=== PATIENT | female | born 1965 | race Caucasian/White ===

== ENCOUNTER 2019-06-09 12:24 | Emergency (ER) | payer BC ==
[~2019-06-09] VITALS: Ht 167.6 cm; Wt 97.5 kg
[2019-06-09] MEDS ORDERED: LIPITOR20 MG PO (13:49)
[2019-06-09] MEDS ORDERED: ZITHROMAX250 MG PO (14:05)
== END 2019-06-09 14:13 | disposition home or self-care (01) ==
LOC: ED 12:24
DX: J32.9 Chronic sinusitis, unspecified (principal); Z88.8 Allergy status to other drugs, medicaments and biological substances; Z88.5 Allergy status to narcotic agent; Z79.899 Other long term (current) drug therapy
CPT/HCPCS: 99283

== ENCOUNTER 2019-08-15 01:03 | Emergency (ER) | payer BC ==
[~2019-08-15] VITALS: Ht 167.6 cm; Wt 97.5 kg
[~2019-08-15 01:03] MED LIST: LIPITOR20 MG PO; ZITHROMAX250 MG PO
== END 2019-08-15 02:45 | disposition home or self-care (01) ==
LOC: ED 01:03
DX: R51 Headache (principal); Z88.8 Allergy status to other drugs, medicaments and biological substances; Z88.5 Allergy status to narcotic agent; Z79.899 Other long term (current) drug therapy
CPT/HCPCS: 70450; 96361; 96374; 96375; 99284-25; J1200; J1885; J2405; J7030

== ENCOUNTER 2019-12-01 17:29 | Emergency (ER) | payer BC ==
[~2019-12-01] VITALS: Ht 167.6 cm; Wt 97.5 kg
--- OUTSIDE RECORDS SUMMARY | ~2019-12-01 | XMS | Encounter Summary ---
Demographics + + + | Address | [address] | | | [place] [address] | + + + | Home Phone | | + + + | Preferred Language | Unknown | + + + | Marital Status | | + + + | Restorationism Affiliation | CHR | + + + | Race | White | + + + | Ethnic Group | Not or | + + + Author + + + | Author | [facility] | + + + | Organization | [facility] | + + + | Address | Unknown | + + + | Phone | Unavailable | + + + Support + + + + + | Name | Relationship | Address | Phone | + + + + + | Osei Bhandari Sr. | ECON | [address] | | | | | [place] | | | | | [address] | | + + + + + Care Team Providers + +------+ + | Care Inspection Clerk Name | Role | Phone | + +------+ + | Royer Wilde MD | PCP | | + +------+ + Reason for Visit + + + | Reason | Comments | + + + | Radiology Order | | + + + Encounter Details +--------+ + + + + | Date | Type | Department | Care Team | Description | +--------+ + + + + | 10/08/ | Telephone | [facility] | Jessica Davis, | Radiology Order | | 2015 | | [facility] [address] | [address] | | | | | [address] | [facility] [address] | | | | | Mailcode: Center | [place], [place] | | | | | [facility] and | [address] | | | | | [facility] | [phone] | | | | | [place], [place] | | | | | | [address] | | | | | | [phone] | | | +--------+ + + + + Social History + + + +--------+ + | Tobacco Use | Types | Packs/Day | Years | Date | | | | | Used | | + + + +--------+ + | Former Smoker | Cigarettes | 1 | 1 | Quit: 07/24/1978 | + + + +--------+ + + +---+---+---+ | Smokeless Tobacco: | | | | | Never Used | | | | + +---+---+---+ + + +---------+ + | Alcohol Use | Drinks/Week | oz/Week | Comments | + + +---------+ + | No | | | | + + +---------+ + + + + | Sex Assigned at | Date Recorded | | | | + + + | Not on file | | + + + + + + + | Job Start Date | Occupation | Industry | + + + + | Not on file | Not on file | Not on file | + + + + + + + + | Travel History | Travel Start | Travel End | + + + + + + | No recent travel history available. | + + documented as of this encounter Plan of Treatment Not on filedocumented as of this encounter Visit Diagnoses Not on filedocumented in this encounter"
--- OUTSIDE RECORDS SUMMARY | ~2019-12-01 | XMS | Encounter Summary ---
Demographics + + + | Address | [address] | | | [place] [address] | + + + | Home Phone | | + + + | Preferred Language | Unknown | + + + | Marital Status | | + + + | Sikh Affiliation | 1077 | + + + | Race | Unknown | + + + | Ethnic Group | Unknown | + + + Author + + + | Author | [facility] | | | and [place] | + + + | Organization | [facility] | | | and [place] | + + + | Address | Unknown | + + + | Phone | Unavailable | + + + Support + + + + + | Name | Relationship | Address | Phone | + + + + + | Osei Woodard | ECON | [address] | | | [place] | | [place] | | | | | [address] | | + + + + + Care Team Providers + +------+ + | Care Online Marketing Director Name | Role | Phone | + +------+ + | Pcp, Prov Inactive | PCP | | + +------+ + Encounter Details +--------+ + + + + | Date | Type | Department | Care Team | Description | +--------+ + + + + | 03/26/ | Emergency | [facility] | Mikala | [facility] of | | 2018 | | [facility] | Zeynep Alston DO [address] | shoulder, initial | | | | EM[facility]Y [facility]ENTER | [place] | encounter; Strain of | | | | [address] | [place] [address] | right trapezius | | | | [place], [place] | [phone] | muscle, initial | | | | [address] | | encounter | | | | [phone] | | | +--------+ + + + + Social History + +-------+ +--------+------+ | Tobacco Use | Types | Packs/Day | Years | Date | | | | | Used | | + +-------+ +--------+------+ | Never Smoker | | | | | + +-------+ +--------+------+ + + +---------+ + | Alcohol Use | Drinks/Week | oz/Week | Comments | + + +---------+ + | No | | | NEVER | + + +---------+ + + + [...] + + documented as of this encounter Last Filed Vital Signs + + + + + | Vital Sign | Reading | Time Taken | Comments | + + + + + | Blood Pressure | 154/72 | 03/26/2018 9:40 AM | | | | | PDT | | + + + + + | Pulse | 71 | 03/26/2018 9:40 AM | | | | | PDT | | + + + + + | Temperature | 36.3 C (97.3 F) | 03/26/2018 9:40 AM | | | | | PDT | | + + + + + | Respiratory Rate | 18 | 03/26/2018 9:40 AM | | | | | PDT | | + + + + + | Oxygen Saturation | - | - | | + + + + + | Inhaled Oxygen | - | - | | | Concentration | | | | + + + + + | Weight | 111.1 kg (244 lb | 03/26/2018 9:40 AM | | | | 14.9 oz) | PDT | | + + + + + | Height | - | - | | + + + + + | Body Mass Index | 39.53 | 07/26/2017 12:43 AM | | | | | PST | | + + + + + documented in this encounter Functional Status + + + + | Functional Status | Response | Date of Assessment | + + + + | Are you deaf or do you have serious | No | 04/24/2015 | | difficulty hearing? | | | + + + + | Are you blind or do you have serious | No | 04/24/2015 | | difficulty seeing, even when wearing | | | | glasses? | | | + + + + | Do you have serious difficulty walking or | No | 04/24/2015 | | climbing stairs? (5 years old or older) | | | + + + + | Do you have difficulty dressing or bathing? | No | 04/24/2015 | | (5 years old or older) | | | + + + + | Because of a physical, mental, or emotional | No | 04/24/2015 | | condition, do you have difficulty doing | | | | errands alone such as visiting a doctor's | | | | office or shopping? [15 years old or | | | | older)] | | | + + + + + + + + | Cognitive Status | Response | Date of Assessment | + + + + | Because of a physical, mental, or emotional | No | 04/24/2015 | | condition, do you have serious difficulty | | | | concentrating, remembering, or making | | | | decisions? (5 years old or older) | | | + + + + documented as of this encounter Medications at Time of Discharge + + + +---------+ + + | Medication | Sig | Dispensed | Refills | Start | End Date | | | | | | Date | | + + + +---------+ + + | albuterol 90 | 2 puffs. | | 0 | 12/21/19 | | | mcg/puff inhaler | | | | 16 | | + + + +---------+ + + | atorvaSTATin | TK 1 T PO QD | | 0 | 06/20/20 | | | (LIPITOR) 10 mg | | | | 17 | | | tablet | | | | | | + + + +---------+ + + | B Complex Vitamins | Place under the | | 0 | | | | (B-COMPLEX/B-12 SL) | tongue. | | | | | + + + +---------+ + + | bisacodyl | Take 4 tablets once | 4 | 0 | 11/27/19 | | | (BISACODYL LAXATIVE) | at 12:00pm noon the | tablet | | 14 | | | 5 mg EC | day before procedure | | | | | | tabletIndications: | | | | | | | Encounter for | | | | | | | screening | | | | | | | colonoscopy | | | | | | + + + +---------+ + + | | Take 1 tablet by | | 0 | 05/14/20 | | | butalbital-acetamino | mouth every 6 hours | | | 15 | | | phen-caffeine | as needed for Pain | | | | | | 50-325-40 mg per | or Headaches. | | | | | | tablet | | | | | | + + + +---------+ + + | calcium | Take 2 Tabs by mouth | | 0 | 05/25/20 | | | citrate-vitamin D3 | two times daily. | | | 12 | | | (CITRACAL | Start 2 weeks after | | | | | | PETITES/VITAMIN D) | surgery. | | | | | | 200-250 mg-unit | Indications: | | | | | | tablet | HYPOCALCEMIA | | | | | + + + +---------+ + + | calcium-vitamin D | Take 1 tablet by | | 0 | | | | 600 mg-200 units per | mouth Daily. | | | | | | tablet | | | | | | + + + +---------+ + + | cholecalciferol | 3000 units once a | | 0 | 10/01/19 | | | (VITAMIN D-3) 1,000 | day | | | 11 | | | units capsule | | | | | | + + + +---------+ + + | Cholecalciferol | Take by mouth. | | 0 | | | | (VITAMIN D3) 1999 | | | | | | | UNITS CAPS | | | | | | + + + +---------+ + + | cyanocobalamin | Take by mouth. | | 0 | 05/25/20 | | | (VITAMIN B-12) 500 | | | | 12 | | | mcg tablet | | | | | | + + + +---------+ + + | Multiple | Take by mouth. | | 0 | | | | Vitamins-Minerals | | | | | | | (CENTRUM SILVER | | | | | | | ADULT 50+ PO) | | | | | | + + + +---------+ + + | omeprazole | Take 1 capsule by | 30 | 0 | 04/24/20 | | | (PRILOSEC) 20 mg | mouth every morning | capsule | | 15 | | | capsule | (before breakfast). | | | | | + + + +---------+ + + | Pediatric Multiple | Take 1 Tab by mouth | | 0 | 05/25/20 | | | Vit-C-FA (CHILDRENS | two times daily. | | | 12 | | | CHEWABLE VITAMINS) | | | | | | | CHEW | | | | | | + + + +---------+ + + | promethazine | 25 mg. 1-2 by mouth | | 0 | 11/04/19 | | | (PHENERGAN) 12.5 MG | every 8 hours as | | | 07 | | | tablet | needed for | | | | | | | nausea/vomiting | | | | | + + + +---------+ + + | triamcinolone | 2 sprays by Each | | 0 | 12/19/19 | | | (NASACORT) 55 | Nare route Daily. | | | 15 | | | mcg/nasal spray | | | | | | + + + +---------+ + + | zoster live, PF, | Inject under the | | 0 | 05/14/20 | | | (ZOSTAVAX) 19,400 | skin once for 1 dose | | | 15 | | | units/0.65 mL | | | | | | | vaccine injection | | | | | | + + + +---------+ + + documented as of this encounter Plan of Treatment Not on filedocumented as of this encounter Procedures + +--------+ + + + | Procedure Name | Priori | Date/Time | Associated Diagnosis | Comments | | | ty | | | | + +--------+ + + + | XR SHOULDER RIGHT 2 | Routin | 03/26/2018 | | Results for this | | + VW | e | 10:55 AM | | procedure are in the | | | | PDT | | results section. | + +--------+ + + + documented in this encounter Results XR Shoulder Right 2 + Vw (03/26/2018 10:55 AM PDT) + + | Specimen | + + | | + + + + + | Impressions | Performed At | + + + | 1. No acute findings in the shoulder. 2. Minimal DJD of the AC | | | joint. 3. Calcific tendinitis seen at the tendon insertions of the | | | supraspinatus and infraspinatus at the greater tuberosity of the | | | humerus. | | | 12:26 PM | | + + + + + + | Narrative | Performed At | + + + | [facility] XR SHOULDER RIGHT 03/26/2018 10:55 AM HISTORY: | | | 52 years. Female. Right shoulder injury. TECHNIQUE: XR | | | SHOULDER RIGHT. 4 view(s) obtained. COMPARISON: None | | | FINDINGS: The regional osseous structures demonstrate normal | | | mineralization and trabeculation. No fracture, dislocation or | | | subluxation is noted. The acromioclavicular joint shows minimal | | | degenerative change. The glenohumeral joint is normal. No soft | | | tissue swelling is seen. The visualized portions of the lung and rib | | | cage are normal. Calcific tendinitis of the supraspinatus and | | | infraspinatus tendons noted at their attachment at the greater | | | tuberosity. | | + + + + + | Procedure Note | + + | Yousuf Garcia Conversion - 03/06/2019 1:30 PM TRAN BHANDARIXR SHOULDER RIGHT03/26/2018 | | 10:55 AM HISTORY:52 years. Female. Right shoulder injury. TECHNIQUE:XR SHOULDER | | RIGHT. 4 view(s) obtained. COMPARISON:None FINDINGS:The regional osseous structures | | demonstrate normal mineralization and trabeculation.No fracture, dislocation or | | subluxation is noted.The acromioclavicular joint shows minimal degenerative change. The | | glenohumeral joint is normal.No soft tissue swelling is seen.The visualized portions of | | the lung and rib cage are normal.Calcific tendinitis of the supraspinatus and | | infraspinatus tendons noted at their attachment at the greater tuberosity. IMPRESSION: | | 1. No acute findings in the shoulder.2. Minimal DJD of the AC joint.3. Calcific | | tendinitis seen at the tendon insertions of the supraspinatus and infraspinatus at the | | greater tuberosity of the humerus. Electronically signed by Evan Sun DO on | | 03/26/2018 12:26 PM | | | |FINDINGS: | |The regional osseous structures demonstrate normal mineralization and trabeculation. | |No fracture, dislocation or subluxation is noted. | |The acromioclavicular joint shows minimal degenerative change. The glenohumeral joint is n ormal. | |No soft tissue swelling is seen. | |The visualized portions of the lung and rib cage are normal. | |Calcific tendinitis of the supraspinatus and infraspinatus tendons noted at their attachmen t at the greater tuberosity. | | | |IMPRESSION: | |1. No acute findings in the shoulder. | |2. Minimal DJD of the AC joint. | |3. Calcific tendinitis seen at the tendon insertions of the supraspinatus and infraspinatu s at the greater tuberosity of the humerus. | | | | | + + documented in this encounter Visit Diagnoses + + | Diagnosis | + + | Strain of right shoulder, initial encounter | + + | Strain of right trapezius muscle, initial encounter | + + documented in this encounter"
--- OUTSIDE RECORDS SUMMARY | ~2019-12-01 | XMS | Encounter Summary ---
Demographics + + + | Address | [address] | | | [place] [address] | + + + | Home Phone | | + + + | Preferred Language | Unknown | + + + | Marital Status | | + + + | Nondenominational Affiliation | CHR | + + + | Race | White | + + + | Ethnic Group | Not or | + + + Author + + + | Author | [facility] | + + + | Organization | [facility] | + + + | Address | Unknown | + + + | Phone | Unavailable | + + + Support + + + + + | Name | Relationship | Address | Phone | + + + + + | Osei Bhandari Sr. | ECON | [address] | | | | | [place] | | | | | [address] | | + + + + + Care Team Providers + +------+ + | Care Billing Typist Name | Role | Phone | + +------+ + | Royer Wilde MD | PCP | | + +------+ + Encounter Details +--------+ + + + + | Date | Type | Department | Care Team | Description | +--------+ + + + + | 11/30/ | Abstract | [facility] | Jessica Davis, | | | 2011 | | [facility] [address] | [employer] [employer] | | | | | [address] | , [address] | | | | | Mailcode: Center | [place], [place] | | | | | for Health and | [address] | | | | | Healing, [address] | [phone] | | | | | [place], [place] | | | | | | [address] | | | | | | [phone] | | | +--------+ + + + + Social History + +-------+ +--------+ + | Tobacco Use | Types | Packs/Day | Years | Date | | | | | Used | | + +-------+ +--------+ + | Former Smoker | | | 1 | Quit: 07/24/1978 | + +-------+ +--------+ + + + +---------+ + | Alcohol Use [...]
--- OUTSIDE RECORDS SUMMARY | ~2019-12-01 | XMS | Encounter Summary ---
Demographics + + + | Address | [address] | | | [place] [address] | + + + | Home Phone | | + + + | Preferred Language | Unknown | + + + | Marital Status | | + + + | Evangelical Affiliation | CHR | + + + | Race | White | + + + | Ethnic Group | Not or | + + + Author + + + | Author | [facility] | + + + | Organization | [facility] | + + + | Address | Unknown | + + + | Phone | Unavailable | + + + Support + + + + + | Name | Relationship | Address | Phone | + + + + + | Osei Bhandari Sr. 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
--- OUTSIDE RECORDS SUMMARY | ~2019-12-01 | XMS | Encounter Summary ---
Demographics + + + | Address | [address] | | | [place] [address] | + + + | Home Phone | | + + + | Preferred Language | Unknown | + + + | Marital Status | | + + + | Holiness Affiliation | 1077 | + + + | Race | Unknown | + + + | Ethnic Group | Unknown | + + + Author + + + | Author | [facility] | | | and [place] | + + + | Organization | [facility] | | | and [place] | + + + | Address | Unknown | + + + | Phone | Unavailable | + + + Support + + + + + | Name | Relationship | Address | Phone | + + + + + | Osei Woodard | ECON | [address] | | | [place] | | [place] | | | | | [address] | | + + + + + Care Team Providers + +------+ + | Care Hoop Riveting Machine Operator Name | Role | Phone | + +------+ + | Pcp, Prov Inactive | PCP | | + +------+ + Encounter Details +--------+ + + + + | Date | Type | Department | Care Team | Description | +--------+ + + + + | 10/02/ | Emergency | [facility] | Arnav Hernandez MD | Right shoulder | | 2017 | | [facility] | [address] | strain, initial | | | | EMERGENCY CENTER | [place] [address] | encounter | | | | [address] | [phone] | | | | | [place], [place] | | | | | | [address] | | | | | | [phone] | | | +--------+ + + + [...] + + + | Blood Pressure | 153/78 | 10/02/2016 1:22 PM | | | | | PDT | | + + + + + | Pulse | 93 | 10/02/2016 1:22 PM | | | | | PDT | | + + + + + | Temperature | 37.1 C (98.7 F) | 10/02/2016 1:22 PM | | | | | PDT | | + + + + + | Respiratory Rate | 18 | 10/02/2016 1:22 PM | | | | | PDT | | + + + + + | Oxygen Saturation | - | - | | + + + + + | Inhaled Oxygen | - | - | | | Concentration | | | | + + + + + | Weight | 106.6 kg (235 lb 0.2 | 10/02/2016 1:22 PM | | | | oz) | PDT | | + + + + + | Height | - | - | | + + + + + | Body Mass Index | 37.93 | 02/10/2016 2:17 PM | | | | | PDT | [...] | 2 puffs. | | 0 | 05/30/20 | | | mcg/puff inhaler | | [...] units once a | | 0 | // | | | (VITAMIN D-3) 1,000 | day | | | 11 | | | units capsule | | | | | | + + + +---------+ + + | Cholecalciferol | Take by mouth. | | 0 | | | | (VITAMIN D3) 2000 | | | | | | | [...] filedocumented as of this encounter Visit Diagnoses + + | Diagnosis | + + | Right shoulder strain, initial encounter | + + documented in this encounter"
--- OUTSIDE RECORDS SUMMARY | ~2019-12-01 | XMS | Encounter Summary ---
Demographics + + + | Address | [address] | | | [place] [address] | + + + | Home Phone | | + + + | Preferred Language | Unknown | + + + | Marital Status | | + + + | Scientologist Affiliation | CHR | + + + | Race | White | + + + | Ethnic Group | Not or | + + + Author + + + | Author | [facility] | + + + | Organization | [facility] | + + + | Address | Unknown | + + + | Phone | Unavailable | + + + Support + + + + + | Name | Relationship | Address | Phone | + + + + + | Osei Bhandari Sr. | ECON | [address] | | | | | [place] | | | | | [address] | | + + + + + Care Team Providers + +------+ + | Care Television Maintenance Man Name | Role | Phone | + +------+ + | Royer Wilde MD | PCP | | + +------+ + Encounter Details +--------+------+ + + + | Date | Type | Department | Care Team | Description | +--------+------+ + + + | 11/29/ | Lab | Laboratory at [facility] | | S/P partial | | 2012 | | [address] | | gastrectomy; B12 | | | | [place], [place] | | nutritional | | | | [address] | | deficiency; Vitamin | | | | [phone] | | deficiency | +--------+------+ + + + Social History + + [...] | + +--------+ + + + | CBC ONLY | Routin | 11/29/2012 | S/P partial | Results for this | | | e | 10:37 AM | gastrectomy B12 | procedure are in the | | | | PDT | nutritional | results section. | | | | | deficiency Vitamin | | | | | | deficiency | | + +--------+ + + + | VITAMIN B1, WHOLE | Routin | 11/29/2012 | S/P partial | Results for this | | BLOOD | e | 10:37 AM | gastrectomy B12 | procedure are in the | | | | PDT | nutritional | results section. | | | | | deficiency Vitamin | | | | | | deficiency | | + +--------+ + + + | VITAMIN D, | Routin | 11/29/2012 | S/P partial | Results for this | | 25-HYDROXY, SERUM | e | 10:37 AM | gastrectomy B12 | procedure are in the | | | | PDT | nutritional | results section. | | | | | deficiency Vitamin | | | | | | deficiency | | + +--------+ + + + | COMPLETE METABOLIC | Routin | 11/29/2012 | S/P partial | Results for this | | SET | e | 10:37 AM | gastrectomy B12 | procedure are in the | | (NA,K,CL,CO2,BUN,CRE | | PDT | nutritional | results section. | | AT,GLUC,CA,AST,ALT,B | | | deficiency Vitamin | | | AMBERLY TOTAL,ALK | | | deficiency | | | PHOS,ALB,PROT TOTAL) | | | | | + +--------+ + + + | CBC ONLY | Routin | 11/29/2012 | S/P partial | Results for this | | | e | 10:37 AM | gastrectomy B12 | procedure are in the | | | | PDT | nutritional | results section. | | | | | deficiency Vitamin | | | | | | deficiency | | + +--------+ + + + | FERRITIN | Routin | 11/29/2012 | S/P partial | Results for this | | | e | 10:37 AM | gastrectomy B12 | procedure are in the | | | | PDT | nutritional | results section. | | | | | deficiency Vitamin | | | | | | deficiency | | + +--------+ + + + | PTH, SERUM | Routin | 11/29/2012 | S/P partial | Results for this | | | e | 10:37 AM | gastrectomy B12 | procedure are in the | | | | PDT | nutritional | results section. | | | | | deficiency Vitamin | | | | | | deficiency | | + +--------+ + + + | FOLATE, SERUM | Routin | 11/29/2012 | S/P partial | Results for this | | | e | 10:37 AM | gastrectomy B12 | procedure are in the | | | | PDT | nutritional | results section. | | | | | deficiency Vitamin | | | | | | deficiency | | + +--------+ + + + | VITAMIN B-12 | Routin | 11/29/2012 | S/P partial | Results for this | | | e | 10:37 AM | gastrectomy B12 | procedure are in the | | | | PDT | nutritional | results section. | | | | | deficiency Vitamin | | | | | | deficiency | | + +--------+ + + + | IRON AND TIBC, SERUM | Routin | 11/29/2012 | S/P partial | Results for this | | | e | 10:37 AM | gastrectomy B12 | procedure are in the | | | | PDT | nutritional | results section. | | | | | deficiency Vitamin | | | | | | deficiency | | + +--------+ + + + documented in this encounter Results CBC (11/29/2012 10:37 AM PDT) + + + + + + | Component | Value | Ref Range | Performed | Pathologist | | | | | At | Signature | + + + + + + | WBC COUNT | 7.1 | 4.4 - 11.0 K/cu | [facility] | | | | | mm | LABORATORY | | | | | | SERVICES, | | | | | | CORE | | + + + + + + | RED CELL | 4.07 | 4.00 - 5.20 | [facility] | | | COUNT | | M/cu mm | LABORATORY | | | | | | SERVICES, | | | | | | CORE | | + + + + + + | HEMOGLOBIN | 12.4 | 12.0 - 16.0 | [facility] | | | | | g/dL | LABORATORY | | | | | | SERVICES, | | | | | | CORE | | + + + + + + | HEMATOCRIT | 37.4 | 36.0 - 46.0 % | [facility] | | | | | | LABORATORY | | | | | | SERVICES, | | | | | | CORE | | + + + + + + | MCV | 91.9 | 80.0 - 96.0 fL | [facility] | | | | | | LABORATORY | | | | | | SERVICES, | | | | | | CORE | | + + + + + + | MCHC | 33.2 (L) | 33.4 - 35.5 | [facility] | | | | | g/dL | LABORATORY | | | | | | SERVICES, | | | | | | CORE | | + + + + + + | RDW | 13.4 | 11.5 - 15.0 % | [facility] | | | | | | LABORATORY | | | | | | SERVICES, | | | | | | CORE | | + + + + + + | PLATELET | 242 | 150 - 400 K/cu | [facility] | | | COUNT | | mm | LABORATORY | | | | | | SERVICES, | | | | | | CORE | | + + + + + + + + | Specimen | + + | Blood - Blood | + + + + + + + | Performing | Address | City/State/Zipcode | Phone Number | | Organization | | | | + + + + + | [employer] | [address] | [place] [address] | | | SERVICES, CORE | [address] | | | + + + + + FOLATE, SERUM (11/29/2012 10:37 AM PDT) + +-------+ + + + | Component | Value | Ref Range | Performed | Pathologist | | | | | At | Signature | + +-------+ + + + | FOLATE,SERU | 18.2 | 6.0 - 32.0 | [facility] | | | M | | ng/mL | LABORATORY | | | | | | SERVICES, | | | | | | SPECIAL IMM | | | | | | + COAG | | + +-------+ + + + + + | Specimen | + + | Blood - Blood | + + + + + | Narrative | Performed At | + + + | New reference range and methodology effective 09/03/12. | [facility] | | | LABORATORY | | | SERVICES, | | | SPECIAL IMM + | | | COAG | + + + + + + + + | Performing | Address | City/State/Zipcode | Phone Number | | Organization | | | | + + + + + | [facility] | [address] | [place] [address] | | | SERVICES, SPECIAL | [address] | | | | IMM + COAG | | | | + + + + + VITAMIN B-12, SERUM (11/29/2012 10:37 AM PDT) + + + + + + | Component | Value | Ref Range | Performed | Pathologist | | | | | At | Signature | + + + + + + | VITAMIN B12 | 1,078 (H) | 190 - 910 pg/ml | [facility] | | | | | | LABORATORY | | | | | | SERVICES, | | | | | | SPECIAL IMM | | | | | | + COAG | | + + + + + + + + | Specimen | + + | Blood - Blood | + + + + + | Narrative | Performed At | + + + | New reference range and methodology effective 09/03/12. | [facility] | | | LABORATORY | | | SERVICES, | | | SPECIAL IMM + | | | COAG | + + + + + + + + | Performing | Address | City/State/Zipcode | Phone Number | | Organization | | | | + + + + + | [facility] | [address] | [place] [address] | | | SERVICES, SPECIAL | [address] | | | | IMM + COAG | | | | + + + + + VITAMIN B1, WHOLE BLOOD (11/29/2012 10:37 AM PDT) + + + + + + | Component | Value | Ref Range | Performed | Pathologist | | | | | At | Signature | + + + + + + | VITAMIN B1, | 131Comment: INTERPRETIVE | 70 - 180 nmol/L | [facility] | | | WHOLE | INFORMATION: Vitamin | | REG UNIV | | | BLOOD | B1, Whole Blood The | | PTH - [facility] | | | | concentration of | | | | | | thiamine diphosphate | | | | | | (TDP), theprimary active | | | | | | form of vitamin B1, is | | | | | | measured in thisassay. | | | | | | Approximately 90% of | | | | | | vitamin B1 present in | | | | | | wholeblood is TDP. | | | | | | Thiamine and thiamine | | | | | | monophosphate, | | | | | | whichcomprise the | | | | | | remaining 10%, are not | | | | | | measured.Performed by | | | | | | [facility],[address] | | | | | | [facility], [facility] [place] | | | | | | [address] | | | | | | [phone] | | | | | | [facility], [place], | | | | | | , Lab. Director | | | | + + + + + + + + | Specimen | + + | Blood - Blood | + + + + + + + | Performing | Address | City/State/Zipcode | Phone Number | | Organization | | | | + + + + + | [facility] | [address] | [place], [place] | | | UNIV P[facility] | | [address] | | + + + + + FERRITIN, SERUM (11/29/2012 10:37 AM PDT) + +---------+ + + + | Component | Value | Ref Range | Performed | Pathologist | | | | | At | Signature | + +---------+ + + + | FERRITIN | 348 (H) | 50 - 200 ug/L | [facility] | | | | | | LABORATORY | | | | | | SERVICES, | | | | | | CORE | | + +---------+ + + + + + | Specimen | + + | Blood - Blood | + + + + + | Narrative | Performed At | + + + | <20 ug/L: Consistent with iron deficiency | [facility] | | 21-50 ug/L: Possible Iron deficiency | LABORATORY | | 51-99 ug/L: Iron deficiency | SERVICES, CORE | | unlikely unless inflammation present or patient >65 years of age. | | | | | | 100-200 ug/L: Normal, not consistent with iron deficiency | | | >200 ug/L: If transferrin saturation >45%, consider | | | hemochromatosis. | | + + + + + + + + | Performing | Address | City/State/Zipcode | Phone Number | | Organization | | | | + + + + + | [facility] | [address] | [place] [address] | | | SERVICES, CORE | [address] | | | + + + + + IRON AND TIBC, SERUM (11/29/2012 10:37 AM PDT) + +--------+ + + + | Component | Value | Ref Range | Performed | Pathologist | | | | | At | Signature | + +--------+ + + + | IRON | 59 | 30 - 160 ug/dL | [facility] | | | | | | LABORATORY | | | | | | SERVICES, | | | | | | CORE | | + +--------+ + + + | IRON BIND | 308 | 240 - 450 ug/dL | [facility] | | | CAP | | | LABORATORY | | | | | | SERVICES, | | | | | | CORE | | + +--------+ + + + | % | 19 (L) | 20 - 50 % | [facility] | | | SATURATION | | | LABORATORY | | | TRANSFERRIN | | | SERVICES, | | | , | | | CORE | | + +--------+ + + + + + | Specimen | + + | Blood - Blood | + + + + + + + | Performing | Address | City/State/Zipcode | Phone Number | | Organization | | | | + + + + + | [facility] | [address] | [place] [address] | | | SERVICES, CORE | [address] | | | + + + + + PTH, SERUM (11/29/2012 10:37 AM PDT) + +-------+ + + + | Component | Value | Ref Range | Performed | Pathologist | | | | | At | Signature | + +-------+ + + + | PARATHYROID | 63.8 | 15.0 - 85.0 | [facility] | | | . INTACT | | pg/ml | LABORATORY | | | | | | SERVICES, | | | | | | SPECIAL IMM | | | | | | + COAG | | + +-------+ + + + + + | Specimen | + + | Blood - Blood | + + + + + | Narrative | Performed At | + + + | New reference range and methodology effective 09/03/12. | [facility] | | | LABORATORY | | | SERVICES, | | | SPECIAL IMM + | | | COAG | + + + + + + + + | Performing | Address | City/State/Zipcode | Phone Number | | Organization | | | | + + + + + | [facility] | [address] | [place] [address] | | | SERVICES, SPECIAL | [address] | | | | IMM + COAG | | | | + + + + + VITAMIN D, 25-HYDROXY, SERUM (11/29/2012 10:37 AM PDT) + +-------+ + + + | Component | Value | Ref Range | Performed | Pathologist | | | | | At | Signature | + +-------+ + + + | VITAMIN D | 50.1 | 30 - 80 ng/mL | [facility] | | | 25 HYDROXY | | | LABORATORY | | | | | | SERVICES, | | | | | | SPECIAL IMM | | | | | | + COAG | | + +-------+ + + + + + | Specimen | + + | Blood - Blood | + + + + + | Narrative | Performed At | + + + | REFERENCE INTERVAL: Vitamin D, 25-Hydroxy 0-17years: | [facility] | | Deficiency: less than 20 ng/mL Optimum level: | LABORATORY | | greater than or equal to 20 ng/mL* | SERVICES, | | *(Steiner CL et al. Pediatrics 2008; 122:1128-38.) 18 | SPECIAL IMM + | | years and older: Deficiency: less than 20 | COAG | | ng/mL Insufficiency: 20-29 ng/mL | | | Optimum Level: 30-80 ng/mL High: | | | 81-150 ng/ml Toxic: Greater than | | | 150 ng/mL This assay accurately quantifies the sum of Vitamin D3 | | | 25-hydroxy and Vitamin D2, 25-hydroxy. | | + + + + + + + + | Performing | Address | City/State/Zipcode | Phone Number | | Organization | | | | + + + + + | [facility] | [address] | [place] [address] | | | SERVICES, SPECIAL | [address] | | | | IMM + COAG | | | | + + + + + COMPLETE METABOLIC SET (NA,K,CL,CO2,BUN,CREAT,GLUC,CA,AST,ALT,BILI TOTAL,ALK PHOS,ALB,PROT TOTAL) (11/29/2012 10:37 AM PDT) + + + + + + | Component | Value | Ref Range | Performed | Pathologist | | | | | At | Signature | + + + + + + | GLUCOSE, | 76 | 60 - 99 mg/dL | [facility] | | | PLASMA | | | LABORATORY | | | (LAB) | | | SERVICES, | | | | | | CORE | | + + + + + + | BUN, PLASMA | 8 | 6 - 20 mg/dL | [facility] | | | (LAB) | | | LABORATORY | | | | | | SERVICES, | | | | | | CORE | | + + + + + + | CREATININE | 0.58 (L) | 0.60 - 1.10 | [facility] | | | PLASMA | | mg/dL | LABORATORY | | | (LAB) | | | SERVICES, | | | | | | CORE | | + + + + + + | EGFR | >60 | >60 mL/min | [facility] | | | - | | | LABORATORY | | | SENEGALESE | | | SERVICES, | | | | | | CORE | | + + + + + + | EGFR NON | >60 | >60 mL/min | [facility] | | | -MOHIDNER | | | LABORATORY | | | RICAN | | | SERVICES, | | | | | | CORE | | + + + + + + | SODIUM, | 146 (H) | 136 - 145 | [facility] | | | PLASMA | | mmol/L | LABORATORY | | | (LAB) | | | SERVICES, | | | | | | CORE | | + + + + + + | POTASSIUM, | 3.6 | 3.4 - 5.0 | [facility] | | | PLASMA | | mmol/L | LABORATORY | | | (LAB) | | | SERVICES, | | | | | | CORE | | + + + + + + | CHLORIDE, | 109 (H) | 97 - 108 mmol/L | [facility] | | | PLASMA | | | LABORATORY | | | (LAB) | | | SERVICES, | | | | | | CORE | | + + + + + + | TOTAL CO2, | 30 | 21 - 32 mmol/L | [facility] | | | PLASMA | | | LABORATORY | | | (LAB) | | | SERVICES, | | | | | | CORE | | + + + + + + | CALCIUM, | 9.1 | 8.6 - 10.2 | [facility] | | | PLASMA | | mg/dL | LABORATORY | | | (LAB) | | | SERVICES, | | | | | | CORE | | + + + + + + | BILIRUBIN | 0.4 | 0.3 - 1.2 mg/dL | [facility] | | | TOTAL | | | LABORATORY | | | | | | SERVICES, | | | | | | CORE | | + + + + + + | TOTAL | 6.9 | 6.4 - 8.2 g/dL | [facility] | | | PROTEIN, | | | LABORATORY | | | PLASMA | | | SERVICES, | | | (LAB) | | | CORE | | + + + + + + | ALBUMIN, | 3.7 | 3.5 - 4.7 g/dL | [facility] | | | PLASMA | | | LABORATORY | | | (LAB) | | | SERVICES, | | | | | | CORE | | + + + + + + | ALK PHOS | 89 | 42 - 98 U/L | [facility] | | | | | | LABORATORY | | | | | | SERVICES, | | | | | | CORE | | + + + + + + | AST(SGOT) | 18 | 15 - 41 U/L | [facility] | | | | | | LABORATORY | | | | | | SERVICES, | | | | | | CORE | | + + + + + + | ALT (SGPT) | 21 | 12 - 60 U/L | [facility] | | | | | | LABORATORY | | | | | | SERVICES, | | | | | | CORE | | + + + + + + | ANION | 7 | 4 - 11 mmol/L | [facility] | | | GAP(ALB | | | LABORATORY | | | CORRECTED) | | | SERVICES, | | | | | | CORE | | + + + + + + | POTASSIUM | No Hemo | | [facility] | | | CMNT | | | LABORATORY | | | | | | SERVICES, | | | | | | CORE | | + + + + + + | BILI T CMNT | No Hemo | | [facility] | | | | | | LABORATORY | | | | | | SERVICES, | | | | | | CORE | | + + + + + + | AST CMNT | No Hemo | | [facility] | | | | | | LABORATORY | | | | | | SERVICES, | | | | | | CORE | | + + + + + + | ANION GAP | 7 | mmol/L | [facility] | | | | | | LABORATORY | | | | | | SERVICES, | | | | | | CORE | | + + + + + + + + | Specimen | + + | Blood - Blood | + + + + + | Narrative | Performed At | + + + | GFR is estimated using the MDRD equation recommended by the | [facility] | | National Kidney Disease Education Program. Estimated GFR | LABORATORY | | Interpretive Information: <60 mL/min/1.73 sq m | SERVICES, CORE | | Chronic Kidney Disease <15 mL/min/1.73 sq m | | | Kidney Failure Estimated GFR greater that 60 mL/min/1.73 sq m is of | | | limited clinical value. The MDRD equation is not valid in the | | | following situations: - Patients under 18 years of age - Severe | | | malnutrition or obesity - Vegetarian diet - Rapidly changing kidney | | | function | | + + + + + + + + | Performing | Address | City/State/Zipcode | Phone Number | | Organization | | | | + + + + + | [facility] | [address] | [place] [address] | | | [address] | [address] | | | + + + + + documented in this encounter Visit Diagnoses + + | Diagnosis | + + | S/P partial gastrectomy Other postprocedural status | + + | B12 nutritional deficiency Other B-complex deficiencies | + + | Vitamin deficiency Unspecified vitamin deficiency | + + documented in this encounter"
--- OUTSIDE RECORDS SUMMARY | ~2019-12-01 | XMS | Encounter Summary ---
Demographics + + + | Address | [address] | | | [place] [address] | + + + | Home Phone | | + + + | Preferred Language | Unknown | + + + | Marital Status | | + + + | Amish Affiliation | 1077 | + + + | Race | Unknown | + + + | Ethnic Group | Unknown | + + + Author + + + | Author | [facility] | | | and [place] | + + + | Organization | [facility] | | | and [place] | + + + | Address | Unknown | + + + | Phone | Unavailable | + + + Support + + + + + | Name | Relationship | Address | Phone | + + + + + | Osei Woodard | ECON | [address] | | | [place] | | [place] | | | | | [address] | | + + + + + Care Team Providers + +------+ + | Care Coil Placer Name | Role | Phone | + +------+ + | Pcp, Prov Inactive | PCP | | + +------+ + Encounter Details +--------+ + + + + | Date | Type | Department | Care Team | Description | +--------+ + + + + | 09/15/ | Hospital | [facility] | Conversion | Asymptomatic | | 2017 | Encounter | CENTER OPI DEXA | Transaction, | menopausal state | | | | [address] | Provider Unknown | | | | | [address] [place], [place] | [phone] | | | | | [address] | | | | | | [phone] | Nicole Chen, | | | | | | ANP [address] | | | | | | [address] | | | | | | [address] [place], [place] | | | | | | [address] | | | | | | | | +--------+ + + + [...] + + documented as of this encounter Functional Status + + + [...] units once a | | 0 | 03/10/20 | | | (VITAMIN D-3) 1,000 | [...] | + +--------+ + + + | DEXA BONE DENSITY | Routin | 09/15/2016 | | Results for this | | STUDY PATSY CAMARILLO | adeline | 8:50 AM | | procedure are in the | | ASSESSMENT | | PST | | results section. | + +--------+ + + + documented in this encounter Results DEXA Bone Density patsy Monahan (09/15/2016 8:50 AM PST) + + | Specimen | + + | | + + + + + | Impressions | Performed At | + + + | 1. Bone density measurements of the lumbar spine consistent with | | | normal bone density. 2. Bone density measurements of the left hip | | | consistent with normal bone density. A normal bone density | | | indicates that there is no increased risk of fracture. Preventative | | | measures such as weightbearing exercise and adequate dietary calcium | | | intake should be continued. Followup assessment in 24 months should be | | | considered NOTE: Assessment involves low resolution imaging | | | designed to assess for vertebral compression fractures only. * * * | | | World Health Organization Diagnostic Clarification of Osteoporosis | | | Normal Diagnosis: t-score 0.0 to -1.0 Osteopenia Diagnosis: t-score | | | -1.0 to -2.5 Osteoporosis Diagnosis: t-score -2.5 to -5.0 | | | Severe Osteoporosis Diagnosis: -2.5 to -5.0 plus clinical fracture | | | * The T score represents how many standard deviations by which the | | | patient's bone mass differs from the young normal (age 30) sex-matched | | | reference standard. The Z score is the standard deviation difference | | | as compared with an age and sex-matched reference standard (average | | | for age). The Z score is not used in the diagnostic classification. | | | Read by George Banegas MD on 09/15/2016 12:43 PM | | | | | + + + + + + | Narrative | Performed At | + + + | BONE DENSITOMETRY 09/15/2016 8:50 AM HISTORY The patient is a | | | 51 year old postmenopausal female. The patient reports to have taken | | | Glucocorticoids. The patient also reports of having Asthma. The | | | patient does not perform weightbearing exercise and does not consume | | | dairy products regularly. COMPARISON No priors are available for | | | comparison. TECHNIQUE A bone mineral analysis was performed on | | | the lumbar spine. The patient was scanned in the anterior projection | | | and wwhcaj-nt-atrvmtoa values were drawn about the vertebral segments | | | of L1 through L4 at the levels where accurate assessment was possible. | | | A bone mineral analysis was also performed on the left hip with | | | ydwzyv-zw-egdoywfn areas including the femoral neck measured. From | | | this data, a T score and a Z score were calculated. FINDINGS The | | | AP lumbar and left hip scans are technically adequate. Date of | | | Study: 09/15/2016 8:50 AM L1-L4 Vertebral Bodies BMD 1.141, t-score | | | 0.9, z-score 1.8 PROXIMAL LEFT FEMUR BMD 1.211, t-score | | | 2.2, z-score 2.8 | | + + + + + | Procedure Note | + + | Jose, Rad Conversion - 03/07/2019 5:06 AM PDT BONE DENSITOMETRY 09/15/2016 8:50 AM | | HISTORYThe patient is a 51 year old postmenopausal female. The patient reports to have | | taken Glucocorticoids. The patient also reports of having Asthma. The patient does not | | perform weightbearing exercise and does not consume dairy products regularly. | | COMPARISONNo priors are available for comparison. TECHNIQUEA bone mineral analysis was | | performed on the lumbar spine. The patient was scanned in the anterior projection and | | vmsakb-nq-ukrztppn values were drawn about the vertebral segments of L1 through L4 at | | the levels where accurate assessment was possible. A bone mineral analysis was also | | performed on the left hip with ntqnra-by-lirothyl areas including the femoral neck | | measured. From this data, a T score and a Z score were calculated. FINDINGSThe AP lumbar | | and left hip scans are technically adequate. Date of Study: 09/15/2016 8:50 AML1-L4 | | Vertebral BodiesBMD 1.141, t-score 0.9, z-score 1.8 PROXIMAL LEFT FEMURBMD 1.211, | | t-score 2.2, z-score 2.8 IMPRESSION: 1. Bone density measurements of the lumbar spine | | consistent with normal bone density.2. Bone density measurements of the left hip | | consistent with normal bone density. A normal bone density indicates that there is no | | increased risk of fracture. Preventative measures such as weightbearing exercise and | | adequate dietary calcium intake should be continued. Followup assessment in 24 months | | should be considered NOTE: Assessment involves low resolution imaging designed to | | assess for vertebral compression fractures only. * * * World Health Organization | | Diagnostic Clarification of OsteoporosisNormal Diagnosis: t-score 0.0 to -1.0Osteopenia | | Diagnosis: t-score -1.0 to -2.5Osteoporosis Diagnosis: t-score -2.5 to -5.0Severe | | Osteoporosis Diagnosis: -2.5 to -5.0 plus clinical fracture * The T score represents | | how many standard deviations by which the patient's bone mass differs from the young | | normal (age 30) sex-matched reference standard. The Z score is the standard deviation | | difference as compared with an age and sex-matched reference standard (average for age). | | The Z score is not used in the diagnostic classification. Read by George Banegas MD | | on 09/15/2016 12:43 PM | |IMPRESSION: | |1. Bone density measurements of the lumbar spine consistent with normal bone density. | |2. Bone density measurements of the left hip consistent with normal bone density. | | | | | |A normal bone density indicates that there is no increased risk of fracture. Preventative m easures such as weightbearing exercise and adequate dietary calcium intake should be continu ed. Followup assessment in 24 months should be considered | | | | | |NOTE: Assessment involves low resolution imaging designed to assess for vertebral compress ion fractures only. | | | |* * * World Health Organization Diagnostic Clarification of Osteoporosis | |Normal Diagnosis: t-score 0.0 to -1.0 | |Osteopenia Diagnosis: t-score -1.0 to -2.5 | |Osteoporosis Diagnosis: t-score -2.5 to -5.0 | |Severe Osteoporosis Diagnosis: -2.5 to -5.0 plus clinical fracture | | | |* The T score represents how many standard deviations by which the patient's bone mass diff ers from the young normal (age 30) sex-matched reference standard. The Z score is the standa rd deviation difference as compared with an age and sex-matched | |reference standard (average for age). The Z score is not used in the diagnostic classificat ion. | | | |Read by George Banegas MD on 09/15/2016 12:43 PM | | | | | + + documented in this encounter Visit Diagnoses + + | Diagnosis | + + | Asymptomatic menopausal state Asymptomatic postmenopausal status (age-related) | | (natural) | + + documented in this encounter"
--- OUTSIDE RECORDS SUMMARY | ~2019-12-01 | XMS | Encounter Summary ---
Demographics + + + | Address | [address] | | | [place] [address] | + + + | Home Phone | | + + + | Preferred Language | Unknown | + + + | Marital Status | | + + + | Christian Affiliation | CHR | + + + [...] Osei Bhandari Sr. | ECON | [address] | | | | | [place] | | | | | [address] | | + + + + + Care Team Providers + +------+ + | Care Supervisor Beet End Name | Role | Phone | + +------+ + | Royer Wilde MD | PCP | | + +------+ + Encounter Details +--------+ + + + + | Date | Type | Department | Care Team | Description | +--------+ + + + + | 05/02/ | MyChart | Dig[facility]ive Health | Other, Faculty | Surgery Date! | | 2011 | Encounter | [facility] at [facility] [address] | [phone] | | | | | [address] | | | | | | Mailcode: Center | | | | | | for [facility] and | | | | | | Healing, [address] | | | | | | [place], [place] | | | | | | [address] | | | | | | [phone] | | | +--------+ + + + [...]
--- OUTSIDE RECORDS SUMMARY | ~2019-12-01 | XMS | Encounter Summary ---
Demographics + + + | Address | [address] | | | [place] [address] | + + + | Home Phone | | + + + | Preferred Language | Unknown | + + + | Marital Status | | + + + | Quaker Affiliation | CHR | + + + | Race | White | + + + | Ethnic Group | Not or | + + + Author + + + | Author | [facility] | + + + | Organization | [facility] | + + + | Address | Unknown | + + + | Phone | Unavailable | + + + Support + + + + + | Name | Relationship | Address | Phone | + + + + + | Oesi Bhandari Sr. | ECON | [address] | | | | | [place] | | | | | [address] | | + + + + + Care Team Providers + +------+ + | Care Retail Branch Manager Name | Role | Phone | + +------+ + | Royer Wilde MD | PCP | | + +------+ + Reason for Visit + + + | Reason | Comments | + + + | Bariatric Nutrition | | + + + Office Visit - E/M Services (Routine) +--------+--------+ + + + + | Status | Reason | Specialty | Diagnoses / | Referred By | Referred To | | | | | Procedures | Contact | Contact | +--------+--------+ + + + + | Closed | | Nutrition | Diagnoses | Nagappan, | Fn | | | | | Morbid | [place], | [facility] | | | | | obesity | [place] [address] | [facility] [address] | | | | | (HCC) | [address] | [address] | | | | | Procedures | [address] | [facility] | | | | | [address] | [address] | Health and | | | | | GSTR ADJST | [facility], [place] | Healing, | | | | | [address]ND | [address] | [address] | | | | | | Phone: | [place], [place] | | | | | | [phone] | [address] | | | | | | Fax: | Phone: | | | | | | [phone] | [phone] | | | | | | | Fax: | | | | | | | [phone] | +--------+--------+ + + + + Encounter Details +--------+---------+ + + + | Date | Type | Department | Care Team | Description | +--------+---------+ + + + | 01/18/ | Office | Digestive Health | Shannon, | Morbid obesity (HCC) | | 2011 | Visit | Center at [facility] [address] | [address] | (Primary Dx) | | | | [facility] | [address] [place] | | | | | for [facility] and | [place], [place] | | | | | [facility] [address] | [address] | | | | | [place], [place] | | | | | | [address] | | | | | | [phone] | | | +--------+---------+ + + + Social History + +-------+ [...] + + + | Blood Pressure | - | - | | + + + + + | Pulse | - | - | | + + + + + | Temperature | - | - | | + + + + + | Respiratory Rate | - | - | | + + + + + | Oxygen Saturation | - | - | | + + + + + | Inhaled Oxygen | - | - | | | Concentration | | | | + + + + + | Weight | 115.7 kg (255 lb) | 01/19/2012 11:40 AM | | | | | PDT | | + + + + + | Height | 167.6 cm (5' 6") | 01/19/2012 11:40 AM | | | | | PDT | | + + + + + | Body Mass Index | 41.16 | 01/19/2012 11:40 AM | | | | | PDT | | + + + + + documented in this encounter Progress Notes Lyn Ortega, RD - 01/19/2012 11:41 AM PDT Referring Provider: Royer Wilde MD Clinic: [facility], Pre Bariatric Surgery Visit Services, for diet consult prior to having Lou En Y gastric bypass surgery. Documented Time of Visit: 11:40 until 12:07. 27 minutes xraz-oc-mraj consult with the avani ent (3 of 6 visits) SUBJECTIVE: Pt know this was going to be a bad month. They were in [place] for 10 days, lots of eating out. They were sick when they got home so didn't grocery shop for a while. Th en on Monday it was their anniversary and they ate out and "did hold back". Trying to eat sa lad first, feels like that helps prolong meal time. Trying to take a frozen entree and a pi mer of fruit or vegetable if available for lunch. Normally eat out 6-7 x/month. Making ascencion r choices on take out upper sorbian. Goal to be off soda by February. 2 cups of coffee in the mornin g (with cream and sweet n low). Had knee surgery in November. Thinking about Food Allergies: Yes, tomatoes and pork Current Physical Exercise: lots of walking on conference. OBJECTIVE: Height: Ht Readings from Last 1 Encounters: 01/19/12 1.676 m (5' 6") Weight: Wt Readings from Last 1 Encounters: 01/19/12 115.667 kg (255 lb) Past Medical History: Past Medical History Diagnosis Date Morbid obesity Asthma Vitamin D deficiency Migraine Hyperlipidemia HTN (hypertension) GERD (gastroesophageal reflux disease) Medications: See list in Epic snap shot Dietary Supplements: women's MV Labs: See results review. Nutrition Diagnosis: Obesity as evidenced by BMI of 41.16. Pre-Surgery Diet: Provided written diet suggestions to help patient lose weight before surgery. - continue to work on slowing down eating, continue to cut food into smaller bits and put fork/spoon down in between each bit - try yogurt dip for dressing vs thousand island - cut down on eating out (make leftovers for Monday night 2 x this month (vs eating out) - make healthier breakfast choice on Monday mornings Discussed behavior changes to practice before surgery to prepare for surgery. - sit and be fit 3 days/week (mon/mon/mon) - continue to cut down on soda Patient's Comprehension: The patient is: Receptive Stage of change: Contemplation Barrier(s) to education: No Learning style: Patient is a Visual learner, Verbal learner Expected Outcome: I think the patient will do moderately if following all lifestyle and behavioral changes discussed today. Still have a lot of lifestyle changes to make and will benefit from continued visits prior to surgery. GOAL: The patient's goal is to have weight loss surgery to maintain weight loss and improve other health conditions. 1. Continue to practice behavioral changes to prepare for surgery. 2. Increase physical activity. 3. Review all information provided for post surgery diet progression. 4. Call dietitian with any questions. 5. Follow up with dietitian in 4 weeks 6. Contact information was provided. documented in thi s encounter Plan of Treatment Not on filedocumented as of this encounter Procedures + +--------+ + + + | Procedure Name | Priori | Date/Time | Associated Diagnosis | Comments | | | ty | | | | + +--------+ + + + | CT MNT RE-ASSESSMNT | Routin | 01/19/2012 | Morbid obesity | | | X15MIN | e | 12:10 PM | (HCC) | | | | | PDT | | | + +--------+ + + + documented in this encounter Visit Diagnoses + + | Diagnosis | + + | Morbid obesity (HCC) - Primary Morbid obesity | + + documented in this encounter
--- OUTSIDE RECORDS SUMMARY | ~2019-12-01 | XMS | Encounter Summary ---
Demographics + + + | Address | [address] | | | [place] [address] | + + + | Home Phone | | + + + | Preferred Language | Unknown | + + + | Marital Status | | + + + | Faith Affiliation | 1077 | + + + | Race | Unknown | + + + | Ethnic Group | Unknown | + + + Author + + + | Author | [facility] | | | and [place] | + + + | Organization | [facility] | | | and [place] | + + + | Address | Unknown | + + + | Phone | Unavailable | + + + Support + + + + + | Name | Relationship | Address | Phone | + + + + + | Osei Woodard | ECON | [address] | | | [place] | | [place] | | | | | [address] | | + + + + + Care Team Providers + +------+ + | Care Call Center Coordinator Name | Role | Phone | + +------+ + | Royer Wilde MD | PCP | | + +------+ + Reason for Visit + + + | Reason | Comments | + + + | Ankle Injury | | + + + Encounter Details +--------+ + + + + | Date | Type | Department | Care Team | Description | +--------+ + + + + | 10/29/ | Emergency | [facility] | Nancy Rose, | Ankle sprain and | | 2013 | | [facility] | PA-C [address] | strain, right, | | | | CENTER [address] | initial encounter | | | [address] | [place] [address] | (Primary Dx) | | | | [place], [place] | [phone] | | | | | [address] | | | | | | [phone] | | | +--------+ + + + [...] + + + | Blood Pressure | 140/69 | 10/29/2013 2:01 PM | | | | | PDT | | + + + + + | Pulse | 87 | 10/29/2013 2:01 PM | | | | | PDT | | + + + + + | Temperature | 36.3 C (97.3 F) | 10/29/2013 1:58 PM | | | | | PDT | | + + + + + | Respiratory Rate | 16 | 10/29/2013 2:01 PM | | | | | PDT | | + + + + + | Oxygen Saturation | 96% | 10/29/2013 2:01 PM | | | | | PDT | | + + + + + | Inhaled Oxygen | - | - | | | Concentration | | | | + + + + + | Weight | 91.6 kg (202 lb) | 10/29/2013 1:58 PM | | | | | PDT | | + + + + + | Height | 167.6 cm (5' 6") | 10/29/2013 1:58 PM | | | | | PDT | | + + + + + | Body Mass Index | 32.6 | 10/29/2013 1:58 PM | | | | | PDT | | + + + + + documented in this encounter Discharge Instructions Instructions Nancy Rose PA - 10/29/2013Wear splint for comfort and advance weight-b earing as tolerated. Followup with [facility] in one week if pain continues pedro l for an appointment. AttachmentsThe following attachments cannot be sent through Care Everywhere.SPRAIN, ANKLE, WITH X-RAY (SYRIAC)documented in this encounter Medications at Time of Discharge [...] + +--------+ + + + | XR ANKLE RIGHT 3 + | STAT | 10/29/2013 | | Results for this | | VW | | 2:18 PM | | procedure are in the | | | | PDT | | results section. | + +--------+ + + + documented in this encounter Results XR Ankle Right 3 + Vw (10/29/2013 2:18 PM PDT) + + | Specimen | + + | | + + + + + | Impressions | Performed At | + + + | 1. Avulsion fracture of the lateral process of the talus. 2. | [facility] | | No definite malleolar fracture. Dictated By: Aden Lam | DORON | | Ez 10/29/2013 15:31:49 | | + + + + + + | Narrative | Performed At | + + + | XR ANKLE RIGHT 3 + VW DATE OF EXAM: 10/29/2013 INDICATION: | MISCELANIOUS | | ANKLE INJURY COMPARISON: None available FINDINGS: | LAB | | A tiny bony fragment is seen at the inferior aspect of the lateral | | | malleolus; This most likely represents an avulsion fracture of the | | | lateral process of the talus with Ankle mortise is symmetric. No | | | evidence for acute malleolar fracture. Calcaneal enthesophytes are | | | seen at the attachments of the Achilles tendon and plantar fascia. | | | | | + + + + + | Procedure Note | + + | Yousuf Garcia Results In - 10/29/2013 3:48 PM PDT XR ANKLE RIGHT 3 + VWDATE OF EXAM: | | 10/29/2013INDICATION: ANKLE INJURYCOMPARISON: None availableFINDINGS: A tiny bony | | fragment is seen at the inferior aspect of the lateral malleolus; This most likely | | represents an avulsion fracture of the lateral process of the talus withAnkle mortise is | | symmetric. No evidence for acute malleolar fracture.Calcaneal enthesophytes are seen at | | the attachments of the Achilles tendon and plantar fascia.IMPRESSION: 1. Avulsion | | fracture of the lateral process of the talus.2. No definite malleolar fracture.Dictated | | By: Aden Lam M.D. 10/29/2013 15:31:49 | | | | | |FINDINGS: | | | |A tiny bony fragment is seen at the inferior aspect of the lateral malleolus; This most lik josiah represents an avulsion fracture of the lateral process of the talus with | | | |Ankle mortise is symmetric. No evidence for acute malleolar fracture. | | | |Calcaneal enthesophytes are seen at the attachments of the Achilles tendon and plantar fasc ia. | | | | | | | |IMPRESSION: | | | |1. Avulsion fracture of the lateral process of the talus. | |2. No definite malleolar fracture. | | | |Dictated By: Aden Lam M.D. 10/29/2013 15:31:49 | + + + +---------+ + + | Performing | Address | City/State/Zipcode | Phone Number | | Organization | | | | + +---------+ + + | [facility] | | | [phone] | + +---------+ + + | [facility] | | | [phone] | + +---------+ + + documented in this encounter Visit Diagnoses + + | Diagnosis | + + | Ankle sprain and strain, right, initial encounter - Primary | + + documented in this encounter
--- OUTSIDE RECORDS SUMMARY | ~2019-12-01 | XMS | Encounter Summary ---
Demographics + + + | Address | [address] | | | [place] [address] | + + + | Home Phone | | + + + | Preferred Language | Unknown | + + + | Marital Status | | + + + | Restoration Affiliation | 1077 | + + + | Race | Unknown | + + + | Ethnic Group | Unknown | + + + Author + + + | Author | [facility] | | | and [place] | + + + | Organization | [facility] | | | and [place] | + + + | Address | Unknown | + + + | Phone | Unavailable | + + + Support + + + + + | Name | Relationship | Address | Phone | + + + + + | Osei Woodard | ECON | [address] | | | [place] | | [place] | | | | | [address] | | + + + + + Care Team Providers + +------+ + | Care Developmental Specialist Name | Role | Phone | + +------+ + | Royer Wilde MD | PCP | | + +------+ + Reason for Visit Auth/Cert +--------+--------+ + + + + | Status | Reason | Specialty | Diagnoses / | Referred By | Referred To | | | | | Procedures | Contact | Contact | +--------+--------+ + + + + | Closed | | | Diagnoses | | Brigido | | | | | | | Suellen Aragon MD | | | | | Gastro-esoph | | [address] | | | | | ageal reflux | | [address] | | | | | disease | | [address] | | | | | without | | [place], [place] | | | | | esophagitis | | [address] | | | | | GERD | | Phone: | | | | | Procedures | | [phone] | | | | | [place] | | Fax: | | | | | ESOPHAGOGAST | | [phone] | | | | | RODUODENOSCO | | | | | | | PY TRANSORAL | | | | | | | DIAGNOSTIC | | | +--------+--------+ + + + + Encounter Details +--------+---------+ + + + | Date | Type | Department | Care Team | Description | +--------+---------+ + + + | 08/27/ | Surgery | [facility] | Suellen Dwyer | EGD | | 2016 | | [facility] | MD Mahesh [address] | | | | | [address] | [address] | | | | | [address] | [place] [address] | | | | | [place], [place] | [phone] | | | | | [address] | | | | | | [phone] | | | +--------+---------+ + + + [...] + + + | Blood Pressure | 140/81 | 08/27/2015 9:59 AM | | | | | PST | | + + + + + | Pulse | 77 | 08/27/2015 9:59 AM | | | | | PST | | + + + + + | Temperature | 36.3 C (97.3 F) | 08/27/2015 9:28 AM | | | | | PST | | + + + + + | Respiratory Rate | 16 | 08/27/2015 9:59 AM | | | | | PST | | + + + + + | Oxygen Saturation | 94% | 08/27/2015 9:59 AM | | | | | PST | | + + + + + | Inhaled Oxygen | - | - | | | Concentration | | | | + + + + + | Weight | - | - | | + + + + + | Height | - | - | | + + + + + | Body Mass Index | - | - | | + [...] + + documented as of this encounter Discharge Instructions Instructions Sol Hercules RN - 08/27/2015Formatting of this note might be different f rom the original. Upper GI Endoscopy Upper GI endoscopy allows your doctor to look directly into the beginning of your gastroint estinal (GI) tract. The esophagus, stomach, and duodenum (the first part of the small intest ine) make up the upper GI tract. During endoscopy,a long,flexible tube is used to view the inside of your upper GI tract . Do not eat, drink or smoke for 30-45 minutes after you have left the hospital. Wait unt il numbness in the throat disappears, then try water. You may experience a slight sore throat. This can be relieved by warm salt water gargle s, of one half teaspoon salt in one glass of warm water once or twice per hour. Plan to take it easy the rest of the day. Resume normal activities tomorrow. Call your doctor if you have: Black or tarry stools; blood in your stool. Fever. Persistent pain in your abdomen. PROCEDURAL SEDATION [Adult] You have been given medicine by vein to sedate you during your procedure today. This may sullivan ve included both a pain medicine and sleeping medicine. Most of the effects have worn off; h owever, you may continue to have some drowsiness for the next 6-8 hours. HOME CARE: 1) For the next EIGHT HOURS, you should be watched by a responsible adult to look for any w orsening of your condition. 2) DO NOT TAKE ANY ORAL MEDICINE for pain or sleep during the next FOUR HOURS since this mi ght react with the medicines you were given in the hospital causing a much stronger response than usual. 3) DO NOT DRINK any ALCOHOL for the next 24 HOURS. 4) DO NOT DRIVE or operate dangerous machinery during the next 24 HOURS. FOLLOW UP with your doctor or this facility if you are not alert and back to your usual lev el of activity within TWELVE HOURS. GET PROMPT MEDICAL ATTENTION if any of the following occur: -- Increased drowsiness -- Increased weakness or dizziness -- Repeated vomiting -- If you cannot be awakened documented in this encounter Medications at Time of [...] tablets once | 4 | 0 | // | | | (BISACODYL LAXATIVE) | at [...] | + +--------+ + + + | EGD | | 08/27/2015 | Gastro-esophageal | | | | | 9:38 AM | reflux disease | | | | | PST | without esophagitis | | + +--------+ + + + | EGD | Routin | 08/27/2015 | | Results for this | | | e | 9:28 AM | | procedure are in the | | | | PST | | results section. | + +--------+ + + + documented in this encounter Results EGD (08/27/2015 9:28 AM PST) + + | Specimen | + + | | + + + + + | Narrative | Performed At | + + + | [place] | [place] [facility] | [facility] | | Services | | | Patient Name: Steve Canton Procedure | | | Date: 08/27/2015 9:28 AMMRN: [id number] | | | of : 1965 | | | Note Status: FinalizedAttending MD: SUELLEN DWYER MD | | | | | | Procedure: Upper GI endoscopyIndications: | | | Dysphagia, Suspected esophageal reflux, Failure to | | | respond to medical treatment, prior gastric | | | sleeve [facility] 05/2012Providers: | | | SUELLEN DWYER, MDReferring MD: Royer Rose | | | NagappanRequesting Provider: Medicines: Midazolam 2 mg | | | IV, Fentanyl 100 micrograms IVComplications: no | | | immed | | | Procedure: Pre-Anesthesia Assessment: | | | - Airway Examination: small/crowded | | | oropharyngeal airway. - ASA Grade | | | Assessment: II - A patient with mild | | | systemic disease. - The anesthesia plan | | | was to use moderate sedation/analgesia | | | (conscious sedation). After informed | | | consent was obtained including risks, | | | benefits and alternatives,, the endoscope was passed | | | under direct vision. Throughout the procedure, the | | | patient's blood pressure, pulse, and oxygen | | | saturations were monitored | | | continuously. The Endoscope was | | | introduced through the mouth, with the intention of | | | advancing to the duodenum. The scope was advanced to the | | | second part of the duodenum before the | | | procedure was aborted. Medications were | | | given. The upper GI endoscopy was | | | accomplished without difficulty. The patient | | | tolerated the procedure fairly well. | | | | | | Findings: esophagus, cords, hypopharynx nl, | | | GEJ well demarcated at 40cm, no erosive change, no cardia, | | | wrap/sleeve begins immediate below GEJ (explains dysphagia), | | | sleeve quite large, about 2.5 bananas, almost looked normal mid | | | body, antrum intact, ie sleeve ended at insisura, pylorus OK, | | | doudenum nl, no bx's | | | | | | Impression: Normal findings for 4 yrs post-op gastric | | | sleeve, though is on larger than | | | expected, dysphagia on basis of | | | anatomy, nature of pain unclearRecommendation: con't | | | supportive care, f/u couple weeks | | | | | | SUELLEN DWYER MD08/27/2015 9:48 | | | AMThis report has been signed electronically.Number of Addenda: 0 Note | | | Initiated On: 08/27/2015 9:28 AM | | |This report has been signed electronically. | | |Number of Addenda: 0 | | | | | |Note Initiated On: 08/27/2015 9:28 AM | | + + + + +---------+ + + | Performing | Address | City/State/Zipcode | Phone Number | | Organization | | | | + +---------+ + + | [place] [facility] [facility] | | | | + +---------+ + + documented in this encounter Visit Diagnoses + + | Diagnosis | + + | Gastro-esophageal reflux disease without esophagitis Esophageal reflux | + + documented in this encounter Administered Medications + +--------+ +---------+------+------+ | Medication Order | MAR | Action | Dose | Rate | Site | | | Action | Date | | | | + +--------+ +---------+------+------+ | benzocaine (HURRICAINE) 20% | Given | 08/27/19 | 1 spray | | | | spray PRN, Starting Taryn 08/27/15 | | 16 9:38 | | | | | at 0938 | | AM PST | | | | + +--------+ +---------+------+------+ +---+---+ | | | +---+---+ + +-------+ +---------+---+---+ | fentaNYL injection PRN, | Given | 08/27/19 | 100 mcg | | | | Starting Taryn 08/27/15 at 0938, | | 16 9:38 | | | | | Intra-op | | AM PST | | | | + +-------+ +---------+---+---+ +---+---+ | | | +---+---+ + +-------+ +------+---+---+ | midazolam (VERSED) 1 mg/mL | Given | 08/27/19 | 2 mg | | | | injection Intravenous, PRN, | | 16 9:37 | | | | | Starting Taryn 08/27/15 at 0937, | | AM PST | | | | | Intra-op | | | | | | + +-------+ +------+---+---+ +---+---+ | | | +---+---+ documented in this encounter"
--- OUTSIDE RECORDS SUMMARY | ~2019-12-01 | XMS | Encounter Summary ---
Demographics + + + | Address | [address] | | | [place] [address] | + + + | Home Phone | | + + + | Preferred Language | Unknown | + + + | Marital Status | | + + + | Mormonism Affiliation | CHR | + + + | Race | White | + + + | Ethnic Group | Not or | + + + Author + + + | Author | [facility] | + + + | Organization | [facility] | + + + | Address | Unknown | + + + | Phone | Unavailable | + + + Support + + + + + | Name | Relationship | Address | Phone | + + + + + | Osei Bhandari Sr. | ECON | [address] | | | | | [place] | | | | | [address] | | + + + + + Care Team Providers + +------+ + | Care Auto Suspension And Steering Mechanic Name | Role | Phone | + +------+ + | Royer Wilde MD | PCP | | + +------+ + Reason for Visit + + + | Reason | Comments | + + + | Bloating | | + + + | Gassiness | | + + + | Diarrhea | | + + + | Scheduling | | + + + | Weight gain | | + + + Encounter Details +--------+ + + + + | Date | Type | Department | Care Team | Description | +--------+ + + + + | 10/06/ | Telephone | [facility] | Jessica Davis, | Bloating; Gassiness; | | 2015 | | [facility] [address] | [employer] [address] | Diarrhea; | | | | [address] | Scheduling; Weight | | | | Mailcode: Center | [place], [place] | [facility] | [facility] | [address] | | | | | [facility] | [phone] | | | | | [place], [place] | | | | | | [address] | | | | | | [phone] | | | +--------+ + + + [...] Not on filedocumented as of this encounter Results X-RAY NATALY GUEVARA (11/09/2015 10:09 AM PDT) + + + + + + | Component | Value | Ref Range | Performed | Pathologist | | | | | At | Signature | + + + + + + | UGI WO KUB | EXAM: Upper GI with thin | | | | | | barium. HISTORY: | | | | | | Sleeve gastrectomy in | | | | | | 2011. Worsening | | | | | | bloating, weight gain. | | | | | | COMPARISON: 10/07/2008 | | | | | | TECHNIQUE: Upper GI with | | | | | | thin barium.Fluoroscopy | | | | | | time:80 seconds | | | | | | Actual time was less | | | | | | due to use of | | | | | | pulsedfluoroscopy. | | | | | | FINDINGS:Esophagus: | | | | | | Unremarkable.Esophagea | | | | | | l motility: Mild | | | | | | esophageal dysmotility | | | | | | with delayed transit of | | | | | | thebarium and mild | | | | | | tertiary contractions | | | | | | seen in prone | | | | | | position.Gastroesophagea | | | | | | l reflux: None.Barium | | | | | | pill tablet: Passes to | | | | | | stomach without | | | | | | obstruction.Stomach and | | | | | | duodenum: Status post | | | | | | gastrectomy reduced | | | | | | gastric volume | | | | | | comparedto presurgery | | | | | | exam in 2008. No hiatal | | | | | | hernia is present.Bones | | | | | | and soft tissues: | | | | | | Visualized portions are | | | | | | unremarkable. | | | | | | IMPRESSION: Status post | | | | | | sleeve gastrectomy four | | | | | | years ago, the gastric | | | | | | volume is | | | | | | decreasedcompared to the | | | | | | presurgical exam in | | | | | | 2008. No post surgical | | | | | | exam is availablefor | | | | | | comparison. Mild | | | | | | esophageal dysmotility. | | | | | | No evidence of | | | | | | gastroesophageal reflux. | | | | | | No hiatal hernia. By my | | | | | | electronic signature | | | | | | listed below, I, the | | | | | | attending radiologist, | | | | | | waspresent for the | | | | | | entire procedure as | | | | | | described in this note. | | | | | | Attending Radiologists: | | | | | | PRUDENCE CHAU, | | | | | | MDAuthor: MARICARMEN | | | | | | MD MICHELLE I | | | | | | personally reviewed the | | | | | | images and, if | | | | | | necessary, edited the | | | | | | report. I agreewith the | | | | | | report as now presented. | | | | | | | | | | | | Final/Electronically | | | | | | signed / PRUDENCE | | | | | | KANDI 11/09/2015 | | | | | | 10:43 AM | | | | + + + + + + + + | Specimen | + + | | + + + +---------+ + + | Performing | Address | City/State/Zipcode | Phone Number | | Organization | | | | + +---------+ + + | [facility] | | | | | RADIOLOGY | | | | + +---------+ + + documented in this encounter Visit Diagnoses + + | Diagnosis | + + | History of sleeve gastrectomy - Primary | + + | Gastroesophageal reflux disease, esophagitis presence not specified | + + | Bloating Flatulence, eructation, and gas pain | + + documented in this encounter"
--- OUTSIDE RECORDS SUMMARY | ~2019-12-01 | XMS | Encounter Summary ---
Demographics + + + | Address | [address] | | | [place] [address] | + + + | Home Phone | | + + + | Preferred Language | Unknown | + + + | Marital Status | | + + + | Alevism Affiliation | 1077 | + + + | Race | Unknown | + + + | Ethnic Group | Unknown | + + + Author + + + | Author | [facility] | | | and [place] | + + + | Organization | [facility] | | | and [place] | + + + | Address | Unknown | + + + | Phone | Unavailable | + + + Support + + + + + | Name | Relationship | Address | Phone | + + + + + | Osei Woodard | ECON | [address] | | | [place] | | [place] | | | | | [address] | | + + + + + Care Team Providers + +------+ + | Care Ceramic Coater Name | Role | Phone | + +------+ + PCP | Unavailable | + +------+ + Encounter Details +--------+ + + + + | Date | Type | Department | Care Team | Description | +--------+ + + + + | 10/01/ | Hospital | [facility] | [place], | | | 2009 - | Encounter | [facility] | Royer Hurd MD | | | | | [address] | [address] | | | 10/03/ | | [address] | [address] | | | 2009 | | [place] | [place] | | | | | [address] | [address] | | | | | [phone] | [phone] | | | | | | | | +--------+ + + + + Social History + +-------+ +--------+------+ | Tobacco Use | Types | Packs/Day | Years | Date | | | | | Used | | + +-------+ +--------+------+ | Never Assessed | | | | | + +-------+ +--------+------+ + + + | Sex Assigned at [...]
--- OUTSIDE RECORDS SUMMARY | ~2019-12-01 | XMS | Encounter Summary ---
Demographics + + + | Address | [address] | | | [place] [address] | + + + | Home Phone | | + + + | Preferred Language | Unknown | + + + | Marital Status | | + + + | Oriental Orthodox Affiliation | 1077 | + + + | Race | Unknown | + + + | Ethnic Group | Unknown | + + + Author + + + | Author | [facility] | | | and [place] | + + + | Organization | [facility] | | | and [place] | + + + | Address | Unknown | + + + | Phone | Unavailable | + + + Support + + + + + | Name | Relationship | Address | Phone | + + + + + | Osei Woodard | ECON | [address] | | | [place] | | [place] | | | | | [address] | | + + + + + Care Team Providers + +------+ + | Care Submarine Operator Name | Role | Phone | + +------+ + | Opal Simon PCP | | | DO | | | + +------+ + Reason for Visit Auth/Cert +--------+--------+ + + + + | Status | Reason | Specialty | Diagnoses / | Referred By | Referred To | | | | | Procedures | Contact | Contact | +--------+--------+ + + + + | Closed | | | Diagnoses | | | | | | | Special | | | | | | | screening | | | | | | | for | | | | | | | malignant | | | | | | | neoplasms, | | | | | | | colon | | | | | | | SCREEN | | | | | | | Procedures | | | | | | | [facility] [place] | | | | | | | SCRN NOT HI | | | | | | | RSK IND | | | | | | | COLONOSCOPY | | | +--------+--------+ + + + + Encounter Details +--------+ + + + + | Date | Type | Department | Care Team | Description | +--------+ + + + + | 01/31/ | Hospital | [facility] | Hitesh Matos MD | | | 2013 | Encounter | [facility] | [address] | | | | | [address] | [place] [address] | | | | | [address] | [phone] | | | | | [place] | | | | | | [address] | | | | | | [phone] | | | +--------+ + + + [...] + + + | Blood Pressure | 154/101 | 01/31/2014 10:15 AM | | | | | PDT | | + + + + + | Pulse | 79 | 01/31/2014 10:15 AM | | | | | PDT | | + + + + + | Temperature | 36.7 C (98.1 F) | 01/31/2014 9:18 AM | | | | | PDT | | + + + + + | Respiratory Rate | 20 | 01/31/2014 10:15 AM | | | | | PDT | | + + + + + | Oxygen Saturation | 95% | 01/31/2014 10:15 AM | | | | | PDT | | + + + + + | Inhaled Oxygen | - | - | | | Concentration | | | | + + + + + | Weight | 94.3 kg (208 lb) | 01/31/2014 9:18 AM | | | | | PDT | | + + + + + | Height | 165.1 cm (5' 5") | 01/31/2014 9:18 AM | | | | | PDT | | + + + + + | Body Mass Index | 34.61 | 01/31/2014 9:18 AM | | | | | PDT | | + + + + + documented in this encounter Discharge Instructions Instructions Genia Stone RN - 01/31/2014Colonoscopy: NEGATIVE COLON EXAM, NO BIOPSIES TAKEN. REPEAT COLONOSCOPY DIRECTED. WHAT YOU SHOULD KNOW: A colonoscopy is a procedure that examines the colon (large bowel). Caregivers use a colo noscope, which is a soft, bendable tube with a light and tiny camera on the end. A colonosco pe takes pictures of the inside of the colon and may be seen on a TV-like screen. The colon is the long tube that connects the small bowel with the rectum. The colon absorbs water from digested foods and turns the digested food into stool. It stores the stool until it passes out through the rectum. During a colonoscopy, diseases and conditions that affect the colon may be diagnosed. Thes e may include diseases that cause changes in bowel movements, bleeding, blockages, inflammat ion (swelling) or infections. It is also used to look for polyps (growths) or early signs of cancer (tumor) in the colon or rectum. A biopsy may be done where a small amount of tissue is taken from the bowel and examined. With a colonoscopy, conditions of the colon, such as b lockages or polyps may be diagnosed and treated, and their symptoms relieved. Be sure to fol low up for the results of any biopsies that may have been taken during your exam. AFTER YOU LEAVE: 1) If you received a sedative or narcotic: Do not drive for the rest of the day. Do not sign any legal documents for 24 hours Do not drink any alcohol for 24 hours 2) Plan to take it easy for the rest of the day. Resume normal activities tomorrow. 3) If biopsies have been taken or a polyp removed, you may have a scant amount of blood in the stools-but only temporarily. If you experience significant bleeding (red or black stool s), fever, or abdominal pain call your doctor immediately or go to the emergency department. 4) Eat lightly for the rest of the day. Resume your normal diet tomorrow, unless otherwise instructed. Some abdominal bloating is normal. Walking will help with the passing of air us ed during the exam. 5) Take your medicine as directed: If you normally take any type of blood thinner and have had a polyp removed, discuss with your provider instructions for resuming your medication. K eep a current list of the medicines, vitamins, and herbs you take. Include the amounts, and when, how, and why you take them. Take the list or the pill bottles to follow-up visits. Car ry your medicine list with you in case of an emergency. 6) Ask for information about where and when to go for follow-up visits: The medication may make you forget some of the verbal instructions. Be sure you know the follow-up appointment s and instructions. If unsure, call your doctor s office. Ask your caregiver when the resu lts of your procedure will be available and follow up to receive those results. 7) Additional Instuctions: Prevent constipation: High-fiber foods, extra liquids, and regular exercise can help you pr event constipation. Examples of high-fiber foods are fruit and bran. Prune juice and water a re good liquids to drink. Regular exercise helps your digestive system work. You may also be told to take zhuo-faf-pxzsjcy fiber and stool softener medicines. Take these items as direc krissy. Eat healthy foods: Choose healthy foods from all the food groups every day. Include whole-g rain bread, cereal, rice, and pasta. Eat a variety of fruits and vegetables, including dark green and orange vegetables. Include dairy products such as low-fat milk, yogurt, and cheese . Choose protein sources, such as lean beef and chicken, fish, beans, eggs, and nuts. Ask ho w many servings of fats, oils, and sweets you should have each day, and if you need to be on a special diet. Drinking liquids: Adults should drink about 9 to 13 cups of liquid each day. One cup is 8 o unces. Good choices of liquids for most people include water, juice, and milk. Coffee, soup, and fruit may be counted in your daily liquid amount. Ask your caregiver how much liquid yo u should drink each day. PROCEDURAL SEDATION [Adult] You have been given [...] + + documented as of this encounter Progress Notes Hitesh Matos MD - 01/31/2014 9:39 AM [facility] Brief Operative Report Outcome: Patient tolerated procedure well, with no complications Findings: See full dictated Operative report Status: -- Stable [id number] Electronically signed by: Hitesh Matos MD, [facility] Date of service: 01/31/2014 9:40 documented in this enco unter Plan of Treatment Not on filedocumented as of this encounter Procedures + +--------+ + + + | Procedure Name | Priori | Date/Time | Associated Diagnosis | Comments | | | ty | | | | + +--------+ + + + | COLONOSCOPY | | 01/31/2014 | Special screening | | | | | 9:01 AM | for malignant | | | | | PDT | neoplasms, colon | | + +--------+ + + + documented in this encounter Visit Diagnoses Not on filedocumented in this encounter Administered Medications + +--------+ +---------+------+------+ | Medication Order | MAR | Action | Dose | Rate | Site | | | Action | Date | | | | + +--------+ +---------+------+------+ | fentaNYL injection PRN, Pain, | Given | 02/01/20 | 100 mcg | | | | Starting 01/31/14 at 0939, | | 14 9:39 | | | | | Intra-op | | AM PDT | | | | + +--------+ +---------+------+------+ +---+---+ | | | +---+---+ + +-------+ +---------+---+ + | lactated ringers bolus | Given | 02/01/20 | 500 mLs | | Left Arm | | Intravenous, Administer over 2 | | 14 9:27 | | | | | Hours, PRN, Starting Mon01/31/14 | | AM PDT | | | | | at 0927 | | | | | | + +-------+ +---------+---+ + +---+---+ | | | +---+---+ + +-------+ +------+---+---+ | midazolam (VERSED) 1 mg/mL | Given | 02/01/20 | 1 mg | | | | injection Intravenous, PRN, | | 14 9:45 | | | | | Anxiety, Starting Mon01/31/14 at | | AM PDT | | | | | 0939, Intra-op | | | | | | + +-------+ +------+---+---+ +-------+ +------+---+---+ | Given | 02/01/20 | 2 mg | | | | | 14 9:39 | | | | | | AM PDT | | | | +-------+ +------+---+---+ +---+---+ | | | +---+---+ documented in this encounter
--- OUTSIDE RECORDS SUMMARY | ~2019-12-01 | XMS | Encounter Summary ---
Demographics + + + | Address | [address] | | | [place] [address] | + + + | Home Phone | | + + + | Preferred Language | Unknown | + + + | Marital Status | | + + + | Tenriism Affiliation | CHR | + + + | Race | White | + + + | Ethnic Group | Not or | + + + Author + + + | Author | [facility] | + + + | Organization | [facility] | + + + | Address | Unknown | + + + | Phone | Unavailable | + + + Support + + + + + | Name | Relationship | Address | Phone | + + + + + | Osei Bhandari Sr. | ECON | [address] | | | | | [place] | | | | | [address] | | + + + + + Care Team Providers + +------+ + | Care Skein Bleacher Name | Role | Phone | + +------+ + | Royer Wilde MD | PCP | | + +------+ + Reason for Visit Office Visit - E/M Services (Routine) +--------+--------+ + + + + | Status | Reason | Specialty | Diagnoses / | Referred By | Referred To | | | | | Procedures | Contact | Contact | +--------+--------+ + + + + | Closed | | Surgery | Diagnoses | Steven Wilde Gs | | | | | Morbid | Royer Hurd, | Bariatric | | | | | obesity | [id number] | [facility] [address] | | | | | ([facility]) | [facility] | [address] | | | | | | [address] | Mailcode: | | | | | | [address] | [facility] | | | | | | [facility], [place] | [facility] | | | | | | [address] | and Healing, | | | | | | Phone: | Building 1, | | | | | | [phone] | 6th Floor | | | | | | Fax: | [place], [place] | | | | | | [phone] | [address] | | | | | | | Phone: | | | | | | | [phone] | | | | | | | Fax: | | | | | | | [phone] | +--------+--------+ + + + + Encounter Details +--------+---------+ + + + | Date | Type | Department | Care Team | Description | +--------+---------+ + + + | 09/16/ | Office | Dig[facility]ive Health | Marisa Wilkinson ANP | Morbid Obesity (HCC) | | 2008 | Visit | Center [address] | | (Primary Dx) | | | | Ave Mailcode: [facility] | | | | | | [facility] | | | | | | and Healing, | | | | | | Building [address], 6th | | | | | | Floor [place], [place] | | | | | | [address] | | | | | | [phone] | | | +--------+---------+ + + + [...] + + + | Blood Pressure | 112/80 | 09/16/2008 2:16 PM | | | | | PST | | + + + + + | Pulse | 68 | 09/16/2008 2:16 PM | | | | | PST | | + + + + + | Temperature | 36.4 C (97.6 F) | 09/16/2008 2:16 PM | | | | | PST | | + + + + + | Respiratory Rate | 16 | 09/16/2008 2:16 PM | | | | | PST | | + + + + + | Oxygen Saturation | - | - | | + + + + + | Inhaled Oxygen | - | - | | | Concentration | | | | + + + + + | Weight | 117.8 kg (259 lb | 09/16/2008 2:16 PM | | | | 11.2 oz) | PST | | + + + + + | Height | 167.6 cm (5' 6") | 09/16/2008 2:16 PM | | | | | PST | | + + + + + | Body Mass Index | 41.92 | 09/16/2008 2:16 PM | | | | | PST | | + + + + + documented in this encounter Progress Marisa Avila Rn - 09/17/2008 9:42 AM PSTAppt rescheduled documented in this encounter Plan of Treatment Not on filedocumented as of this encounter Visit Diagnoses + + | Diagnosis | + + | Morbid obesity (HCC) - Primary Morbid obesity | + + documented in this encounter
--- OUTSIDE RECORDS SUMMARY | ~2019-12-01 | XMS | Encounter Summary ---
Demographics + + + | Address | [address] | | | [place] [address] | + + + | Home Phone | | + + + | Preferred Language | Unknown | + + + | Marital Status | | + + + | Restorationist Affiliation | [id number] | + + + | Race | Unknown | + + + | Ethnic Group | Unknown | + + + Author + + + | Author | [facility] | | | and [place] | + + + | Organization | [facility] | | | and [place] | + + + | Address | Unknown | + + + | Phone | Unavailable | + + + Support + + + + + | Name | Relationship | Address | Phone | + + + + + | Osei Woodard | ECON | [address] | | | [place] | | [place] | | | | | [address] | | + + + + + Care Team Providers + +------+ + | Care Waterproof Material Folder Name | Role | Phone | + +------+ + PCP | Unavailable | + +------+ + Encounter Details +--------+ + + + + | Date | Type | Department | Care Team | Description | +--------+ + + + + | 10/18/ | Hospital | [facility] | Jeff Peres | | | 2010 | Encounter | [facility] | MD [address] [facility] | | | | | [address] | [place] [address], | | | | | [place] [address] | [place] [address] | | | | | [place], [place] | [phone] | | | | | [address] | | | | | | [phone] | | | +--------+ + + + [...] +--------+ + + + | XR SHOULDER LEFT 1 | | 10/18/2010 | | Results for this | | VW | | 6:34 PM | | procedure are in the | | | | PDT | | results section. | + +--------+ + + + | XR SHOULDER LEFT 2 + | | 10/18/2010 | | Results for this | | VW | | 4:39 PM | | procedure are in the | | | | PDT | | results section. | + +--------+ + + + documented in this encounter Results XR Shoulder Left 1 Vw (10/18/2010 6:34 PM PDT) + + | Specimen | + + | | + + + + + | Impressions | Performed At | + + + | IMPRESSION: Reduction. Calcific tendonitis. | [facility] | | Recommend MRI evaluation. | | | Dictated By: Eavn Alanis M.D. 10/19/2010 1:40:20 | | | PM | | + + + + + + | Narrative | Performed At | + + + | SHOULDER 1V LT DATE OF EXAM: 10/18/2010 INDICATION: -pain | [facility] | | A single AP view of the left shoulder reveals improved | | | glenohumeral relationships which now appear essentially concentric in | | | the one available non oblique view. Calcific densities remained | | | between the humeral head and acromion, presumably representing | | | calcific tendonitis. JOHNSON EXAM NUMBER: [id number] SHOULDER 1V | | | [id number] | | + + + + + | Procedure Note | + + | Yousuf Garcia Conversion - 08/23/2011 4:40 PM PST SHOULDER 1V LT | | | | DATE OF EXAM: 10/18/2010 | | | | INDICATION: -pain | | | | A single AP view of the left shoulder reveals improved | | glenohumeral relationships which now appear essentially | | concentric in the one available non oblique view. Calcific | | densities remained between the humeral head and acromion, | | presumably representing calcific tendonitis. | | JOHNSON EXAM NUMBER: [id number] SHOULDER 1V [id number] | | IMPRESSION: | | IMPRESSION: Reduction. | | | | Calcific tendonitis. | | | | Recommend MRI evaluation. | | | | | | | | Dictated By: Evan Alanis M.D. 10/19/2010 1:40:20 | | PM | + + + +---------+ + + | Performing | Address | City/State/Zipcode | Phone Number | | Organization | | | | + +---------+ + + | [facility] | | | | + +---------+ + + XR Shoulder Left 2 + Vw (10/18/2010 4:39 PM PDT) + + | Specimen | + + | | + + + + + | Impressions | Performed At | + + + | IMPRESSION: Humeral subluxation, probably with rotator cuff | [facility] | | disruption. Probable calcific | | | tendonitis. MRI correlation recommended. | | | Dictated By: Evan Alanis M.D. 10/18/2010 | | | 5:28:17 PM | | + + + + + + | Narrative | Performed At | + + + | SHOULDER 2+ VIEWS LT DATE OF EXAM: 10/18/2010 INDICATION: | [facility] | | -injury There is inferior subluxation of the humeral head from | | | the glenoid, suggesting rotator cuff disruption. Calcification | | | adjacent to the humeral head is probably calcific tendonitis. | | | Although this could represent an osseous avulsion, a site of origin | | | is not obvious. No other evidence of fracture is identified. The | | | adjacent lung appears clear. JOHNSON EXAM NUMBER: [id number] SHOULDER | | | 2+ VIEWS [id number] | | + + + + + | Procedure Note | + + | Yousuf Garcia - 08/23/2011 4:40 PM [facility] SHOULDER 2+ VIEWS LT | | | | DATE OF EXAM: 10/18/2010 | | | | INDICATION: -injury | | | | There is inferior subluxation of the humeral head from the | | glenoid, suggesting rotator cuff disruption. Calcification | | adjacent to the humeral head is probably calcific tendonitis. | | Although this could represent an osseous avulsion, a site of | | origin is not obvious. No other evidence of fracture is | | identified. The adjacent lung appears clear. | | JOHNSON EXAM NUMBER: [id number] SHOULDER 2+ VIEWS [id number]=[id number] | | IMPRESSION: | | IMPRESSION: Humeral subluxation, probably with rotator cuff | | disruption. | | | | Probable calcific tendonitis. | | | | MRI correlation recommended. | | | | | | | | Dictated By: Evan Alanis M.D. 10/18/2010 5:28:17 | | PM | + + + +---------+ + + | Performing | Address | City/State/Zipcode | Phone Number | | Organization | | | | + +---------+ + + | [facility] | | | | + +---------+ + + documented in this encounter Visit Diagnoses Not on filedocumented in this encounter"
--- OUTSIDE RECORDS SUMMARY | ~2019-12-01 | XMS | Encounter Summary ---
Demographics + + + | Address | [address] | | | [place] [address] | + + + | Home Phone | | + + + | Preferred Language | Unknown | + + + | Marital Status | | + + + | Moravian Affiliation | CHR | + + + | Race | White | + + + | Ethnic Group | Not or | + + + Author + + + | Author | [facility] | + + + | Organization | [facility] | + + + | Address | Unknown | + + + | Phone | Unavailable | + + + Support + + + + + | Name | Relationship | Address | Phone | + + + + + | Osei Bhandari Sr. | ECON | [address] | | | | | [place] | | | | | [address] | | + + + + + Care Team Providers + +------+ + | Care Cost Recovery Technician Name | Role | Phone | + +------+ + | Royer Wilde MD | PCP | | + +------+ + Encounter Details +--------+ + + + + | Date | Type | Department | Care Team | Description | +--------+ + + + + | 05/10/ | Abstract | Dig[facility]ive Health | Jessica Davis, | | | 2011 | | Center at [facility] [address] | | | | | [address] [place] [address] | , [address] | | | | | Mailcode: Center | [place], [place] | | | | | for Health and | [address] | | | | | Healing, [address] | [phone] | | | | | [place], [place] | | | | | | [address] | | | | | | [phone] | | | +--------+ + + + [...]
--- OUTSIDE RECORDS SUMMARY | ~2019-12-01 | XMS | Clinical Summary ---
Demographics + + + | Address | [address] | | | [place] [address] | + + + | Home Phone | | + + + | Preferred Language | Unknown | + + + | Marital Status | | + + + | Restorationist Affiliation | CHR | + + + | Race | White | + + + | Ethnic Group | Not or | + + + Author + + + | Author | [facility] | + + + | Organization | [facility] | + + + | Address | Unknown | + + + | Phone | Unavailable | + + + Support + + + + + | Name | Relationship | Address | Phone | + + + + + | Osei Bhandari Sr. | ECON | [address] | | | | | [place] | | | | | [address] | | + + + + + Care Team Providers + +------+ + | Care Cold Meat Chef Name | Role | Phone | + +------+ + | Royer Wilde MD | PCP | | + +------+ + Source Comments STEPHEN is fully live on both EpicCare Ambulatory and EpicCare InPatient.[facility] Allerg[facility] + + + + + + | Active Allergy | Reactions | Severity | Noted | Comments | | | | | Date | | + + + + + + | Codeine | Nausea/Vomiting | | 10/02/19 | | | | | | 09 | | + + + + + + | Droperidol | Psychosis | | 10/02/19 | Severe anxiety and | | | | | 09 | shaking | + + + + + + | Metoclopramide Hcl | Pruritus | | 10/02/19 | Restlessness and | | | | | 09 | shaking | + + + + + + Medications + + + +---------+------+------+-------+ | Medication | Sig | Dispensed | Refills | Star | End | Statu | | | | | | t | Date | s | | | | | | Date | | | + + + +---------+------+------+-------+ | Calcium | Take 2 Tabs by mouth | 100 Tab | 12 | 11/0 | | Activ | | Citrate-Vitamin D3 | two times daily. | | | 2/20 | | e | | (CITRACAL + D | Start 2 weeks after | | | 12 | | | | PETITES) 200 mg | surgery. | | | | | | | calcium -250 unit | Indications: | | | | | | | Oral | HYPOCALCEMIA | | | | | | | tabletIndications: | | | | | | | | hypocalcemia | | | | | | | + + + +---------+------+------+-------+ | pediatric | Take 1 Tab by mouth | 60 Tab | 12 | 11/0 | | Activ | | multivitamin | two times daily. | | | 2/20 | | e | | chewable (CHILDRENS | | | | 12 | | | | CHEWABLE VITAMINS) | | | | | | | | Oral tablet, | | | | | | | | chewable | | | | | | | + + + +---------+------+------+-------+ | cyanocobalamin | Take 1 Tab by mouth | 100 Tab | 12 | 11/0 | | Activ | | (VITAMIN B-12) 500 | once daily. | | | 2/20 | | e | | mcg Oral tablet | | | | 12 | | | + + + +---------+------+------+-------+ | cholecalciferol, | Take 2,000 Units by | | 0 | | | Activ | | Vitamin D3, 2,000 | mouth once daily. | | | | | e | | unit oral capsule | | | | | | | + + + +---------+------+------+-------+ | ESOMEPRAZOLE | Take by mouth. | | 0 | | | Activ | | MAGNESIUM (NEXIUM | | | | | | e | | ORAL) | | | | | | | + + + +---------+------+------+-------+ | ASCORBIC ACID | Take by mouth. | | 0 | | | Activ | | (VITAMIN C ORAL) | | | | | | e | + + + +---------+------+------+-------+ | FERROUS | Take by mouth. | | 0 | | | Activ | | FUMARATE/VIT BCOMP,C | | | | | | e | | (SUPER B COMPLEX | | | | | | | | ORAL) | | | | | | | + + + +---------+------+------+-------+ Active Problems + + + | Problem | Noted Date | + + + | S/P laparoscopic sleeve gastrectomy | 11/09/2015 | + + + | Food intolerance | 11/09/2015 | + + + | Abdominal pain | 11/09/2015 | + + + | S/P laparoscopic sleeve gastrectomy | 11/09/2015 | + + + | Food intolerance | 11/09/2015 | + + + | Abdominal pain | 11/09/2015 | + + + | Weight gain | 11/09/2015 | + + + | Gastroesophageal reflux disease without esophagitis | 11/09/2015 | + + + | BMI 40.0-44.9, adult | 05/14/2012 | + + + | ABHIJEET (obstructive sleep apnea) | 05/14/2012 | + + + | Well controlled intermittent asthma | 05/14/2012 | + + + | Dyspepsia | 05/14/2012 | + + + | Osteoarthritis | 05/14/2012 | + + + | Morbid obesity | 11/14/2011 | + + + | HTN (hypertension) | 11/14/2011 | + + + | GERD (gastroesophageal reflux disease) | 11/14/2011 | + + + | Knee pain | 11/14/2011 | + + + | Back pain | 11/14/2011 | + + + Resolved Problems + + + + | Problem | Noted | Resolved | | | Date | Date | + + + + | (v7.) no diagnosis | 04/16/20 | | | | 12 | 2 | + + + + Family History + + +------+ + | Medical History | Relation | Name | Comments | + + +------+ + | Asthma | Brother | | | + + +------+ + | Cancer | Maternal | | Breast | | | Grandmoth | | | | | er | | | + + +------+ + | Cancer | Mother | | | + + +------+ + | Stroke | Mother | | Stomach and later breast | + + +------+ + | Cancer | Sister | | Breast | + + +------+ + + +------+--------+ + | Relation | Name | Status | Comments | + +------+--------+ + | Brother | | | | + +------+--------+ + | Maternal Grandmother | | | | + +------+--------+ + | Mother | | | | + +------+--------+ + | Sister | | | | + +------+--------+ + Social History + + + +--------+ [...] | | | + +---+---+---+ + + | Tobacco Cessation: Counseling Given: Yes | + + + + +---------+ + | Alcohol [...] recent travel history available. | + + Last Filed Vital Signs + + + + + | Vital Sign | Reading | Time Taken | Comments | + + + + + | Blood Pressure | 153/90 | 11/09/2015 2:18 PM | | | | | PDT | | + + + + + | Pulse | 98 | 11/09/2015 2:18 PM | | | | | PDT | | + + + + + | Temperature | 36.4 C (97.6 F) | 11/09/2015 2:18 PM | | | | | PDT | | + + + + + | Respiratory Rate | 16 | 11/09/2015 2:18 PM | | | | | PDT | | + + + + + | Oxygen Saturation | 100% | 05/25/2012 11:20 AM | | | | | PDT | | + + + + + | Inhaled Oxygen | - | - | | | Concentration | | | | + + + + + | Weight | 108 kg (238 lb) | 11/09/2015 2:18 PM | | | | | PDT | | + + + + + | Height | 167.6 cm (5' 6") | 11/09/2015 2:18 PM | | | | | PDT | | + + + + + | Body Mass Index | 38.41 | 11/09/2015 2:18 PM | | | | | PDT | | + + + + + Plan of Treatment + + + + + | Health Maintenance | Due Date | Last Done | Comments | + + + + + | Influenza (Flu) | | 05/14/2015, 05/05/2014, | | | vaccination (#1) | 9 | 08/01/2013, Additional history | | | | | exists | | + + + + + | Pneumococcal | Completed | 06/05/2008 | | | vaccination | | | | + + + + + Results Not on filefrom Last 3 Months Insurance + +--------+ +--------+-------+---------+------+ | Payer | Benefi | Subscriber | Effect | Phone | Address | Type | | | t Plan | ID | peggy | | | | | | / | | Dates | | | | | | Group | | | | | | + +--------+ +--------+-------+---------+------+ | [employer] | UNITED | xxxxxxxxxxx | 07/24/19 | | | PPO | | | | x | 11-Pre | | | | | | HEALTH | | sent | | | | | | CARE | | | | | | | | NETWOR | | | | | | | | K | | | | | | + +--------+ +--------+-------+---------+------+ + +--------+ +--------+ + + | Guarantor Name | Accoun | Relation to | Date | Phone | Billing Address | | | t Type | Patient | of | | | | | | | | | | + +--------+ +--------+ + + | Steve Bhandari | Person | Self [birth year] | [address] | | | al/Fam | | 1965 | [phone] | [place] [address] | | | jennifer | | | 3 (Home) | | + +--------+ +--------+ + + Advance Directives + + + + + | Type | Date Recorded | Patient | Explanation | | | | Foam Gun Operator | | + + + + + | Advance | | | | | Directives and | | | | | Living Will | | | | + + + + + | Power of | | | | | Sheet Cutter | | | | + + + + + + + + + + | Code Status | Date | Date | Comments | | | Activated | Inactivated | | + + + + + | Full Code | 05/24/2012 | 05/25/2012 | | | | 7:01 AM | 9:08 PM | | + + + + +
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
--- OUTSIDE RECORDS SUMMARY | ~2019-12-01 | XMS | Encounter Summary ---
Demographics + + + | Address | [address] | | | [place] [address] | + + + | Home Phone | | + + + | Preferred Language | Unknown | + + + | Marital Status | | + + + | Samaritan Affiliation | CHR | + + + | Race | White | + + + | Ethnic Group | Not or | + + + Author + + + | Author | [facility] | + + + | Organization | [facility] | + + + | Address | Unknown | + + + | Phone | Unavailable | + + + Support + + + + + | Name | Relationship | Address | Phone | + + + + + | Osei Bhandari Sr. | ECON | [address] | | | | | [place] | | | | | [address] | | + + + + + Care Team Providers + +------+ + | Care Claim Agent Name | Role | Phone | + +------+ + | Royer Wilde MD | PCP | | + +------+ + Reason for Visit + + + | Reason | Comments | + + + | History and physical | | | examination | | + + + Office Visit - E/M Services (Routine) +--------+--------+ + + + + | Status | Reason | Specialty | Diagnoses / | Referred By | Referred To | | | | | Procedures | Contact | Contact | +--------+--------+ + + + + | Closed | | Surgery | Diagnoses | [place]an, | Bar | | | | | Morbid | [place], | B[facility]atri Surg | | | | | obesity | [place] [address] | [address] | | | | | (HCC) | [address] | [address] | | | | | Procedures | [address] | Mailcode: | | | | | [place] [facility] | [address] | [facility] | | | | | GSTR ADJST | [facility], [place] | Health and | | | | | BND | [address] | Healing, | | | | | | Phone: | [address] | | | | | | [phone] | [place], [place] | | | | | | Fax: | [address] | | | | | | [phone] | Phone: | | | | | | | [phone] | | | | | | | Fax: | | | | | | | [phone] | +--------+--------+ + + + + Encounter Details +--------+---------+ + + + | Date | Type | Department | Care Team | Description | +--------+---------+ + + + | 05/07/ | Office | Digestive Health | Dereje Trevino, | Obese (Primary Dx) | | 2011 | Visit | Center at [facility] [address] | MD | | | | | Mahesh Ramos | | | | | | Mailcode: [place] | | | | | | [facility] Health and | | | | | | [place] [address] | | | | | | [place], [place] | | | | | | [address] | | | | | | [phone] | | | +--------+---------+ + + + [...] + + + | Blood Pressure | 144/84 | 05/07/2012 10:58 AM | | | | | PDT | | + + + + + | Pulse | 80 | 05/07/2012 10:58 AM | | | | | PDT | | + + + + + | Temperature | 36.8 C (98.3 F) | 05/07/2012 10:58 AM | | | | | PDT | | + + + + + | Respiratory Rate | 16 | 05/07/2012 10:58 AM | | | | | PDT | | + + + + + | Oxygen Saturation | - | - | | + + + + + | Inhaled Oxygen | - | - | | | Concentration | | | | + + + + + | Weight | 116.2 kg (256 lb 3.2 | 05/07/2012 10:58 AM | | | | oz) | PDT | | + + + + + | Height | 167.6 cm (5' 6") | 05/07/2012 10:58 AM | | | | | PDT | | + + + + + | Body Mass Index | 41.35 | 05/07/2012 10:58 AM | | | | | PDT | | + + + + + documented in this encounter Progress Notes Dereje Trevino MD - 05/07/2012 11:37 AM PDTFormatting of this note might be different fr om the original. Portions of this note were copied, pasted, and edited from the previous Nurse Practitioner s note. I have reviewed and retained only the information that was today reviewed and veri fied with the patient by myself. I spent 40 min with this patient, >50% was counseling, diag nosis: obesity. I spent 40 min with this pt, >50% counseling, dx : [facility]. [facility] History of Present Illness: Steve Bhandari is interested in sleeve gastrectomy. Her is here today he is also interested in guillermina sugrery. She is a morbidly obese, 46 y.o. femal e with a BMI of 41, 256 lbs., and 66 inches who has failed prior attempts at sustained dieta ry/medical weight loss and desires surgical weight loss. Duration of obesity: 24 years. Use of Redux or Phen/fen: yes, used phen-fen in late 's for 3 mos. Transthoracic ECHO: yes- in records scanned into [facility], 2007, borderline LV hypertrophy, no valvular abnormalities. Samaritan or cultural reason you would refuse blood products? no Comorbidities include: osteoarthritis and hypertension Allergies Allergen Reactions Codeine Nausea/Vomiting Inapsine (Droperidol) Psychosis Severe anxiety and shaking Reglan (Metoclopramide Hcl) Itching Restlessness and shaking Current outpatient prescriptions: Albuterol 90 mcg/Actuation Inhalation Aerosol, Inhale 1-2 Puffs every four hours as needed rare use not in last year MAXZIDE 75-50 mg Oral Tablet, Take 0.5 Tabs by mouth once daily. , Disp: , Rfl: Past Medical History Diagnosis Date Morbid obesity Asthma Vitamin D deficiency Migraine HTN (hypertension) GERD (gastroesophageal reflux disease) - HB weekly takes TUMS about weekly Past Surgical History Procedure Date Tubal ligation 1986 Hernia repair Umbilical sounds like primary repair, small iincision 1988 External sinus surgery 2002 Carpal tunnel release 2006 Knee meniscus left in November 2011 History Social History Marital Status: Spouse Name: N/A Number of Children: N/A Years of Education: N/A Occupational History Not on file. Social History Main Topics Smoking status: Former Smoker -- 1 year Quit date: 07/24/1978 Smokeless tobacco: Not on file Alcohol Use: No Drug Use: No Only as teen Sexually Active: Yes -- Male partner(s) Other Topics Concern Not on file Social History Narrative No narrative on file Family History Problem Relation Cancer Mother Stroke Mother Stomach and later breast Asthma Brother Cancer Sister Breast Cancer Maternal Grandmother Breast Review of Systems: General: Denies constitutional symptoms of fatigue, weakness, unintentional weight loss, fe vers, chills, night sweats. Eyes/Ears/Nose/Throat: Denies visual changes, sore throat, dental pain, hoarseness, dysphag ia, oral or tongue lesions. Respiratory: Denies shortness of breath, cough or wheezing. Denies nocturnal snoring, dayti me drowsiness or morning headaches. Denies history of sleep apnea- tested mild Sleep apnea, does not use CPAP. Has hx of asthma, uses inhaler only when she has an URI. Cardiovascular: Denies exertional chest pain, palpitations, syncope, orthopnea, or paroxysm al nocturnal dyspnea. Denies history of lower extremity edema, hyperlipidemia. Denies CHF, M I, ischemic heart disease, DVT/PE, or pulmonary hypertension. States able to climb two fligh ts of stairs. Has hypertension, taking daily maxide. Neurologic: The patient denies any symptoms of neurological impairment or TIAs; denies dipl opia, dysphasia or unilateral disturbance of motor or sensory function. Denies loss of brock ce or vertigo, persistent headaches, numbness or paresthesias. No history of seizure disorde r. Musculoskeletal: Has knee pain and back pain. Gastrointestinal: Denies abdominal or flank pain, anorexia, nausea or vomiting, dysphagia, change in bowel habits, black or bloody stools. Denies history of hernias. Denies persistent reflux symptoms. Denies history of liver disease or jaundice. Had a hx of stomach ulcer dur ing childhood, rarely has issues with GERD symptoms at this time. She did had an umbilical h ernia related to tubal ligation, repaired in 1988. Genitourinary: Denies urinary incontinence. Denies history of kidney stones. Denies urethra l discharge, dysuria, hematuria or sores on the genitals. Denies menstrual irregularity, his tory of endometriosis or abnormal PAP's. Current method of control is: manopause. Skin: Denies intertrigenous skin infections. Denies recent rashes, sores, or skin changes. Psychological: Denies anxiety, depression, thoughts of suicide or hallucinations. Heme/Lymphatic: Denies history of anemia. The patient denies abnormal bruising, abnormal bl eeding or enlarged lymph nodes. Metabolic: Denies symptoms of hypo or hyperthyroidism. Denies history of diabetes. No polyu samia, polyphagia or polydipsia. Denies history of gout. Physical exam: General: Alert and cooperative. Neuro: Oriented x 3. No focal deficits. Neck: Neck supple. FROM. Respiratory: Good diaphragmatic excursion. Cardiac: Regular rate and rhythm Extremities: No lower extremity edema. Abdomen: Obese, moderately andorid surgical habitus Skin: No evidence of pannus infection. Psych: No problems noted. Laboratory Data: Labs pt brought with her today, CBC, CMP, cholesterol, A1C, H pylori, TSH, PTH, all normal, Vit D low at 17. Cardiac Echo is on page 29 of scanning dated 24 Mar 2009 Sleep study with AHI of 6 was on page 98 Psych eval which found no contraindications for surgery was on page 116. Impression: 1. ABHIJEET- mild, CPAP not required prior to suregry auth. 2. HTN- taking daily medication 3. Has hx of umbilical hernia repair in 1988, unsure if mesh used but doubt it based small Patient meets and or exceeds NIH criteria for morbid obesity with a BMI of 41 and comorbidi ties related to obesity including ABHIJEET, HTN, which may be improved with bariatric surgery. Re cords have been reviewed from her PCM and several attempts have been made to lose weight justa garcia the past years without success. She qualifies for medically necessary weight loss surgery to control co-morbidities. She has attended the Public Informational Session in which risks and benefits of bariatric surgery were discussed. Discussion of realistic expectations of bariatric surgery was held felicia saavedra. Sleeve Gastrectomy PARQ A full PARQ was held. I reviewed the information that follows in lay-terms that the patient appeared to understand. I reviewed my experience with bariatric surgery and my personal out comes. The patient was informed of alternatives to sleeve gastrectomy, including gastric byp ass, gastric banding, and duodenal switch, and the common risks associated with sleeve gastr ectomy, including the risk of , leak, DVT or pulmonary embolus, myocardial infarction, stroke, bleeding, infection, anastomotic stenosis, perforation or injury of the stomach or o ther organs, hernia (internal and ventral), gastric conduit torsion, gastric conduit stenosi s, development of gastroesophageal reflux disease, bowel obstruction, chronic pain, especial ly abdominal, alopecia, chronic nausea, nutritional problems which may or may not be refract ory to vitamin supplementation, including but not limited to anemia, skin disorders, kidney stones, and hypoglycemia. The fact that other, less common complications may occur was also discussed. In addition, the risk of poor or no weight loss was discussed. The patient s ex pected weight loss of approximately 50-60% of excess body weight was calculated for this pat ient s height and current weight, along with the fact that there is a wide range of weight loss results after bariatric surgery. Rare patients do not lose much weight at all after ba riatric surgery, and this variability is thought to be due to genetic differences among avani ents that are not yet fully understood. The issue of prophylactic cholecystectomy was discus sed, and it was explained that if the operation is performed laparoscopically, then prophyla ctic cholecystectomy will not be performed unless the patient has symptomatic gallstones. Th e risks of not performing prophylactic cholecystectomy were discussed in the context of the associated risks of performing prophylactic cholecystectomy at the time of bariatric surgery . The risk of conversion to an open procedure was discussed. I quoted an approximate overall 7-8% risk of all dinh-operative complications in the dinh-operative period, a 1-5% risk of serious dinh-operative complications, a 4-5% rate of reoperation over the senior living (i.e. ye ars), as well as other late complications that may or may not require operation or other int ervention. I stressed that all complication rates and outcomes were estimates only. The pat ient appeared to understand, was given an opportunity to ask questions, and agrees to tiffanie gillespie. We discussed that sleeve gastrectomy is not as well-studied as gastric bypass or gastric ba nding, and that current data in the literature is less than for bypass or banding, and the f ollow-up is less than five years in many cases. We discussed that long-term results of sleev e gastrectomy are therefore not well understood. We discussed that our institution s exper ience and my own personal experience with sleeve gastrectomy is minimal, and that we are ear ly in our sleeve gastrectomy experience. While prior experience with bypass and banding is l ikely to reduce learning curve issues, it is likely that I will undergo some degree of a maid rning curve for sleeve gastrectomy that may or may not be associated with a higher morbidity or mortality rate in my early experience. We discussed the specific complications as outlin ed above, specifically addressing the fact that leak rates may be higher for sleeve gastrect neelam than gastric bypass, and may approach 5% although that has not been our experience so fa r. We next reviewed the [facility] consent form. We discussed that we did not cover all possible ris ks and outcomes, but that I have provide the patient with a summary of the most common and i mportant risks. We discussed the possibility of blood transfusion or liver biopsy with atten dant risks, the need for sedation and anesthesia with attendant risks that would be reviewed in detail with the anesthesiologists, the possibility that observers may be present and maggi tographs may be taken in the operating room for teaching purposes, and that all of observers and photographs will be compliant with HIPPA. We discussed the fact that fellows and resid ents would be involved in intra-operative and post-operative care but that I will be the angelo lewis surgeon, present for the entire procedure, and manage and supervise all care delivered. We discussed the fact that if we encounter anything unexpected in the operating room (for e xample cirrhosis or tumors) that I would adjust the operative plan accordingly based on my b est judgment. The patient appeared to understand, was given an opportunity to ask questions, and agrees to proceed. documented in this e ncounter Plan of Treatment Not on filedocumented as of this encounter Visit Diagnoses + + | Diagnosis | + + | Obese - Primary Obesity, unspecified | + + documented in this encounter
--- OUTSIDE RECORDS SUMMARY | ~2019-12-01 | XMS | Encounter Summary ---
Demographics + + + | Address | [address] | | | [place] [address] | + + + | Home Phone | | + + + | Preferred Language | Unknown | + + + | Marital Status | | + + + | Scientology Affiliation | CHR | + + + | Race | White | + + + | Ethnic Group | Not or | + + + Author + + + | Author | [facility] | + + + | Organization | [facility] | + + + | Address | Unknown | + + + | Phone | Unavailable | + + + Support + + + + + | Name | Relationship | Address | Phone | + + + + + | Osei Bhandari Sr. | ECON | [address] | | | | | [place] | | | | | [address] | | + + + + + Care Team Providers + +------+ + | Care Upholstery Repairer Name | Role | Phone | + +------+ + | Royer Wilde MD | PCP | | + +------+ + Encounter Details +--------+ + + + + | Date | Type | Department | Care Team | Description | +--------+ + + + + | 11/08/ | Hospital | Radiology/Imaging | | | | 2015 | Encounter | Lab at [address] | | | | | | [address] Mailcode: | | | | | | [facility] | | | | | | Health and Healing, | | | | | | [place] [address], [facility] | | | | | | Floor [place], [place] | | | | | | [address] | | | | | | [phone] | | | +--------+ + + + [...] + + + +---------+ + + | ASCORBIC ACID | Take by mouth. | | 0 | | | | (VITAMIN C ORAL) | | | | | | + + + +---------+ + + | Calcium | Take 2 Tabs by mouth | 100 Tab | 12 | 05/25/20 | | | Citrate-Vitamin D3 | two times daily. | | | 12 | | | (CITRACAL + D | Start 2 weeks after | | | | | | PETITES) 200 mg | surgery. | | | | | | calcium -250 unit | Indications: | | | | | | Oral | HYPOCALCEMIA | | | | | | tabletIndications: | | | | | | | hypocalcemia | | | | | | + + + +---------+ + + | cholecalciferol, | Take 2,000 Units by | | 0 | | | | Vitamin D3, 2,000 | mouth once daily. | | | | | | unit oral capsule | | | | | | + + + +---------+ + + | cyanocobalamin | Take 1 Tab by mouth | 100 Tab | 12 | 05/25/20 | | | (VITAMIN B-12) 500 | once daily. | | | 12 | | | mcg Oral tablet | | | | | | + + + +---------+ + + | ESOMEPRAZOLE | Take by mouth. | | 0 | | | | MAGNESIUM (NEXIUM | | | | | | | ORAL) | | | | | | + + + +---------+ + + | FERROUS | Take by mouth. | | 0 | | | | FUMARATE/VIT BCOMP,C | | | | | | | (SUPER B COMPLEX | | | | | | | ORAL) | | | | | | + + + +---------+ + + | pediatric | Take 1 Tab by mouth | 60 Tab | 12 | 05/25/20 | | | multivitamin | two times daily. | | | 12 | | | chewable (CHILDRENS | | | | | | | CHEWABLE VITAMINS) | | | | | | | Oral tablet, | | | | | | | chewable | | | | | | + + + +---------+ + + | metroNIDAZOLE | Take 1 tablet by | 42 | 0 | 11/09/19 | | | (FLAGYL) 500 mg oral | mouth every eight | tablet | | 16 | 6 | | tablet | hours for 14 days. | | | | | + + + +---------+ + + documented as of this encounter Plan of Treatment Not on filedocumented as of this encounter Procedures + +--------+ + + + | Procedure Name | Priori | Date/Time | Associated Diagnosis | Comments | | | ty | | | | + +--------+ + + + | X-RAY NATALY GUEVARA | Routin | 11/09/2015 | History of sleeve | Results for this | | | e | 10:09 AM | gastrectomy | procedure are in the | | | | PDT | Gastroesophageal | results section. | | | | | reflux disease, | | | | | | esophagitis presence | | | | | | not specified | | | | | | Bloating | | + +--------+ + + + documented in this encounter Results X-RAY NATALY GUEVARA (11/09/2015 [...] | | | | | | MD Leonel MARTINEZ | | | | | | personally [...] | | + +---------+ + + | [facility] DEPARTMENT OF | | | | | RADIOLOGY | | | | + +---------+ + + documented in this encounter Visit Diagnoses + + | Diagnosis | + + | History of sleeve gastrectomy | + + | Gastroesophageal reflux disease, esophagitis presence not specified | + + | Bloating Flatulence, eructation, and gas pain | + + documented in this encounter"
--- OUTSIDE RECORDS SUMMARY | ~2019-12-01 | XMS | Encounter Summary ---
Demographics + + + | Address | [address] | | | [place] [address] | + + + | Home Phone | | + + + | Preferred Language | Unknown | + + + | Marital Status | | + + + | Episcopal Affiliation | CHR | + + + | Race | White | + + + | Ethnic Group | Not or | + + + Author + + + | Author | [facility] | + + + | Organization | [facility] | + + + | Address | Unknown | + + + | Phone | Unavailable | + + + Support + + + + + | Name | Relationship | Address | Phone | + + + + + | Osei Bhandari Sr. | ECON | [address] | | | | | [place] | | | | | [address] | | + + + + + Care Team Providers + +------+ + | Care Public Health Microbiologist Name | Role | Phone | + +------+ + | Royer Wilde MD | PCP | | + +------+ + Reason for Visit + + + | Reason | Comments | + + + | Surgical follow-up | Bariatric | + + + Encounter Details +--------+ + + + + | Date | Type | Department | Care Team | Description | +--------+ + + + + | 11/26/ | Documentati | Digestive Health | Jessica Davis, | Surgical follow-up | | 2015 | on | Center at [facility] [address] | CIRCLE SHEAR OPERATOR [address] | (Bariatric) | | | | [address] | , [facility] [address] | | | | | Mailcode: Center | [place], [place] | | | | | for [facility] and | [address] | | | | | [facility] [address] | [phone] | | | | | [place], [place] | | | | | | [address] | | | | | | [phone] | | | +--------+ + + + [...]
--- OUTSIDE RECORDS SUMMARY | ~2019-12-01 | XMS | Encounter Summary ---
Demographics + + + | Address | [address] | | | [place] [address] | + + + | Home Phone | | + + + | Preferred Language | Unknown | + + + | Marital Status | | + + + | Religion Affiliation | 1077 | + + + | Race | Unknown | + + + | Ethnic Group | Unknown | + + + Author + + + | Author | [facility] | | | and [place] | + + + | Organization | [facility] | | | and [place] | + + + | Address | Unknown | + + + | Phone | Unavailable | + + + Support + + + + + | Name | Relationship | Address | Phone | + + + + + | Osei Woodard | ECON | [address] | | | [place] | | [place] | | | | | [address] | | + + + + + Care Team Providers + +------+ + | Care Meteorological Equipment Repairer Name | Role | Phone | + +------+ + PCP | Unavailable | + +------+ + Encounter Details +--------+ + + + + | Date | Type | Department | Care Team | Description | +--------+ + + + + | 06/02/ | Abstract | [facility] | Jai Loving, | Right Breast lump; | | 2010 | | Group Up | [address] | HTN (hypertension); | | | | [facility] [address], [place] | Asthma; | | | | [address] | [address] | History of headache | | | | [place], [place] | | | | | | [address] | | | | | | [phone] | | | +--------+ + + + [...] | + +--------+ + + + | PAP SMEAR | Routin | 08/24/2009 | | | | | e | 3:31 PM | | | | | | PST | | | + +--------+ + + + | YARI SCREENING | Routin | 08/24/2008 | | | | BILATERAL | e | 3:31 PM | | | | | | PST | | | + +--------+ + + + documented in this encounter Results Pap Smear (08/24/2009 3:31 PM PST) + + | Specimen | + + | PAP LBC | + + YARI SCREENING BILATERAL (08/24/2008 3:31 PM PST)documented in this encounter Visit Diagnoses + + | Diagnosis | + + | Right Breast lump Lump or mass in breast | + + | HTN (hypertension) Unspecified essential hypertension | + + | Asthma Unspecified asthma | + + | History of headache Personal history of other specified diseases | + + documented in this encounter"
--- OUTSIDE RECORDS SUMMARY | ~2019-12-01 | XMS | Encounter Summary ---
Demographics + + + | Address | [address] | | | [place] [address] | + + + | Home Phone | | + + + | Preferred Language | Unknown | + + + | Marital Status | | + + + | Uatsdin Affiliation | CHR | + + + | Race | White | + + + | Ethnic Group | Not or | + + + Author + + + | Author | [facility] | + + + | Organization | [facility] | + + + | Address | Unknown | + + + | Phone | Unavailable | + + + Support + + + + + | Name | Relationship | Address | Phone | + + + + + | Osei Bhandari Sr. | ECON | [address] | | | | | [place] | | | | | [address] | | + + + + + Care Team Providers + +------+ + | Care Machine Feed Operator Name | Role | Phone | + +------+ + | Royer Wilde MD | PCP | | + +------+ + Reason for Visit AUTH/CERT +--------+--------+ + + + + | Status | Reason | Specialty | Diagnoses / | Referred By | Referred To | | | | | Procedures | Contact | Contact | +--------+--------+ + + + + | Closed | | | | | | +--------+--------+ + + + + Encounter Details +--------+---------+ + + + | Date | Type | Department | Care Team | Description | +--------+---------+ + + + | 05/24/ | Surgery | [address]A [id number] | Dereje Trevino, | LAPAROSCOPIC GASTRIC | | 2011 | | [address] | | SLEEVE PROCEDURE | | | | Rd [facility] | | | | | | Hospital Admitting | | | | | | Desk Located on the | | | | | | 9th floor | | | | | | [place], [place] | | | | | | [address] | | | +--------+---------+ + + + Social History + + [...] + + + | Blood Pressure | 116/65 | 05/25/2012 11:20 AM | | | | | PDT | | + + + + + | Pulse | 64 | 05/25/2012 11:20 AM | | | | | PDT | | + + + + + | Temperature | 36.7 C (98.1 F) | 05/25/2012 11:20 AM | | | | | PDT | | + + + + + | Respiratory Rate | 16 | 05/25/2012 4:11 AM | | | | | PDT | | + + + + + | Oxygen Saturation | 100% | 05/25/2012 11:20 AM | | | | | PDT | | + + + + + | Inhaled Oxygen | - | - | | | Concentration | | | | + + + + + | Weight | 113.9 kg (251 lb 3.2 | 05/25/2012 7:55 AM | | | | oz) | PDT | | + + + + + | Height | 167.6 cm (5' 5.98") | 05/24/2012 4:32 PM | | | | | PDT | | + + + + + | Body Mass Index | 40.56 | 05/24/2012 4:32 PM | | | | | PDT | | + + + + + documented in this encounter Discharge Summaries Emily Chen ACNP - 05/25/2012 2:15 PM PDT INPATIENT PHYSICIAN DISCHARGE SUMMARY Attending Physician: Dereje Trevino MD PCP: Royer Wilde MD Admission Date: 05/24/2012 Discharge Date: 05/25/2012 Diagnoses Principal Final Diagnosis: 1. Morbid obesity, BMI = 40 Additional Diagnoses: Hypertension, GERD, back pain, ABHIJEET, osteoarthritis, Procedures 1. Lap sleeve gastrectomy Procedure Lap sleeve gastrectomy Reason For Admission: Morbid obesity Hospital Course: Steve Bhandari is a 47 year old woman with morbid obesity and weight related co morbidities. She was admitted and underwent a lap sleeve gastrectomy without complications. She had ini tial BOAT TESTER and was transitioned to oral medications with satisfactory pain relief. Trocar sit es were intact without drainage. She was taking in adequate oral fluids, urinating in satis factory volumes without retention and ambulating without problems. She had Nutrition and PT home instructions. She was discharged home in stable condition. Current Discharge Medication List START taking these medications Details acetaminophen 650 mg/20.3 mL Oral Suspension Take 20.3 mL by mouth every six hours. Qty: 300 mL, Refills: 1 Calcium Citrate-Vitamin D3 (CITRACAL + D PETITES) 200 mg calcium -250 unit Oral tablet Take 2 Tabs by mouth two times daily. Start 2 weeks after surgery. Indications: HYPOCALCEMIA Qty: 100 Tab, Refills: 12 cyanocobalamin (VITAMIN B-12) 500 mcg Oral tablet Take 1 Tab by mouth once daily. Qty: 100 Tab, Refills: 12 docusate sodium (COLACE) 100 mg Oral capsule Take 1 Cap by mouth two times daily. Hold if l oose stools Qty: 30 Cap, Refills: 1 famotidine 20 mg Oral tablet Take 1 Tab by mouth two times daily. Indications: Prevention o f Stress Ulcer Qty: 60 Tab, Refills: 2 ondansetron ODT 4 mg Oral tablet,disintegrating Take 1 Tab by mouth every eight hours as ne eded for nausea/vomiting. Qty: 12 Tab, Refills: 1 oxyCODONE, immediate release, 5 mg Oral tablet Take 1-2 Tabs by mouth every four hours as n eeded for severe pain. Indications: Pain Qty: 75 Tab, Refills: 0 pediatric multivitamin chewable (CHILDRENS CHEWABLE VITAMINS) Oral tablet, chewable Take 1 Tab by mouth two times daily. Qty: 60 Tab, Refills: 12 prochlorperazine 10 mg Oral tablet Take 1 Tab by mouth three times daily as needed for naus ea/vomiting. Max dose: 40 mg/day Qty: 20 Tab, Refills: 1 ursodiol 300 mg Oral capsule Take 1 Cap by mouth two times daily. Start Actigall [address] surgery. Indications: Cholelithiasis Prevention Qty: 60 Cap, Refills: 5 CONTINUE these medications which have NOT CHANGED Details Albuterol 90 mcg/Actuation Inhalation Aerosol Inhale 1-2 Puffs every four hours as needed MAXZIDE 75-50 mg Oral Tablet Take 0.5 Tabs by mouth once daily. Wound Care Keep incisions clean and dry. You may shower. Avoid tub baths for 3 weeks, also avoid jacuz zi and swimming for that time period. Bariatric diet Try to take in 48-64 fluid ounces daily. You will work up to the protein powder 60 gms sebastián y, do not force the powders. You will be on liquids for 2-3 weeks until your next appointmen t. Do not advance your diet until you are seen in the clinic. Activity No heavy lifting > 10 lbs for 4 weeks; No driving for 10 days, while on narcotics; No tub bath, hot tubs or swimming for 6 weeks; You may shower. Follow abdominal precautions Destination Home Condition Stable Future Appointments Date & Time Provider Department Dept Phone Center 06/08/2012 8:[address] Food [facility] Nutrition Services [phone] FOOD [facility] NU T 06/08/2012 9:30 AM JOCELIN Stone [facility] Bariatric Surgery [phone] [facility] 07/06/2012 10:00 AM Jessica Davis NP [facility] Bariatric Surgery [phone] [facility] Your Follow-Up Plan Follow up with [facility]. (Call if you have any concerns, ) Contact information: Carolyn Ramos Mailcode: Ch6d [facility], [address] [facility] [address] Medication Refill Instructions If you need a refill on any narcotic pain medications, please call the clinic ([phone] ) by 2 pm on for any weekend needs. It will take 3 business days to mail any prescr iptions to you. The resident will not be able to fill narcotic scripts after 5 pm daily and on the weekends. Please plan ahead and keep track of how many pain pills you have left. When To Call The Doctor - If your incision becomes red, swollen, or has any bloody or pus-like drainage. - If you have a fever of 101.5 F or greater or if you have chills. - If you have increased pain, unrelieved by your pain medications. - If you have persistent nausea, vomiting, diarrhea, or no bowel movement for more than 2 d ays after discharge from the hospital. - If you develop any unusual signs or symptoms, including chest pain, shortness of breath, pulmonary embolism, leg swelling, pain or redness that is abnormal for you, and other sympto ms of concern. - If you have any questions or concerns. How to Call the Doctor - You may contact your doctor Monday through Monday during the day time hours by calling [facility] surgery office at [phone] - After hours, weekends and holidays, you may call the hospital glass furnace operator at [phone] an d have the concrete layer [place] Team for general surgery paged. Constipation Prevention It is very important to avoid constipation and straining while trying to have a bowel movem ent. It is common to experience constipation after your operation and when taking narcotics. There are medications like stool softeners (colace a.k.a. Docusate Sodium) or laxatives (mi ralax, senokot+stool softener, Dulcolax suppository). Please work towards having a bowel mov ement every 1-2 days. A hot drink each morning will also help the sphincter to work in pushi ng the stool forward. It is important to stay hydrated, about 45-60 fluid ounces daily, and this will help your bowel function. Pain Instructions It is expected that you will experience pain after your operation, and it is important to h ave you manage your pain to increase your activity, sleep and overall healing. You are being sent home with a prescription for pain relief. This should be taken every 3-6 hours per you r instructions. Some medications, like lortab or hydrocodone have Tylenol in it. Make sure y ou do not take more than 4,000 mg of tylenol or acetaminophen in 24 hours. Outstanding labs/studies: NICK NAYAK [facility] [address] [place] [address] Discharging Physician: NICK NAYAK Attending Physician: Dereje Trevino MD documented in thi s encounter Discharge Instructions Instructions Zeynep Amor RN - 05/25/2012Patient Education Materials: Provided Abdomin al Precautions and Home Care after Surgery guidelines. Additional Instructions: Be sure to keep well hydrated. Signs and symptoms of dehydration include dry mucus membranes, dark urine, nausea, increased temperature. Be sure to wash wang ds frequently. Assess surgical sites for redness and drainage daily. Discharge Nurse: ZEYNEP AMOR Date: 05/25/2012 Discharge Time: 2:32 PM documented in this encounter Medications at Time [...] documented as of this encounter Progress Notes Dereje Trevino MD - 05/25/2012 3:01 PM PDTavsn feels well looks welll doing well sp GBP , plan dc today, dc precautions dw pt, , rtc 2 wks Anca Askew MD - 05/25/2012 7:54 AM PDTFormatting o f this note might be different from the original. [facility] INPATIENT PROGRESS NOTE Hospital Day:1 Author; ANCA PAIGE MD Attending Physician: Dereje Trevino MD Interval Hx: No complains. Doing well. Good U/O. #D1 Lap sleeve gastrectomy. #HTN, Asthma. Physical Exam: Last Vitals: BP 100/59 | Pulse 56 | Temp 36.3 C (97.3 F) | RR 16 | Ht 1.676 m (5' 5.98" ) | Wt 113.853 kg (251 lb) | SpO2 100% | BMI 40.53 kg/(m^2) O2 Delivery Device: Nasal cannula (05/25/12 0516) 24 Hour Vital Min/Max: Systolic (24hrs), Av mmHg, Min:100 mmHg, Max:130 mmHgDiastolic (24hrs), Av mmHg, M in:54 mmHg, Max:86 mmHgPulse Av.7 Min: 54 Max: 99 Temp Av.6 C (97.9 F) Min: 36.3 C (97.3 F) Max: 36.9 C (98.4 F) Resp Av.9 Min: 7 Max: 19 SpO2 Av % Min: 92 % Max: 100 % Intake/Output Summary (Last 24 hours) at 05/25/12 0754 Last data filed at 05/25/12 0600 Gross per 24 hour Intake 3890 ml Output 1025 ml Net 2865 ml Physical Exam: General: AOX3, NAD Respiratory: CTA-B Cardiovascular: RRR, no MGR Abdomen: Soft, nontender, nondistended. Skin: wwp, non-diaphoretic Extremities: minimal edema Chemistries: Last 72 Hours (or 3 results): Recent Labs Basename 05/25/12 0510 NA 145 K 4.0 CL 109* BICARB 30 BUN 10 CR 0.68 CA 8.7 MG 1.9 PO4 3.4 CBC with diff last 72 hours (or 3 results) Recent Labs Basename 05/25/12 0510 WBC 9.5 HB 11.6* HCT 34.8* PLT 181 NEUTROPERC -- BANDPCT -- LYMPHPERC -- MONOPERC -- BASOPERC -- EOSPERC -- Assessment and Plan: S/p lap sleeve gastrectomy progressing appropriately. 1. Clears and oral meds. 2. D/c vick. 3. Poss d/c home today. ANCA PAIGE MD toneCande - 7:04 PM PDT [facility] Surgery Postoperative Check Progress Note 05/24/2012 Author: CANDE GARZON Attending: Patient ID: Steve Bhandari is a 47 y.o. female with history of morbid obesity Interval History: OR today for laparoscopic gastric sleeve gastrectomy Subjective: pain well controlled, low need for pain meds, no N/V Objective: BP 115/65 | Pulse 61 | Temp 36.5 C (97.7 F) | RR 16 | Ht 1.676 m (5' 5.98") | Wt 113.85 3 kg (251 lb) | SpO2 100% | BMI 40.53 kg/(m^2) Intake/Output Summary (Last 24 hours) at 05/24/12 1904 Last data filed at 05/24/12 1800 Gross per 24 hour Intake 2680 ml Output 125 ml Net 2555 ml UOP- 400 ml in Vick Physical Exam: Vitals: BP 115/65 | Pulse 61 | Temp 36.5 C (97.7 F) | RR 16 | Ht 1.676 m (5' 5.98") | W t 113.853 kg (251 lb) | SpO2 100% | BMI 40.53 kg/(m^2) General Appearance: Well appearing, laying in bed, conversant, appropriate HEENT: Pupils equal, round, and reactive to light, extraocular movements intact bilaterall y. Oral mucosa pink and moist. Hirsute chin. Heart: Regular rate and rhythm. No murmurs, rubs, or gallops. Lungs: Clear to auscultation anteriorly Abdomen: Soft, non-tender. Hypoactive bowel sounds. Multiple small incisions c/d/i, derma bonded. No surrounding edema or erythema. Extremities: Bilateral SCDs in place Genitourinary: Vick in place with ~ 400 ml light yellow urine Psychiatric: Normal mood and affect. Assessment and Plan: Steve Bhandari is a 47 y.o. female with history of morbid obsesity now POD 0 from laparoscopic sleeve gastrectomy, doing well. Pain well controlled No N/V Encourage incentive spirometry Cande Garzon MD. MSc. PGY-1 [facility] Plastic and Reconstructive [place] [phone] documented in this encou nter Plan of Treatment Not on filedocumented as of this encounter Procedures + +--------+ + + + | Procedure Name | Priori | Date/Time | Associated Diagnosis | Comments | | | ty | | | | + +--------+ + + + | PROCEDURE NOTE | Routin | 08/28/2015 | | Results for this | | | e | 12:40 AM | | procedure are in the | | | | PST | | results section. | + +--------+ + + + | OPERATION RECORD | | 05/25/2012 | | Results for this | | | | 3:06 PM | | procedure are in the | | | | PDT | | results section. | + +--------+ + + + | CAPILLARY BLOOD | Routin | 05/25/2012 | | Results for this | | GLUCOSE (NO CHG), | e | 1:45 PM | | procedure are in the | | POC | | PDT | | results section. | + +--------+ + + + | CAPILLARY BLOOD | Routin | 05/25/2012 | | Results for this | | GLUCOSE (NO CHG), | e | 8:25 AM | | procedure are in the | | POC | | PDT | | results section. | + +--------+ + + + | CAPILLARY BLOOD | Routin | 05/25/2012 | | Results for this | | GLUCOSE (NO CHG), | e | 5:50 AM | | procedure are in the | | POC | | PDT | | results section. | + +--------+ + + + | CBC ONLY | Routin | 05/25/2012 | | Results for this | | | e | 5:10 AM | | procedure are in the | | | | PDT | | results section. | + +--------+ + + + | BASIC METABOLIC SET | Routin | 05/25/2012 | | Results for this | | (NA, K, CL, TCO2, | e | 5:10 AM | | procedure are in the | | BUN, CR, GLU, CA) | | PDT | | results section. | + +--------+ + + + | CBC ONLY | Routin | 05/25/2012 | | Results for this | | | e | 5:10 AM | | procedure are in the | | | | PDT | | results section. | + +--------+ + + + | PHOSPHORUS, PLASMA | Routin | 05/25/2012 | | Results for this | | | e | 5:10 AM | | procedure are in the | | | | PDT | | results section. | + +--------+ + + + | MAGNESIUM, PLASMA | Routin | 05/25/2012 | | Results for this | | | e | 5:10 AM | | procedure are in the | | | | PDT | | results section. | + +--------+ + + + | CAPILLARY BLOOD | Routin | 05/25/2012 | | Results for this | | GLUCOSE (NO CHG), | e | 12:18 AM | | procedure are in the | | POC | | PDT | | results section. | + +--------+ + + + | LAPAROSCOPIC SLEEVE | Electi | 05/24/2012 | Morbid obesity | | | GASTRECTOMY | ve | 7:22 AM | ([facility]) | | | | Surgic | PDT | | | | | al | | | | + +--------+ + + + +---+--------+ | | | | | Specia | | | l | | | Needs | | | | | | ALLERG | | | IES: | | | CODEIN | | | E, | | | INAPSI | | | NE | | | (DROPE | | | RIDOL) | | | , | | | REGLAN | +---+--------+ + +--------+ +---+ + | SURGICAL PATHOLOGY | Routin | 05/24/2012 | | Results for this | | | e | | | procedure are in the | | | | | | results section. | + +--------+ +---+ + documented in this encounter Results PROCEDURE NOTE (08/28/2015 12:40 AM PST) + + | Transcriptions | + + | Other, Faculty - 05/30/2012 10:08 AM PST | + + OPERATION RECORD (05/25/2012 3:06 PM PDT) + + | Transcriptions | + + | Dereje Trevino MD - 05/25/2012 6:46 AM PDT Date: 05/24/2012ttending | | Surgeon: Dereje Trevino M.D.Casing Fluid Tender(s): Anca | | KLUDEEP Paigereoperative Diagnosis(es):Morbid obesity.Postoperative Diagnosis(es):Morbid | | obesity.Procedures Performed:Laparoscopic sleeve gastrectomy.Anesthesia:General | | endotracheal.Estimated Blood Loss:Minimal.Indications:This is a 47-year-old woman with a | | BMI of 41 and comorbidities of obesitythat include asthma, hypertension, and mild | | gastroesophageal refluxdisease. She is being taken to the operating room for | | laparoscopic sleevegastrectomy. Risks, benefits, and alternatives have been fully | | explainedto her. Our limited experience with sleeve but our extensive experiencewith | | bariatric surgery in general were also explained with her. Theincreased risk of | | worsening reflux giving her mild reflux disease was alsodiscussed, and she agreed to | | proceed.Procedure:After the induction of general anesthesia, the patient was prepped | | anddraped in the usual sterile fashion. An 11 blade was used to make anincision over | | the umbilicus. Veress needle inserted. We then placedstandard sleeve gastrectomy | | trocar arrangements using Step and 5 mm trocarsalong with a 15 mm Step trocar. We then | | took an omental fat biopsy with aHarmonic scalpel and removed it out of the 15 mm port | | site with an EndoCatch bag. We removed a subcutaneous fat biopsy from the 15 mm port | | siteas well. Both of these were passed off to the research lab. We thenidentified a | | point 6 cm from the pylorus proximally on the stomach, and westarted the dissection on | | the greater curvature of the stomach here, transectingthe short gastric arteries. We | | carried this dissection all the way up tothe angle of His, completely mobilizing the | | stomach from the upper pole ofthe spleen. There were no posterior attachments of the | | stomach to thepancreas. We then used serial firings of an Endo BRAD Tri-Stapler to | | create the sleevearound a 32-FrenchTube. We started with black loads, and in the | | mid-stomach, switched to purpleloads. We veered off the vesels at the incisura and off | | the fat pad at the angle of His. At the completion of this, there was a little bit of | | bleeding alongthe staple line in 3 spots. I touched 2 of them near the antrum with | | cautery to stop thebleeding, and then I used a single over-sew stitch with 2-0 Vicryl | | near theangle of His to deal with a little bit of bleeding in that area,over-sewing the | | staple line, and halting the bleeding. We then performed amethylene blue test. There | | was no evidence of leak. We then used 2interrupted 2-0 Vicryl sutures to tack the | | sleeve to the lateral fattissues preventing torsion. We then removed the specimen with | | an EndoCatch bag through the 15 mm port site. We then proceeded to use a fascialclosure | | device and 0 Tycron suture to close the fascial defect at the 15 mmport site. We | | noticed a little bit of bleeding at the 5 mm epigastric portsite through which a liver | | retractor was placed, so we used 0 Tycron sutureand a suture passer to close this site | | as well thus halting the bleeding.We removed the retractors under direct camera vision. | | We closed the skinat each port site with 4-0 Monocryl. The wounds were dressed. The | | patienttolerated the procedure well. Sponge and needle counts were correct at theend of | | the case.Disposition:To the PACU.Dereje Trevino M.D.KOJO / [id number] / [id number] / | | [id number] / T: 05/24/2012 | |identified a point 6 cm from the pylorus proximally on the stomach, and we | |started the dissection on the greater curvature of the stomach here, transecting | |the short gastric arteries. We carried this dissection all the way up to | |the angle of His, completely mobilizing the stomach from the upper pole of | |the spleen. There were no posterior attachments of the stomach to the | |pancreas. We then used serial firings of an Endo BRAD Tri-Stapler to create the sleevearoun d a 32-Amharic | |Tube. We started with black loads, and in the mid-stomach, switched to purple | |loads. We veered off the vesels at the incisura and off the fat pad at the angle of His. A t the completion of this, there was a little bit of bleeding along | |the staple line in 3 spots. I touched 2 of them near the antrum with cautery to stop the | |bleeding, and then I used a single over-sew stitch with 2-0 Vicryl near the | |angle of His to deal with a little bit of bleeding in that area, | |over-sewing the staple line, and halting the bleeding. We then performed a | |methylene blue test. There was no evidence of leak. We then used 2 | |interrupted 2-0 Vicryl sutures to tack the sleeve to the lateral fat | |tissues preventing torsion. We then removed the specimen with an Endo | |Catch bag through the 15 mm port site. We then proceeded to use a fascial | |closure device and 0 Tycron suture to close the fascial defect at the 15 mm | |port site. We noticed a little bit of bleeding at the 5 mm epigastric port | |site through which a liver retractor was placed, so we used 0 Tycron suture | |and a suture passer to close this site as well thus halting the bleeding. | |We removed the retractors under direct camera vision. We closed the skin | |at each port site with 4-0 Monocryl. The wounds were dressed. The patient | |tolerated the procedure well. Sponge and needle counts were correct at the | |end of the case. | | | |Disposition: | |To the PACU. | | | | | |Dereje Trevino M.D. | |KOJO / HS | |[id number] / [id number] / [id number] / | | | | | + + CAPILLARY BLOOD GLUCOSE, POC (05/25/2012 1:45 PM PDT) + +---------+ + + + | Component | Value | Ref Range | Performed | Pathologist | | | | | At | Signature | + +---------+ + + + | BLOOD | 128 (H) | 60 - 99 mg/dL | [facility] | | | GLUCOSE, | | | [facility] | | | POC | | | [facility] | | | | | | OF CARE | | | | | | TESTS | | + +---------+ + + + + + | Specimen | + + | | + + + + + + + | Performing | Address | City/State/Zipcode | Phone Number | | Organization | | | | + + + + + | [facility] | [address] | [place], [place] | | | [facility] | [facility] | [address] | | | TESTS | | | | + + + + + CAPILLARY BLOOD GLUCOSE, POC (05/25/2012 8:25 AM PDT) + +-------+ + + + | Component | Value | Ref Range | Performed | Pathologist | | | | | At | Signature | + +-------+ + + + | BLOOD | 96 | 60 - 99 mg/dL | [facility] | | | GLUCOSE, | | | [facility] | | | POC | | | [facility] | | | | | | OF CARE | | | | | | TESTS | | + +-------+ + + + + + | Specimen | + + | | + + + + + + + | Performing | Address | City/State/Zipcode | Phone Number | | Organization | | | | + + + + + | [facility] | [address] | [place], [place] | | | [facility] | [address] | [address] | | | TESTS | | | | + + + + + CAPILLARY BLOOD GLUCOSE, POC (05/25/2012 5:50 AM PDT) + +-------+ + + + | Component | Value | Ref Range | Performed | Pathologist | | | | | At | Signature | + +-------+ + + + | BLOOD | 97 | 60 - 99 mg/dL | [facility] | | | GLUCOSE, | | | [facility] | | | POC | | | [facility] | | | | | | OF CARE | | | | | | TESTS | | + +-------+ + + + + + | Specimen | + + | | + + + + + + + | Performing | Address | City/State/Zipcode | Phone Number | | Organization | | | | + + + + + | [facility] | [address] | [place], [place] | | | [facility] | [address] | [address] | | | TESTS | | | | + + + + + CBC (05/25/2012 5:10 AM PDT) + + + + + + | Component | Value | Ref Range | Performed | Pathologist | | | | | At | Signature | + + + + + + | WHITE CELL | 9.5 | 4.4 - 11.0 K/cu | [facility] | | | COUNT | | mm | LABORATORY | | | | | | SERVICES, | | | | | | CORE | | + + + + + + | RED CELL | 3.82 (L) | 4.00 - 5.20 | [facility] | | | COUNT | | M/cu mm | LABORATORY | | | | | | SERVICES, | | | | | | CORE | | + + + + + + | HEMOGLOBIN | 11.6 (L) | 12.0 - 16.0 | [facility] | | | | | g/dL | LABORATORY | | | | | | SERVICES, | | | | | | CORE | | + + + + + + | HEMATOCRIT | 34.8 (L) | 36.0 - 46.0 % | [facility] | | | | | | LABORATORY | | | | | | SERVICES, | | | | | | CORE | | + + + + + + | MCV | 91.2 | 80.0 - 96.0 fL | [facility] | | | | | | LABORATORY | | | | | | SERVICES, | | | | | | CORE | | + + + + + + | MCHC | 33.4 | 33.4 - 35.5 | [facility] | | | | | g/dL | LABORATORY | | | | | | SERVICES, | | | | | | CORE | | + + + + + + | RDW | 14.0 | 11.5 - 15.0 % | [facility] | | | | | | LABORATORY | | | | | | SERVICES, | | | | | | CORE | | + + + + + + | PLATELET | 181 | 150 - 400 K/cu | [facility] [...] | + + + + + | [facility] | [address] | [place] [address] | | | SERVICES, CORE | [address] | | | + + + + + PHOSPHORUS, PLASMA (05/25/2012 5:10 AM PDT) + +-------+ + + + | Component | Value | Ref Range | Performed | Pathologist | | | | | At | Signature | + +-------+ + + + | PHOSPHORUS, | 3.4 | 2.4 - 4.7 mg/dL | [facility] | | | PLASMA | | | LABORATORY | | | (LAB) | | | SERVICES, | | | | | | CORE | | + +-------+ + + + + + | Specimen | + + | Blood - Blood | + + + + + + + | Performing | Address | City/State/Zipcode | Phone Number | | Organization | | | | + + + + + | [facility] | [address] | [place] [address] | | | SERVICES, CORE | [address] | | | + + + + + MAGNESIUM, PLASMA (05/25/2012 5:10 AM PDT) + +-------+ + + + | Component | Value | Ref Range | Performed | Pathologist | | | | | At | Signature | + +-------+ + + + | MAGNESIUM,P | 1.9 | 1.8 - 2.5 mg/dL | [facility] | | | LASMA | | | LABORATORY | | | | | | SERVICES, | | | | | | CORE | | + +-------+ + + + + + | Specimen | + + | Blood - Blood | + + + + + + + | Performing | Address | City/State/Zipcode | Phone Number | | Organization | | | | + + + + + | [facility] | [address] | [place] [address] | | | SERVICES, CORE | [address] | | | + + + + + BASIC METABOLIC SET (NA, K, CL, TCO2, BUN, CR, GLU, CA) (05/25/2012 5:10 AM PDT) + +---------+ + + + | Component | Value | Ref Range | Performed | Pathologist | | | | | At | Signature | + +---------+ + + + | GLUCOSE, | 80 | 60 - 99 mg/dL | [facility] | | | PLASMA | | | LABORATORY | | | (LAB) | | | SERVICES, | | | | | | CORE | | + +---------+ + + + | BUN, PLASMA | 10 | 6 - 20 mg/dL | [facility] | | | (LAB) | | | LABORATORY | | | | | | SERVICES, | | | | | | CORE | | + +---------+ + + + | CREATININE | 0.68 | 0.60 - 1.10 | [facility] | | | PLASMA | | mg/dL | LABORATORY | | | (LAB) | | | SERVICES, | | | | | | CORE | | + +---------+ + + + | SODIUM, | 145 | 136 - 145 | [facility] | | | PLASMA | | mmol/L | LABORATORY | | | (LAB) | | | SERVICES, | | | | | | CORE | | + +---------+ + + + | POTASSIUM, | 4.0 | 3.4 - 5.0 | [facility] | | | PLASMA | | mmol/L | LABORATORY | | | (LAB) | | | SERVICES, | | | | | | CORE | | + +---------+ + + + | CHLORIDE, | 109 (H) | 97 - 108 mmol/L | [facility] | | | PLASMA | | | LABORATORY | | | (LAB) | | | SERVICES, | | | | | | CORE | | + +---------+ + + + | TOTAL CO2, | 30 | 21 - 32 mmol/L | [facility] | | | PLASMA | | | LABORATORY | | | (LAB) | | | SERVICES, | | | | | | CORE | | + +---------+ + + + | CALCIUM, | 8.7 | 8.6 - 10.2 | [facility] | | | PLASMA | | mg/dL | LABORATORY | | | (LAB) | | | SERVICES, | | | | | | CORE | | + +---------+ + + + | ANION GAP | 6 | 4 - 11 mmol/L | [facility] | | | | | | LABORATORY | | | | | | SERVICES, | | | | | | CORE | | + +---------+ + + + | POTASSIUM | No [...] | + + + + + | [facility] | [address] | [place] [address] | | | ANUM, SEFERINO | [address] | | | + + + + + CAPILLARY BLOOD GLUCOSE, POC (05/25/2012 12:18 AM PDT) + +-------+ + + + | Component | Value | Ref Range | Performed | Pathologist | | | | | At | Signature | + +-------+ + + + | BLOOD | 98 | 60 - 99 mg/dL | [facility] - | | | GLUCOSE, | | | [facility] | | | POC | | | [facility] | | | | | | OF CARE | | | | | | TESTS | | + +-------+ + + + + + | Specimen | + + | | + + + + + + + | Performing | Address | City/State/Zipcode | Phone Number | | Organization | | | | + + + + + | [facility] | [address] | [place], [place] | | | [facility] | [facility] | [address] | | | TESTS | | | | + + + + + SURGICAL PATHOLOGY (05/24/2012) + + + + + + | Component | Value | Ref Range | Performed | Pathologist | | | | | At | Signature | + + + + + + | SURGICAL | SOURCE OF SPECIMEN:A | | [facility] | | | PATHOLOGY | Lateral stomach | | DEPARTMENT | | | | Final Pathologic | | OF | | | | Diagnosis:Lateral | | PATHOLOGY | | | | stomach, gastric bypass: | | | | | | -Gastric mucosa | | | | | | with no diagnostic | | | | | | abnormality Case | | | | | | seen by:Lorena Bishop M.D., | | | | | | Ph.D./Student | | | | | | Nova Zarco, | | | | | | Ez, Ph.D./Pathologist | | | | | | Clinical | | | | | | History:The patient is a | | | | | | 47-year-old female with | | | | | | morbid obesity. | | | | | | Gross | | | | | | Description:Received is | | | | | | 1 specimen fresh in a | | | | | | container labeled with | | | | | | the patient | | | | | | name(initials TH) and | | | | | | "lateral stomach." | | | | | | Received is an | | | | | | unoriented, 22 x 3.5 | | | | | | x2.5-cm portion of | | | | | | lateral stomach closed | | | | | | via a 23-cm in length | | | | | | staple line.The serosa | | | | | | is smooth, pink-dumont and | | | | | | on opening the mucosa is | | | | | | normallyfolded, | | | | | | red-dumont. Additionally | | | | | | received in a separate | | | | | | lap bag is a 4 x 1.5x | | | | | | 1-cm gastric wedge with | | | | | | a focally hemorrhagic | | | | | | serosa which on | | | | | | openingreveals normal | | | | | | dumont mucosa. Tissue at | | | | | | all resection margins | | | | | | appears grosslyviable. | | | | | | There are no obvious | | | | | | lesions. | | | | | | Roll Machine Operator | | | | | | sections of thespecimen | | | | | | are submitted. | | | | | | Cassette Index:A1, | | | | | | shipping services sales representative sections | | | | | | at stapled margins of | | | | | | both gastric | | | | | | segmentsKRK:tp My | | | | | | electronic signature | | | | | | indicates that I have | | | | | | personally reviewed | | | | | | alldiagnostic slides, | | | | | | the gross and/or | | | | | | microscopic portion of | | | | | | thisreport and | | | | | | formulated the final | | | | | | diagnosis. | | | | | | Rendering Diagnostician: | | | | | | Arley Zarco M.D., | | | | | | Ph.DPathologistElectroni | | | | | | blair Signed 05/31/2012 | | | | | | 3:33PM | | | | + + + + + + + + | Specimen | + + | | + + + + + + + | Performing | Address | City/State/Zipcode | Phone Number | | Organization | | | | + + + + + | [facility] | [address] | [place] [address] | | | PATHOLOGY | [address] | | | + + + + + documented in this encounter Visit Diagnoses + + | Diagnosis | + + | Morbid obesity (HCC) Morbid obesity | + + documented in this encounter Administered Medications + +--------+ +-------+------+---------+ | Medication Order | MAR | Action | Dose | Rate | Site | | | Action | Date | | | | + +--------+ +-------+------+---------+ | bupivacaine (PF) (aka | Given | 05/24/20 | 15 mL | | Abdomen | | MARCAINE,SENSORCAINE-MPF) | | 12 9:30 | | | | | injection INTRAPROCEDURE PRN, | | AM PDT | | | | | Starting Taryn 05/24/12 at 0930, | | | | | | | Until Taryn 05/24/12 at 1016 | | | | | | + +--------+ +-------+------+---------+ +---+---+ | | | +---+---+ documented in this encounter
--- OUTSIDE RECORDS SUMMARY | ~2019-12-01 | XMS | Encounter Summary ---
Demographics + + + | Address | [address] | | | [place] [address] | + + + | Home Phone | | + + + | Preferred Language | Unknown | + + + | Marital Status | | + + + | Quaker Affiliation | 1077 | + + + | Race | Unknown | + + + | Ethnic Group | Unknown | + + + Author + + + | Author | [facility] | | | [facility] [place] | + + + | Organization | [facility] | | | [facility] [place] | + + + | Address | Unknown | + + + | Phone | Unavailable | + + + Support + + + + + | Name | Relationship | Address | Phone | + + + + + | Osei Woodard | ECON | [address] | | | [place] | | [place] | | | | | [address] | | + + + + + Care Team Providers + +------+ + | Care Capper Machine Operator Name | Role | Phone | + +------+ + | Nicole Chen | PCP | | + +------+ + Encounter Details +--------+ + + + + | Date | Type | Department | Care Team | Description | +--------+ + + + + | // | Orders Only | [facility] | Casarez, Tori A, | Weight gain; Obesity | | 2013 | | Group [place] | 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 | + +--------+ + + + | LIPID PANEL, WITH | Routin | 11/26/2013 | Weight gain | Results for this | | DIRECT LDL | e | 8:05 AM | Obesity (BMI | procedure are in the | | | | PDT | 30-39.9) | results section. | + +--------+ + + + | CBC WITH | Routin | 11/26/2013 | Weight gain | Results for this | | DIFFERENTIAL | e | 8:05 AM | Obesity (BMI | procedure are in the | | | | PDT | 30-39.9) | results section. | + +--------+ + + + | COMPREHENSIVE | Routin | 11/26/2013 | Weight gain | Results for this | | METABOLIC PANEL | e | 8:05 AM | Obesity (BMI | procedure are in the | | | | PDT | 30-39.9) | results section. | + +--------+ + + + documented in this encounter Results CBC with Differential (11/26/2013 8:05 AM PDT) + +-------+ + + + | Component | Value | Ref Range | Performed | Pathologist | | | | | At | Signature | + +-------+ + + + | WBC | 7.6 | 3.8 - 11.0 K/uL | [facility] | | | | | | [facility] | | | | | | LABORATORY | | + +-------+ + + + | RBC | 4.57 | 3.70 - 5.10 | [facility] | | | | | M/uL | [facility] | | | | | | LABORATORY | | + +-------+ + + + | Hemoglobin | 14.1 | 11.3 - 15.5 | [facility] | | | | | g/dL | [facility] | | | | | | LABORATORY | | + +-------+ + + + | Hematocrit | 40.8 | 34.0 - 46.0 % | [facility] | | | | | | [facility] | | | | | | LABORATORY | | + +-------+ + + + | MCV | 89.4 | 80.0 - 98.0 fL | [facility] | | | | | | [facility] | | | | | | LABORATORY | | + +-------+ + + + | MCH | 30.8 | 26.0 - 33.0 pg | [facility] | | | | | | [facility] | | | | | | LABORATORY | | + +-------+ + + + | MCHC | 34.5 | 30.0 - 36.0 | [facility] | | | | | g/dL | [facility] | | | | | | LAB[facility]ATORY | | + +-------+ + + + | RDW-CV | 13.7 | 11.0 - 15.0 % | [facility] | | | | | | [facility] | | | | | | LABORATORY | | + +-------+ + + + | Platelet | 248 | 150 - 400 K/uL | [facility] | | | Count | | | [facility] | [facility] | | | | | | LABORATORY | | + +-------+ + + + | MPV | 8.1 | 7.4 - 10.3 fL | [facility] | | | | | | [facility] | | | | | | LABORATORY | | + +-------+ + + + | % | 52.2 | 40.0 - 75.0 % | [facility] | | | Neutrophils | | | [facility] | | | | | | LABORATORY | | + +-------+ + + + | % | 34.8 | 15.0 - 48.0 % | [facility] | | | Lymphocytes | | | [facility] | | | | | | LABORATORY | | + +-------+ + + + | % Monocytes | 8.6 | 0.0 - 12.0 % | [facility] | | | | | | [facility] | | | | | | LAB[facility]ATORY | | + +-------+ + + + | % | 3.3 | 0.0 - 7.0 % | [facility] | | | Eosinophils | | | [facility] | | | | | | LAB[facility]ATORY | | + +-------+ + + + | % Basophils | 1.1 | 0.0 - 2.0 % | [facility] | | | | | | [facility] | | | | | | LABORATORY | | + +-------+ + + + | Absolute | 4.00 | 1.90 - 7.40 | [facility] | | | Neutrophils | | K/uL | [facility] | | | | | | LABORATORY | | + +-------+ + + + | Absolute | 2.70 | 1.00 - 3.90 | [facility] | | | Lymphocytes | | K/uL | [facility] | | | | | | LABORATORY | | + +-------+ + + + | Absolute | 0.70 | 0.00 - 0.80 | [facility] | | | Monocytes | | K/uL | [facility] | | | | | | LABORATORY | | + +-------+ + + + | Absolute | 0.30 | 0.00 - 0.50 | [facility] | | | Eosinophils | | K/uL | [facility] | | | | | | LABORATORY | | + +-------+ + + + | Absolute | 0.10 | 0.00 - 0.10 | [facility] | | | Basophils | | K/uL | [facility] | | | | | | [facility]ATORY | | + +-------+ + + + + + | Specimen | + + | Blood | + + + + + + + | Performing | Address | City/State/Zipcode | Phone Number | | Organization | | | | + + + + + | [facility] | [address] | [place], [place] | [phone] | | [facility] | | [address] | | | LABORATORY | | | | + + + + + Comprehensive Metabolic Panel (11/26/2013 8:05 AM PDT) + + + + + + | Component | Value | Ref Range | Performed | Pathologist | | | | | At | Signature | + + + + + + | Na | 143 | 135 - 145 | [facility] | | | | | mmol/L | [facility] | | | | | | LABORATORY | | + + + + + + | K | 4.1 | 3.5 - 5.3 | [facility] | | | | | mmol/L | [facility] | | | | | | [facility]ATORY | | + + + + + + | Cl | 106 | 99 - 109 mmol/L | [facility] | | | | | | [facility] | | | | | | [facility]ORY | | + + + + + + | CO2 | 29 | 21 - 31 mmol/L | [facility] | | | | | | [facility] | | | | | | [facility]ATORY | | + + + + + + | Anion Gap | 8 | mmol/L | [facility] | | | | | | [facility] | | | | | | [facility]ATORY | | + + + + + + | Glucose | 85 | 65 - 99 mg/dL | [facility] | | | | | | [facility] | | | | | | [facility]ATORY | | + + + + + + | BUN | 14 | 8 - 25 mg/dL | [facility] | | | | | | [facility] | | | | | | LAB[facility]ATORY | | + + + + + + | Creatinine | 0.64 | 0.50 - 1.00 | [facility] | | | | | mg/dL | [facility] | | [facility] | | | | | | LAB[facility]ATORY | | + + + + + + | eGFR if not | >60Comment: GLOMERULAR | >=60 | [facility] | | | | FILTRATION | mL/min/1.73m2 | [facility] | | | NAURUAN | RATE,ESTIMATED | | [facility]OSPITAL | | | | mL/min/1.96q8Qqcb than | | LABORATORY | | | | 60 Chronic kidney | | | | | | disease,if found over a | | | | | | 3-month period.Less than | | | | | | 15 Kidney failureFor | | | | | | | | | | | | Americans,multiply the | | | | | | calculated GFR by 1.21. | | | | | | | | | | + + + + + + | Calcium | 9.5 | 8.5 - 10.2 | [facility] | | | | | mg/dL | [facility] | | | | | | [facility] | | + + + + + + | Albumin | 4.1 | 3.5 - 5.0 g/dL | [facility] | | | | | | [facility] | | | | | | LAB[facility]ATORY | | + + + + + + | Bilirubin | 0.9 | 0.1 - 1.5 mg/dL | [facility] | | | Total | | | [facility] | | | | | | LAB[facility]ATORY | | + + + + + + | Total | 6.8 | 6.1 - 8.4 g/dL | [facility] | | | Protein | | | [facility] | | | | | | LABORATORY | | + + + + + + | AST | 21 | 10 - 45 U/L | [facility] | | | | | | [facility] | | | | | | LAB[facility]ATORY | | + + + + + + | ALT | 16 | 10 - 65 U/L | [facility] | | | | | | [facility] | | | | | | [facility] | | + + + + + + | Alkaline | 79 | 35 - 115 U/L | [facility] | | | Phosphatase | | | [facility] | | | | | | LAB[facility]ATORY | | + + + + + + | Globulin | 2.7 | g/dL | [facility] | | | | | | [facility] | | | | | | [facility]ORY | | + + + + + + | Albumin/Caro | 1.5 | | [facility] | | | bulin Ratio | | | [facility] | [facility] | | | | | | [facility] | | + + + + + + | BUN/Creatin | 21.9 | | [facility] | | | ine Ratio | | | [facility] | | [facility] | | | | | | LAB[facility]ORY | | + + + + + + + + | Specimen | + + | Blood | + + + + + + + | Performing | Address | City/State/Zipcode | Phone Number | | Organization | | | | + + + + + | [facility] | [address] | [place], [place] | [phone] | | [facility] | | [address] | | | LABORATORY | | | | + + + + + TSH, Reflex Free T4 (11/26/2013 8:05 AM PDT) + +-------+ + + + | Component | Value | Ref Range | Performed | Pathologist | | | | | At | Signature | + +-------+ + + + | TSH | 1.21 | 0.45 - 5.10 | [facility] | | | | | uIU/mL | [facility] | [facility] | | | | | | LABORATORY | | + +-------+ + + + + + | Specimen | + + | Blood | + + + + + + + | Performing | Address | City/State/Zipcode | Phone Number | | Organization | | | | + + + + + | [facility] | [address] | [place], [place] | [phone] | | [facility] | | [address] | | | LABORATORY | | | | + + + + + Lipid Panel, with Direct LDL (11/26/2013 8:05 AM PDT) + + + + + + | Component | Value | Ref Range | Performed | Pathologist | | | | | At | Signature | + + + + + + | Cholesterol | 205 (H)Comment: LT 200 | <200 mg/dL | [facility] | | | | [id number] | | [facility] | | | | - [address] | | [facility] | | | | cub[place] or more HIGH | | LABORATORY | | | |240 or more HIGH | | | | | | | | | | + + + + + + | Triglycerid | 91Comment: <150 | <150 mg/dL | [facility] | | | es | [id number] - 199 | | [facility] | | | | Borderline jsdn375 - 499 | | HOSPITAL | | | | High>499 Very | | LABORATORY | | | | High | | | | | |>499 Very High | | | | | | | | | | + + + + + + | HDL | 54Comment: HDL | 40 - 59 mg/dL | [facility] | | | | Cholesterol greater than | | [facility] | | | | or equal to 60 mg/dL is | | HOSPITAL | | | | considered to be a | | LABORATORY | | | | 'negative' risk factor. | | | | + + + + + + | Chol/HDL | 3.8Comment: Relative | | [facility] | | | Ratio | risk of CHD | | [facility] | | | | Total HDL/Cholesterol | | HOSPITAL | | | | ratio | | LABORATORY | | | | ------- Male | | | | | | Female1/2 AVERAGE RISK | | | | | | --------- 3.43 | | | | | | 3.27AVERAGE RISK | | | | | | 4.97 | | | | | | 4.442 X AVERAGE RISK | | | | | | --------- 9.55 7.053 | | | | | | X AVERAGE RISK --------- | | | | | | 23.39 11.04 | | | | + + + + + + | LDL Direct | 138 (H) | <100 mg/dL | [facility] | | | | | | [facility] | | [facility] | | | | | | LAB[facility]ATORY | | + + + + + + + + | Specimen | + + | Blood | + + + + + + + | Performing | Address | City/State/Zipcode | Phone Number | | Organization | | | | + + + + + | [facility] | [address] | [place], [place] | [phone] | | [facility] | | [address] | | | LABORATORY | | | | + + + + + documented in this encounter Visit Diagnoses + + | Diagnosis | + + | Weight gain Abnormal weight gain | + + | Obesity (BMI 30-39.9) Obesity, unspecified | + + documented in this encounter"
--- OUTSIDE RECORDS SUMMARY | ~2019-12-01 | XMS | Encounter Summary ---
Demographics + + + | Address | [address] | | | [place] [address] | + + + | Home Phone | | + + + | Preferred Language | Unknown | + + + | Marital Status | | + + + | Anglican Affiliation | CHR | + + + [...] Osei Bhandari Sr. | ECON | [address] | | | | | [place] | | | | | [address] | | + + + + + Care Team Providers + +------+ + | Care Forensic Artist Name | Role | Phone | + +------+ + | Royer Wilde MD | PCP | | + +------+ + Encounter Details +--------+ + + + + | Date | Type | Department | Care Team | Description | +--------+ + + + + | 11/24/ | MyChart | [facility] | Justine Jara, | Scheduling | | 2016 | Encounter | [facility] | MD | Appointment | | | | [address] | | | | | | Mailcode: Center | | | | | | for [facility] and | | | | | | Healing, [address] | | | | | | [place], [place] | | | | | | [address] | | | | | | [phone] | | | +--------+ + + + [...]
--- OUTSIDE RECORDS SUMMARY | ~2019-12-01 | XMS | Encounter Summary ---
Demographics + + + | Address | [address] | | | [place] [address] | + + + | Home Phone | | + + + | Preferred Language | Unknown | + + + | Marital Status | | + + + | Adventism Affiliation | 1077 | + + + | Race | Unknown | + + + | Ethnic Group | Unknown | + + + Author + + + | Author | [facility] | | | and [place] | + + + | Organization | [facility] | | | [facility] [place] | + + + | Address | Unknown | + + + | Phone | Unavailable | + + + Support + + + + + | Name | Relationship | Address | Phone | + + + + + | Osei Woodard | ECON | [address] | | | [place] | | [place] | | | | | [address] | | + + + + + Care Team Providers + +------+ + | Care Network Security Officer Name | Role | Phone | + +------+ + | Pcp, Prov Inactive | PCP | | + +------+ + Encounter Details +--------+ + + + + | Date | Type | Department | Care Team | Description | +--------+ + + + + | 10/02/ | Emergency | [facility] | Arnav Hernandez MD | Right shoulder | | 2017 | | [facility] | [address] | strain, initial | | | | EMERGENCY CENTER | [place] [address] | encounter | | | | [address] | [phone] | | | | | [place], [place] | | | | | | [address] | | | | | | [phone] | | | +--------+ + + + [...]
--- OUTSIDE RECORDS SUMMARY | ~2019-12-01 | XMS | Encounter Summary ---
Demographics + + + | Address | [address] | | | [place] [address] | + + + | Home Phone | | + + + | Preferred Language | Unknown | + + + | Marital Status | | + + + | Druze Affiliation | CHR | + + + | Race | White | + + + | Ethnic Group | Not or | + + + Author + + + | Author | [facility] | + + + | Organization | [facility] | + + + | Address | Unknown | + + + | Phone | Unavailable | + + + Support + + + + + | Name | Relationship | Address | Phone | + + + + + | Osei Bhandari Sr. | ECON | [address] | | | | | [place] | | | | | [address] | | + + + + + Care Team Providers + +------+ + | Care Associate Consulting Engineer Name | Role | Phone | + [...] | | | | [place] | [place] [address] | [address] | | | | | (HCC) | [address] | [address] | | | | | Procedures | [address] | [facility] | | | | | [employer] | [address] | Health and | | | | | [facility] | [facility] [place] | Healing, | | | | | [address] | [address] | [address] | | | | | | Phone: | [place], [place] | | | | | | [phone] | [address] | | | | | | Fax: | Phone: | | | | | | [phone] | [phone] | | | | | | | Fax: | | | | | | | [phone] | +--------+--------+ + + + + Encounter Details +--------+---------+ + + + | Date | Type | Department | Care Team | Description | +--------+---------+ + + + | 01/18/ | Office | [facility] | [place], | Morbid obesity (HCC) | | 2011 | Visit | Center at [facility] [address] | [address] [address] | (Primary Dx) | | | | [facility] | [address] [place] | | | | | for [facility] and | [place], [place] | | | | | [facility] [address] | [address] | | | | | [place], [place] | | | | | | [address] | | | | | | [phone] | | | +--------+---------+ + + + [...] of Visit: 11:40 until 12:07. 27 minutes lldx-wk-wugi consult with the avani ent (3 of 6 visits) SUBJECTIVE: Pt know this was going to be a bad month. They were in [place] for 10 days, lots of eating out. [...] Making ascencion r choices on take out vietnamese. Goal to be off soda by February. [...] | + +--------+ + + + | [place] MNT RE-ASSESSMNT | Routin | 01/19/2012 | [...]
--- OUTSIDE RECORDS SUMMARY | ~2019-12-01 | XMS | Encounter Summary ---
Demographics + + + | Address | [address] | | | [place] [address] | + + + | Home Phone [...] + + + | Author | [facility] | + + + | Organization | [facility] | + + + | Address | Unknown | + + + | Phone | Unavailable | + + + Support + + + + + | Name | Relationship | Address | Phone | + + + + + | Osei Bhandari Sr. | ECON | [address] | | | | | [place] | | | | | [address] | | + + + + + Care Team Providers + +------+ + | Care Market Asset Protection Manager Name | Role | Phone | + +------+ + | Royer Wilde MD | PCP | | + +------+ + Reason for Visit + + + | Reason | Comments | + + + | Return Patient | | + + + Office Visit [...] | | | | obesity | [place] [address] | [facility] [address] | | | | | (HCC) | [address] | [address] | | | | | Procedures | [address] | Mailcode: | | | | | [place] [employer] | [address] | [facility] | | | | | GSTR ADJST | [place], [place] | Health and | | | | | BND | [address] | Healing, | | | | | | Phone: | [address] | | | | | | [phone] | [place], [place] | | | | | | Fax: | [address] | | | | | | [phone] | Phone: | | | | | | | [phone] | | | | | | | Fax: | | | | | | | [phone] | +--------+--------+ + + + + Encounter Details +--------+---------+ + + + | Date | Type | Department | Care Team | Description | +--------+---------+ + + + | 11/08/ | Office | Digestive Health | Justine Garner, | Postsurgical dumping | | 2016 | Visit | Center at [facility] [address] | MD | syndrome (Primary | | | | [address] | | Dx) | | | | Mailcode: Center | | | | | | for Health and | | | | | | [facility] [address] | | | | | | [place], [place] | | | | | | [address] | | | | | | [phone] | | | +--------+---------+ + + + [...] + documented in this encounter Progress Notes Justine Garner MD - 11/09/2015 3:01 PM PDTI saw and evaluated the patient and agree with the findings and plan as documented in the resident s note. I spent 15 minutes with the patient of which >50% of this time was in counseling and coordination of care. We discussed her dumping-like symptoms which are probably related to food choices. I have asked her to danay osborn our machine fancy stitcher's advice (whom she met today), and I am also prescribing empiric Flag yl. JUSTINE GARNER MD CHIEF, BARIATRIC SERVICES [facility] 6TH FLOOR [address] Mailcode: [place] [address] adira Russell - 2:30 PM PDT [facility] FOLLOW UP NOTE 11/09/2015 ID: Steve Bhandari is a 50 y.o. female with morbid obesity who underwent a Sleeve Gastrectomoy 05/[address] Trevino who had been lost to follow up for ~3 years. HPI: Pt presents with primary complaint of consistent loose stool (typically 1-3 times per day) and flatus for 1.5 years after seeing ACNP and trauma doctor today. This timeline correlates wit h increased consumption of fast food. Cow milk products and raw vegetables cause increased f requency of loose stools from baseline with associated generalized cramping. No nausea or vo miting. No melena or hematochezia. Was seeing Soft Sugar Operator Head in [place], [place] and had ne gative work-up for diarrhea, including stool cultures. No new regular medications, although pt reports she is treated approximately 4 times per year for sinus infections; most recently 2 months ago with Azithromycin. Also takes Fiorcet for migraines, approx once per month. Previously had issues with heartburn and dysphagia. Nexium has resolved heartburn. Dysphagi a with pills, not with meat, bread or other foods. Initially lost 70 lbs, but has gained over half of that back. Taking supplements as prescri bed. Gets > 64 oz of fluids per day. Has not been tracking protein. Pt is eager to get back on track with dieting in order to improve weight and health. Concern from EGD earlier this y ear that sleeve was larger than expected - f/u UGI today ordered by NICK Szymanski . Past Medical History Diagnosis Date Morbid obesity (HCC) Asthma Vitamin d deficiency Migraine Hyperlipidemia HTN (hypertension) GERD (gastroesophageal reflux disease) BMI 40.0-44.9, adult (HCC) 05/14/2012 ABHIJEET (obstructive sleep apnea) 05/14/2012 Well controlled intermittent asthma 05/14/2012 Dyspepsia 05/14/2012 Osteoarthritis 05/14/2012 - pt is no longer being treated for HTN Current Medication List Name Sig Last Dose VITAMIN C ORAL Take by mouth. CALCIUM CITRATE-VITAMIN D3 200 MG CALCIUM-250 UNIT TABLET Take 2 Tabs by mouth two times da jennifer. Start 2 weeks after surgery. Indications: HYPOCALCEMIA 12/07/2012 CHOLECALCIFEROL (VITAMIN D3) 2,000 UNIT CAPSULE Take 2,000 Units by mouth once daily. CYANOCOBALAMIN (VIT B-12) 500 MCG TABLET Take 1 Tab by mouth once daily. 12/07/2012 NEXIUM ORAL Take by mouth. SUPER B COMPLEX ORAL Take by mouth. METRONIDAZOLE 500 MG TABLET Take 1 tablet by mouth every eight hours for 14 days. PEDIATRIC MULTIVITAMIN CHEWABLE TABLET Take 1 Tab by mouth two times daily. 12/07/2012 Past Surgical History Procedure Laterality Date Tubal ligation 1986 Hernia repair 1988 External sinus surgery 2002 Carpal tunnel release 2006 Meniscus surgery 11/2011 Laparoscopic sleeve gastrectomy 2011 [facility]. Dr. 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 O: Ht 1.676 m (5' 6"), Wt 107.956 kg (238 lb), BP 153/90, Pulse 98, Temperature 36.4 C (97.6 F), Temperature source Oral, RR 16, BMI 38.43 kg/(m^2). General: Well appearing, no acute distress Resp: Breathing comfortably on room air Cardiac: No LE edema Abdomen: Normoactive bowel sounds. Obese, soft, non-distended, non-tender. Incision: Well healed Imaging: Upper GI (11/09/2015) FINDINGS: Esophagus: Unremarkable. Esophageal motility: Mild esophageal dysmotility with delayed transit of the barium and mil d tertiary contractions seen in prone position. Gastroesophageal reflux: None. Barium pill tablet: Passes to stomach without obstruction. Stomach and duodenum: Status post gastrectomy reduced gastric volume compared to presurgery exam in 2008. No hiatal hernia is present. Bones and soft tissues: Visualized portions are unremarkable. IMPRESSION: Status post sleeve gastrectomy four years ago, the gastric volume is decreased compared to the presurgical exam in 2009. No post surgical exam is available for comparison. Mild esophageal dysmotility. No evidence of gastroesophageal reflux. No hiatal hernia. A/P: Steve Bhandari is a 50 y.o. female with history of sleeve gastrectomy presenting with chron ic loose stool and weight regain. 1. Chronic Loose Stool: appears to be components of lactose intolerance, dumping syndrome w ith highly processed foods and possibly bacterial overgrowth. - Remove dairy from your diet - Consider bringing foods from home instead of eating fast food - see recommendations from trauma doctor visit today - Flagyl 500 mg PO bid X minimum of 1 week, 2 weeks will be provided for bacterial overgrow th - RTC in 2 months 2. S/p sleeve gastrectomy: continues to have reduced gastric volume compared to preop; will work with trauma doctor as above to improve daily eating habits. - Maintain > 64 oz fluids - Continue taking supplements - Follow-up on nutrition labs [facility] JUSTINE GARNER MD CHIEF, BARIATRIC SERVICES [facility] AT [facility] 6TH FLOOR [address] Mailcode: [place] [address] documented in this en counter Plan of Treatment Not on filedocumented as of this encounter Visit Diagnoses + + | Diagnosis | + + | Postsurgical dumping syndrome - Primary Postgastric surgery syndromes | + + documented in this encounter
--- OUTSIDE RECORDS SUMMARY | ~2019-12-01 | XMS | Encounter Summary ---
Demographics + + + | Address | [address] | | | [place] [address] | + + + | Home Phone | | + + + | Preferred Language | Unknown | + + + | Marital Status | | + + + | Orthodoxy Affiliation | CHR | + + + | Race | White | + + + | Ethnic Group | Not or | + + + Author + + + | Author | [facility] | + + + | Organization | [facility] | + + + | Address | Unknown | + + + | Phone | Unavailable | + + + Support + + + + + | Name | Relationship | Address | Phone | + + + + + | Osei Bhandari Sr. | ECON | [address] | | | | | [place] | | | | | [address] | | + + + + + Care Team Providers + +------+ + | Care Speeder Machine Operator Name | Role | Phone | + +------+ + | Royer Wilde MD | PCP | | + +------+ + Reason for Visit + + + | Reason | Comments | + + + | Postoperative visit | | + + + Global Period - Transplant (Routine) +--------+--------+ + + + + | Status | Reason | Specialty | Diagnoses / | Referred By | Referred To | | | | | Procedures | Contact | Contact | +--------+--------+ + + + + | Closed | | Surgery | | Non-[facility] | Bar | | | | | | Epic Dept | [facility] | | | | | | | [facility] [address] | | | | | | | [address] | | | | | | | Mailcode: | | | | | | | [facility] | | | | | | | Health and | | | | | | | Healing, | | | | | | | Building [address] | | | | | | | [place], [place] | | | | | | | [address] | | | | | | | Phone: | | | | | | | [phone] | | | | | | | Fax: | | | | | | | [phone] | +--------+--------+ + + + + Encounter Details +--------+---------+ + + + | Date | Type | Department | Care Team | Description | +--------+---------+ + + + | 06/08/ | Office | Digestive Health | Marisa Olivier, | Morbid obesity (HCC) | | 2012 | Visit | Center at [facility] [address] | ANP | (Primary Dx) | | | | [address] | | | | | | Mailcode: [place] | | | | | | for Health and | | | | | | [facility] 2 | | | | | | [place], [place] | | | | | | [address] | | | | | | [phone] | | | +--------+---------+ + + + [...] + + + | Blood Pressure | 121/71 | 06/08/2012 9:30 AM | | | | | PST | | + + + + + | Pulse | 82 | 06/08/2012 9:30 AM | | | | | PST | | + + + + + | Temperature | 36.5 C (97.7 F) | 06/08/2012 9:30 AM | | | | | PST | | + + + + + | Respiratory Rate | 16 | 06/08/2012 9:30 AM | | | | | PST | | + + + + + | Oxygen Saturation | - | - | | + + + + + | Inhaled Oxygen | - | - | | | Concentration | | | | + + + + + | Weight | 105.4 kg (232 lb 4.8 | 06/08/2012 9:30 AM | | | | oz) | PST | | + + + + + | Height | 167.6 cm (5' 6") | 06/08/2012 9:30 AM | | | | | PST | | + + + + + | Body Mass Index | 37.49 | 06/08/2012 9:30 AM | | | | | PST | | + + + + + documented in this encounter Progress Notes Marisa Olivier ANP - 06/08/2012 9:25 AM PSTFormatting of this note might be different fr om the original. 06/08/2012 BARIATRIC FOLLOW-UP Steve Bhandari is a 47 y.o. female who underwent a gastric sleeve on 05/24/2012. Feels her e nergy is somewhat less than usual but is overall feeling very well. Has been watching her p rotein and fluid intake closely and feels very ready to proceed to the stage 3 foods. Returned to work 1 week after surgery. No lifting or bending. Denies any chest pain, shortness of breath, LE edema, fever or chills. 251-232 weight loss Bariatric Supplements: MVI: yes Calcium supplement: yes Vit D: yes B12: Yes Actigall: yes H2 lalo or PPI : yes Narcotics: no Symptoms: Nausea: <1 time per week Dysphagia: None Vomiting: None Heartburn: <1 time per week Abd Pain: None Constipation: None Diarrhea: None Physical exam: Wt Readings from Last 1 Encounters: 05/25/12 113.944 kg (251 lb 3.2 oz) There is no height or weight on file to calculate BMI. General appearance: healthy, alert and cooperative Lungs: Good diaphragmatic excursion. Lungs clear to auscultation bilaterally Cardiac: Rate, rhythm, regular, no murmur, gallop or bruits. No peripheral edema. Abdomen:obese, soft, nontender, nondistended, no masses Incision: healing well Impression: Pt is doing very well after her gastric sleeve procedure. Making excellent sami d and fluid choices. Will gradually increase her physical exercise. Plan: 1. To see jewel bearing grinder today 2. No lifting over 10# until 4 weeks after surgery 3. Follow up in 4 weeks. documented in this e ncounter Plan of Treatment Not on filedocumented as of this encounter Visit Diagnoses + + | Diagnosis | + + | Morbid obesity (HCC) - Primary Morbid obesity | + + documented in this encounter
--- OUTSIDE RECORDS SUMMARY | ~2019-12-01 | XMS | Encounter Summary ---
Demographics + + + | Address | [address] | | | [place] [address] | + + + | Home Phone | | + + + | Preferred Language | Unknown | + + + | Marital Status | | + + + | Mandaen Affiliation | CHR | + + + | Race | White | + + + | Ethnic Group | Not or | + + + Author + + + | Author | [facility] | + + + | Organization | [facility] | + + + | Address | Unknown | + + + | Phone | Unavailable | + + + Support + + + + + | Name | Relationship | Address | Phone | + + + + + | Osei Bhandari Sr. | ECON | [address] | | | | | [place] | | | | | [address] | | + + + + + Care Team Providers + +------+ + | Care Clinical Product Manager Name | Role | Phone | + +------+ + | Royer Wilde MD | PCP | | + +------+ + Encounter Details +--------+ + + + + | Date | Type | Department | Care Team | Description | +--------+ + + + + | 05/04/ | MyChart | Digestive Health | Other, Faculty | RE:Surgery date of | | 2011 | Encounter | Center at [facility] [address] | [phone] | Nov 1 | | | | [address] | | | | | | Mailcode: Center | | | | | | for Health and | | | | | | Healing, [facility] 2 | | | | | | [place], [place] | | | | | | [address] | | | | | | [phone] | | | +--------+ + + + [...]
--- OUTSIDE RECORDS SUMMARY | ~2019-12-01 | XMS | Encounter Summary ---
Demographics + + + | Address | [address] | | | [place] [address] | + + + | Home Phone | | + + + | Preferred Language | Unknown | + + + | Marital Status | | + + + | Yarsani Affiliation | CHR | + + + | Race | White | + + + | Ethnic Group | Not or | + + + Author + + + | Author | [facility] | + + + | Organization | [facility] | + + + | Address | Unknown | + + + | Phone | Unavailable | + + + Support + + + + + | Name | Relationship | Address | Phone | + + + + + | Osei Bhandari Sr. | ECON | [address] | | | | | [place] | | | | | [address] | | + + + + + Care Team Providers + +------+ + | Care Raker Buffing Wheel Name | Role | Phone | + +------+ + | Royer Wilde MD | PCP | | + +------+ + Reason for Referral Consultation (Routine) +--------+--------+ + + + + | Status | Reason | Specialty | Diagnoses / | Referred By | Referred To | | | | | Procedures | Contact | Contact | +--------+--------+ + + + + | Closed | | Gastroenterol | Diagnoses | Charline, | Gas Endo | | | | ogy | GERD | JOCELIN Schneider | [address] | | | | | (gastroesoph | [address] | | | | | ageal reflux | [address] | [place] | | | | | disease) | [place], [place] | [place], [address]th | | | | | Procedures | [address] | floor | | | | | CONSULT TO | | [place], [place] | | | | | GI PROCEDURE | | [address] | | | | | UNIT: | | Phone: | | | | | ESOPHAGEAL | | [phone] | | | | | MANOMETRY | | Fax: | | | | | | | [phone] | +--------+--------+ + + + + Reason for Visit + + + | Reason | Comments | + + + | New patient | | | consultation | | + + + Office Visit - E/M Services (Routine) +--------+--------+ + + + + | Status | Reason | Specialty | Diagnoses / | Referred By | Referred To | | | | | Procedures | Contact | Contact | +--------+--------+ + + + + | Closed | | Surgery | Diagnoses | Andry, | Gs | | | | | Morbid | Poombcalebi O, | Bariatric | | | | | obesity | [place] [address] | [address] [address] | | | | | (HCC) | [address] | [address] | | | | | | [address] | Mailcode: | | | | | | [address] | [facility] | | | | | | [facility], [place] | for Health | | | | | | [address] | and Healing, | | | | | | Phone: | Building 1, | | | | | | [phone] | 6th Floor | | | | | | Fax: | [place], [place] | | | | | | [phone] | [address] | | | | | | | Phone: | | | | | | | [phone] | | | | | | | Fax: | | | | | | | [phone] | +--------+--------+ + + + + Encounter Details +--------+---------+ + + + | Date | Type | Department | Care Team | Description | +--------+---------+ + + + | 10/01/ | Office | Digestive Health | Marisa Olivier, | GERD | | 2008 | Visit | Center [address] | ANP | (Gastroesophageal | | | | Ave Mailcode: [facility] | | Reflux Disease) | | | | [facility] | | (Primary Dx) | | | | and Healing, | | | | | | Building 1, | | | | | | [place], [place] | | | | | | [address] | | | | | | [phone] | | | +--------+---------+ + + + [...] + + + | Blood Pressure | 132/72 | 10/01/2008 9:25 AM | | | | | PDT | | + + + + + | Pulse | 90 | 10/01/2008 9:25 AM | | | | | PDT | | + + + + + | Temperature | 35.5 C (95.9 F) | 10/01/2008 9:25 AM | | | | | PDT | | + + + + + | Respiratory Rate | 18 | 10/01/2008 9:25 AM | | | | | PDT | | + + + + + | Oxygen Saturation | - | - | | + + + + + | Inhaled Oxygen | - | - | | | Concentration | | | | + + + + + | Weight | 116.7 kg (257 lb 3.2 | 10/01/2008 9:25 AM | | | | oz) | PDT | | + + + + + | Height | 166.4 cm (5' 5.5") | 10/01/2008 9:25 AM | | | | | PDT | | + + + + + | Body Mass Index | 42.15 | 10/01/2008 9:25 AM | | | | | PDT | | + + + + + documented in this encounter Patient Instructions Patient Instructions Marisa Olivier ANP - 10/01/2008 10:23 AM PDTPlan: Dietitian consultation: To be seen today Psychological evaluation: Please have report faxed to the number below. Upper GI. Esophageal manometry: To be arranged at [facility]. Pap test. Report needed. ECHO: Report needed. PCP notes: Notes form Aug 2006 to Apr 2008. Sleep study: Report needed and documentation of new nasal device use. Weight loss Goal is: 13# loss for a target weight of 244#. (not insurance required). Please start exercise program. Once above is completed, we will submit for insurance authorization then schedule with the surgeon[place] [address] [email or web address] signed by JOCELIN Patel at 10/01/2008 10:23 AM PDT documented in this encounter Progress Notes Marisa Olivier ANP - 10/01/2008 9:08 AM PDT BARIATRIC INITIAL CONSULTATION Consulting Provider: Marisa Olivier NP Referring Provider: Dr. Wilde Reason for Requested Consultation: Initial evaluation for bariatric surgery. Steve Bhandari is interested in gastric banding b ecause of the history of safety of the procedures and less time away from work. History of Present Illness: She is a morbidly obese, 43 y.o. female with a BMI of 42, 25 7 lbs., and 5'5" tall, who has failed prior attempts at sustained dietary/medical weight los s and desires surgical weight loss in order to get off blood pressure medication and lower c holesterol for over all better health. Duration of obesity: 23 years. Onset of obesity in early 20's at a weight of 235#. First diet attempts at age 20. Personally initiated diets: 1985: Calorie reduction with a 20# weight loss over 6 months with subsequent regain. 1994: Atkins Diet diet started at a weight of 235# she lost 30# over 6 months with 1 year o f maintenance before regaining. Programmatic diets: 1999: Curves fitness and weight loss program started at a weight of 245# with a 25# loss ov er 1 years and maintenance of 6 months before regaining. 2007: TOPS program started at a weight of 255# and lost 20# over 8 years and mainteained th at weight for 4 months with regain in the following 5-6 months. Physician Monitored diet: 1993: Phen- fen started at a weight of 235# without any weight loss after a couple of month s. Use of Redux or Phen/fen: yes Transthoracic ECHO: yes Comorbidities include: asthma, GERD (gastroesophageal reflux disease), hypertension and hyp erlipidemia ALLERGIES: Allergies Allergen Reactions Inapsine (Droperidol) Codeine Reglan (Metoclopramide Hcl) Current outpatient prescriptions : Albuterol 90 mcg/Actuation Inhalation Aerosol, Inhale 1- 2 Puffs every four hours as needed , Disp: , Rfl: CLARITIN-D 24 HOUR ORAL, Take 1 Tab by mouth once daily. , Disp: , Rfl: MAXZIDE 75-50 mg Oral Tablet, Take 0.5 Tabs by mouth once daily. , Disp: , Rfl: History: Past Medical History Diagnosis Date Morbid Obesity Asthma Vitamin D Deficiency Migraine Hyperlipidemia HTN (Hypertension) GERD (Gastroesophageal Reflux Disease) Past Surgical History Procedure Date Hx tubal ligation 1986 Hx hernia repair 1988 Hx external sinus surgery 2002 Hx carpal tunnel release 2007 History Social History Marital Status: Spouse Name: N/A Number of Children: N/A Years of Education: N/A Occupational History Not on file. Social History Main Topics Tobacco Use: Not on file Alcohol Use: Not on file Drug Use: Not on file Sexually Active: Not on file Other Topics Concern Not on file Social History Narrative No narrative on file Family History Problem Relation Cancer Mother Stroke Mother Asthma Brother Cancer Sister Breast Review of Systems: General: Denies constitutional symptoms of fatigue, weakness, unintentional weight loss, f valencia, chills, night sweats. Eyes/Ears/Nose/Throat: Denies visual changes, sore throat, dental pain, hoarseness, dyspha eugenia, oral or tongue lesions. Respiratory: Shortness of breath wit asthma attacks. Notes asthma present only with resp infections. No ED visit ofr over 4 years re asthma and at that time had pneumonia. Denies daily cough, wheezing or hemoptysis. Denies nocturnal snoring, daytime drowsiness or morning headaches. Has CPAP for what was dx as mild sleep apnea at a weight which was 25# less lissette n today. Not currently using as she doen'st tolerate the mask but is in process of obtaining nasal attachment. Cardiovascular: Hx of HTN and hyperlipidemia. Denies exertional chest pain, syncope, ort hopnea, or paroxysmal nocturnal dyspnea. Occasional nocturnal palpitations. Denies known hi story of lower extremity edema, CHF, GA, ischemic heart disease, DVT/PE, or pulmonary hypert ension. States able to climb two flights of stairs. Neurologic: The patient denies any symptoms of neurological impairment or TIAs; denies dip lopia, dysphasia, or unilateral disturbance of motor or sensory function. Denies loss of bal ance or vertigo, numbness or paresthesias. Hx of 1-2 migraines per month Uses advil or cold packs to head to interrupt early or uses Fioricet and phenergan. Musculoskeletal: Hx of osteoarthritis in shoulder and elbows involved. Denies swelling, my algias or back pain. Gastrointestinal: Denies abdominal or flank pain, anorexia, nausea or vomiting, dysphagia, change in bowel habits, black or bloody stools. History of ulcer at age 11. Hx of hernia a t site of tubal ligation. Denies persistent reflux symptoms. Takes TUMs of mylanta with re lief of sx. Denies history of liver disease or jaundice. Genitourinary: Denies urinary incontinence. Denies history of kidney stones. Menstrual i rregularity noted and felt to be menopausal. No history of endometriosis or abnormal PAP's. Current method of control: TBL. Skin: Denies intertrigenous skin infections. Denies recent rashes, sores, or skin changes . Psychological: Notes recent loss of her 23 years old son 6 months ago and financial stress es. Denies thoughts of suicide or hallucinations. Has some hx of "panic attack" type respons es to a couple medications. Heme/Lymphatic: Denies history of anemia. The patient denies abnormal bruising, abnormal bleeding or enlarged lymph nodes. Metabolic: Denies symptoms of hypo or hyperthyroidism: no unexplained decreased or increase d weight, no feeling cold/chilly or excessively warm, no diarrhea or constipation, no undue sweatiness, anxiety or palpitations. Denies history of diabetes. No polyuria, polyphagia o r polydipsia. Denies history of gout. Vitamin D deficiency treated by her PCP. OBJECTIVE Physical exam: General: Healthy, alert and cooperative. Neuro: Oriented x 3. CN III-XII grossly intact. No focal deficits. HEENT: Oropharynx clear without lesion or exudate. Neck: Neck supple. No adenopathy. Thyroid symmetric & normal size. Respiratory: Percussion normal. Good diaphragmatic excursion. Lungs clear to auscultation b ilaterally. Cardiac: Regular rate and rhythm, no murmur, gallop or bruits. No carotid bruits noted. Extremities: No peripheral edema. Abdomen: Obese habitus, soft, nontender, no appreciable masses or hernia. Skin: No evidence of pannus infection. Psych: No problems noted. Laboratory Data: Date: 09/23/2008 Glucose mg/dl 87 Creatinine mg/dl 0.81 BUN 11 Albumin g/dl 4.7 ALT IU/L 21 AST IU/L 19 Alkaline Phosphatase IU/L 104 Hematocrit % 45.4 HbA1c % 5.4% Triglycerides mg/dl 157 HDL mg/dl 49 LDL mg/dl 150 Total Cholesterol mg/dl 230 TSH uIU/ml 2.7 PTH 49 Vitamin D 12.6 H. Pylori Negative Previous Diagnostic Tests: Negative mammogram 08/2008 Impression: 1. Asthma: Sx apparent only with resp infection. Pneumonia once 4 years ago. 2. Hypertension and hyperlipidemia. Stable 3. GERD: Not currently using PPI. H.pylori negative. Will have UGI and esophageal manometry for assessment before LapBand placement. 4. Sleep apnea: Sleep study done over a year ago with weight 25# less indicating mild obstr uctive disorder per pt. She has not been using her CPAP as she is not tolerating the mask. Is planning to change to nasal CPAP. She will have previous study faxed to us and document ation of her use once she receives the nasal CPAP. 5. Patient meets and or exceeds NIH criteria for morbid obesity with a BMI of 42 and comorb idities related to obesity including those noted above, which may be improved with bariatric surgery. Records have been reviewed from her PCP. She has attended the Public Information al Session in which risks and benefits of bariatric surgery were discussed. Discussion of r ealistic expectations of bariatric surgery was held today. A Bariatric notebook with pre-op, inter-op and post-op guidance and information was provide d for the patient today Plan: Dietitian consultation: To be seen today Psychological evaluation: Please have report faxed to the number below. Upper GI. Esophageal manometry: To be arranged at [facility]. Pap test. Report needed. PCP notes: Notes form Aug 2006 to Apr 2008. Sleep study: Report needed and documentation of new nasal device use. Weight loss Goal is: 13# loss for a target weight of 244#. (not insurance required). Please start exercise program. Once above is completed, we will submit for insurance authorization then schedule with the surgeon[place] [address] documented in this enc ounter Plan of Treatment Not on filedocumented as of this encounter Procedures + +--------+ + + + | Procedure Name | Priori | Date/Time | Associated Diagnosis | Comments | | | ty | | | | + +--------+ + + + | X-RAY UGI W AIR WO | Routin | 10/07/2008 | | Results for this | | KUB | e | 8:36 AM | | procedure are in the | | | | PDT | | results section. | + +--------+ + + + documented in this encounter Results X-RAY UGI W AIR WO KUB (10/07/2008 8:36 AM PDT) + + + + + + | Component | Value | Ref Range | Performed | Pathologist | | | | | At | Signature | + + + + + + | UGI W AIR | Clinical history:History | | | | | WO KUB | of gastroesophageal | | | | | | reflux disease here for | | | | | | preoperativeevaluation | | | | | | for | | | | | | LapBand.Procedure:Upper | | | | | | GI with thick and thin | | | | | | barium and air | | | | | | contrast.Findings: The | | | | | | patient swallowed | | | | | | barium mixed with air | | | | | | withoutdifficulty, | | | | | | showing good esophageal | | | | | | transit and stripping. | | | | | | Thegastric outlines | | | | | | were normal without | | | | | | suggestion of mass | | | | | | orulceration. Pyloric | | | | | | channel, duodenal bulb, | | | | | | and duodenal sweep | | | | | | areunremarkable. The | | | | | | patient then swallowed | | | | | | barium prone, showing | | | | | | milddelay in transit | | | | | | with complete emptying | | | | | | seen only when placed in | | | | | | thestanding position. | | | | | | There is no hiatal | | | | | | hernia. | | | | | | Gastroesophagealreflux | | | | | | was elicited on change | | | | | | in | | | | | | positioning.Impression:1 | | | | | | . Evidence of | | | | | | gastroesophageal reflux. | | | | | | No hiatal hernia | | | | | | seen.2. Moderate | | | | | | esophageal dysmotility | | | | | | requiring standing | | | | | | position forcomplete | | | | | | emptying of contrast.I | | | | | | have personally viewed | | | | | | this procedure/exam and | | | | | | reviewed this | | | | | | report.Author: AMI COE, | | | | | | EzReviewer: LOLI | | | | | | Alejandro ALY M.D.STATUS | | | | | | FINAL / Dr. LOLI Allen | | | | | | SHEEBASTATUS PENDING | | | | | | FINAL APPROVAL / Dr. MUELLER | | | | | | CHANSTATUS PRELIMINARY | | | | | | - UNSIGNED / Dr. MUELLER | | | | | | SARAVANAN | | | | + + + + + + + + | Specimen | + + | | + + + +---------+ + + | Performing | Address | City/State/Zipcode | Phone Number | | Organization | | | | + +---------+ + + | [facility] | | | | | RADIOLOGY | | | | + +---------+ + + documented in this encounter Visit Diagnoses + + | Diagnosis | + + | GERD (gastroesophageal reflux disease) - Primary Esophageal reflux | + + documented in this encounter
--- OUTSIDE RECORDS SUMMARY | ~2019-12-01 | XMS | Encounter Summary ---
Demographics + + + | Address | [address] | | | [place] [address] | + + + | Home Phone | | + + + | Preferred Language | Unknown | + + + | Marital Status | | + + + | Rastafarian Affiliation | CHR | + + + | Race | White | + + + | Ethnic Group | Not or | + + + Author + + + | Author | [facility] | + + + | Organization | [facility] | + + + | Address | Unknown | + + + | Phone | Unavailable | + + + Support + + + + + | Name | Relationship | Address | Phone | + + + + + | Osei Bhandari Sr. | ECON | [address] | | | | | [place] | | | | | [address] | | + + + + + Care Team Providers + +------+ + | Care Bleacher Sulfite Pulp Name | Role | Phone | + [...] | | | | obesity | [place] [address] | [facility] [address] | | | | | (HCC) | [address] | [address] | | | | | Procedures | [address] | Mailcode: | | | | | [place] [address] | [address] | [facility] | | | | | GSTR ADJST | [place], [place] | Health and | | | | | BND | [address] | Healing, | | | | | | Phone: | Building 2 | | | | | | [phone] | [place], [place] | | | | | | Fax: | [address] | | | | | | [phone] | Phone: | | | | | | | [phone] | | | | | | | Fax: | | | | | | | [phone] | +--------+--------+ + + + + Encounter Details +--------+---------+ + + + | Date | Type | Department | Care Team | Description | +--------+---------+ + + + | 11/08/ | Office | Digestive Health | Justine Garner, | Postsurgical dumping | | 2016 | Visit | Center at [facility] [address] | MD | syndrome (Primary | | | | [address] | | Dx) | | | | Mailcode: Center | | | | | | for Health and | | | | | | [facility] [address] | | | | | | [place], [place] | | | | | | [address] | | | | | | [phone] | | | +--------+---------+ + + + [...] have asked her to danay [place] our learning consultant's advice (whom she met today), and I am also prescribing empiric Flag yl. JUSTINE GARNER MD CHIEF, BARIATRIC SERVICES [facility] 6TH FLOOR [address] Mailcode: [place] [address] adira Russell - 2:30 PM PDT [facility] FOLLOW UP NOTE 11/09/2015 ID: Steve Bhandari is a 50 y.o. female with morbid obesity who underwent a Sleeve Gastrectomoy 05/[address] Trevino who had been lost to follow up for ~3 years. HPI: Pt presents with primary complaint of consistent loose stool (typically 1-3 times per day) and flatus for 1.5 years after seeing ACNP and supervisor drying and winding today. This timeline correlates wit h increased consumption of fast food. Cow milk products and raw vegetables cause increased f requency of loose stools from baseline with associated generalized cramping. No nausea or vo miting. No melena or hematochezia. Was seeing Derrickman Helper in [place], [place] and had ne gative work-up for [...] Meniscus surgery 11/2011 Laparoscopic sleeve gastrectomy 2011 [facility]. Dr. 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 S/p sleeve gastrectomy: continues to have reduced gastric volume compared to preop; will work with supervisor drying and winding as above to improve daily eating habits. - Maintain > 64 oz fluids - Continue taking supplements - Follow-up on nutrition labs ordered [facility] JUSTINE GARNER MD CHIEF, BARIATRIC SERVICES [facility] 6TH FLOOR [address] Mailcode: [place] [address] documented in this en counter Plan of Treatment Not on filedocumented as of this encounter Visit Diagnoses + + | Diagnosis | + + | Postsurgical dumping syndrome - Primary Postgastric surgery syndromes | + + documented in this encounter
--- OUTSIDE RECORDS SUMMARY | ~2019-12-01 | XMS | Encounter Summary ---
Demographics + + + | Address | [address] | | | [place] [address] | + + + | Home Phone | | + + + | Preferred Language | Unknown | + + + | Marital Status | | + + + | Protestant Affiliation | CHR | + + + | Race | White | + + + | Ethnic Group | Not or | + + + Author + + + | Author | [facility] | + + + | Organization | [facility] | + + + | Address | Unknown | + + + | Phone | Unavailable | + + + Support + + + + + | Name | Relationship | Address | Phone | + + + + + | Osei Bhandari Sr. | ECON | [address] | | | | | [place] | | | | | [address] | | + + + + + Care Team Providers + +------+ + | Care Technology Integration Specialist Name | Role | Phone | + +------+ + | Royer Wilde MD | PCP | | + +------+ + Encounter Details +--------+ + + + + | Date | Type | Department | Care Team | Description | +--------+ + + + + | 11/21/ | Abstract | Digestive Health | Jessica Davis, | | | 2011 | | Center at [facility] [address] | [address] | | | | | [address] | , [address] | | | | | Mailcode: Center | [place], [place] | | | | | for Health and | [address] | | | | | Healing, Building [address] | [phone] | | | | | [place], [place] | | | | | | [address] | | | | | | [phone] | | | +--------+ + + + [...]
--- OUTSIDE RECORDS SUMMARY | ~2019-12-01 | XMS | Encounter Summary ---
Demographics + + + | Address | [address] | | | [place] [address] | + + + | Home Phone | | + + + | Preferred Language | Unknown | + + + | Marital Status | | + + + | Zoroastrianism Affiliation | [id number] | + + + | Race | Unknown | + + + | Ethnic Group | Unknown | + + + Author + + + | Author | [facility] | | | and [place] | + + + | Organization | [facility] | | | and [place] | + + + | Address | Unknown | + + + | Phone | Unavailable | + + + Support + + + + + | Name | Relationship | Address | Phone | + + + + + | Osei Woodard | ECON | [address] | | | [place] | | [place] | | | | | [address] | | + + + + + Care Team Providers + +------+ + | Care Processing Manager Name | Role | Phone | [...] | | | | | | | [place] | | | | | [...] | | | 2013 | Encounter | [facility] | [address] | | | | | EN INTRA [address] | [place] [address] | | | | | [address] | [phone] | | | | | [place] | | | | | | [address] | | | | | | [phone] | | | +--------+ + + + [...] You may also be told to take npar-vzs-[id number] fiber and stool softener medicines. Take these [...] Hitesh Matos MD - 01/31/2014 9:39 AM [facility] Brief Operative Report Outcome: Patient tolerated procedure well, with no complications Findings: See full dictated Operative report Status: -- Stable [id number] Electronically signed by: Hitesh Matos MD, [facility] Date of service: 01/31/2014 9:40 documented in [...]
--- OUTSIDE RECORDS SUMMARY | ~2019-12-01 | XMS | Encounter Summary ---
Demographics + + + | Address | [address] | | | [place] [address] | + + + | Home Phone | | + + + | Preferred Language | Unknown | + + + | Marital Status | | + + + | Baptist Affiliation | CHR | + + + | Race | White | + + + | Ethnic Group | Not or | + + + Author + + + | Author | [facility] | + + + | Organization | [facility] | + + + | Address | Unknown | + + + | Phone | Unavailable | + + + Support + + + + + | Name | Relationship | Address | Phone | + + + + + | Osei Bhandari Sr. | ECON | [address] | | | | | [place] | | | | | [address] | | + + + + + Care Team Providers + +------+ + | Care Bakery Helper Name | Role | Phone | + [...] | | | | [place] [address] | [address] | | | | | (HCC) | [address] | [address] | | | | | Procedures | [address] | [place] [facility] | | | | | [place] [employer] | [address] | Health and | | | | | G[facility] ADJST | [facility] [place] | Healing, | | | | | BND | [address] | [address] | | | | | | Phone: | [place], [place] | | | | | | [phone] | [address] | | | | | | Fax: | Phone: | | | | | | [phone] | [phone] | | | | | | | Fax: | | | | | | | [phone] | +--------+--------+ + + + + Encounter Details +--------+---------+ + + + | Date | Type | Department | Care Team | Description | +--------+---------+ + + + | 04/16/ | Office | Digestive Health | Milvia Ricardo, | Morbid obesity | | 2011 | Visit | Center at [facility] [address] [facility] | (HCC); HTN | | | | [facility] | [address] | (hypertension) | | | | for Health and | [place], [place] | | | | | [place] [address] | [address] | | | | | [place], [place] | | | | | | [address] | | | | | | [phone] | | | +--------+---------+ + + + [...] + + + + | Weight | 115.8 kg (255 lb 6.4 | 04/16/2012 9:10 AM | | | | oz) | PDT | | + + + + + | Height | 167.6 cm (5' 6") | 04/16/2012 9:10 AM | | | | | PDT | | + + + + + | Body Mass Index | 41.22 | 04/16/2012 9:10 AM | | | | | PDT | | + + + + + documented in this encounter Progress Notes Milvia Ricardo, RD - 04/16/2012 9:13 AM PDTFormatting of this note might be different fro m the original. Referring Provider: Royer Wilde MD Clinic: [facility], Pre Bariatric Surgery Visit Services, for diet consult prior to having Lou En Y gastric bypass surgery. Documented Time of Visit: 9:10 until 9:34. 24 minutes [id number] consult with the mallika jack 6th of 6 visits. SUBJECTIVE: "hasn't been very good" this month; has felt off track. Has been on treadmill ~twice in pas t month. Hasn't "overdone" the diet, still choosing "light" & "diet" products but has been l ax about monitoring portions. Feels they are choosing healthy foods, avoiding fried foods, b ut lax about portion control. Used to keep food diaries but hasn't been lately. Has been slo wing increasing soda intake after eliminating, but still drinking more green tea than soda. Diet recall: Sundays, always have fast food for breakfast on their way to [facility]. Brk: fast food: breakfast Guero sandwich (egg, ham, cheese), diet soda A: sausage, egg, & cheese, diet soda Lunch: turkey sandwich from [employer] & potato cakes, iced tea Dinner: goulash, garlic toast, salad, diet soda No snacks between meals; feels very hungry by meal-time. Beverages: Has been drinking more during the day between meals. No water. Green tea (diet p ea) ~40oz, diet soda 12oz. Food Allergies: Tomatoes, pork Current Physical Exercise: nothing OBJECTIVE: Height: Ht Readings from Last 1 Encounters: 04/16/12 1.676 m (5' 6") Weight: Wt Readings from Last 1 Encounters: 04/16/12 115.849 kg (255 lb 6.4 oz) Past Medical History: Past Medical History Diagnosis Date Morbid obesity Asthma Vitamin D deficiency Migraine Hyperlipidemia HTN (hypertension) GERD (gastroesophageal reflux disease) Medications: See list in Epic snap shot Dietary Supplements: Vit D, Flintstones chewables Labs: See results review Nutrition Diagnosis: Obesity as evidenced by BMI of 41.2 . Pre-Surgery Diet: Provided written diet suggestions to help patient lose weight before surgery. Encouraged im proved compliance prior to surgery. -Have protein snacks between meals; eat every 3-4 waking hours -Use healthy plate model for portion control Discussed behavior changes to practice before surgery to prepare for surgery. -Exercise on treadmill 10 min 3x a week (gradually increasing time) -Continue practicing mindful eating -Eliminate diet soda & caffeinated tea (switch to decaf tea) Written Education Provided: Provided and reviewed an instructional handout with the patient on diet progression, sample menus, ideas, food items and vitamins and minerals needed for surgery. Emphasized the impo rtance of a regular physical activity program of 30-60 minutes per day to maintain weight lo ss post surgery. -Review nutrition portion of weight loss surgery binder -purchase protein drink, protein powder, & micronutrient supplements to be used post-surger y Patient's Comprehension: The patient is: Moderately Receptive Stage of change: Preparation Barrier(s) to education: No Learning style: Patient is a Visual learner, Verbal learner Expected Outcome: I think the patient will do moderately if following all lifestyle and behavioral changes discussed today. GOAL: The patient's goal is to have weight loss surgery to maintain weight loss and improve other health conditions. 1. Continue to practice behavioral changes to prepare for surgery. 2. Increase physical activity. 3. Review all information provided for post surgery diet progression. 4. Call dietitian with any questions. 5. Follow up with dietitian in 4 weeks or 2 weeks post-op 6. Contact information was provided. Milvia Ricardo RD, LD Pager [phone] documented in this en counter Plan of Treatment Not on filedocumented as of this encounter Procedures + +--------+ + + + | Procedure Name | Priori | Date/Time | Associated Diagnosis | Comments | | | ty | | | | + +--------+ + + + | GA MNT RE-ASSESSMNT | Routin | 04/16/2012 | Morbid obesity | | | X15MIN | e | 10:04 AM | (HCC) HTN | | | | | PDT | (hypertension) | | + +--------+ + + + documented in this encounter Visit Diagnoses + + | Diagnosis | + + | Morbid obesity (HCC) Morbid obesity | + + | HTN (hypertension) Unspecified essential hypertension | + + documented in this encounter
--- OUTSIDE RECORDS SUMMARY | ~2019-12-01 | XMS | Encounter Summary ---
Demographics + + + | Address | [address] | | | [place] [address] | + + + | Home Phone | | + + + | Preferred Language | Unknown | + + + | Marital Status | | + + + | Zoroastrian Affiliation | CHR | + + + [...] Osei Bhandari Sr. | ECON | [address] | | | | | [place] | | | | | [address] | | + + + + + Care Team Providers + +------+ + | Care Employment Coach Name | Role | Phone | + [...] | +--------+ + + + + | 05/24/ | Hospital | [facility] [address] | Dereje Trevino, | | | 2011 - | Encounter | Rosa Harris MD | | | | | [place], [place] | | | | 05/25/ | | [address] | | | | 2011 | | [phone] | | | +--------+ + + + [...] + documented in this encounter Discharge Summaries AprilEmily ACNP - 05/25/2012 2:15 PM PDT INPATIENT [...] gastrectomy without complications. She had ini tial PRE PAROLE COUNSELING AIDE and was transitioned to oral medications with [...] Milvia Ricardo RD Food and Nutrition Services [phone] FOOD AND NU T 06/08/2012 9:30 AM JOCELIN Stone [facility] Bariatric Surgery [phone] [facility] 07/06/2012 10:00 AM Jessica Davis NP [facility] Bariatric Surgery [phone] [facility] Your Follow-Up Plan Follow up with [facility]. (Call if you have any concerns, ) Contact information: [email or web address] Mahesh Ramos Mailcode: [address] [facility] [address], [address] [facility] [address] Medication Refill Instructions If you need a refill on any narcotic pain medications, please call the clinic ([phone] ) by 2 pm on for any [...] during the day time hours by calling [facility] surgery office at [phone] - After hours, weekends and holidays, you may call the hospital bull chain operator at [phone] an d have the air conditioning coil assembler Roland Team for general surgery paged. Constipation Prevention [...] or acetaminophen in 24 hours. Outstanding labs/studies: EMILY SCHULTZ, NICK [facility] [address] [place] [address] Discharging Physician: NICK NAYAK Attending Physician: Dereje [...] Poss d/c home today. ANCA PAIGE MD tone, Cande Alston - 7:04 PM PDT Green Surgery Postoperative [...] incentive spirometry Cande Garzon MD. MSc. PGY-1 [facility] Plastic and Reconstructive Surgery [phone] documented in this encou nter Plan of [...] GASTRECTOMY | ve | 7:22 AM | ([facility]) | | | | Surgic | PDT [...] Date: 05/24/2012ttending | | Surgeon: Dereje Trevino M.D.Cell Cleaner(s): Anca | | KULDEEP Paigereoperative Diagnosis(es):Morbid obesity.Postoperative Diagnosis(es):Morbid | | obesity.Procedures [...] the case.Disposition:To the PACU.Dereje Trevino M.D.KOJO / [id number] / [id number] / | | [id number] / T: 05/24/2012 | |identified a point [...] Tri-Stapler to create the sleevearoun d a 32-Macedonian | |Tube. We started with black loads, [...] | | | |Dereje Trevino M.D. | |[facility] / | |[id number] / [id number] / [id number] / | | | | | + [...] [facility] | [address] | [place], [place] | | | TANNER POINT OF CARE | [address] | [address] | | | TESTS | | | [...] | + + + + + | [facility] | [address] | [place], [place] | | | AMPARO HART OF CARE | [facility] | [address] | | | TESTS | | | [...] + + + | [facility] | [address] | [place], [place] | | | TANNER POINT OF CARE | [address] | [address] | | | TESTS | | | [...] | + + + + + | [facility] | [address] | [place] [address] | | | SERVICES, CORE | [address] [...] + + | [facility] | [address] | [place] [address] | | | SEFERINO ROWAN | [address] | | | + [...] + + | [facility] | [address] | [place] [address] | | | SERVICES, CORE | [address] [...] | + + + + + | [facility] | [address] | [place] [address] | | | SERVICES, CORE | ZACKARY [...] [facility] | [address] | [place], [place] | | | AMPARO HART OF CARE | [address] | [address] | | | TESTS | | | [...] lesions. | | | | | | Security Site Supervisor | | | | | | sections of thespecimen | | | | | | are submitted. | | | | | | Cassette Index:A1, | | | | | | client account representative sections | | | | | [...] | + + + + + | [facility] | [address] | [place] [address] | | | PATHOLOGY | [address] | | | + + + + + documented in this encounter Visit Diagnoses + + | Diagnosis | + + | Morbid obesity (HCC) Morbid obesity | + + documented in this encounter Administered Medications + +---------+ + +--------+------+ | Medication Order | MAR | Action | Dose | Rate | Site | | | Action | Date | | | | + +---------+ + +--------+------+ | acetaminophen (aka OFIRMEV) IV | New Bag | 05/25/20 | 1,000 mg | mL/hr | | | 1,000 mg 1,000 mg, intravenous, | | 12 5:16 | | | | | EVERY 8 HOURS, First dose on Taryn | | AM PDT | | | | | 05/24/12 at 1100, Until | | | | | | | Discontinued | | | | | | + +---------+ + +--------+------+ +---------+ + +--------+---+ | New Bag | 05/24/20 | 1,000 mg | mL/hr | | | | 12 9:42 | | | | | | PM PDT | | | | +---------+ + +--------+---+ | New Bag | 05/24/20 | 1,000 mg | mL/hr | | | | 12 11:24 | | | | | | AM PDT | | | | +---------+ + +--------+---+ +---+---+ | | | +---+---+ + +-------+ +--------+---+---+ | acetaminophen (aka TYLENOL) | Given | 05/25/20 | 650 mg | | | | oral suspension 650 mg 650 mg, | | 12 1:15 | | | | | oral, EVERY 6 HOURS, First dose | | PM PDT | | | | | on Mon05/25/12 at 0700, Until | | | | | | | Discontinued | | | | | | + +-------+ +--------+---+---+ +-------+ +--------+---+---+ | Given | 05/25/20 | 650 mg | | | | | 12 9:00 | | | | | | AM PDT | | | | +-------+ +--------+---+---+ +---+---+ | | | +---+---+ + +---------+ +---------+--------+---+ | diphenhydrAMINE (aka BENADRYL) | New Bag | 05/24/20 | 12.5 mg | mL/hr | | | injection 12.5-25 mg 12.5-25 mg, | | 12 9:46 | | | | | intravenous, EVERY 6 HOURS | | PM PDT | | | | | NEEDED, Starting Taryn 05/24/12 at | | | | | | | 1943, Until Mon05/25/12 at 0611, | | | | | | | itching | | | | | | + +---------+ +---------+--------+---+ +---+---+ | | | +---+---+ + +---------+ +-------+--------+---+ | diphenhydrAMINE (aka BENADRYL) | New Bag | 05/24/20 | 10 mg | mL/hr | | | injection 25 mg 25 mg, | | 12 1:02 | | | | | intravenous, ONCE, 1 dose, Taryn | | PM PDT | | | | | 05/24/12 at 1230 | | | | | | + +---------+ +-------+--------+---+ +---------+ +------+--------+---+ | New Bag | 05/24/20 | 5 mg | mL/hr | | | | 12 12:01 | | | | | | PM PDT | | | | +---------+ +------+--------+---+ + +---+ | | | + +---+ | diphenhydrAMINE (aka BENADRYL) | | | injection 1 dose, Starting Taryn | | | 05/24/12 at 1153, Until Taryn | | | 05/24/12 at 1201 | | + +---+ | | | + +---+ + +-------+ +-------+---+---+ | enoxaparin (aka LOVENOX) | Given | 05/25/20 | 40 mg | | | | injection 40 mg 40 mg, | | 12 5:16 | | | | | subcutaneous, EVERY NOON, First | | AM PDT | | | | | dose on Mon05/25/12 at 0430, | | | | | | | Until Discontinued | | | | | | + +-------+ +-------+---+---+ +---+---+ | | | +---+---+ + +-------+ +-------+---+---+ | famotidine (aka PEPCID) | Given | 05/25/20 | 20 mg | | | | suspension 20 mg 20 mg, oral, | | 12 9:01 | | | | | TWICE DAILY, First dose on Mon | | AM PDT | | | | | 05/25/12 at 0900, Until | | | | | | | Discontinued | | | | | | + +-------+ +-------+---+---+ +---+---+ | | | +---+---+ + +---------+ +-------+-------+---+ | famotidine in NS (aka PEPCID) | New Bag | 05/25/20 | 20 mg | 200 | | | IV 20 mg 20 mg, intravenous, | | 12 5:16 | | mL/hr | | | EVERY 12 HOURS, First dose on Taryn | | AM PDT | | | | | 05/24/12 at 1445, Until | | | | | | | Discontinued | | | | | | + +---------+ +-------+-------+---+ +---------+ +-------+-------+---+ | New Bag | 05/24/20 | 20 mg | 200 | | | | 12 4:26 | | mL/hr | | | | PM PDT | | | | +---------+ +-------+-------+---+ +---+---+ | | | +---+---+ + +---------+ +--------+--------+---+ | fentaNYL citrate (PF) (aka | New Bag | 05/24/20 | 50 mcg | mL/hr | | | SUBLIMAZE) injection 50 mcg 50 | | 12 11:40 | | | | | mcg, intravenous, POSTPROCEDURE | | AM PDT | | | | | PRN, Starting Taryn 05/24/12 at | | | | | | | 0653, Until Taryn 05/24/12 at 1427, | | | | | | | moderate pain | | | | | | + +---------+ +--------+--------+---+ +---------+ +--------+--------+---+ | New Bag | 05/24/20 | 50 mcg | mL/hr | | | | 12 11:30 | | | | | | AM PDT | | | | +---------+ +--------+--------+---+ | New Bag | 05/24/20 | 50 mcg | mL/hr | | | | 12 10:53 | | | | | | AM PDT | | | | +---------+ +--------+--------+---+ + +---+ | | | + +---+ | fentaNYL citrate (PF) (aka | | | SUBLIMAZE) injection 1 dose, | | | Starting Taryn 05/24/12 at 1027, | | | Until Taryn 05/24/12 at 1030 | | + +---+ | | | + +---+ + +---------+ +--------+--------+---+ | HYDROmorphone (aka DILAUDID) | New Bag | 05/24/20 | 0.5 mg | mL/hr | | | injection 0.2-0.5 mg 0.2-0.5 mg, | | 12 1:02 | | | | | intravenous, POSTPROCEDURE PRN, | | PM PDT | | | | | Starting Taryn 05/24/12 at 0653, | | | | | | | Until Taryn 05/24/12 at 1427, | | | | | | | moderate pain | | | | | | + +---------+ +--------+--------+---+ +---------+ +--------+--------+---+ | New Bag | 05/24/20 | 0.5 mg | mL/hr | | | | 12 11:35 | | | | | | AM PDT | | | | +---------+ +--------+--------+---+ | New Bag | 05/24/20 | 0.5 mg | mL/hr | | | | 12 11:24 | | | | | | AM PDT | | | | +---------+ +--------+--------+---+ +---+---+ | | | +---+---+ + +---------+ +--------+--------+---+ | HYDROmorphone (aka DILAUDID) | New Bag | 05/24/20 | 0.2 mg | mL/hr | | | injection 0.2-0.6 mg 0.2-0.6 mg, | | 12 8:43 | | | | | intravenous, EVERY 2 HOURS | | PM PDT | | | | | NEEDED, Starting Taryn 05/24/12 at | | | | | | | 1341, Until 05/25/12 at 2108, | | | | | | | moderate pain | | | | | | + +---------+ +--------+--------+---+ + +---+ | | | + +---+ | HYDROmorphone (aka DILAUDID) | | | injection 1 dose, Starting Taryn | | | 05/24/12 at 1027, Until Taryn | | | 05/24/12 at 1052 | | + +---+ | | | + +---+ + +---------+ +-------+--------+---+ | ketorolac (aka TORADOL) | New Bag | 05/25/20 | 15 mg | mL/hr | | | injection 15 mg 15 mg, | | 12 10:10 | | | | | intravenous, EVERY 6 HOURS, 8 | | AM PDT | | | | | doses, First dose on Taryn 05/24/12 | | | | | | | at 1215, Last dose on 05/26/12 | | | | | | | at 0400 | | | | | | + +---------+ +-------+--------+---+ +---------+ +-------+--------+---+ | New Bag | 05/25/20 | 15 mg | mL/hr | | | | 12 5:16 | | | | | | AM PDT | | | | +---------+ +-------+--------+---+ | New Bag | 05/24/20 | 15 mg | mL/hr | | | | 12 9:46 | | | | | | PM PDT | | | | +---------+ +-------+--------+---+ + +---+ | | | + +---+ | ketorolac (aka TORADOL) | | | injection 1 dose, Starting Taryn | | | 05/24/12 at 1054, Until Taryn | | | 05/24/12 at 1059 | | + +---+ | | | + +---+ + +---------+ +-------+-------+---+ | lactated ringers IV 100 mL/hr, | New Bag | 05/24/20 | 100 | 100 | | | intravenous, CONTINUOUS, | | 12 5:37 | mL/hr | mL/hr | | | Starting Taryn 05/24/12 at 1100, | | PM PDT | | | | | Until Mon05/25/12 at 0611 | | | | | | + +---------+ +-------+-------+---+ + + +-------+-------+---+ | Rate/Dose Change | 05/24/20 | 100 | 100 | | | | 12 11:06 | mL/hr | mL/hr | | | | AM PDT | | | | + + +-------+-------+---+ +---+---+ | | | +---+---+ + +---------+ + + +---+ | lactated ringers IV 75 mL/hr, | New Bag | 05/25/20 | 75 mL/hr | 75 mL/hr | | | intravenous, CONTINUOUS, Starting | | 12 6:34 | | | | | 05/25/12 at 0615, Until Fri | | AM PDT | | | | | 05/25/12 at 2108 | | | | | | + +---------+ + + +---+ +---+---+ | | | +---+---+ + +-------+ +---+---+--------+ | nystatin (aka MYCOSTATIN) | Given | 05/25/20 | | | Right | | powder topical, TWICE DAILY, | | 12 11:59 | | | Breast | | First dose on Mon05/25/12 at | | AM PDT | | | | | 1145, Until Discontinued | | | | | | + +-------+ +---+---+--------+ +---+---+ | | | +---+---+ + +---------+ +------+--------+---+ | ondansetron (aka ZOFRAN) | New Bag | 05/24/20 | 4 mg | mL/hr | | | injection 4 mg 4 mg, | | 12 10:30 | | | | | intravenous, POSTPROCEDURE PRN, 1 | | AM PDT | | | | | dose, Starting [facility] 05/24/12 at | | | | | | | 0653, Until Taryn 05/24/12 at 1030, | | | | | | | nausea/vomiting | | | | | | + +---------+ +------+--------+---+ +---+---+ | | | +---+---+ + +---------+ +------+--------+---+ | ondansetron (aka ZOFRAN) | New Bag | 05/24/20 | 4 mg | mL/hr | | | injection 4 mg 4 mg, | | 12 9:46 | | | | | intravenous, EVERY 12 HOURS, 4 | | PM PDT | | | | | doses, First dose on Taryn 05/24/12 | | | | | | | at 2200, Last dose on 05/26/12 | | | | | | | at 1000 | | | | | | + +---------+ +------+--------+---+ + +---+ | | | + +---+ | ondansetron (aka ZOFRAN) | | | injection 1 dose, Starting Taryn | | | 05/24/12 at 1027, Until Taryn | | | 05/24/12 at 1030 | | + +---+ | | | + +---+ + +---------+ +---------+--------+---+ | promethazine (aka PHENERGAN) | New Bag | 05/24/20 | 6.25 mg | mL/hr | | | injection 6.25-12.5 mg 6.25-12.5 | | 12 11:51 | | | | | mg, intravenous, POSTPROCEDURE | | AM PDT | | | | | PRN, 2 doses, Starting Taryn | | | | | | | 05/24/12 at 0653, Until Taryn | | | | | | | 05/24/12 at 1151, nausea/vomiting | | | | | | + +---------+ +---------+--------+---+ +---------+ +---------+--------+---+ | New Bag | 05/24/20 | 6.25 mg | mL/hr | | | | 12 10:45 | | | | | | AM PDT | | | | +---------+ +---------+--------+---+ + +---+ | | | + +---+ | promethazine (aka PHENERGAN) | | | injection 1 dose, Starting Taryn | | | 05/24/12 at 1027, Until Taryn | | | 05/24/12 at 1045 | | + +---+ | | | + +---+ documented in this encounter
--- OUTSIDE RECORDS SUMMARY | ~2019-12-01 | XMS | Encounter Summary ---
Demographics + + + | Address | [address] | | | [place] [address] | + + + | Home Phone | | + + + | Preferred Language | Unknown | + + + | Marital Status | | + + + | Temple Affiliation | 1077 | + + + | Race | Unknown | + + + | Ethnic Group | Unknown | + + + Author + + + | Author | [facility] | | | and [place] | + + + | Organization | [facility] | | | and [place] | + + + | Address | Unknown | + + + | Phone | Unavailable | + + + Support + + + + + | Name | Relationship | Address | Phone | + + + + + | Osei Woodard | ECON | [address] | | | [place] | | [place] | | | | | [address] | | + + + + + Care Team Providers + +------+ + | Care Distribution District Supervisor Name | Role | Phone | + +------+ + | Royer Wilde MD | PCP | | + +------+ + Encounter Details +--------+ + + + + | Date | Type | Department | Care Team | Description | +--------+ + + + + | 11/09/ | Hospital | Steven Villagran Other screening | | 2011 | Encounter | [facility] | Royer Hurd MD | mammogram | | | | [facility] | [address] | | | | | [address] | [address] | | | | | [place], [place] | [place], [place] | | | | | [address] | [address] | | | | | [phone] | [phone] | | | | | | | [...] + + + +---------+ + + | ALBUTEROL | by Does not apply | | 0 | | | | | route as needed. | | | | 4 | + + + +---------+ + + | Cholecalciferol | 3,000 Int'l Units | | 0 | | | | (VITAMIN D PO) | Daily. | | | | 4 | + + + +---------+ + + | Triamterene-HCTZ | 12.5 mg daily. | | 0 | | | | (MAXZIDE PO) | | | | | 4 | + + + +---------+ + + documented as of this encounter Plan of Treatment Not on filedocumented as of this encounter Procedures + +--------+ + + + | Procedure Name | Priori | Date/Time | Associated Diagnosis | Comments | | | ty | | | | + +--------+ + + + | YARI DIGITAL | Routin | 11/10/2011 | Other screening | Results for this | | SCREENING BILATERAL | e | 9:53 AM | mammogram | procedure are in the | | | | PDT | | results section. | + +--------+ + + + documented in this encounter Results YARI Digital Screening Bilateral (11/10/2011 9:53 AM PDT) + + | Specimen | + + | | + + + + + | Impressions | Performed At | + + + | Stable appearance without new evidence for malignancy. Annual | [facility] | | follow up recommended. BIRADS 1 Study reviewed | LAB | | with CAD assistance. Dictated By: Evan Alanis, | | | Ez 11/11/2011 10:37:52 AM | | + + + + + + | Narrative | Performed At | + + + | YARI DIGITAL SCREENING BILATERAL DATE OF EXAM: 11/10/2011 | [facility] | | INDICATION: Screening, Other screening mammogram - V76.12 The | LAB | | patient is a 46-year-old para 3 female age 10 at menarche, age 16 at | | | first child, age 44 at menopause, with family history of breast cancer | | | including mother and sister and with no previous breast surgery or | | | new breast complaint. Craniocaudad and oblique mediolateral views | | | of both breasts were obtained and compared with the prior study of November | | | 2009. There is minimal fibroglandular residual. No new or | | | increasing mass, spiculation, clustered microcalcification or | | | architectural distortion is noted. | | + + + + + | Procedure Note | + + | Jose, Rad Results In - 11/11/2011 11:18 AM PDT YARI DIGITAL SCREENING BILATERAL DATE OF | | EXAM: 11/10/2011INDICATION: Screening, Other screening mammogram - V76.12The patient | | is a 46-year-old para 3 female age 10 at menarche, age 16 at first child, age 44 at | | menopause, with family history of breast cancer including mother and sister and with no | | previous breast surgery or new breast complaint.Craniocaudad and oblique mediolateral | | views of both breasts were obtained and compared with the prior study of November 2009.There | | is minimal fibroglandular residual. No new or increasing mass, spiculation, clustered | | microcalcification or architectural distortion is noted.IMPRESSION: Stable appearance | | without new evidence for malignancy. Annual follow up recommended.BIRADS 1Study | | reviewed with CAD assistance.Dictated By: Evan Alanis M.D. 11/11/2011 10:37:52 AM | |There is minimal fibroglandular residual. No new or increasing mass, spiculation, clustered microcalcification or architectural distortion is noted. | | | |IMPRESSION: | |Stable appearance without new evidence for malignancy. | | | |Annual follow up recommended. | | | |BIRADS 1 | | | | | | | | | | | |Study reviewed with CAD assistance. | | | | | | | | | | | |Dictated By: Evan Alanis M.D. 11/11/2011 10:37:52 AM | + + + +---------+ + + | Performing | Address | City/State/Zipcode | Phone Number | | Organization | | | | + +---------+ + + | [facility] | | | [phone] | + +---------+ + + | [facility] LAB | | | [phone] | + +---------+ + + documented in this encounter Visit Diagnoses + + | Diagnosis | + + | Other screening mammogram | + + documented in this encounter"
--- OUTSIDE RECORDS SUMMARY | ~2019-12-01 | XMS | Encounter Summary ---
Demographics + + + | Address | [address] | | | [place] [address] | + + + | Home Phone | | + + + | Preferred Language | Unknown | + + + | Marital Status | | + + + | Anabaptism Affiliation | 1077 | + + + | Race | Unknown | + + + | Ethnic Group | Unknown | + + + Author + + + | Author | [facility] | | | and [place] | + + + | Organization | [facility] | | | and [place] | + + + | Address | Unknown | + + + | Phone | Unavailable | + + + Support + + + + + | Name | Relationship | Address | Phone | + + + + + | Osei Woodard | ECON | [address] | | | [place] | | [place] | | | | | [address] | | + + + + + Care Team Providers + +------+ + | Care Railroad Dining Car Stewardess Name | Role | Phone | + +------+ + PCP | Unavailable | + +------+ + Encounter Details +--------+ + + + + | Date | Type | Department | Care Team | Description | +--------+ + + + + | 10/18/ | Hospital | [facility] | Jeff Peres | | | 2010 | Encounter | [facility] | MD Omid [address] [facility] | | | | | [place] [address] | [address], | | | | | [address] | [place] [address] | | | | | [place], [place] | [phone] | | | | | [address] | | | | | | [phone] | | | +--------+ + + + [...] MRI evaluation. | | | Dictated By: Evan Alanis M.D. 10/19/2010 1:40:20 | | | [...] presumably representing | | | calcific tendonitis. PROSSER EXAM NUMBER: [id number] SHOULDER 1V | | | [id number] | | + + + + + [...] | presumably representing calcific tendonitis. | | PROSSER EXAM NUMBER: [id number] SHOULDER 1V MOX=[id number] | | IMPRESSION: | | IMPRESSION: Reduction. [...] | | | adjacent lung appears clear. PROSSER EXAM NUMBER: [id number] SHOULDER | | | 2+ VIEWS [id number]=[id number] | | + + + + + | Procedure Note | + + | Yousuf Garcia - 08/23/2011 4:40 PM [facility] SHOULDER 2+ VIEWS LT | | | [...] The adjacent lung appears clear. | | PROSSER EXAM NUMBER: [id number] SHOULDER 2+ VIEWS [id number] | | IMPRESSION: | | IMPRESSION: Humeral [...]
--- OUTSIDE RECORDS SUMMARY | ~2019-12-01 | XMS | Encounter Summary ---
Demographics + + + | Address | [address] | | | [place] [address] | + + + | Home Phone | | + + + | Preferred Language | Unknown | + + + | Marital Status | | + + + | Jehovah'S Witness Affiliation | 1077 | + + + [...] Osei Woodard | ECON | [address] | | | [place] | | [place] | | | | | [address] | | + + + + + Care Team Providers + +------+ + | Care Ship'S Captain Name | Role | Phone | + +------+ + | Opal Simon PCP | | | DO | | | + +------+ + Reason for Visit + + + | Reason | Comments | + + + | Sinusitis | | + + + Encounter Details +--------+ + + + + | Date | Type | Department | Care Team | Description | +--------+ + + + + | 08/15/ | Emergency | [facility] | Renan Pineda, | Sinusitis (Primary | | 2014 | | [facility] | MD-C [address] | Dx) | | | | [place] [place] [address] | | | | | [address] | [place] [address] | | | | | [place], [place] | [phone] | | | | | [address] | | | | | | [phone] | | | +--------+ + + + [...] + + + | Blood Pressure | 119/75 | 08/15/2014 8:50 PM | | | | | PST | | + + + + + | Pulse | 77 | 08/15/2014 8:50 PM | | | | | PST | | + + + + + | Temperature | 36.6 C (97.9 F) | 08/15/2014 7:39 PM | | | | | PST | | + + + + + | Respiratory Rate | 18 | 08/15/2014 8:50 PM | | | | | PST | | + + + + + | Oxygen Saturation | 97% | 08/15/2014 8:50 PM | | | | | PST | | + + + + + | Inhaled Oxygen | - | - | | | Concentration | | | | + + + + + | Weight | 97.5 kg (215 lb) | 08/15/2014 7:39 PM | | | | | PST | | + + + + + | Height | 167.6 cm (5' 6") | 08/15/2014 7:39 PM | | | | | PST | | + + + + + | Body Mass Index | 34.7 | 08/15/2014 7:39 PM | | | | | PST | | + + + + + documented in this encounter Functional Status + + + + | Functional Status | Response | Date of Assessment | + + + + | Are you deaf or do you have serious | No | 08/15/2014 | | difficulty hearing? | | | + + + + | Are you blind or do you have serious | No | 08/15/2014 | | difficulty seeing, even when wearing | | | | glasses? | | | + + + + | Do you have serious difficulty walking or | No | 08/15/2014 | | climbing stairs? (5 years old or older) | | | + + + + | Do you have difficulty dressing or bathing? | No | 08/15/2014 | | (5 years old or older) | | | + + + + | Because of a physical, mental, or emotional | No | 08/15/2014 | | condition, do you have difficulty [...] physical, mental, or emotional | No | 08/15/2014 | | condition, do you have serious difficulty | | | | concentrating, remembering, or making | | | | decisions? (5 years old or older) | | | + + + + documented as of this encounter Discharge Instructions Instructions Renan Pineda PA-C - 08/15/2014 Sinusitis [Abx Tx] The sinuses are air-filled spaces within the bones of the face. They connect to the inside of the nose. Sinusitis is an inflammation of the tissue lining the sinus cavity. Sinus infla mmation can occur during a cold or hay-fever (allergies to pollens and other particles in th e air) and cause symptoms of sinus congestion and fullness. A sinus infection causes fever, headache and facial pain. There is usually green or yellow drainage from the nose or into th e back of the throat (post-nasal drip). Antibiotics are prescribed to treat this condition. Home Care: Drink plenty of water, hot tea, and other liquids to stay well hydrated. This thins the mucus and promotes sinus drainage. Apply heat to the painful areas of the face. Use a towel soaked in hot water. Or, ic designer standard cells the shower and direct the hot spray onto your face. This is a good way to inhale warm mandi er vapor and get heat on your face at the same time. (Cover your mouth and nose with your sullivan nds so you can still breathe as you do this.) Use a vaporizer with products such as Vicks VapoRub (contains menthol) at night. Suck on peppermint, menthol or eucalyptus hard candies during the day. An expectorant containing guaifenesin (such as Robitussin), helps to thin the mucus and promote drainage from the sinuses. Zmjh-irw-cpxnqpw decongestants may be used unless a similar medicine was prescribed. Kelvin al sprays work the fastest. Use one that contains phenylephrine (Barak-synephrine, Sinex and o thers) or oxymetazoline (Afrin). First blow the nose gently to remove mucus, then apply the drops. Do not use these medicines more often than directed on the label or for more than thr ee days or symptoms may worsen. You may also use tablets containing pseudoephedrine (Sudafed ). Many sinus remedies combine ingredients, which may increase side effects. Read the labels or ask the pharmacist for help. NOTE: Persons with high blood pressure should not use decon gestants. They can raise blood pressure. Antihistamines are useful if allergies are a cause of your sinusitis. The mildest one is chlorpheniramine (available without a prescription). The dose for adults is 8-12mg three ti mes a day. [NOTE: Do not use chlorpheniramine if you have glaucoma or if you are a man with trouble urinating due to an enlarged prostate.] Claritin (loratidine) is an antihistamine th at causes less drowsiness and is a good alternative for daytime use. Do not use nasal rinses or irrigation during an acute sinus infection, unless advised by your doctor. Rinsing may spread the infection to other sinuses. You may use acetaminophen (Tylenol) or ibuprofen (Motrin, Advil) to control pain, unless another pain medicine was prescribed. [ NOTE: If you have chronic liver or kidney disease o r ever had a stomach ulcer, talk with your doctor before using these medicines.] (Aspirin sh ould never be used in anyone under 18 years of age who is ill with a fever. It may cause sev ere liver damage.) Finish the full course, even if you are feeling better after a few days. Follow Up with your doctor or this facility in one week or as instructed by our staff if not improvin g. Get Prompt Medical Attention if any of the following occur: Facial pain or headache becomes more severe Stiff neck Unusual drowsiness or confusion, or not acting like your normal self Swelling of the forehead or eyelids Vision problems including blurred or double vision Fever of 100.4F (38C) or higher, or as directed by your healthcare provider Seizure [phone] [employer]. [address] [place], [place] [id number]. All righ ts reserved. This information is not intended as a substitute for professional medical care. Always follow your healthcare professional's instructions. documented in this encounter Medications at Time [...] | | Take 1 tablet by | 14 | 0 | 08/15/19 | | | amoxicillin-clavulan | mouth 2 times daily | tablet | | 15 | 5 | | ate (AUGMENTIN) | for 7 days. | | | | | | 875-125 mg per | | | | | | | tablet | | | | | | + + + +---------+ + + documented as of this encounter Plan of Treatment Not on filedocumented as of this encounter Visit Diagnoses + + | Diagnosis | + + | Sinusitis - Primary Unspecified sinusitis (chronic) | + + documented in this encounter
--- OUTSIDE RECORDS SUMMARY | ~2019-12-01 | XMS | Encounter Summary ---
Demographics + + + | Address | [address] | | | [place] [address] | + + + | Home Phone | | + + + | Preferred Language | Unknown | + + + | Marital Status | | + + + | Confucianist Affiliation | CHR | + + + [...] Osei Bhandari Sr. | ECON | [address] | | | | | [place] | | | | | [address] | | + + + + + Care Team Providers + +------+ + | Care Factory Clerk Name | Role | Phone | [...] | Pain | Diagnoses | Conser, | Administration Professional Psych | | | | Management | Morbid | Jessica Dyson NP | [facility] [address] | | | | | obesity | [address] | | | | | ([facility]) | [address], | Mailcode: | | | | | Procedures | [address] | [facility] | | | | | needs | [place], [place] | for Health | | | | | updated BAR | [address] | and Healing, | | | | | psych eval | Phone: | Building [address], | | | | | | [phone] | 15th Floor | | | | | | Fax: | [place], [place] | | | | | | [phone] | [address] | | | | | | | Phone: | | | | | | | [phone] | | | | | | | Fax: | | | | | | | [phone] | +--------+--------+ + + + + Encounter Details +--------+---------+ + + + | Date | Type | Department | Care Team | Description | +--------+---------+ + + + | 04/16/ | Office | [facility] | Gerald Wise, | (v71.09) no | | 2011 | Visit | [address] | PhD [address] | diagnosis (Primary | | | | Mailcode: [facility] | [place], [place] | Dx); Morbid obesity | | | | [facility] | [address] | ([facility]) | | | | and Healing, | [phone] | | | | | Building | | | | | | Floor [place], [place] | | | | | | [address] | | | | | | [phone] | | | +--------+---------+ + + + [...] April 16, 2012 Name: Steve Bhandari MR#: [id number] Date of : 1965 Age: 47 y.o. Identifying Information: Steve Bhandari is a 47 y.o. female who lives in [facility] with her . She was referred [...] 1992, Atkins diet, lost 15, regained all. 8310-3477, tried many diets, diet p ills and fad diet, lost little weight and regained all. Programmatic diets: 2010, weight watchers, lost 16 lbs, still losing. used phen-fen in late s for 3 mos Recent Changes in Eating and Dietary Styles: She eats 3 meals per day and no snacks. She has begun following the intensivist's recommendat ions and has been eating more [...] done a lot of reading, including the [facility] Notebook. Her sister in law and friends have gone through the surgery with good weight loss. 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 For enjoy ment the patient likes [...] GED degree. 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 She has been at her job for [...] or problema tic personality traits. DSM-IV Diagnosis: [place] I (v71.09) no diagnosis [place] II: deferred [place] III: Morbid obesity, ABHIJEET, HTN [place] IV: [place] V: Global Assessment of Functioning = 65 [...] interpretation. [facility] [address], [address]th [place] [address] documented in this e ncounter Plan of Treatment Not on filedocumented as of this encounter Visit Diagnoses + + | Diagnosis | + + | (v71.09) no diagnosis - Primary Observation of other suspected mental condition | + + | Morbid obesity (HCC) Morbid obesity | + + documented in this encounter"
--- OUTSIDE RECORDS SUMMARY | ~2019-12-01 | XMS | Encounter Summary ---
Demographics + + + | Address | [address] | | | [place] [address] | + + + | Home Phone | | + + + | Preferred Language | Unknown | + + + | Marital Status | | + + + | Advent Affiliation | CHR | + + + | Race | White | + + + | Ethnic Group | Not or | + + + Author + + + | Author | [facility] | + + + | Organization | [facility] | + + + | Address | Unknown | + + + | Phone | Unavailable | + + + Support + + + + + | Name | Relationship | Address | Phone | + + + + + | Osei Bhandari Sr. | ECON | [address] | | | | | [place] | | | | | [address] | | + + + + + Care Team Providers + +------+ + | Care Multimedia Developer Name | Role | Phone | + +------+ + | Royer Wilde MD | PCP | | + +------+ + Encounter Details +--------+ + + + + | Date | Type | Department | Care Team | Description | +--------+ + + + + | 07/02/ | Telephone | [facility] | Clinic, Surgery | | | 2014 | | [place] [facility] [address] | | | | | | [address] | | | | | | Mailcode: Center | | | | | | for Health and | | | | | | Healing, [address] | | | | | | [place], [place] | | | | | | [address] | | | | | | [phone] | | | +--------+ + + + [...]
--- OUTSIDE RECORDS SUMMARY | ~2019-12-01 | XMS | Encounter Summary ---
Demographics + + + | Address | [address] [place] | | | [place] [address] | + + + | Home Phone | | + + + | Preferred Language | Unknown | + + + | Marital Status | | + + + | Baptism Affiliation | CHR | + + + [...] Osei Bhandari Sr. | ECON | [address] | | | | | [place] | | | | | [address] | | + + + + + Care Team Providers + +------+ + | Care Commander Internal Affairs Name | Role | Phone | + [...] Encounter | Center at [facility] [address] | [phone] | Nov 1 | | | | [address] | | | | | | Mailcode: Center | | | | | | for Health and | | | | | | Healing, [facility] [address] | | | | | | [place], [place] | | | | | | [address] | | | | | | [phone] | | | +--------+ + + + [...]
--- OUTSIDE RECORDS SUMMARY | ~2019-12-01 | XMS | Encounter Summary ---
Demographics + + + | Address | [address] | | | [place] [address] | + + + | Home Phone | | + + + | Preferred Language | Unknown | + + + | Marital Status | | + + + | Voodoo Affiliation | CHR | + + + | Race | White | + + + | Ethnic Group | Not or | + + + Author + + + | Author | [facility] | + + + | Organization | [facility] | + + + | Address | Unknown | + + + | Phone | Unavailable | + + + Support + + + + + | Name | Relationship | Address | Phone | + + + + + | Osei Bhandari Sr. | ECON | [address] | | | | | [place] | | | | | [address] | | + + + + + Care Team Providers + +------+ + | Care Belt Sander Name | Role | Phone | + +------+ + | Royer Wilde MD | PCP | | + +------+ + Reason for Visit + + + | Reason | Comments | + + + | Treatment Questions | dinesh shell | + + + Encounter Details +--------+ + + + + | Date | Type | Department | Care Team | Description | +--------+ + + + + | 11/29/ | Telephone | [facility] | Jessica Davis, | Treatment Questions | | 2011 | | Center at [facility] [address] | [address] | (dinesh shell ) | | | | [address] | [facility] [address] | | | | | Mailcode: Center | [place], [place] | | | | | for Health and | [address] | | | | | [facility] [address] | [phone] | | | | | [place], [place] | | | | | | [address] | | | | | | [phone] | | | +--------+ + + + [...]
--- OUTSIDE RECORDS SUMMARY | ~2019-12-01 | XMS | Encounter Summary ---
Demographics + + + | Address | [address] | | | [place] [address] | + + + | Home Phone | | + + + | Preferred Language | Unknown | + + + | Marital Status | | + + + | Presybeterian Affiliation | 1077 | + + + | Race | Unknown | + + + | Ethnic Group | Unknown | + + + Author + + + | Author | [facility] | | | and [place] | + + + | Organization | [facility] | | | and [place] | + + + | Address | Unknown | + + + | Phone | Unavailable | + + + Support + + + + + | Name | Relationship | Address | Phone | + + + + + | Osei Woodard | ECON | [address] | | | [place] | | [place] | | | | | [address] | | + + + + + Care Team Providers + +------+ + | Care Automatic Buffing Wheel Former Name | Role | Phone | + +------+ + | Pcp, Prov Inactive | PCP | | + +------+ + Encounter Details +--------+ + + + + | Date | Type | Department | Care Team | Description | +--------+ + + + + | 07/25/ | Emergency | [facility] | German Orellana DO | Elevated | | 2018 - | | MEDICAL CENTER | [address] [place] | blood-pressure | | | | EMERG[facility]Y CENTER | [address] [place], [place] | reading without | | 07/26/ | | [address] | [address] | diagnosis of | | 2018 | | [place], [place] | [phone] | hypertension; | | | | [address] | | Bronchitis, acute, | | | | [phone] | | with bronchospasm | +--------+ + + + + Social [...] + + + | Blood Pressure | 128/85 | 07/26/2017 12:43 AM | | | | | PST | | + + + + + | Pulse | 88 | 07/26/2017 12:43 AM | | | | | PST | | + + + + + | Temperature | 36.1 C (97 F) | 07/26/2017 12:43 AM | | | | | PST | | + + + + + | Respiratory Rate | 16 | 07/26/2017 12:43 AM | | | | | PST | | + + + + + | Oxygen Saturation | - | - | | + + + + + | Inhaled Oxygen | - | - | | | Concentration | | | | + + + + + | Weight | 108.5 kg (239 lb 3.2 | 07/26/2017 12:43 AM | | | | oz) | PST | | + + + + + | Height | 167.6 cm (5' 6") | 07/26/2017 12:43 AM | | | | | PST | | + + + + + | Body Mass Index | 38.61 | 07/26/2017 12:43 AM | | | [...] + +--------+ + + + | XR CHEST 2 VIEWS | Routin | 07/26/2017 | | Results for this | | | e | 1:07 AM | | procedure are in the | | | | PST | | results section. | + +--------+ + + + documented in this encounter Results XR Chest 2 Vws (07/26/2017 1:07 AM PST) + + | Specimen | + + | | + + + + + | Impressions | Performed At | + + + | 1. No acute cardiopulmonary process noted. Electronically | | | signed by Chuckie Urbano MD on 07/26/2017 7:14 AM | | + + + + + + | Narrative | Performed At | + + + | STEV[facility] 1965 52 years XR CHEST 2 VIEW FRONTAL AND | | | LATERAL 07/26/2017 1:07 AM INDICATION: Pneumonia COMPARISON | | | study: None. TECHNIQUE: 2 views FINDINGS: Lungs appear | | | clear. Cardiomediastinal silhouette appears unremarkable. Osseous | | | structures appear unremarkable. No pleural effusion seen. | | + + + + + | Procedure Note | + + | Jose, Yousuf Conversion - 03/06/2019 1:30 PM PDT [facility] CARUSOMARCELLUS yearsXR CHEST | | 2 VIEW FRONTAL AND LATERAL07/26/2017 1:07 AM INDICATION: Pneumonia COMPARISON study: | | None. TECHNIQUE: 2 views FINDINGS: Lungs appear clear. Cardiomediastinal silhouette | | appears unremarkable. Osseous structures appear unremarkable. No pleural effusion seen. | | IMPRESSION: 1. No acute cardiopulmonary process noted. | |INDICATION: Pneumonia | | | |COMPARISON study: None. | | | |TECHNIQUE: 2 views | | | |FINDINGS: Lungs appear clear. Cardiomediastinal silhouette appears unremarkable. Osseous s tructures appear unremarkable. No pleural effusion seen. | | | |IMPRESSION: | |1. No acute cardiopulmonary process noted. | | | | | + + documented in this encounter Visit Diagnoses + + | Diagnosis | + + | Elevated blood-pressure reading without diagnosis of hypertension Elevated blood | | pressure reading without diagnosis of hypertension | + + | Bronchitis, acute, with bronchospasm Acute bronchitis | + + documented in this encounter
--- OUTSIDE RECORDS SUMMARY | ~2019-12-01 | XMS | Encounter Summary ---
Demographics + + + | Address | [address] | | | [place] [address] | + + + | Home Phone | | + + + | Preferred Language | Unknown | + + + | Marital Status | | + + + | Protestant Affiliation | 1077 | + + + | Race | Unknown | + + + | Ethnic Group | Unknown | + + + Author + + + | Author | [facility] | | | and [place] | + + + | Organization | [facility] | | | and [place] | + + + | Address | Unknown | + + + | Phone | Unavailable | + + + Support + + + + + | Name | Relationship | Address | Phone | + + + + + | Osei Woodard | ECON | [address] | | | [place] | | [place] | | | | | [address] | | + + + + + Care Team Providers + +------+ + | Care Drum Saw Operator Name | Role | Phone | + +------+ + | Royer Wilde MD | PCP | | + +------+ + Encounter Details +--------+ + + + + | Date | Type | Department | Care Team | Description | +--------+ + + + + | 04/02/ | Hospital | [facility] | [place], | Other screening | | 2015 | Encounter | [facility] | Royer Hurd MD | mammogram | | | | Center Mammography | [address] | | | | | [address] | [address] [place] [address] | | | | | [place], [place] | [place], [place] | | | | | [address] | [address] | | | | | [phone] | [phone] | | | | | | | [...] + | [facility] | Routin | 04/02/2015 | Other screening | Results for this | | SCREENING BILATERAL | e | 2:05 PM | mammogram | procedure are in the | | | | PDT | | results section. | + +--------+ + + + documented in this encounter Results [facility] Screening Bilateral (04/02/2015 2:05 PM PDT) + + | Specimen | + + | | + + + + + | Impressions | Performed At | + + + | Negative bilateral screening mammogram, unchanged since 11/27/2012. | [facility] | | RECOMMENDATION: Routine follow-up screening mammography in one | | | year. BI-RADS Category 1: Negative NOTE: The results of | | | computer-aided detection were incorporated in the final assessment. | | | Dictated by: Praful Mojica M.D. on 04/02/2015 5:47 PM | | | PDT | | | 5:48 PM PDT [email or web address] | | + + + + + + | Narrative | Performed At | + + + | [facility] SCREENING BILATERAL DATE OF EXAM: 04/02/2015 2:05 | [facility] | | PM INDICATION: V76.12: Other screening mammogram. | | | TECHNIQUE: Craniocaudad and oblique mediolateral views of both | | | breasts were obtained. COMPARISON: Comparison is made with | | | prior study/studies done 11/27/2012. FINDINGS: Density: | | | The breasts are almost entirely fatty. Mass lesions and/or | | | architectural distortion: The breasts show no mass lesions or | | | architectural distortion. Microcalcifications: No suspicious | | | microcalcifications are seen. | | + + + + + | Procedure Note | + + | Jose, Rad Results In - 04/02/2015 5:51 PM PDT [facility] SCREENING BILATERAL | | | | DATE OF EXAM: 04/02/2015 2:05 PM | | | | INDICATION: V76.12: Other screening mammogram. | | | | TECHNIQUE: Craniocaudad and oblique mediolateral views of both breasts were | | obtained. | | | | COMPARISON: Comparison is made with prior study/studies done 11/27/2012. | | | | FINDINGS: | | | | Density: The breasts are almost entirely fatty. | | | | Mass lesions and/or architectural distortion: The breasts show no mass lesions | | or architectural distortion. | | | | Microcalcifications: No suspicious microcalcifications are seen. | | | | | | | | IMPRESSION: | | Negative bilateral screening mammogram, unchanged since 11/27/2012. | | | | RECOMMENDATION: Routine follow-up screening mammography in one year. | | | | BI-RADS Category 1: Negative | | | | NOTE: The results of computer-aided detection were incorporated in the final | | assessment. | | | | | | | | Dictated by: Praful Mojica M.D. on 04/02/2015 5:47 PM PDT | | | | | | [email or web address] | + + + +---------+ + + | Performing | Address | City/State[facility] | Phone Number | | Organization | | | | + +---------+ + + | [facility] | | | | + +---------+ + + documented in this encounter Visit Diagnoses + + | Diagnosis | + + | Other screening mammogram | + + documented in this encounter"
--- OUTSIDE RECORDS SUMMARY | ~2019-12-01 | XMS | Encounter Summary ---
Demographics + + + | Address | [address] | | | [place] [address] | + + + | Home Phone | | + + + | Preferred Language | Unknown | + + + | Marital Status | | + + + | Jainism Affiliation | 1077 | + + + | Race | Unknown | + + + | Ethnic Group | Unknown | + + + Author + + + | Author | [facility] | | | and [place] | + + + | Organization | [facility] | | | and [place] | + + + | Address | Unknown | + + + | Phone | Unavailable | + + + Support + + + + + | Name | Relationship | Address | Phone | + + + + + | Osei Woodard | ECON | [address] | | | [place] | | [place] | | | | | [address] | | + + + + + Care Team Providers + +------+ + | Care Radio Script Writer Name | Role | Phone | + +------+ + | Elke Mcdonald | PCP | | + +------+ + Reason for Referral Evaluate & Treat (Routine) +--------+ + + + + + | Status | Reason | Specialty | Diagnoses / | Referred By | Referred To | | | | | Procedures | Contact | Contact | +--------+ + + + + + | Closed | Specialty | Surgery / | Diagnoses | At[place]ey[place], | [facility] | | | Services | General | Colon | Elke Betancourt, | [facility] | | | Required | Surgery | cancer | [address] | [address] | | | | | screening | [address] | [address] | | | | | | [place], [place] | [place], | | | | | | [address] | [place] [address] | | | | | | Phone: | Phone: | | | | | | [phone] | [phone] | | | | | | Fax: | Fax: | | | | | | [phone] | [phone] | +--------+ + + + + + Reason for Visit + + + | Reason | Comments | + + + | Establish Care | Pt. is here today to establish care with MAT Sousa. | + + + Encounter Details +--------+---------+ + + + | Date | Type | Department | Care Team | Description | +--------+---------+ + + + | 11/25/ | Office | [facility] | Elke Mcdonald, | Weight gain (Primary | | 2013 | Visit | Group [place] | [facility] [address] | Dx); Other | | | | Internal Medicine | [place], [place] | screening mammogram; | | | | [address] | [phone] | Colon cancer | | | | [place] [address] | | screening; Obesity | | | | [place], [place] | | (BMI 30-39.9) | | | | [address] | | | | | | [phone] | | | +--------+---------+ + + + [...] + + + | Blood Pressure | 111/74 | 11/25/2013 1:10 PM | | | | | PDT | | + + + + + | Pulse | 71 | 11/25/2013 1:10 PM | | | | | PDT | | + + + + + | Temperature | 36.8 C (98.3 F) | 11/25/2013 1:10 PM | | | | | PDT | | + + + + + | Respiratory Rate | 20 | 11/25/2013 1:10 PM | | | | | PDT | | + + + + + | Oxygen Saturation | 97% | 11/25/2013 1:10 PM | | | | | PDT | | + + + + + | Inhaled Oxygen | - | - | | | Concentration | | | | + + + + + | Weight | 94.2 kg (207 lb 9.6 | 11/25/2013 1:10 PM | | | | oz) | PDT | | + + + + + | Height | 165.1 cm (5' 5") | 11/25/2013 1:10 PM | | | | | PDT | | + + + + + | Body Mass Index | 34.55 | 11/25/2013 1:10 PM | | | | | PDT | | + + + + + documented in this encounter Patient Instructions Patient Instructions Elke Lemus ARNP - 11/25/2013 1:25 PM Luis can call and gary lr your Mammogram at the [facility] @ [phone]. You will be contacted by General Surgery to schedule a pre op colonoscopy appt. Lab work to be done fasting in the next 1 week. I will call you with results. May schedule follow up at that time to review is there are some issues. For energy: exercise can help boost daily energy along with Super B12 Complex. Electronical ly signed by MAT Lopez at 11/25/2013 1:27 PM PDT documented in this encounter Progress Notes Elke Lemus ARNP - 11/25/2013 1:10 PM PDTFormatting of this note might be different fr om the original. Subjective: Patient ID: Steve Bhandari is a 48 y.o. female. HPI Patient presents in the clinic today to establish care. She was formerly seen by I do not have past medical records to review. Pt is to sign a release of records prior to l eaving the clinic today and I will review them when they are made available. Pt has a hx of HTN. However, since her bariatric surgery in 2011, she's been able to come o ff all of her blood pressure medications and states that her blood pressure has been well co ntrolled. She's lost 70 pounds in surgery, however, she states that she's gained 20 back ov er the past one year. She's working hard to lose weight but is finding it very difficult. Patient states that she's having more difficulty than usual attempting to lose weight. She' s not eating more and she's not exercising less. She does not have routine followups with h er bariatric surgeon, as this was stopped after her 1 year followup. States that everything appears to be going smoothly with those except for the difficulty with weight loss at this time. Patient states that also as a result of her bariatric surgery, she had improvement in her a sthma. States that she has not had asthma now for 5 years. She does explain that when she gets ill, such as URIs, it does go to her lungs and she does wheeze which requires her to ge t a prescription for an inhaler. Health maintenance: Patient had a Pap smear last October. States it was normal. She does sullivan ve a history of ASCUS on Pap smear, she's unsure when this was. Again, I will review record s when they're made available to see what the recommendation is for her followup. She does assure me however that her last Pap smear was normal. She's due for mammogram. She has a history of a right breast lump. States that this was b enign. She will have her mammogram done and will followup as recommended. Her mother and si ster both had breast CA. She is due for screening colonoscopy. Denies any family hx colon CA. Denies blood in stool, constipation, diarrhea. Patient has not had annual lab work done in several years. States that she is due for this . She does have to routinely take calcium, vitamin D, and a B complex as SL, d/t absorption issues post bariatric surgery. SH: Moved to [place] in 2008. She was formerly from [place]. 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 She has been 31 years. She has been in the [employer] since 1990. She has one yareli tse child who is 26. Past Medical History Diagnosis Date Ulcer (HCC) Torn meniscus Left Patient Active Problem List Diagnosis Date Noted POA ASCUS (atypical squamous cells of undetermined significance) on Pap smear 11/21/2011 Un known Right Breast lump 06/02/2011 Unknown HTN (hypertension) 06/02/2011 Unknown Asthma 06/02/2011 Unknown History of headache 06/02/2011 Unknown Past Surgical History Procedure Date Sinus surgery 2002 Hernia repair 1988 Tubal ligation 1986 Carpal tunnel release 2005 Bariatric sugery May 2012 [facility] Sleeve at [facility] Family History Problem Relation Age of Onset Breast cancer Mother Stomach cancer Mother Allergies Father Breast cancer Sister Breast cancer Maternal Grandmother Cancer Paternal Grandmother skin History Social History Marital Status: Spouse Name: Osei Number of Children: N/A Years of Education: 14 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 Allergies Allergen Reactions Droperidol Shortness Of Breath, Anxiety and Palpitations Metoclopramide Shortness Of Breath, Anxiety and Palpitations Codeine Nausea And Vomiting Review of Systems Constitutional: Positive for fatigue and unexpected weight change. Negative for fever, chil ls, diaphoresis and appetite change. Eyes: Negative for visual disturbance. Respiratory: Negative for cough, chest tightness, shortness of breath and wheezing. Cardiovascular: Negative for chest pain, palpitations and leg swelling. Gastrointestinal: Negative for abdominal pain, diarrhea, constipation, blood in stool and a bdominal distention. Genitourinary: Negative for dysuria, urgency, frequency, hematuria and difficulty urinating . Musculoskeletal: Negative for myalgias, joint swelling and arthralgias. Skin: Negative for color change, pallor, rash and wound. Neurological: Negative for dizziness, syncope, weakness, light-headedness, numbness and hea daches. Hematological: Negative for adenopathy. Psychiatric/Behavioral: Negative for dysphoric mood. The patient is not nervous/anxious. Objective: Physical Exam Constitutional: She is oriented to person, place, and time. She appears well-developed and well-nourished. No distress. HENT: Head: Normocephalic and atraumatic. Eyes: Conjunctivae normal are normal. No scleral icterus. Neck: Neck supple. No tracheal deviation present. No thyromegaly present. Cardiovascular: Normal rate, regular rhythm, S1 normal and S2 normal. Exam reveals no gall op, no S3, no S4 and no friction rub. No murmur heard. Carotids clear bilaterally Pulmonary/Chest: Effort normal and breath sounds normal. She has no wheezes. She has no rho nchi. She has no rales. She exhibits no tenderness. Abdominal: Soft. Bowel sounds are normal. She exhibits no distension. There is no tendernes s. Musculoskeletal: She exhibits no edema. Neurological: She is alert and oriented to person, place, and time. Skin: Skin is warm and dry. No rash noted. She is not diaphoretic. No erythema. No pallor. Psychiatric: She has a normal mood and affect. Her behavior is normal. Judgment and thought content normal. Filed Vitals: 11/25/13 1310 BP: 111/74 Pulse: 71 Temp: 36.8 C (98.3 F) TempSrc: Temporal Resp: 20 Height: 1.651 m (5' 5") Weight: 94.167 kg (207 lb 9.6 oz) SpO2: 97% BP Readings from Last 3 Encounters: 11/25/13 111/74 10/29/13 140/69 11/16/11 118/78 Wt Readings from Last 3 Encounters: 11/25/13 94.167 kg (207 lb 9.6 oz) 10/29/13 91.627 kg (202 lb) 11/16/11 115.168 kg (253 lb 14.4 oz) Body mass index is 34.55 kg/(m^2). Assessment & Plan: 1. Weight gain Pt has had a difficult time over the past 1 year with gaining weight and sullivan ving a difficult time losing it, despite efforts with diet and exercise. Will explore organic causes of this, but also discussed portion control, decreasing process ed foods, and increasing exercise. Lab work ordered today: Lipid Panel, with Direct LDL, TSH, Reflex Free T4, Comprehensive Metabolic Panel, CBC with Differential 2. Other screening mammogram [facility] Screening Bilateral-ph number given to schedule m ammo. Will do CBE at follow up. 3. Colon cancer screening * [facility] - [facility] Referral- referral p laced today. 4. Obesity (BMI 30-39.9) S/P gastric sleeve in 2011. Total weight loss to date is 50 lbs ( was 70 lbs but pt gained back 20 lb over the past 1 year.) Discussed the health implications of obesity on overall mortality. Pt encouraged to begin e xercising more routinely, aiming for at least 150 minutes per week. Lipid Panel, with Direct LDL, Comprehensive Metabolic Panel, CBC with Differential Will review records when they are available, including recommendations for PAP follow up. [Portions of this chart may have been created with voice recognition software. Occasional w tim-word or sound-alike substitutions may have occurred due to the inherent limitatio ns of voice recognition software. ] Patient agrees with the above plan of care, verbalizes understanding, and leaves the clinic in satisfactory condition. Yesenia Kay Master of Arts - 11/25/2013 1:04 PM [facility] - 11/2012 Pap - 11/2012 Colonoscopy - Never Dexa - Never d ocumented in this encounter Plan of Treatment + +---------+--------+ + + | Name | Type | Priori | Associated Diagnoses | Order Schedule | | | | ty | | | + +---------+--------+ + + | [facility] | Imaging | Routin | Other screening | Expected: 11/25/2013 | | Screening Bilateral | | e | mammogram | (Approximate), | | | | | | Expires: 11/25/2014 | + +---------+--------+ + + + + +--------+ + + | Name | Type | Priori | Associated Diagnoses | Order Schedule | | | | ty | | | + + +--------+ + + | * [facility] | Outpatient | Routin | Colon cancer | Ordered: 11/25/2013 | | [facility] | Referral | e | screening | | | Surgery - AMB | | | | | | Referral | | | | | + + +--------+ + + documented as of this encounter Results CBC with Differential (11/26/2013 [...] | + + + + + | [facility] | [address] | [place], [place] | [phone] | | [facility] | | [address] | | | LABORATORY | | | [...] | mL/min/1.73m2 | [facility] | | | [facility] | RATE,ESTIMATED | | HOSPITAL | | | | mL/min/1.66y4Atpo than | | LABORATORY | | | [...] + + | [facility] | [address] | [place] | [phone] | | [facility] | | [address] | | | LABORATORY | | | [...] | | | | | uIU/mL | [facility] | | | | | [...] + + | [facility] | [address] | [place], [place] | [phone] | | [facility] | | [address] | | | LABORATORY | | | [...] mg/dL | [facility] | | | | [id number] | | [facility] | | | | - [address] | | HOSPITAL | | | | [id number] or more HIGH | | LABORATORY | | | |240 or more HIGH | | | | | | | | | | + + + + + + | Triglycerid | 91Comment: <150 | <150 mg/dL | [facility] | | | es | [id number] | | [facility] | | | | [id number] | | HOSPITAL | | [...] | + + + + + | [facility] | [address] | [place], [place] | [phone] | | [facility] | | [address] | | | LABORATORY | | | | + + + + + documented in this encounter Visit Diagnoses + + | Diagnosis | + + | Weight gain - Primary Abnormal weight gain | + + | Other screening mammogram | + + | Colon cancer screening Special screening for malignant neoplasms, colon | + + | Obesity (BMI 30-39.9) Obesity, unspecified | + + documented in this encounter
--- OUTSIDE RECORDS SUMMARY | ~2019-12-01 | XMS | Encounter Summary ---
Demographics + + + | Address | [address] [facility] [facility] [address] [facility] | | | [place] [address] | + + + | Home Phone [...] + + + | Author | [facility] | + + + | Organization | [facility] | + + + | Address | Unknown | + + + | Phone | Unavailable | + + + Support + + + + + | Name | Relationship | Address | Phone | + + + + + | Osei Bhandari Sr. | ECON | [address] | | | | | [place] | | | | | [address] | | + + + + + Care Team Providers + +------+ + | Care Alcohol Law Enforcement Agent Name | Role | Phone | [...] | | | | [place] | [place] [address] | [address] | | | | | (HCC) | [address] | [address] | | | | | Procedures | [address] | Mailcode: | | | | | [place] [employer],PLC | [address] | [facility] | | | | | GSTR ADJST | [place], [place] | Health and | | | | | BND | [address] | Healing, | | | | | | Phone: | [address] | | | | | | [phone] | [place], [place] | | | | | | Fax: | [address] | | | | | | [phone] | Phone: | | | | | | | [phone] | | | | | | | Fax: | | | | | | | [phone] | +--------+--------+ + + + + Encounter Details +--------+---------+ + + + | Date | Type | Department | Care Team | Description | +--------+---------+ + + + | 11/08/ | Office | Digestive Health | Dianna Palm, | S/P laparoscopic | | 2016 | Visit | Center at [address] | ACNP [address] | sleeve gastrectomy | | | | [address] | [address] [place], [place] | (Primary Dx); Food | | | | Mailcode: Center | [address] | intolerance; | | | | for Health and | [phone] | Abdominal pain, | | | | Healing, [address] | | unspecified | | | | [place], [place] | | abdominal location; | | | | [address] | | Weight gain; | | | | [phone] | | Gastroesophageal | | | | | | reflux disease | | | | | | without esophagitis | +--------+---------+ + + + Social History [...] | Blood Pressure | 153/90 | 11/09/2015 11:33 AM | | | | | PDT | | + + + + + | Pulse | 98 | 11/09/2015 11:33 AM | | | | | PDT | | + + + + + | Temperature | 36.4 C (97.6 F) | 11/09/2015 11:33 AM | | | | | PDT | | + + + + + | Respiratory Rate | 16 | 11/09/2015 11:33 AM | | | | | PDT | | + + + + + | Oxygen Saturation | - | - | | + + + + + | Inhaled Oxygen | - | - | | | Concentration | | | | + + + + + | Weight | 108 kg (238 lb 1.6 | 11/09/2015 11:33 AM | | | | oz) | PDT | | + + + + + | Height | 167.6 cm (5' 6") | 11/09/2015 11:33 AM | | | | | PDT | | + + + + + | Body Mass Index | 38.43 | 11/09/2015 11:33 AM | | | | | PDT | | + + + + + documented in this encounter Patient Instructions Patient Instructions Dianna Rossi ACNP - 11/09/2015 11:43 AM PDTDumping: associated with milk Ice cream, fatty food Raw vegetables may just sit there... And then it will Chicken is ok, and steak ok... Continue the nexium Spinach salad Butter salad Calcium citrate 8968-9884 mg per day (take calcium 2 hours away from any iron containing silverman pplements) Vitamin D 1000 IU per day, minimum in addition to the above. B12 500 mcg either sublingual/ tablet or 1000mcg once monthly as a shot Chewable multivitamin with iron, take twice the adult dose (flintstones number 2 daily) sep arate from the calcium by at least 2 hours Remember you should not be taking NSAIDS (ibuprofen) naproxen. As they can cause ulcers If you have to, then you must be also taking a proton pump inhibitor to protect Your stomach from ulcers. Tylenol is ok. 650 mg every 4 hours Narcotics are also ok Think like a thin person documented in this encounter Progress Notes Dianna Rossi ACNP - 11/09/2015 10:33 AM PDTFormatting of this note might be different fro m the original. BARIATRIC FOLLOW-UP Steve Bhandari is a 50 y.o. patient who underwent a sleeve gastrectomy 05/[address] Ambrosio. When called for her routine yearly follow up she described symptoms Of dysphagia, with a EGD that demonstrated a larger than expected sleeve "about 2.5 bananas " Per report. ([phone]) She had a UGI ordered to be completed prior to this appointment today.. She was last seen in our clinic 11/2012 by Jessica SILVEIRA. Last labs from [place] are from 1 year ago per care everwhere No other records were forwarded to me prior to this visit She has been evaluated by her pcp for celiac, H pylori which were negative. She had been started on omeprazole The history is that 6 months after her sleeve gastrectomy (32 [address] Size) she found she co uld Eat anything and began to gain back her weight. Over the past year or so she developed Intermittent frequent soft mushy BM's that occur 4 times or more a day, sometimes are explo sive She describes cow milk intolerance. She had symptoms of GERD, seen by a gastroenterolgist w ith EGD With a larger than expected sleeve size. Her GERD symptoms has resolved. She has intolerance to raw vegetables (not unexpected) ice cream, fatty foods, pork. She has abdominal pain, cramping with those items. She is also very fatigued, no recent labs for vitamins since ??? 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 Last office visit reviewed. Op-report reviewed. Labs reviewed. Weight 259--> 238 (total 20 lb weight loss) Blood pressure 153/90, pulse 98, temperature 36.4 C (97.6 F), temperature source Oral, resp. rate 16, height 1.676 m (5' 6"), weight 108.001 kg (238 lb 1.6 oz). ALLERGIES: Allergies Allergen Reactions Codeine Nausea/Vomiting Inapsine [Droperidol] Psychosis Severe anxiety and shaking Reglan [Metoclopramide Hcl] Pruritis Restlessness and shaking Current outpatient prescriptions: Calcium Citrate-Vitamin D3 (CITRACAL + D PETITES) 200 mg calcium -250 unit Oral tablet, Take 2 Tabs by mouth two times daily. Start 2 weeks after heriberto clayton. Indications: HYPOCALCEMIA, Disp: 100 Tab, Rfl: 12 cyanocobalamin (VITAMIN B-12) 500 mcg Oral tablet, Take 1 Tab by mouth once daily., Disp: 1 00 Tab, Rfl: 12 pediatric multivitamin chewable (CHILDRENS CHEWABLE VITAMINS) Oral tablet, chewable, Take 1 Tab by mouth two times daily., Disp: 60 Tab, Rfl: 12 History: Past Medical History Diagnosis Date Morbid obesity (HCC) Asthma Vitamin d deficiency Migraine Hyperlipidemia HTN (hypertension) GERD (gastroesophageal reflux disease) BMI 40.0-44.9, adult (HCC) 05/14/2012 ABHIJEET (obstructive sleep apnea) 05/14/2012 Well controlled intermittent asthma 05/14/2012 Dyspepsia 05/14/2012 Osteoarthritis 05/14/2012 Past Surgical History Procedure Laterality Date Tubal ligation 1986 Hernia repair 1988 External sinus surgery 2002 Carpal tunnel release 2007 Meniscus surgery 11/2011 Laparoscopic sleeve gastrectomy 2011 [facility]. [address]. Vickey ryan History Social History Marital Status: Spouse Name: N/A Number of Children: N/A Years of Education: N/A Occupational History Not on file. Social History Main Topics Smoking status: Former Smoker -- 1.00 packs/day for 1 years Types: Cigarettes Quit date: 07/24/1978 Smokeless tobacco: Never Used Alcohol Use: No Drug Use: No Comment: Only as teen Sexual Activity: Partners: Male Other Topics Concern Not on file Social History Narrative Family History Problem Relation Cancer Mother Stroke Mother Stomach and later breast Asthma Brother Cancer Sister Breast Cancer Maternal Grandmother Breast Bariatric Medications: MVI with iron twice daily: yes centrum silver Calcium citrate 1500mg daily: no not taking Vitamin D 1000 mg daily : yes 2000 units a day B12 500mcg SL daily or monthly shot: no Super B (amount of B12 isn't known) H2RB/PPI daily: yes Symptoms: Nausea: None Dysphagia: None Vomiting: None Heartburn: <1 time per week Abd Pain: 6-8 times per week Constipation: None Diarrhea: None Exam General- Alert and oriented x4, WD, WN, NAD, Obese, well appearing Well hydrated: moist mucous membranes Lungs: regular and even excursion, no audible wheezes Card/Circ: no LE edema Abd - Soft, NT, NR, NG Abd Wounds healed Assessment/Plan: 1. S/P sleeve gastrectomy. GERD: symptoms are relieved with a single nexium a day Abdominal pain: symptoms are consistent with cow's milk intolerance and dumping Plan: Pig Handler appointment is following Vitamin/ferritin deficiency: no labs since? To evaluate. She is currently not taking a calcium supp. Because of the taste Plan: labs today. And edge drummer consult : who can make recs for calcium replacement UGI today: EXAM: Upper GI with thin barium. HISTORY: Sleeve gastrectomy in 2011. Worsening bloating, weight gain. COMPARISON: 10/07/2008 TECHNIQUE: Upper GI with thin barium. Fluoroscopy time:80 seconds Actual time was less due to use of pulsed fluoroscopy. FINDINGS: Esophagus: Unremarkable. Esophageal motility: Mild esophageal dysmotility with delayed transit of the barium and mild tertiary contractions seen in prone position. Gastroesophageal [...] decreased compared to the presurgical exam in 2008. No post surgical exam is available for comparison. Mild esophageal dysmotility. No evidence of gastroesophageal reflux. No hiatal hernia. By my electronic signature listed below, I, the attending radiologist, was present for the entire procedure as described in this note. Attending Radiologists: PRUDENCE CHAU MD Author: MARICARMEN MARTINEZ MD Plan: I will review her images with Dr. Jara. If there is a anatomical abnormality then we would offer a revision. She is very clear that she is not making the best food choices and is not expecting A revision to help with weight loss. I have discussed her with Dr. Jara. CT scan in 2015 no evidence of gallstones He would like to see her in consult. She is still in the building. Plan: he has a Appointment today available to her. She is going to be seen at 215 pm. 2. Labs today: CBC, CMP, B12, PTH, vit D, ferritin will notify of results 3. Continue PPI 5Continue with supps as directed, watch protein levels, be sure to get 60 gms daily, be heriberto e to take in 64 oz of water daily. 6 Discussed specific supplements Discussed diet choices, healthy foods, ways to increase protein and iron,Discussed exercise , types of exercise 2. s/p gastric surgery, potential for B12 deficiency, Calcium malabsorption, protein malab sorption and iron deficiencies. 3. B12 nutritional deficiency- pt has limited portion sizes, area of stomach where b12 abso rbed is now partially removed or bypassed. 4. Vitamin D deficiency, pt has history of deficiency, taking supplements, will need to be monitored regularly. Potential for elevated PTH if Vit D and calcium absorption are not opti mized. Encouraged pt to F/u at every year post op. See PCM for adjusting any other medications. Call if any abd pain, n/v/d or other issues. Pt agrees to POC and will call or send [employer] message if any issues. Start time 1130, end time 1200. I spent a total of 30 minutes face to face with this avani ent. Over 50% of visit was in counseling. Dianna Rossi DNP, ACNP, C[employer] Nurse Practitioner for Bariatric Surgery [facility] | [address] | [place], [place] | [address] | documented in this en counter Plan of Treatment Not on filedocumented as of this encounter Results PTH, SERUM (11/09/2015 1:51 PM PDT) + +-------+ + + + | Component | Value | Ref Range | Performed | Pathologist | | | | | At | Signature | + +-------+ + + + | PTH, SERUM | 71 | 12 - 77 pg/mL | [facility] | | | | | | LABORATORY | | | | | | SERVICES, | | | | | | CORE | | + +-------+ + + + + + | Specimen | + + | Blood - Blood | | (substance) | + + + + + | Narrative | Performed At | + + + | New performing lab, method and reference range effective | [facility] | | 02/11/15. | LABORATORY | | | SERVICES, CORE | + + + + + + + + | Performing | Address | City/State/Zipcode | Phone Number | | Organization | | | | + + + + + | [facility] | [address] | [place] [address] | | | SERVICES, CORE | [address] | | | + + + + + FERRITIN (11/09/2015 1:51 PM PDT) + + + + + + | Component | Value | Ref Range | Performed | Pathologist | | | | | At | Signature | + + + + + + | FERRITIN | 281 (H)Comment: Male | 50 - 200 ng/mL | [facility] | | | | and Female >18 years: | | LABORATORY | | | | <20 ng/mL: | | SERVICES, | | | | Consistant with iron | | CORE | | | | deficiency 21-50 | | | | | | ng/mL: Possible | | | | | | iron deficiency 51-99 | | | | | | ng/mL: Iron | | | | | | deficiency unlikely | | | | | | unless inflammation | | | | | | present or | | | | | | patient | | | | | | >65 years of age | | | | | | 100-200 ng/mL: | | | | | | Normal, not consistent | | | | | | with iron deficiency | | | | | | >200 ng/mL: If | | | | | | transferrin saturation | | | | | | >45%, consider | | | | | | hemochromatosis | | | | + + + + + + + + | Specimen | + + | Blood - Blood | | (substance) | + + + + + + + | Performing | Address | City/State/Zipcode | Phone Number | | Organization | | | | + + + + + | [facility] | [address] | [place] [address] | | | SERVICES, CORE | [address] | | | + + + + + VITAMIN B-12, SERUM (11/09/2015 1:51 PM PDT) + +-------+ + + + | Component | Value | Ref Range | Performed | Pathologist | | | | | At | Signature | + +-------+ + + + | VITAMIN B12 | 757 | 190 - 910 pg/ml | [facility] | | | | | | LABORATORY | | | | | | SERVICES, | | | | | | SPECIAL IMM | | | | | | + COAG | | + +-------+ + + + + + | Specimen | + + | Blood - Blood | | (substance) | + + + + + + + | Performing | Address | City/State/Zipcode | Phone Number | | Organization | | | | + + + + + | [facility] | [address] | [place] [address] | | | SERVICES, SPECIAL | [address] | | | | IMM + COAG | | | | + + + + + VITAMIN D, 25-HYDROXY, SERUM (11/09/2015 1:51 PM PDT) + +-------+ + + + | Component | Value | Ref Range | Performed | Pathologist | | | | | At | Signature | + +-------+ + + + | VITAMIN D | 32.0 | 30 - 80 ng/mL | [facility] | | | 25 HYDROXY | | | LABORATORY | | | | | | SERVICES, | | | | | | CORE | | + +-------+ + + + + + | Specimen | + + | Blood - Blood | | (substance) | + + + + + | Narrative | Performed At | + + + | Reference Interval: 0-18years: Deficiency: <20 ng/mL | [facility] | | Optimum level: >or=20 ng/mL | LABORATORY | | >18years: Deficiency: <20 | SERVICES, CORE | | ng/mL Insufficiency: 20-29 ng/mL | | | Optimum Level: 30-80 ng/mL High: | | | 81-150 ng/ml Toxic: >150 ng/mL | | | New method and performing lab effective 08/13/15. | | + + + + + + + + | Performing | Address | City/State/Zipcode | Phone Number | | Organization | | | | + + + + + | [facility] | [address] | [place] [address] | | | SERVICES, CORE | [address] | | | + + + + + COMPLETE METABOLIC SET (NA,K,CL,CO2,BUN,CREAT,GLUC,CA,AST,ALT,BILI TOTAL,ALK PHOS,ALB,PROT TOTAL) (11/09/2015 1:51 PM PDT) + +---------+ + + + | Component | Value | Ref Range | Performed | Pathologist | | | | | At | Signature | + +---------+ + + + | GLUCOSE, | 83 | 60 - 99 mg/dL | [facility] | | | PLASMA | | | LABORATORY | | | (LAB) | | | SERVICES, | | | | | | CORE | | + +---------+ + + + | BUN, PLASMA | 9 | 6 - 20 mg/dL | [facility] | | | (LAB) | | | LABORATORY | | | | | | SERVICES, | | | | | | CORE | | + +---------+ + + + | CREATININE | 0.75 | 0.60 - 1.10 | [facility] | | | PLASMA | | mg/dL | LABORATORY | | | (LAB) | | | SERVICES, | | | | | | CORE | | + +---------+ + + + | EGFR | >60 | >60 mL/min | [facility] | | | - | | | LABORATORY | | | PALAUAN | | | SERVICES, | | | | | | CORE | | + +---------+ + + + | EGFR NON | >60 | >60 mL/min | [facility] | | | -MOHINDER | | | LABORATORY | | | RICAN | | | SERVICES, | | | | | | CORE | | + +---------+ + + + | SODIUM, | 141 | 136 - 145 | [facility] | | | PLASMA | | mmol/L | LABORATORY | | | (LAB) | | | SERVICES, | | | | | | CORE | | + +---------+ + + + | POTASSIUM, | 3.8 | 3.4 - 5.0 | [facility] | [...] + + + | TOTAL CO2, | 28 | 21 - 32 mmol/L | [facility] | | | PLASMA | | | LABORATORY | | | (LAB) | | | SERVICES, | | | | | | CORE | | + +---------+ + + + | CALCIUM, | 9.0 | 8.6 - 10.2 | [facility] | | | PLASMA | | mg/dL | LABORATORY | | | (LAB) | | | SERVICES, | | | | | | CORE | | + +---------+ + + + | BILIRUBIN | 0.5 | 0.3 - 1.2 mg/dL | [facility] | | | TOTAL | | | LABORATORY | | | | | | SERVICES, | | | | | | CORE | | + +---------+ + + + | TOTAL | 7.1 | 6.4 - 8.2 g/dL | [facility] | | | PROTEIN, | | | LABORATORY | | | PLASMA | | | SERVICES, | | | (LAB) | | | CORE | | + +---------+ + + + | ALBUMIN, | 3.6 | 3.5 - 4.7 g/dL | [facility] | | | PLASMA | | | LABORATORY | | | (LAB) | | | SERVICES, | | | | | | CORE | | + +---------+ + + + | ALK PHOS | 88 | 42 - 98 U/L | [facility] | | | | | | LABORATORY | | | | | | SERVICES, | | | | | | CORE | | + +---------+ + + + | AST(SGOT) | 22 | <=41 U/L | [facility] | | | | | | LABORATORY | | | | | | SERVICES, | | | | | | CORE | | + +---------+ + + + | ALT (SGPT) | 29 | <=60 U/L | [facility] | | | | | | LABORATORY | | | | | | SERVICES, | | | | | | CORE | | + +---------+ + + + | ANION | 5 | 4 - 11 mmol/L | [facility] [...] | + +---------+ + + + | BILI T CMNT | No Hemo | | [facility] | | | | | | LABORATORY | | | | | | SERVICES, | | | | | | CORE | | + +---------+ + + + | AST CMNT | No Hemo | | [facility] | | | | | | LABORATORY | | | | | | SERVICES, | | | | | | CORE | | + +---------+ + + + | ANION GAP | 4 | mmol/L | [facility] | | | | | | LABORATORY | | | | | | SERVICES, | | | | | | CORE | | + +---------+ + + + + + | Specimen | + + | Blood - Blood | | (substance) | + + + + + | Narrative | Performed At | + + + | GFR is estimated using the MDRD equation recommended by the | [facility] | | National Kidney Disease Education Program. [...] | + + + + + | [facility] | [address] | [place] [address] | | | SERVICES, CORE | [address] | | | + + + + + documented in this encounter Visit Diagnoses + + | Diagnosis | + + | S/P laparoscopic sleeve gastrectomy - Primary | + + | Food intolerance Other specified intestinal malabsorption | + + | Abdominal pain, unspecified abdominal location | + + | Weight gain Abnormal weight gain | + + | Gastroesophageal reflux disease without esophagitis Esophageal reflux | + + documented in this encounter
--- OUTSIDE RECORDS SUMMARY | ~2019-12-01 | XMS | Encounter Summary ---
Demographics + + + | Address | [address] | | | [place] [address] | + + + | Home Phone | | + + + | Preferred Language | Unknown | + + + | Marital Status | | + + + | Anglican Affiliation | CHR | + + + | Race | White | + + + | Ethnic Group | Not or | + + + Author + + + | Author | [facility] | + + + | Organization | [facility] | + + + | Address | Unknown | + + + | Phone | Unavailable | + + + Support + + + + + | Name | Relationship | Address | Phone | + + + + + | Osei Bhandari Sr. | ECON | [address] | | | | | [place] | | | | | [address] | | + + + + + Care Team Providers + +------+ + | Care Bale Piler Name | Role | Phone | + +------+ + | Royer Wilde MD | PCP | | + +------+ + Encounter Details +--------+ + + + + | Date | Type | Department | Care Team | Description | +--------+ + + + + | 05/29/ | Telephone | Dig[facility]ive Health | Dereje Trevino, | | | 2011 | | [place] [address] MD | | | | | Rachel Mailcode: [facility] | | | | | | [facility] | | | | | | and Healing, | | | | | | Building [address], | | | | | | Floor [place], [place] | | | | | | [address] | | | | | | [phone] | | | +--------+ + + + [...]
--- OUTSIDE RECORDS SUMMARY | ~2019-12-01 | XMS | Encounter Summary ---
Demographics + + + | Address | [address] | | | [place] [address] | + + + | Home Phone [...] Osei Bhandari Sr. | ECON | [address] | | | | | [place] | | | | | [address] | | + + + + + Care Team Providers + +------+ + | Care Executive Vice President And Chief Financial Officer Name | Role | Phone | + +------+ + | Royer Wilde MD | PCP | | + +------+ + Encounter Details +--------+ + + + + | Date | Type | Department | Care Team | Description | +--------+ + + + + | 11/16/ | MyChart | Dig[facility]ive Health | Jessica Davis, | RE: Illness | | 2012 | Encounter | Center at [facility] [address] | CARDIOVASCULAR SURGICAL TECH [address] | | | | | [address] | , [facility] [address] | | | | | Mailcode: Center | [place], [place] | | | | | for Health and | [address] | | | | | [facility] [address] | [phone] | | | | | [place], [place] | | | | | | [address] | | | | | | [phone] | | | +--------+ + + + [...]
--- OUTSIDE RECORDS SUMMARY | ~2019-12-01 | XMS | Encounter Summary ---
Demographics + + + | Address | [address] | | | [place] [address] | + + + | Home Phone [...] + + + | Author | [facility] | + + + | Organization | [facility] | + + + | Address | Unknown | + + + | Phone | Unavailable | + + + Support + + + + + | Name | Relationship | Address | Phone | + + + + + | Osei Bhandari Sr. | ECON | [address] | | | | | [place] | | | | | [address] | | + + + + + Care Team Providers + +------+ + | Care Cosmetology Teacher Name | Role | Phone | + +------+ + | Royer Wilde MD | PCP | | + +------+ + Reason for Visit + + + | Reason | Comments | + + + | Bariatric Nutrition | 2 week s/p gastric sleeve | + + + Encounter Details +--------+ + + + + | Date | Type | Department | Care Team | Description | +--------+ + + + + | 06/11/ | Documentati | Dig[facility]ive Health | Alexandra Mccloud, FRANCISCO | Bariatric Nutrition | | 2011 | on | Center at [facility] [address] | | (2 week s/p gastric | | | | [address] | | sleeve) | | | | for Health and | | | | | | Healing, [address] | | | | | | [place], [place] | | | | | | [address] | | | | | | [phone] | | | +--------+ + + + [...]
--- OUTSIDE RECORDS SUMMARY | ~2019-12-01 | XMS | Encounter Summary ---
Demographics + + + | Address | [address] | | | [place] [address] | + + + | Home Phone | | + + + | Preferred Language | Unknown | + + + | Marital Status | | + + + | Jehovah'S Witness Affiliation | CHR | + + + | Race | White | + + + | Ethnic Group | Not or | + + + Author + + + | Author | [facility] | + + + | Organization | [facility] | + + + | Address | Unknown | + + + | Phone | Unavailable | + + + Support + + + + + | Name | Relationship | Address | Phone | + + + + + | Osei Bhandari Sr. | ECON | [address] | | | | | [place] | | | | | [address] | | + + + + + Care Team Providers + +------+ + | Care Convalescent Sitter Name | Role | Phone | + +------+ + | Royer Wilde MD | PCP | | + +------+ + Encounter Details +--------+ + + + + | Date | Type | Department | Care Team | Description | +--------+ + + + + | 10/07/ | Hospital | Radiology/Imaging | | | | 2008 | Encounter | Lab at [address] | | | | | | [address] Mailcode: | | | | | | [facility] | | | | | | Health and Healing, | | | | | | [facility] [address], | | | | | | Floor [place], [place] | | | | | | [address] | | | | | | [phone] | | | +--------+ + + + [...] + + | GERD (gastroesophageal reflux disease) Esophageal reflux | + + documented in this encounter"
--- OUTSIDE RECORDS SUMMARY | ~2019-12-01 | XMS | Encounter Summary ---
Demographics + + + | Address | [address] [facility] [facility] [address] [facility] | | | [place] [address] | + + + | Home Phone | | + + + | Preferred Language | Unknown | + + + | Marital Status | | + + + | Jewish Affiliation | CHR | + + + | Race | White | + + + | Ethnic Group | Not or | + + + Author + + + | Author | [facility] | + + + | Organization | [facility] | + + + | Address | Unknown | + + + | Phone | Unavailable | + + + Support + + + + + | Name | Relationship | Address | Phone | + + + + + | Osei Bhandari Sr. | ECON | [address] | | | | | [place] | | | | | [address] | | + + + + + Care Team Providers + +------+ + | Care Recovery Engineer Name | Role | Phone | + +------+ + | Royer Wilde MD | PCP | | + +------+ + Reason for Visit + + + | Reason | Comments | + + + | New Patient Visit | | + + + Office Visit [...] | | | | [place] | [place] [address] | [address] [address] | | | | | (HCC) | [address] | [address] | | | | | Procedures | [address] | Mailcode: | | | | | [place] LAP,PLC | [address] | [facility] | | | | | GSTR ADJST | [facility] [place] | Health and | | | | | BND | [address] | Healing, | | | | | | Phone: | Building [address] | | | | | | [phone] | [place], [place] | | | | | | Fax: | [address] | | | | | | [phone] | Phone: | | | | | | | [phone] | | | | | | | Fax: | | | | | | | [phone] | +--------+--------+ + + + + Encounter Details +--------+---------+ + + + | Date | Type | Department | Care Team | Description | +--------+---------+ + + + | 11/13/ | Office | Dig[facility] | Jessica Davis, | Morbid obesity | | 2011 | Visit | [facility] [address] | INVENTORY MANAGER [address] | (HCC); HTN | | | | [address] | [address], [address] | (hypertension); Knee | | | | Mailcode: Center | [place], [place] | pain; Back pain; | | | | for Health and | [address] | ABHIJEET (obstructive | | | | [facility] | [phone] | sleep apnea) | | | | [place], [place] | | | | | | [address] | | | | | | [phone] | | | +--------+---------+ + + + [...] + + + | Blood Pressure | 151/75 | 11/14/2011 8:49 AM | | | | | PDT | | + + + + + | Pulse | 93 | 11/14/2011 8:49 AM | | | | | PDT | | + + + + + | Temperature | 36.8 C (98.3 F) | 11/14/2011 8:49 AM | | | | | PDT | | + + + + + | Respiratory Rate | 16 | 11/14/2011 8:49 AM | | | | | PDT | | + + + + + | Oxygen Saturation | - | - | | + + + + + | Inhaled Oxygen | - | - | | | Concentration | | | | + + + + + | Weight | 116.5 kg (256 lb | 11/14/2011 8:49 AM | | | | 14.4 oz) | PDT | | + + + + + | Height | 167.6 cm (5' 6") | 11/14/2011 8:49 AM | | | | | PDT | | + + + + + | Body Mass Index | 41.46 | 11/14/2011 8:49 AM | | | | | PDT | | + + + + + documented in this encounter Patient Instructions Patient Instructions Jessica Davis NP - 11/14/2011 9:58 AM PDTPlan: 1. Dietitian consultation: Today. 2. Please have your PCP notes from the past 2 yrs faxed to us. Thank you. 3. Mammogram: Please fax latest report to us. 4. EKG: I will look through your 2009 chart notes and let you know if you need to get a new one. 5. Pre-op Psychological Evaluation:I will look through 2009 notes, if we need to get a copy of this, we will let you know. 6. Sleep study: I will look through your notes from 2008, if I cannot find it we will call you. 7. Cardiac ECHO- I will look through your notes and see if I can find this, we will let you know if we need you to fax this to us. 8. Six month supervised diet, please see primary care, rn plasma center or INVENTORY MANAGER once monthly to docu ment supervised diet in order to get health insurance authorization for surgery. 7. Recommended weight loss: 5% wt loss goal of 244, (lose 12lbs) Once the above list is completed and copies have been received by our office, we will submi t for insurance authorization then schedule with the surgeon. [place] [address] Potential Contraindications to Bariatric Surgery Age over 69 BMI over 60 Oxygen dependence Immobility wheelchair or bed bound Cardiac issues such as ischemic heart disease as indicated on cardiac stress test or cardia c catheterization; severe or uncompensated heart failure which may be indicated by a decreas ed ejection fraction. Pulmonary issues such as untreated sleep apnea, obesity hypoventilation syndrome, severe CO PD or asthma. Liver disease such as cirrhosis, esophageal varices, or portal hypertension. Severe, untreated renal disease. Rheumatologic and other diseases requiring immune suppressant medications. Untreated or active cancer. Untreated psychological disability. If you have any of the above conditions, you may not be a candidate for bariatric surgery. Our program will perform a thorough evaluation prior to making such a determination. This evaluation may involve testing or consultations. We will make every effort to notify patien ts who are not candidates for surgery as early in the process as possible, but it is importa nt to realize that the surgeon may make that determination later in the process. Clearance for surgery by your PCP or other providers does not guarantee that the [facility] Bariatric Surger y program will deem you a surgical candidate. documented in this encounter Progress Notes Jessica Davis NP - 11/14/2011 9:30 AM PDTFormatting of this note might be different fr om the original. BARIATRIC INITIAL VISIT Provider: JORDANA Conrad Referring Provider: Dr. Wilde Reason for Requested Consultation: Initial evaluation for bariatric surgery. Steve Bhandari is interested in Lou en y gastri c bypass. The pt is here alone, they have a at home to help with post-op care after surgery. History of Present Illness: She is a morbidly obese, 46 y.o. female with a BMI of 41, 256 lbs., and 66 inches who has failed prior attempts at sustained dietary/medical weight loss a nd desires surgical weight loss in order to "lose weight and get healthier". Duration of obesity: 24 years. Onset of obesity at age 22 First diet attempts at age 22 Personally initiated diets: 1986, counting calories, cutting back on portions, lost 10 lbs, regained all. 1992, Atkins diet, lost 15, regained all. [id number], tried many diets, diet p ills and fad diet, lost little weight and regained all. Programmatic diets: 2010, weight watchers, lost 16 lbs, still losing. Physician Monitored diet: - Use of Redux or Phen/fen: yes, used phen-fen in late s for 3 mos. Transthoracic ECHO: yes- in records scanned into [facility], 2008, borderline LV hypertrophy, no valvular abnormalities. Jewish or cultural reason you would refuse blood products? no Comorbidities include: osteoarthritis and hypertension All previous chart notes from PCP reviewed, previous tests and labs reviewed. ALLERGIES: Allergies Allergen Reactions Codeine Nausea/Vomiting Inapsine (Droperidol) Psychosis Severe anxiety and shaking Reglan (Metoclopramide Hcl) Itching Restlessness and shaking Current outpatient prescriptions:Albuterol 90 mcg/Actuation Inhalation Aerosol, Inhale 1-2 Puffs every four hours as needed , Disp: , Rfl: AMOXICILLIN 875 mg Oral Tablet, , Disp: , Rfl: CEPHALEXIN 500 mg Oral Capsule, , Disp: , Rfl: CLARITIN-D 24 HOUR ORAL, Take 1 Tab by mouth once daily. , Disp: , Rfl: FLUCONAZOLE 150 mg Oral Tablet, , Disp: , Rfl: MAXZIDE 75-50 mg Oral Tablet, Take 0.5 Tabs by mouth once daily. , Disp: , Rfl: NAPROXEN 500 mg Oral Tablet, , Disp: , Rfl: TRIAMTERENE-HYDROCHLOROTHIAZIDE 37.5-25 mg Oral Tablet, , Disp: , Rfl: History: Past Medical History Diagnosis Date Morbid obesity Asthma Vitamin D deficiency Migraine Hyperlipidemia HTN (hypertension) GERD (gastroesophageal reflux disease) Past Surgical History Procedure Date Tubal ligation 1986 Hernia repair 1988 External sinus surgery 2002 Carpal tunnel release 2007 History Social History Marital Status: Spouse Name: N/A Number of Children: N/A Years of Education: N/A Occupational History Not on file. Social History Main Topics Smoking status: Former Smoker -- 1 years Quit date: 07/24/1978 Smokeless tobacco: Not on [...] weight loss, f valencia, chills, night sweats. Had a recent vaginal strep infection, finished antibiotics 2 wk s ago. Eyes/Ears/Nose/Throat: Denies visual changes, sore throat, dental pain, hoarseness, dyspha eugenia, oral or tongue lesions. Respiratory: Denies shortness of breath, cough or wheezing. Denies nocturnal snoring, dayt flip drowsiness or morning headaches. Denies history of sleep apnea. Has hx of asthma, uses i nhaler only when she has an URI. Cardiovascular: Denies exertional chest pain, palpitations, syncope, orthopnea, or paroxys mal nocturnal dyspnea. Denies history of lower extremity edema, hyperlipidemia. Denies CHF, DC, ischemic heart disease, DVT/PE, or pulmonary hypertension. States able to climb two flig hts of stairs. Has hypertension, taking daily maxide. Neurologic: The patient denies any symptoms of neurological impairment or TIAs; denies dip lopia, dysphasia or unilateral disturbance of motor or sensory function. Denies loss of simran nce or vertigo, persistent headaches, numbness or paresthesias. No history of seizure disord er. Musculoskeletal: Has knee pain and back pain. Gastrointestinal: Denies abdominal or flank pain, anorexia, nausea or vomiting, dysphagia, change in bowel habits, black or bloody stools. Denies history of hernias. Denies persisten t reflux symptoms. Denies history of liver disease or jaundice. Had a hx of stomach ulcer du ring childhood, rarely has issues with GERD symptoms at this time. She did had an umbilical hernia related to tubal ligation, repaired in 1988. Genitourinary: Denies urinary incontinence. Denies history of kidney stones. Denies urethr al discharge, dysuria, hematuria or sores on the genitals. Denies menstrual irregularity, hi story of endometriosis or abnormal PAP's. Current method of control is: manopause. Skin: Denies intertrigenous skin infections. Denies recent rashes, sores, or skin changes. Psychological: Denies anxiety, depression, thoughts of suicide or hallucinations. Heme/Lymphatic: Denies history of anemia. The patient denies abnormal bruising, abnormal b leeding or enlarged lymph nodes. Metabolic: Denies symptoms of hypo or hyperthyroidism. Denies history of diabetes. No polyu samia, polyphagia or polydipsia. Denies history of gout. OBJECTIVE BP 151/75 | Pulse 93 | Temp (Src) 36.8 C (98.3 F) (Oral) | RR 16 | Ht 167.6 cm (5' 6") | Wt 116.529 kg (256 lb 14.4 oz) | BMI 41.46 kg/(m^2) Physical exam: General: Alert and cooperative. Neuro: Oriented x 3. CN III-XII grossly intact. No focal deficits. HEENT: Oropharynx clear without lesion or exudate. Neck: Neck supple. No adenopathy. Thyroid symmetric & normal size. Respiratory: Good diaphragmatic excursion. Lungs clear to auscultation bilaterally. Cardiac: Regular rate and rhythm, no murmur, gallop or bruits. No carotid bruits noted. Extremities: No lower extremity edema. Abdomen: Obese, moderately hostile surgical habitus, soft, nontender, no appreciable masses or hernia. Skin: No evidence of pannus infection. Psych: No problems noted. Laboratory Data: Labs pt brought with her today, CBC, CMP, cholesterol, A1C, H pylori, TSH, PTH, all normal , Vit D low at 17. Cardiac Echo [...] hernia repair in 1988, unsure if mesh used. Patient meets and or exceeds NIH criteria for morbid obesity with a BMI of 41 and comorbidi ties related to obesity including ABHIJEET, HTN, which may be improved with bariatric surgery. Jeffery liriano have been reviewed from her PCM and several attempts have been made to lose weight ov er the past years without success. She qualifies for medically necessary weight loss surger y to control co-morbidities. She has attended the Public Informational Session in which risks and benefits of bariatri c surgery were discussed. Discussion of realistic expectations of bariatric surgery was hel d today. A Bariatric notebook with pre-op, inter-op and post-op guidance and information was provide d for the patient today. Plan: 1. Dietitian consultation: Today. 2. Please have your PCP notes from the past 2 yrs faxed to us. Thank you. 3. Mammogram: Please fax latest report to us. 4. EKG: I will look through your 2008 chart notes and let you know if you need to get a new one. 5. Pre-op Psychological Evaluation: I will look through 2008 notes, if we need to get a gyroscopic instrument tester y of this, we will let you know. 6. Sleep study: I will look through your notes from 2008, if I cannot find it we will call you. 7. Cardiac ECHO- I will look through your notes and see if I can find this, we will let you know if we need you to fax this to us. 8. Six month supervised diet, please see primary care, rn plasma center or INVENTORY MANAGER once monthly to docu ment supervised diet in order to get health insurance authorization for surgery. 7. Recommended weight loss: 5% wt loss goal of 244, (lose 12lbs) Once the above list is completed and copies have been received by our office, we will submi t for insurance authorization then schedule with the surgeon[place] [address] Potential Contraindications to Bariatric Surgery Age over 69 BMI over 60 Oxygen dependence Immobility wheelchair or bed bound Cardiac issues such as ischemic heart disease as indicated on cardiac stress test or cardia c catheterization; severe or uncompensated heart failure which may be indicated by a decreas ed ejection fraction. Pulmonary issues such as untreated sleep apnea, obesity hypoventilation syndrome, severe CO PD or asthma. Liver disease such as cirrhosis, esophageal varices, or portal hypertension. Severe, untreated renal disease. Rheumatologic and other diseases requiring immune suppressant medications. Untreated or active cancer. Untreated psychological disability. If you have any of the above conditions, you may not be a candidate for bariatric surgery. Our program will perform a thorough evaluation prior to making such a determination. This evaluation may involve testing or consultations. We will make every effort to notify patien ts who are not candidates for surgery as early in the process as possible, but it is importa nt to realize that the surgeon may make that determination later in the process. Clearance for surgery by your PCP or other providers does not guarantee that the [facility] Bariatric Surger y program will deem you a surgical candidate. New pt visit, over 50% of time spent in counseling. I spent 60 min total with this patient. documented in this e ncounter Plan of Treatment Not on filedocumented as of this encounter Procedures + +--------+ + + + | Procedure Name | Priori | Date/Time | Associated Diagnosis | Comments | | | ty | | | | + +--------+ + + + | LAB REPORTS | | 11/14/2011 | | Results for this | | | | 12:00 AM | | procedure are in the | | | | PDT | | results section. | + +--------+ + + + documented in this encounter Results LAB REPORTS (11/14/2011 12:00 AM PDT) + + + | Narrative | Performed At | + + + | | | + + + + + | Transcriptions | + + | Yazan Clinton - 12/01/2011 2:28 PM PDT | + + documented in this encounter Visit Diagnoses + + | Diagnosis | + + | Morbid obesity (HCC) Morbid obesity | + + | HTN (hypertension) Unspecified essential hypertension | + + | Knee pain Pain in joint, lower leg | + + | Back pain Backache, unspecified | + + | ABHIJEET (obstructive sleep apnea) Obstructive sleep apnea (adult) (pediatric) | + + documented in this encounter
--- OUTSIDE RECORDS SUMMARY | ~2019-12-01 | XMS | Encounter Summary ---
Demographics + + + | Address | [address] | | | [place] [address] | + + + | Home Phone | | + + + | Preferred Language | Unknown | + + + | Marital Status | | + + + | Christian Affiliation | CHR | + + + | Race | White | + + + | Ethnic Group | Not or | + + + Author + + + | Author | [facility] | + + + | Organization | [facility] | + + + | Address | Unknown | + + + | Phone | Unavailable | + + + Support + + + + + | Name | Relationship | Address | Phone | + + + + + | Osei Bhandari Sr. | ECON | [address] | | | | | [place] | | | | | [address] | | + + + + + Care Team Providers + +------+ + | Care Manager Package Name | Role | Phone | + [...] | | [facility] [address] | [address] | | | | | [address] | , [address] | | | | | Mailcode: Center | [place], [place] | | | | | for Health and | [address] | | | | | Healing, [address] | [phone] | | | | | [place], [place] | | | | | | [address] | | | | | | [phone] | | | +--------+ + + + [...]
--- OUTSIDE RECORDS SUMMARY | ~2019-12-01 | XMS | Encounter Summary ---
Demographics + + + | Address | [address] | | | [place] [address] | + + + | Home Phone | | + + + | Preferred Language | Unknown | + + + | Marital Status | | + + + | Sabianism Affiliation | 1077 | + + + | Race | Unknown | + + + | Ethnic Group | Unknown | + + + Author + + + | Author | [facility] | | | and [place] | + + + | Organization | [facility] | | | and [place] | + + + | Address | Unknown | + + + | Phone | Unavailable | + + + Support + + + + + | Name | Relationship | Address | Phone | + + + + + | Osei Woodard | ECON | [address] | | | [place] | | [place] | | | | | [address] | | + + + + + Care Team Providers + +------+ + | Care Paint Supervisor Name | Role | Phone | + +------+ + | Pcp, Prov Inactive | PCP | | + +------+ + Encounter Details +--------+ + + + + | Date | Type | Department | Care Team | Description | +--------+ + + + + | 03/26/ | Emergency | [facility] | Mikala | Zaki of | | 2018 | | [facility] | Zeynep Alston DO [address] | shoulder, initial | | | | [facility]ENTER | [place]TA | encounter; Strain of | | | | [address] | [place] [address] | right trapezius | | | | [place], [place] | [phone] | muscle, initial | | | | [address] | | encounter | | | | [phone] | | | +--------+ + + + [...]
--- OUTSIDE RECORDS SUMMARY | ~2019-12-01 | XMS | Encounter Summary ---
Demographics + + + | Address | [address] | | | [place] [address] | + + + | Home Phone | | + + + | Preferred Language | Unknown | + + + | Marital Status | | + + + | Zoroastrian Affiliation | CHR | + + + | Race | White | + + + | Ethnic Group | Not or | + + + Author + + + | Author | [facility] | + + + | Organization | [facility] | + + + | Address | Unknown | + + + | Phone | Unavailable | + + + Support + + + + + | Name | Relationship | Address | Phone | + + + + + | Osei Bhandari Sr. | ECON | [address] | | | | | [place] | | | | | [address] | | + + + + + Care Team Providers + +------+ + | Care Supervisor Wire Rope Fabrication Name | Role | Phone | + [...] | gastrectomy; B12 | | | | [place], [place] | | nutritional | | | | [address] | | deficiency; Vitamin | | | | [phone] | | deficiency | +--------+------+ + + [...] | + + + + + | [facility] | [address] | [place] [address] | | | SERVICES, CORE | ZACKARY [...] | + + + + + | [facility] | [address] | [place] [address] | | | SERVICES, SPECIAL | PARK [...] | + + + + + | [facility] | [address] | [place] [address] | | | SERVICES, SPECIAL | ZACKARY [...] by | | | | | | [address] | | | | | | [facility], [facility] | | | | | | [address] | | | | | | [phone].[facility]. | | | | | | [facility], [place], | | | | [...] [facility] | [address] | [place], [place] | | | [facility] | | [address] | | + + + + + [...] [facility] | [address] | [place] [address] | | | SERVICES, CORE | PARK [...] [facility] | [address] | [place] [address] | | | SERVICES, CORE | PARK [...] [facility] | [address] | [place] [address] | | | SERVICES, SPECIAL | PARK [...] [facility] | [address] | [place] [address] | | | SERVICES, SPECIAL | PARK [...] | | | LABORATORY | | | [place] | | | SERVICES, | | | [...] the MDRD equation recommended by the | [facility] | | National Kidney Disease [...] + + + + + | [facility] | [address] | [place] [address] | | | SEFERINO ROWAN | ZACKARY [...]
--- OUTSIDE RECORDS SUMMARY | ~2019-12-01 | XMS | Encounter Summary ---
Demographics + + + | Address | [address] | | | [place] [address] | + + + | Home Phone | | + + + | Preferred Language | Unknown | + + + | Marital Status | | + + + | Taoist Affiliation | 1077 | + + + | Race | Unknown | + + + | Ethnic Group | Unknown | + + + Author + + + | Author | [facility] | | | and [place] | + + + | Organization | [facility] | | | and [place] | + + + | Address | Unknown | + + + | Phone | Unavailable | + + + Support + + + + + | Name | Relationship | Address | Phone | + + + + + | Osei Woodard | ECON | [address] | | | [place] | | [place] | | | | | [address] | | + + + + + Care Team Providers + +------+ + | Care Screw Machine Set Up Operator Name | Role | Phone | + +------+ + | Nicole Chen | PCP | | + +------+ + Encounter Details +--------+ + + + + | Date | Type | Department | Care Team | Description | +--------+ + + + + | 02/14/ | Orders Only | [facility] | Provider, | | | 2018 | | [facility] GENER[facility] OP | [address] | | | | | [address] | [place] | | | | | [address] [place], [place] | [place] [address] | | | | | [address] | | | | | | [phone] | | | +--------+ + + + [...]
--- OUTSIDE RECORDS SUMMARY | ~2019-12-01 | XMS | Encounter Summary ---
Demographics + + + | Address | [address] | | | [place] [address] | + + + | Home Phone [...] + + + | Author | [facility] | + + + | Organization | [facility] | + + + | Address | Unknown | + + + | Phone | Unavailable | + + + Support + + + + + | Name | Relationship | Address | Phone | + + + + + | Osei Bhandari Sr. | ECON | [address] | | | | | [place] | | | | | [address] | | + + + + + Care Team Providers + +------+ + | Care Intercell Connector Placer Name | Role | Phone | + +------+ + | Royer Wilde MD | PCP | | + +------+ + Encounter Details +--------+ + + + + | Date | Type | Department | Care Team | Description | +--------+ + + + + | 10/30/ | Telephone | [facility] | Marisa Olivier, | | | 2008 | | [place] [address] | [place] | | | | | [place] Mailcode: [facility] | | | | | | [facility] | | | | | | and Healing, | | | | | | Building [address], | | | | | | Floor [place], [place] | | | | | | [address] | | | | | | [phone] | | | +--------+ + + + [...]
--- OUTSIDE RECORDS SUMMARY | ~2019-12-01 | XMS | Encounter Summary ---
Demographics + + + | Address | [address] | | | [place] [address] | + + + | Home Phone | | + + + | Preferred Language | Unknown | + + + | Marital Status | | + + + | Voodoo Affiliation | CHR | + + + | Race | White | + + + | Ethnic Group | Not or | + + + Author + + + | Author | [facility] | + + + | Organization | [facility] | + + + | Address | Unknown | + + + | Phone | Unavailable | + + + Support + + + + + | Name | Relationship | Address | Phone | + + + + + | Osei Bhandari Sr. | ECON | [address] | | | | | [place] | | | | | [address] | | + + + + + Care Team Providers + +------+ + | Care Wood Grinder Operator Name | Role | Phone | [...] | +--------+ + + + + | 11/22/ | Documentati | [facility] | Dianna Palm, | Surgical follow-up | | 2013 | on | Center at [facility] [address] | ACNP [address] | (Bariatric) | | | | [address] | Ave [place], [place] | | | | | Mailcode: Center | [address] | | | | | for Health and | | | | | | [facility], [facility] [address] | | | | | | [place], [place] | | | | | | [address] | | | | | | | [...]
--- OUTSIDE RECORDS SUMMARY | ~2019-12-01 | XMS | Encounter Summary ---
Demographics + + + | Address | [address] | | | [place] [address] | + + + | Home Phone | | + + + | Preferred Language | Unknown | + + + | Marital Status | | + + + | Christianity Affiliation | 1077 | + + + | Race | Unknown | + + + | Ethnic Group | Unknown | + + + Author + + + | Author | [facility] | | | and [place] | + + + | Organization | [facility] | | | and [place] | + + + | Address | Unknown | + + + | Phone | Unavailable | + + + Support + + + + + | Name | Relationship | Address | Phone | + + + + + | Osei Woodard | ECON | [address] | | | [place] | | [place] | | | | | [address] | | + + + + + Care Team Providers + +------+ + | Care Hand Picker Name | Role | Phone | + +------+ + | Royer Wilde MD | PCP | | + +------+ + Encounter Details +--------+ + + + + | Date | Type | Department | Care Team | Description | +--------+ + + + + | 03/08/ | Hospital | [facility] | Jerson Parsons | | | 2009 | Encounter | [facility] | [address] | | | | | CENTER [address] [place], [place] | | | | | [address] | [id number] | | | | | [place], [place] | | | | | | [address] | | | | | | [phone] | | | +--------+ + + + [...]
--- OUTSIDE RECORDS SUMMARY | ~2019-12-01 | XMS | Encounter Summary ---
Demographics + + + | Address | [address] | | | [place] [address] | + + + | Home Phone [...] | Osei Woodard | ECON | [address] | | | [place] | | [place] | | | | | [address] | | + + + + + Care Team Providers + +------+ + | Care Edge Beader Name | Role | Phone | + +------+ + | Elke Mcdonald | PCP | | + +------+ + Reason for Visit + + + | Reason | Comments | + + + | Referral | | + + + Encounter Details +--------+ + + + + | Date | Type | Department | Care Team | Description | +--------+ + + + + | 11/26/ | Telephone | [facility] | Doris Sharmaine Ganesh, | Referral | | 2013 | | Group [place] | VOCATIONAL ADVISER [address] | | | | | General Surgery | [address] | | | | | [address] | [place] [address] | | | | | [place], [place] | [phone] | | | | | [address] | | | | | | [phone] | | | +--------+ + + + [...]
--- OUTSIDE RECORDS SUMMARY | ~2019-12-01 | XMS | Encounter Summary ---
Demographics + + + | Address | [address] | | | [place] [address] | + + + | Home Phone | | + + + | Preferred Language | Unknown | + + + | Marital Status | | + + + | Druze Affiliation | CHR | + + + | Race | White | + + + | Ethnic Group | Not or | + + + Author + + + | Author | [facility] | + + + | Organization | [facility] | + + + | Address | Unknown | + + + | Phone | Unavailable | + + + Support + + + + + | Name | Relationship | Address | Phone | + + + + + | Osei Bhandari Sr. | ECON | [address] | | | | | [place] | | | | | [address] | | + + + + + Care Team Providers + +------+ + | Care Corporate Relations Manager Name | Role | Phone | + +------+ + | Royer Wilde MD | PCP | | + +------+ + Encounter Details +--------+ + + + + | Date | Type | Department | Care Team | Description | +--------+ + + + + | 02/17/ | Telephone | [facility] | Marisa Wilkinson ANP | | | 2008 | | [place] [facility] | | | | | | [address] | | | | | | Mailcode: [id number] | | | | | | [facility] | | | | | | [place], [place] | | | | | | [address] | | | | | | [phone] | | | +--------+ + + + [...]
--- OUTSIDE RECORDS SUMMARY | ~2019-12-01 | XMS | Encounter Summary ---
Demographics + + + | Address | [address] | | | [place] [address] | + + + | Home Phone | | + + + | Preferred Language | Unknown | + + + | Marital Status | | + + + | Mormon Affiliation | CHR | + + + [...] Osei Bhandari Sr. | ECON | [address] | | | | | [place] | | | | | [address] | | + + + + + Care Team Providers + +------+ + | Care Java Application Engineer Name | Role | Phone | + +------+ + | Royer Wilde MD | PCP | | + +------+ + Encounter Details +--------+------+ + + + | Date | Type | Department | Care Team | Description | +--------+------+ + + + | 11/08/ | Lab | [facility] at [facility] | | S/P laparoscopic | | 2015 | | [address] | | sleeve gastrectomy | | | | [place], [place] | | | | | | [address] | | | | | | [phone] | | | +--------+------+ + + + Social History [...] + +--------+ + + + | CBC (HEMOGRAM) ONLY | Routin | 11/09/2015 | S/P laparoscopic | Results for this | | | e | 1:51 PM | sleeve gastrectomy | procedure are in the | | | | PDT | | results section. | + +--------+ + + + | VITAMIN D, | Routin | 11/09/2015 | S/P laparoscopic | Results for this | | 25-HYDROXY, SERUM | e | 1:51 PM | sleeve gastrectomy | procedure are in the | | | | PDT | | results section. | + +--------+ + + + | COMPLETE METABOLIC | Routin | 11/09/2015 | S/P laparoscopic | Results for this | | SET | e | 1:51 PM | sleeve gastrectomy | procedure are in the | | (NA,K,CL,CO2,BUN,CRE | | PDT | | results section. | | AT,GLUC,CA,AST,ALT,B | | | | | | AMBERLY TOTAL,ALK | | | | | | PHOS,ALB,PROT TOTAL) | | | | | + +--------+ + + + | CBC ONLY | Routin | 11/09/2015 | S/P laparoscopic | Results for this | | | e | 1:51 PM | sleeve gastrectomy | procedure are in the | | | | PDT | | results section. | + +--------+ + + + | FERRITIN | Routin | 11/09/2015 | S/P laparoscopic | Results for this | | | e | 1:51 PM | sleeve gastrectomy | procedure are in the | | | | PDT | | results section. | + +--------+ + + + | PTH, SERUM | Routin | 11/09/2015 | S/P laparoscopic | Results for this | | | e | 1:51 PM | sleeve gastrectomy | procedure are in the | | | | PDT | | results section. | + +--------+ + + + | FOLATE, SERUM | Routin | 11/09/2015 | S/P laparoscopic | Results for this | | | e | 1:51 PM | sleeve gastrectomy | procedure are in the | | | | PDT | | results section. | + +--------+ + + + | VITAMIN B-12 | Routin | 11/09/2015 | S/P laparoscopic | Results for this | | | e | 1:51 PM | sleeve gastrectomy | procedure are in the | | | | PDT | | results section. | + +--------+ + + + documented in this encounter Results FOLATE, SERUM (11/09/2015 1:51 PM PDT) + + + + + + | Component | Value | Ref Range | Performed | Pathologist | | | | | At | Signature | + + + + + + | FOLATE, | >24.0Comment: | >=5.9 ng/mL | [facility] | | | SERUM | INTERPRETIVE | | REG UNIV | | | | INFORMATION: Folate, | | PTH - [facility] | | | | Serum Reference | | | | | | Interval: Less than or | | | | | | equal to 3.9 ng/mL = | | | | | | Deficient 4.0 ng/mL - | | | | | | 5.8 ng/mL = | | | | | | Indeterminate Greater | | | | | | than or equal to 5.9 | | | | | | ng/mL = NormalPerformed | | | | | | by Cel[address] | | | | | | [address], [facility],[place] | | | | | | [address] | | | | | | [phone][employer]. | | | | | | Rajan landeros, | | | | | | Jonathan HIDALGO. Director | | | | + + + + + + + + | Specimen | + + | Blood - Blood | + + + + + + + | Performing | Address | City/State/Zipcode | Phone Number | | Organization | | | | + + + + + | [facility] | [address] | [place], [place] | | | UNIV PTH - [facility] | | [phone] | | + + + + + CBC (HEMOGRAM) ONLY (11/09/2015 1:51 PM PDT) + +-------+ + + + | Component | Value | Ref Range | Performed | Pathologist | | | | | At | Signature | + +-------+ + + + | WHITE CELL | 8.06 | 4.40 - 11.00 | [facility] | | | COUNT | | K/cu mm | LABORATORY | | | | | | SERVICES, | | | | | | [facility] + | | | | | | [facility]AL[facility] | | + +-------+ + + + | RED CELL | 4.33 | 4.00 - 5.20 | [facility] | | | COUNT | | M/cu mm | LABORATORY | | | | | | SERVICES, | | | | | | [facility] | | | | [facility] + | | | | | | [facility]ALING | | + +-------+ + + + | HEMOGLOBIN | 13.2 | 12.0 - 16.0 | [facility] | | | | | g/dL | LABORATORY | | | | | | SERVICES, | | | | | | [facility] | | | | | [facility] + | | | | | | HEALING | | + +-------+ + + + | HEMATOCRIT | 39.3 | 36.0 - 46.0 % | [facility] | | | | | | LABORATORY | | | | | | SERVICES, | | | | | | [facility] | | | | [facility] + | | | | | | HEALING | | + +-------+ + + + | MCV | 90.8 | 80.0 - 96.0 fL | [facility] | | | | | | LABORATORY | | | | | | SERVICES, | | | | | | [facility] | | | | [facility] + | | | | | | [facility]ALING | | + +-------+ + + + | MCHC | 33.6 | 33.0 - 35.5 | [facility] | | | | | g/dL | LABORATORY | | | | | | SERVICES, | | | | | | [facility] | | | [facility] + | | | | | | HEALING | | + +-------+ + + + | RDW SD | 44.1 | 35.1 - 46.3 fL | [facility] | | | | | | LABORATORY | | | | | | SERVICES, | | | | | | [facility] | | | | [facility] + | | | | | | HEALING | | + +-------+ + + + | PLATELET | 230 | 150 - 400 K/cu | [facility] | | | COUNT | | mm | LABORATORY | | | | | | SERVICES, | | | | | | [facility] | | | [facility] + | | | | | | HEALING | | + +-------+ + + + | MPV | 9.7 | 9.7 - 12.3 fL | [facility] | | | | | | LABORATORY | | | | | | SERVICES, | | | | | | [facility] | | | | | | [facility] + | | | | | | HEALING | | + +-------+ + + + + + | Specimen | + + | Blood - Blood | | (substance) | + + + + + + + | Performing | Address | City/State/Zipcode | Phone Number | | Organization | | | | + + + + + | [facility] | [address] | [place] [address] | | | SERVICES, [facility] | | | | | HEALTH + HEALING | | | | + + + + + PTH, SERUM (11/09/2015 1:51 PM PDT) + [...] lab, method and reference range effective | [facility] | | 02/11/15. | LABORATORY | | | [place] | + + + + + + + + | Performing | Address | City/State/Zipcode | Phone Number | | Organization | | | | + + + + + | [facility] | [address] | [place] [address] | | | SERVICES, [place] | [address] | | | + [...] | + + + + + | [facility] | [address] | [place] [address] | | | SERVICES, CORE | [address] [...] [facility] | [address] | [place] [address] | | | SERVICES, SPECIAL | [address] [...] + + | [facility] | [address] | [place] [address] | | | ANUM, CORE | [address] | | | [...] | | | LABORATORY | | | [place] | | | SERVICES, | | | [...] Interpretive Information: <60 mL/min/1.73 sq m | ANUM, CORE | | Chronic Kidney Disease <15 [...] | + + + + + | [facility] | [address] | [place] [address] | | | [place] [address] | [address] | | | + + + + + documented in this encounter Visit Diagnoses + + | Diagnosis | + + | S/P laparoscopic sleeve gastrectomy | + + documented in this encounter"
--- OUTSIDE RECORDS SUMMARY | ~2019-12-01 | XMS | Encounter Summary ---
Demographics + + + | Address | [address] | | | [place] [address] | + + + | Home Phone | | + + + | Preferred Language | Unknown | + + + | Marital Status | | + + + | Yazidism Affiliation | CHR | + + + | Race | White | + + + | Ethnic Group | Not or | + + + Author + + + | Author | [facility] | + + + | Organization | [facility] | + + + | Address | Unknown | + + + | Phone | Unavailable | + + + Support + + + + + | Name | Relationship | Address | Phone | + + + + + | Osei Bhandari Sr. | ECON | [address] | | | | | [place] | | | | | [address] | | + + + + + Care Team Providers + +------+ + | Care Motor Block Mechanic Name | Role | Phone | [...] | | | | obesity | [place] [address] | [facility] [address] | | | | | (HCC) | [address] | [address] | | | | | Procedures | [address] | [place] | | | | | [place] [employer] | [address] | Health and | | | | | [address] [address] | [facility], [place] | Healing, | | | | | BND | [address] | [address] | | | | | | Phone: | [place], [place] | | | | | | [phone] | [address] | | | | | | Fax: | Phone: | | | | | | [phone] | [phone] | | | | | | | Fax: | | | | | | | [phone] | +--------+--------+ + + + + Encounter Details +--------+---------+ + + + | Date | Type | Department | Care Team | Description | +--------+---------+ + + + | 11/08/ | Office | [facility] | Kalli Mcguire RD | S/P laparoscopic | | 2016 | Visit | Center at [facility] [address] | [address] | sleeve gastrectomy | | | | [facility] | [address] [place], | (Primary Dx); Weight | | | | for Health and | [place] [address] | gain | | | | Healing, [address] | | | | | | [place], [place] | | | | | | [address] | | | | | | [phone] | | | +--------+---------+ + + + [...] documented as of this encounter Progress Notes Kalli Mcguire, RD - 11/09/2015 12:57 PM PDT Nutrition Counseling: Post-op Bariatric Surgery Follow-Up Patient referred by: Royer Wilde MD [facility] [address] [place] [id number] Documented time of visit: 12:57 to 1:36 (39 minutes pxma-gc-tnmg with patient) Surgery: Sleeve Gastrectomy Date of Surgery: 05/2012 Subjective: Concerned about dumping. Was dealing with heartburn but that is improved with N exium Any reported changes: also concerned about weight that she has regained. Tolerating Bariatric Diet: Lactose intolerance with surgery. Raw vegetables make diarrhea w orse. Current Physical Activity: walking - not as much. Was walking the dog every day. Stopped wh en the weather got bad (April) has not resumed yet. Bought a treadmill but has not used it because it is boring. Pastors in the [employer] with her Objective: Ht Readings from Last 1 Encounters: 11/09/15 1.676 m (5' 6") Wt Readings from Last 2 Encounters: 11/09/15 108.001 kg (238 lb 1.6 oz) 05/17/13 84.596 kg (186 lb 8 oz) BMI: 38.4 Initially lost 70 lbs, but has gained 35 back. PMHx: Past Medical History Diagnosis Date Morbid obesity (HCC) Asthma Vitamin d deficiency Migraine Hyperlipidemia HTN (hypertension) GERD (gastroesophageal reflux disease) BMI 40.0-44.9, adult ([facility]) 05/14/2012 ABHIJEET (obstructive sleep apnea) 05/14/2012 Well controlled intermittent asthma 05/14/2012 Dyspepsia 05/14/2012 Osteoarthritis 05/14/2012 Food logs: No - but says she did much better when logging and appears willing to resume thi s. Diet Recall: Breakfast: egg + piece of toast + margarine or peanut butter or Premier Protein. Coffee wit h breakfast - with sweet and low and SF creamer Lunch is fast food - Hamburgers, [employer] fish and chips, [employer]. Iced tea - with Sweet and L ow May snack on donated pastries after lunch Drinks tea all day long - not decaf Dinner - hates chicken so they have it 1x/week. Lean beef, hamburger (BBQ beef ribs , stirfry, tacos, occ lasagna) After dinner 1-2x/week - ice cream, slice of banana cream pie last night Eating a lot more fast food recently. Will eat out of boredom a few times a week . Will sti ll fight it. Supplementation: multivitamin - centrum silver, Super B-complex and C. Labs today Assessment: Receptive to suggestions made to help her get back on track. Wondering about a "pouch reset" diet. Does not appear to be unsafe and may help get her back on track (Full Li quids for 2-3 days followed by soft diet...) She does appear to still have portion control f rom her pouch - she chooses to overeat and feels sick afterward. Following Bariatric Diet Protocol: No Meeting protein goals: does not appear to be Meeting fluid goals: No - most fluids are caffeinated Fluids from meals: No Plan: Reviewed nutrition goals after bariatric surgery. Continue to limit lactose and eliminate h igh sugar and refined grains from diet. Eliminate fast food. Aim for 64 ounces of fluid and 60-80 grams of protein per day. Continue to follow post-surgery bariatric diet progression: Continue stage 4 according to b ariatric diet guidelines. Provided fpc guidelines handout and dumping syndrome handout . -Provided written & verbal education/review of stage 4 guidelines -Continue to eat protein foods first; stop eating as soon as you begin to feel full -Choose foods with < 14 g sugar & < 5 g fat per serving -Continue fluids from meals by 30 minutes before & after Continue vitamin & mineral supplementation per post-bariatric surgery guidelines -complete multivitamin & mineral (with iron) supplement, 2/day -500 mg calcium citrate with vitamin D TID (not within 2 hours of multivitamin or iron sup plement) -500 mcg/day sublingual B12 supplement (or monthly injections) Continued to reinforce importance of mindful eating. Continue to increase physical activity. Follow up in 3 months or as needed. Kalli Mcguire RD, [facility], [facility] Bariatrics [phone] documented in this enco unter Plan of Treatment Not on filedocumented as of this encounter Procedures + +--------+ + + + | Procedure Name | Priori | Date/Time | Associated Diagnosis | Comments | | | ty | | | | + +--------+ + + + | [place] MNT RE-ASSESSMNT | Routin | 11/09/2015 | S/P laparoscopic | | | X15MIN | e | 4:50 PM | sleeve gastrectomy | | | | | PDT | Weight gain | | + +--------+ + + + documented in this encounter Visit Diagnoses + + | Diagnosis | + + | S/P laparoscopic sleeve gastrectomy - Primary | + + | Weight gain Abnormal weight gain | + + documented in this encounter
--- OUTSIDE RECORDS SUMMARY | ~2019-12-01 | XMS | Encounter Summary ---
Demographics + + + | Address | [address] | | | [place] [address] | + + + | Home Phone | | + + + | Preferred Language | Unknown | + + + | Marital Status | | + + + | Mandaen Affiliation | 1077 | + + + | Race | Unknown | + + + | Ethnic Group | Unknown | + + + Author + + + | Author | [facility] | | | and [place] | + + + | Organization | [facility] | | | and [place] | + + + | Address | Unknown | + + + | Phone | Unavailable | + + + Support + + + + + | Name | Relationship | Address | Phone | + + + + + | Osei Woodard | ECON | [address] | | | [place] | | [place] | | | | | [address] | | + + + + + Care Team Providers + +------+ + | Care Milieu Technician Name | Role | Phone | + +------+ + | Pcp, Prov Inactive | PCP | | + +------+ + Encounter Details +--------+ + + + + | Date | Type | Department | Care Team | Description | +--------+ + + + + | 11/13/ | Hospital | [facility] | Conversion | Chronic maxillary | | 2018 | Encounter | [facility] [address] | Transaction, | sinusitis | | | | [address] | Provider Unknown | | | | | [place], [place] | [phone] | | | | | [address] | | | | | | [phone] | Arley Moore, | | | | | | [address] | | | | | | [address] [place], | | | | | | [place] [address] | | | | | | [phone] | | | | | | | [...] + +--------+ + + + | CT SINUS WO CONTRAST | Routin | 11/13/2017 | | Results for this | | | e | 8:33 AM | | procedure are in the | | | | PDT | | results section. | + +--------+ + + + documented in this encounter Results CT Sinus wo Contrast (11/13/2017 8:33 AM PDT) + + | Specimen | + + | | + + + + + | Impressions | Performed At | + + + | 1. Mucous retention cysts noted in the right maxillary sinus. 2. | | | Prior resection of the uncinate processes of the ostiomeatal units | | | noted bilaterally. 3. No evidence of acute sinusitis. | | | | | + + + + + + | Narrative | Performed At | + + + | STEV[facility] [facility] SINUS 11/13/2017 8:33 AM HISTORY: 52 years. | | | Female. Chronic maxillary sinusitis. TECHNIQUE: Coronal | | | noncontrast imaging of the sinuses was performed using 2.5-mm slice | | | thickness anteriorly and posteriorly and 1.25 mm slice thickness | | | through the ostiomeatal units. Radiation dose reduction was | | | performed with automated exposure control. COMPARISON: None. | | | FINDINGS: The nasal septum is not deviated. No lesley bullosa are | | | noted. Normal curvature of the nasal turbinates is seen bilaterally. | | | The patient appears to have had the uncinate processes of the | | | ostiomeatal units resected bilaterally. Mucous retention cysts are | | | seen in the right maxillary sinus measuring 23 mm and 14 mm. A | | | small amount of fluid is seen in one of the anterior right ethmoid air | | | cells. The frontal, ethmoid, sphenoid and left maxillary sinus are | | | otherwise well aerated. The ostiomeatal units and frontal sinus | | | ostia are patent bilaterally. Olfactory fossa depth (distance | | | between fovea ethmoidalis and medial lamella): 4 mm, Keros type 2 - | | | depth between 4-7 mm. Lamina papyracea: Intact bilaterally. | | | Anterior ethmoidal canals: Not present bilaterally (normal). The | | | regional osseous structures do not demonstrate lytic or blastic | | | lesions. Visualized orbits and their contents are normal. The | | | temporomandibular joints are partially visualized and appear normal. | | | The sella turcica is normal. The visualized intracranial | | | contents do not show midline shift or hydrocephalus. | | + + + + + | Procedure Note | + + | Jose, Rad Conversion - 03/06/2019 1:30 PM PDT [facility] [place] SINUS11/13/2017 8:33 AM | | HISTORY:52 years. Female. Chronic maxillary sinusitis. TECHNIQUE:Coronal noncontrast | | imaging of the sinuses was performed using 2.5-mm slice thickness anteriorly and | | posteriorly and 1.25 mm slice thickness through the ostiomeatal units. Radiation dose | | reduction was performed with automated exposure control. COMPARISON:None. FINDINGS:The | | nasal septum is not deviated. No lesley bullosa are noted. Normal curvature of the | | nasal turbinates is seen bilaterally. The patient appears to have had the uncinate | | processes of the ostiomeatal units resected bilaterally. Mucous retention cysts are | | seen in the right maxillary sinus measuring 23 mm and 14 mm. A small amount of fluid is | | seen in one of the anterior right ethmoid air cells. The frontal, ethmoid, sphenoid | | and left maxillary sinus are otherwise well aerated. The ostiomeatal units and frontal | | sinus ostia are patent bilaterally. Olfactory fossa depth (distance between fovea | | ethmoidalis and medial lamella): 4 mm, Keros type 2 - depth between 4-7 mm. Lamina | | papyracea: Intact bilaterally. Anterior ethmoidal canals: Not present bilaterally | | (normal). The regional osseous structures do not demonstrate lytic or blastic lesions. | | Visualized orbits and their contents are normal. The temporomandibular joints are | | partially visualized and appear normal. The sella turcica is normal. The visualized | | intracranial contents do not show midline shift or hydrocephalus. IMPRESSION: 1. Mucous | | retention cysts noted in the right maxillary sinus.2. Prior resection of the uncinate | | processes of the ostiomeatal units noted bilaterally.3. No evidence of acute sinusitis. | | | | | |Lamina papyracea: Intact bilaterally. | | | |Anterior ethmoidal canals: Not present bilaterally (normal). | | | |The regional osseous structures do not demonstrate lytic or blastic lesions. Visualized or bits and their contents are normal. The temporomandibular joints are partially visualized a nd appear normal. The sella turcica is normal. The visualized | |intracranial contents do not show midline shift or hydrocephalus. | | | |IMPRESSION: | |1. Mucous retention cysts noted in the right maxillary sinus. | |2. Prior resection of the uncinate processes of the ostiomeatal units noted bilaterally. | |3. No evidence of acute sinusitis. | | | | | + + documented in this encounter Visit Diagnoses + + | Diagnosis | + + | Chronic maxillary sinusitis | + + documented in this encounter"
--- OUTSIDE RECORDS SUMMARY | ~2019-12-01 | XMS | Encounter Summary ---
Demographics + + + | Address | [address] | | | [place] [address] | + + + | Home Phone | | + + + | Preferred Language | Unknown | + + + | Marital Status | | + + + | Alevism Affiliation | 1077 | + + + | Race | Unknown | + + + | Ethnic Group | Unknown | + + + Author + + + | Author | [facility] | | | and [place] | + + + | Organization | [facility] | | | and [place] | + + + | Address | Unknown | + + + | Phone | Unavailable | + + + Support + + + + + | Name | Relationship | Address | Phone | + + + + + | Osei Woodard | ECON | [address] | | | [place] | | [place] | | | | | [address] | | + + + + + Care Team Providers + +------+ + | Care Servicenow Administrator Developer Name | Role | Phone | + +------+ + | Royer Wilde MD | PCP | | + +------+ + Encounter Details +--------+ + + + + | Date | Type | Department | Care Team | Description | +--------+ + + + + | 10/08/ | Hospital | [facility] | Rob Bello MD | | | 2010 | Encounter | [facility] | | | | | | C[facility] [address] | | [address] | | | | | | [place], [place] | | | | | | [address] | | | | | | [phone] | | | +--------+ + + + [...]
--- OUTSIDE RECORDS SUMMARY | ~2019-12-01 | XMS | Encounter Summary ---
Demographics + + + | Address | [address] | | | [place] [address] | + + + | Home Phone | | + + + | Preferred Language | Unknown | + + + | Marital Status | | + + + | Restorationism Affiliation | CHR | + + + | Race | White | + + + | Ethnic Group | Not or | + + + Author + + + | Author | [facility] | + + + | Organization | [facility] | + + + | Address | Unknown | + + + | Phone | Unavailable | + + + Support + + + + + | Name | Relationship | Address | Phone | + + + + + | Osei Bhandari Sr. | ECON | [address] | | | | | [place] | | | | | [address] | | + + + + + Care Team Providers + +------+ + | Care Electrical Installation Supervisor Name | Role | Phone | [...] | | Center at [facility] [address] | ENTRY [employer] [address] | | | | | [address] | , [address] | | | | | Mailcode: Center | [place], [place] | | | | | for Health and | [address] | | | | | Healing, [address] | [phone] | | | | | [place], [place] | | | | | | [address] | | | | | | [phone] | | | +--------+ + + + [...]
--- OUTSIDE RECORDS SUMMARY | ~2019-12-01 | XMS | Encounter Summary ---
Demographics + + + | Address | [address] | | | [place] [address] | + + + | Home Phone | | + + + | Preferred Language | Unknown | + + + | Marital Status | | + + + | Rastafari Affiliation | CHR | + + + | Race | White | + + + | Ethnic Group | Not or | + + + Author + + + | Author | [facility] | + + + | Organization | [facility] | + + + | Address | Unknown | + + + | Phone | Unavailable | + + + Support + + + + + | Name | Relationship | Address | Phone | + + + + + | Osei Bhandari Sr. | ECON | [address] | | | | | [place] | | | | | [address] | | + + + + + Care Team Providers + +------+ + | Care Cell Operation Supervisor Name | Role | Phone | + +------+ + | Royer Wilde MD | PCP | | + +------+ + Encounter Details +--------+ + + + + | Date | Type | Department | Care Team | Description | +--------+ + + + + | 09/28/ | MyChart | [facility] | Clinic, Surgery | appointment | | 2016 | Encounter | [facility] at [facility] [address] | | | | | | [address] | | | | | | Mailcode: Center | | | | | | for Health and | | | | | | Healing, [address] | | | | | | [place], [place] | | | | | | [address] | | | | | | [phone] | | | +--------+ + + + [...]
--- OUTSIDE RECORDS SUMMARY | ~2019-12-01 | XMS | Encounter Summary ---
Demographics + + + | Address | [address] | | | [place] [address] | + + + | Home Phone | | + + + | Preferred Language | Unknown | + + + | Marital Status | | + + + | Hoahaoism Affiliation | 1077 | + + + | Race | Unknown | + + + | Ethnic Group | Unknown | + + + Author + + + | Author | [facility] | | | and [place] | + + + | Organization | [facility] | | | and [place] | + + + | Address | Unknown | + + + | Phone | Unavailable | + + + Support + + + + + | Name | Relationship | Address | Phone | + + + + + | Osei Woodard | ECON | [address] | | | [place] | | [place] | | | | | [address] | | + + + + + Care Team Providers + +------+ + | Care Flat Lock Machine Operator Name | Role | Phone | + +------+ + | Royer Wilde MD | PCP | | + +------+ + Encounter Details +--------+ + + + + | Date | Type | Department | Care Team | Description | +--------+ + + + + | 11/27/ | Hospital | Steven Villagran Other screening | | 2012 | Encounter | [facility] | Royer Hurd MD | mammogram | | | | Center [facility] | [address] | | | | | [address] | [address] | | | | | [place], [place] | [place], [place] | | | | | [address] | [address] | | | | | [phone] | [phone] | | | | | | | [...] + | [facility] | Routin | 11/27/2012 | Other screening | Results for this | | SCREENING BILATERAL | e | 2:10 PM | mammogram | procedure are in the | | | | PDT | | results section. | + +--------+ + + + documented in this encounter Results [facility] Screening Bilateral (11/27/2012 2:10 PM PDT) + + | Specimen | + + | | + + + + + | Impressions | Performed At | + + + | Negative mammogram, unchanged since 11/10/2011. | [facility] | | RECOMMENDATION: Routine annual follow-up is recommended. | LAB | | BI-RADS 1 THESE FILMS WERE ALSO ANALYZED USING COMPUTER-AIDED | | | DETECTION EQUIPMENT Dictated By: Andre Mojica M.D. | | | 11/28/2012 10:45:04 | | + + + + + + | Narrative | Performed At | + + + | [facility] SCREENING BILATERAL DATE OF EXAM: 11/27/2012 | MISCELANI[facility] | | INDICATION: Other screening mammogram, Other screening mammogram - | LAB | | V76.12 FINDINGS: Craniocaudal and oblique mediolateral | | | projections of both breasts were acquired. Comparison is made with | | | the prior study on 11/10/2011. There are scattered | | | fibroglandular densities (25 - 50% glandular). No spiculations or | | | microcalcifications are noted. There is no dominant or discrete | | | mass. | | + + + + + | Procedure Note | + + | Jose, Rad Results In - 11/28/2012 10:[address] [facility] DIGITAL SCREENING BILATERALDATE OF | | EXAM: 11/27/2012INDICATION: Other screening mammogram, Other screening mammogram - | | V76.12FINDINGS: Craniocaudal and oblique mediolateral projections of both breasts were | | acquired. Comparison is made with the prior study on 11/10/2011. There are scattered | | fibroglandular densities (25 - 50% glandular). No spiculations or microcalcifications | | are noted. There is no dominant or discrete mass. IMPRESSION: Negative mammogram, | | unchanged since 11/10/2011. RECOMMENDATION: Routine annual follow-up is recommended. | | BI-RADS 1THESE FILMS WERE ALSO ANALYZED USING COMPUTER-AIDED DETECTION EQUIPMENTDictated | | By: Andre Mojica M.D. 11/28/2012 10:45:04 | | | |IMPRESSION: | |Negative mammogram, unchanged since 11/10/2011. | | | |RECOMMENDATION: Routine annual follow-up is recommended. | | | | | | | |BI-RADS 1 | | | |THESE FILMS WERE ALSO ANALYZED USING COMPUTER-AIDED DETECTION EQUIPMENT | | | | | | | |Dictated By: Andre Mojica M.D. 11/28/2012 10:45:04 | + + + +---------+ + + | Performing | Address | City/State/Zipcode | Phone Number | | Organization | | | | + +---------+ + + | [facility] | | | [phone] | + +---------+ + + | [facility] | | | [phone] | + +---------+ + + documented in this encounter Visit Diagnoses + + | Diagnosis | + + | Other screening mammogram | + + documented in this encounter"
--- OUTSIDE RECORDS SUMMARY | ~2019-12-01 | XMS | Encounter Summary ---
Demographics + + + | Address | [address] | | | [place] [address] | + + + | Home Phone | | + + + | Preferred Language | Unknown | + + + | Marital Status | | + + + | Catholic Affiliation | CHR | + + + [...] Osei Bhandari Sr. | ECON | [address] | | | | | [place] | | | | | [address] | | + + + + + Care Team Providers + +------+ + | Care Quartz Miner Name | Role | Phone | + +------+ + | Royer Wilde MD | PCP | | + +------+ + Encounter Details +--------+ + + + + | Date | Type | Department | Care Team | Description | +--------+ + + + + | 07/02/ | Telephone | [facility] | Clinic, Surgery | | | 2014 | | [place] [facility] [address] | | | | | | [address] | | | | | | Mailcode: Center | | | | | | for Health and | | | | | | Healing, [address] | | | | | | [place], [place] | | | | | | [address] | | | | | | [phone] | | | +--------+ + + + [...]
--- OUTSIDE RECORDS SUMMARY | ~2019-12-01 | XMS | Clinical Summary ---
Demographics + + + | Address | [address] | | | [place] [address] | + + + | Home Phone | | + + + | Preferred Language | Unknown | + + + | Marital Status | | + + + | Taoism Affiliation | 1077 | + + + [...] | Osei Woodard | ECON | [address] | | | [place] | | [place] | | | | | [address] | | + + + + + Care Team Providers + +------+ + | Care Molder Fitting Name | Role | Phone | + +------+ + | Nicole Chen | PCP | | + +------+ + Allergies + + + + + + | Active Allergy | Reactions | Severity | Noted | Comments | | | | | Date | | + + + + + + | Codeine | Nausea And Vomiting | Low | 03/22/20 | | | | | | 04 | | + + + + + + | Dexamethasone | Nausea And Vomiting | Low | 08/23/19 | | | | | | 17 | | + + + + + + | Droperidol | Shortness Of Breath, | High | 10/13/19 | Severe anxiety and | | | Anxiety, | | 04 | shaking causes | | | Palpitations, Other | | | anxiety attacks | | | (See Comments) | | | | + + + + + + | Metoclopramide | Shortness Of Breath, | High | 10/13/19 | Restlessness and | | | Anxiety, | | 04 | shaking causes | | | Palpitations, Other | | | anxiety attacks | | | (See Comments) | | | | + + + + + + | Morphine And Related | Nausea And Vomiting | | 02/18/20 | | | | | | 04 | | + + + + + + | Pneumococcal | Unknown | | 06/11/20 | | | Polysaccharide | | | 08 | | | Vaccine | | | | | + + + + + + Medications + + + +---------+------+------+-------+ | Medication | Sig | Dispensed | Refills | Star | End | Statu | | | | | | t | Date | s | | | | | | Date | | | + + + +---------+------+------+-------+ | Multiple | Take by mouth. | | 0 | | | Activ | | Vitamins-Minerals | | | | | | e | | (CENTRUM SILVER | | | | | | | | ADULT 50+ PO) | | | | | | | + + + +---------+------+------+-------+ | B Complex Vitamins | Place under the | | 0 | | | Activ | | (B-COMPLEX/B-12 SL) | tongue. | | | | | e | + + + +---------+------+------+-------+ | Cholecalciferol | Take by mouth. | | 0 | | | Activ | | (VITAMIN D3) 2000 | | | | | | e | | UNITS CAPS | | | | | | | + + + +---------+------+------+-------+ | calcium-vitamin D | Take 1 tablet by | | 0 | | | Activ | | 600 mg-200 units per | mouth Daily. | | | | | e | | tablet | | | | | | | + + + +---------+------+------+-------+ | bisacodyl | Take 4 tablets once | 4 | 0 | 05/0 | | Activ | | (BISACODYL LAXATIVE) | at 12:00pm noon the | tablet | | 6/20 | | e | | 5 mg EC | day before procedure | | | 14 | | | | tabletIndications: | | | | | | | | Encounter for | | | | | | | | screening | | | | | | | | colonoscopy | | | | | | | + + + +---------+------+------+-------+ | omeprazole | Take 1 capsule by | 30 | 0 | 10/0 | | Activ | | (PRILOSEC) 20 mg | mouth every morning | capsule | | 2/20 | | e | | capsule | (before breakfast). | | | 15 | | | + + + +---------+------+------+-------+ | Ascorbic Acid | Take by mouth. | | 0 | | | Activ | | (VITAMIN C PO) | | | | | | e | + + + +---------+------+------+-------+ | Multiple | Take by mouth. | | 0 | | | Activ | | Vitamins-Minerals | | | | | | e | | (MULTIVITAMIN PO) | | | | | | | + + + +---------+------+------+-------+ | albuterol 90 | 2 puffs. | | 0 | 05/3 | | Activ | | mcg/puff inhaler | | | | 0/20 | | e | | | | | | 16 | | | + + + +---------+------+------+-------+ | atorvaSTATin | TK 1 T PO QD | | 0 | 11/2 | | Activ | | (LIPITOR) 10 mg | | | | 8/20 | | e | | tablet | | | | 17 | | | + + + +---------+------+------+-------+ | | Take 1 tablet by | | 0 | 10/2 | | Activ | | butalbital-acetamino | mouth every 6 hours | | | 2/20 | | e | | phen-caffeine | as needed for Pain | | | 15 | | | | 50-325-40 mg per | or Headaches. | | | | | | | tablet | | | | | | | + + + +---------+------+------+-------+ | calcium | Take 2 Tabs by mouth | | 0 | 11/0 | | Activ | | citrate-vitamin D3 | two times daily. | | | 2/20 | | e | | (CITRACAL | Start 2 weeks after | | | 12 | | | | PETITES/VITAMIN D) | surgery. | | | | | | | 200-250 mg-unit | Indications: | | | | | | | tablet | HYPOCALCEMIA | | | | | | + + + +---------+------+------+-------+ | cetirizine | Take 10 mg by mouth | | 0 | | | Activ | | (ZYRTEC) 10 mg | Daily. | | | | | e | | tablet | | | | | | | + + + +---------+------+------+-------+ | Cobalamine | Place under the | | 0 | | | Activ | | Combinations (B-12) | tongue. | | | | | e | | 100-5000 MCG SUBL | | | | | | | + + + +---------+------+------+-------+ | cyanocobalamin | Take by mouth. | | 0 | 11/0 | | Activ | | (VITAMIN B-12) 500 | | | | 2/20 | | e | | mcg tablet | | | | 12 | | | + + + +---------+------+------+-------+ | esomeprazole | Take by mouth. | | 0 | | | Activ | | (NEXIUM) 40 mg | | | | | | e | | capsule | | | | | | | + + + +---------+------+------+-------+ | MAGNESIUM PO | Take 100 mg by | | 0 | | | Activ | | | mouth. | | | | | e | + + + +---------+------+------+-------+ | Multiple Vitamin | Take 1 capsule by | | 0 | | | Activ | | (MULTIVITAMIN) | mouth daily. | | | | | e | | capsule | | | | | | | + + + +---------+------+------+-------+ | Pediatric Multiple | Take 1 Tab by mouth | | 0 | 11/0 | | Activ | | Vit-C-FA (CHILDRENS | two times daily. | | | 2/20 | | e | | CHEWABLE VITAMINS) | | | | 12 | | | | CHEW | | | | | | | + + + +---------+------+------+-------+ | Potassium 75 MG | Take by mouth. | | 0 | | | Activ | | TABS | | | | | | e | + + + +---------+------+------+-------+ | Probiotic Product | Take by mouth. | | 0 | | | Activ | | (ACIDOPHILUS/GOAT | | | | | | e | | MILK) CAPS | | | | | | | + + + +---------+------+------+-------+ | promethazine | 25 mg. 1-2 by mouth | | 0 | 04/1 | | Activ | | (PHENERGAN) 12.5 MG | every 8 hours as | | | 3/20 | | e | | tablet | needed for | | | 07 | | | | | nausea/vomiting | | | | | | + + + +---------+------+------+-------+ | raNITIdine | Take 150 mg by mouth | | 0 | | | Activ | | (ZANTAC) 150 mg | 2 (two) times | | | | | e | | tablet | daily. | | | | | | + + + +---------+------+------+-------+ | triamcinolone | 2 sprays by Each | | 0 | 05/2 | | Activ | | (NASACORT) 55 | Nare route Daily. | | | 8/20 | | e | | mcg/nasal spray | | | | 15 | | | + + + +---------+------+------+-------+ | zoster live, PF, | Inject under the | | 0 | 10/2 | | Activ | | (ZOSTAVAX) 19,400 | skin once for 1 dose | | | 2/20 | | e | | units/0.65 mL | | | | 15 | | | | vaccine injection | | | | | | | + + + +---------+------+------+-------+ | B Complex Vitamins | Take by mouth. | | 0 | | | Activ | | (VITAMIN-B COMPLEX) | | | | | | e | | TABS | | | | | | | + + + +---------+------+------+-------+ | cholecalciferol | 3000 units once a | | 0 | 03/1 | | Activ | | (VITAMIN D-3) 1,000 | day | | | 0/20 | | e | | units capsule | | | | 11 | | | + + + +---------+------+------+-------+ | Cholecalciferol | Take 5,000 Units by | | 0 | | | Activ | | (VITAMIN D-3) 5000 | mouth daily. | | | | | e | | units CAPS | | | | | | | + + + +---------+------+------+-------+ | Cholecalciferol | Take 2,000 Units by | | 0 | | | Activ | | (VITAMIN D-3) 2000 | mouth once daily. | | | | | e | | units CAPS | | | | | | | + + + +---------+------+------+-------+ | omeprazole | Take 20 mg by mouth | | 0 | | | Activ | | (PRILOSEC) 20 mg | every morning | | | | | e | | capsule | (before breakfast). | | | | | | + + + +---------+------+------+-------+ | | take 1 tablet by | | 0 | 10/2 | | Activ | | amoxicillin-clavulan | mouth twice a day | | | 11/10 | | e | | ate (AUGMENTIN) | for 10 days | | | 18 | | | | 875-125 mg per | | | | | | | | tablet | | | | | | | + + + +---------+------+------+-------+ | azelastine | instill 2 sprays | | 0 | 10/2 | | Activ | | (ASTEPRO) 0.15% | into each nostril | | | 20 | | e | | nasal spray | every morning | | | 18 | | | + + + +---------+------+------+-------+ | Diethylpropion HCl | TK 1 T PO QAM | | 1 | 06/2 | | Activ | | CR 75 MG TB24 | | | | 1/20 | | e | | | | | | 19 | | | + + + +---------+------+------+-------+ | | TK 1 T PO QAM | | 1 | 04/1 | | Activ | | hydroCHLOROthiazide | | | | 6/20 | | e | | 25 mg tablet | | | | 19 | | | + + + +---------+------+------+-------+ | | TK 1 TO 2 TS PO Q 4 | | 0 | 09/2 | | Activ | | HYDROcodone-acetamin | TO 6 HOURS PRF PAIN | | | 1/20 | | e | | ophen (NORCO) 5-325 | | | | 18 | | | | mg per tablet | | | | | | | + + + +---------+------+------+-------+ | hydrOXYzine | TAKE 1 TO 2 TABLETS | | 1 | 05/1 | | Activ | | hydrochloride | BY MOUTH AT BEDTIME | | | 7/20 | | e | | (ATARAX) 25 mg | TO DECREASE ITCHING | | | 19 | | | | tablet | | | | | | | + + + +---------+------+------+-------+ | ipratropium | U 1 TO 2 SPRAYS IEN | | 11 | 03/1 | | Activ | | (ATROVENT) 0.06% | UP TO TID | | | 8/20 | | e | | nasal spray | | | | 19 | | | + + + +---------+------+------+-------+ | metroNIDAZOLE | TK 1 T PO TID | | 0 | 03/1 | | Activ | | (FLAGYL) 500 MG | | | | 4/20 | | e | | tablet | | | | 19 | | | + + + +---------+------+------+-------+ | mometasone | | | 1 | 05/1 | | Activ | | (ELOCON) 0.1 % | | | | 8/20 | | e | | ointment | | | | 19 | | | + + + +---------+------+------+-------+ | mupirocin | apply to affected | | 0 | 10/2 | | Activ | | (BACTROBAN) 2% | area twice a day for | | | 4/20 | | e | | ointment | 1 month | | | 18 | | | + + + +---------+------+------+-------+ | ondansetron | dissolve 1 tablet ON | | 0 | 09/2 | | Activ | | (ZOFRAN ODT) 4 mg | TONGUE every 8 | | | 5/20 | | e | | disintegrating | hours if needed | | | 18 | | | | tablet | | | | | | | + + + +---------+------+------+-------+ | phentermine 37.5 | TK ONE C PO QAM | | 0 | 05/2 | | Activ | | MG capsule | | | | 5/20 | | e | | | | | | 19 | | | + + + +---------+------+------+-------+ | phentermine | TK 1 T PO QAM | | 0 | 04/1 | | Activ | | (ADIPEX-P) 37.5 mg | | | | 6/20 | | e | | tablet | | | | 19 | | | + + + +---------+------+------+-------+ | predniSONE | | | 0 | 09/2 | | Activ | | (DELTASONE) 10 mg | | | | 1/20 | | e | | tablet | | | | 18 | | | + + + +---------+------+------+-------+ | | TK 1 T PO BID | | 0 | 09/2 | | Activ | | sulfamethoxazole-tri | | | | 1/20 | | e | | methoprim | | | | 18 | | | | (BACTRIM,SEPTRA) | | | | | | | | 400-80 MG per tablet | | | | | | | + + + +---------+------+------+-------+ Active Problems + + + | Problem | Noted Date | + + + | Abdominal pain | 11/09/2015 | + + + | Food intolerance | 11/09/2015 | + + + | History of surgical procedure | 11/09/2015 | + + + | Weight gain | 11/09/2015 | + + + | Diarrhea | 05/14/2015 | + + + | Diverticulosis of large intestine | 05/14/2015 | + + + + + | Overview: Overview: | | CT abdomen | | Colonoscopy 2014 DR RADHA velez | + + + + + | Gastritis | 05/14/2015 | + + + | Irritable bowel syndrome | 05/14/2015 | + + + | Lung mass | 05/14/2015 | + + + + + | Overview: Overview: | | Right lung [address] 04/2015- recheck in one year | + + + + + | History of colonoscopy | 12/18/2014 | + + + + + | Overview: Overview: | | 05/2014- normal | + + + + + | Status post gastrectomy | 12/18/2014 | + + + + + | Overview: Overview: | | 05/2012- [facility] | + + + + + | Migraine | 12/18/2014 | + + + | Indigestion | 05/14/2012 | + + + | Body mass index (BMI) of 40.0-44.9 in adult | 05/14/2012 | + + + | Obstructive sleep apnea syndrome | 05/14/2012 | + + + | Osteoarthritis | 05/14/2012 | + + + | Well controlled intermittent asthma | 05/14/2012 | + + + | ASCUS (atypical squamous cells of undetermined significance) on | 11/21/2011 | | Pap smear | | + + + + + | Overview: THEA [id number] R2 | + + + + + | Back pain | 11/14/2011 | + + + | Gastroesophageal reflux disease without esophagitis | 11/14/2011 | + + + | Morbid obesity | 11/14/2011 | + + + | Abnormal Papanicolaou smear of vagina | 10/21/2011 | + + + | Vitamin D deficiency | 10/21/2011 | + + + + + | Overview: Overview: | | replaced due to ICD-10 go-live | + + + + + | Right Breast lump | 06/02/2011 | + + + | Knee pain | 09/30/2010 | + + + | Menopausal syndrome | 09/18/2009 | + + + | Atopic rhinitis | 09/19/2006 | + + + | Chronic sinusitis | 09/19/2006 | + + + | Carpal tunnel syndrome | 11/15/2005 | + + + | Adiposity | 11/15/2005 | + + + | Disorder | 04/20/2004 | + + + Resolved Problems + + + + | Problem | Noted | Resolved | | | Date | Date | + + + + | HTN (hypertension) | 06/02/20 | | | | 11 | 4 | + + + + | Asthma | 06/02/20 | | | | 11 | 4 | + + + + | History of headache | 06/02/20 | | | | 11 | 4 | + + + + Family History + + +------+ + | Medical History | Relation | Name | Comments | + + +------+ + | Allergies | Father | | | + + +------+ + | Breast cancer | Maternal | | | | | Grandmoth | | | | | er | | | + + +------+ + | Breast cancer | Mother | | | + + +------+ + | Stomach cancer | Mother | | | + + +------+ + | Cancer | Paternal | | skin | | | Grandmoth | | | | | er | | | + + +------+ + | Breast cancer | Sister | | | + + +------+ + + +------+--------+ + | Relation | Name | Status | Comments | + +------+--------+ + | Father | | | | + +------+--------+ + | Maternal Grandmother | | | | + +------+--------+ + | Mother | | | | + +------+--------+ + | Paternal Grandmother | | | | + +------+--------+ + | Sister | | | | + +------+--------+ + Social History + +-------+ +--------+------+ | [...] | + + + + + | Hepatitis C | | | | | Screening | 3 | | | + + + + + | Vaccine: Zoster (1 | | | | | of 2) | 3 | | | + + + + + | Cervical Cancer | | 08/24/2009 | | | Screening (Pap) | 5 | | | + + + + + | Breast Cancer | | 04/02/2015, 11/27/2012, | | | Screening | 8 | 11/10/2011, Additional history | | | | | exists | | + + + + + | Vaccine: Influenza | | 05/14/2015, 05/05/2014, | | | (Season Ended) | 0 | 08/01/2013, Additional history | | | | | exists | | + + + + + | Colorectal Cancer | | 01/31/2014 | | | Screening | 4 | | | | (Colonoscopy) | | | | + + + + + | Vaccine: | | 12/18/2014, 10/04/2004, | | | Dtap/Tdap/Td (2 - | 5 | 02/08/2004 | | | Td) | | | | + + + + + Results Not on filefrom Last 3 Months Insurance +-------+--------+ +--------+-------+---------+------+ | Payer | Benefi | Subscriber | Effect | Phone | Address | Type | | | t Plan | ID | peggy | | | | | | / | | Dates | | | | | | Group | | | | | | +-------+--------+ +--------+-------+---------+------+ | U[employer] | UMR | [id number] | 07/24/19 | | | PPO | | | [employer] | 8 | 11-Pre | | | | | | | | sent | | | | | | HEALTH | | | | | | | | CARE | | | | | | | | PPO | | | | | | +-------+--------+ +--------+-------+---------+------+ + +--------+ +--------+ + + | Guarantor Name | Accoun | Relation to | Date | Phone | Billing Address | | | t Type | Patient | of | | | | | | | | | | + +--------+ +--------+ + + | Steve Bhandari | Person | Self | [birth year] | [address] | | | [place] | | 1965 | [phone] | [place] [address] | | | jennifer | | | 3 (Home) | | | | | | | [phone] | | | | | | | 9 (Work) | | + +--------+ +--------+ + + Advance Directives + + + + + | Type | Date Recorded | Patient | Explanation | | | | Professional Driver | | + + + + + | Power of | | | | | Rougher Machine Operator | | | | + + + + + | Advance | 08/27/2015 8:34 | | | | Directive | AM | | | + + + + +
--- OUTSIDE RECORDS SUMMARY | ~2019-12-01 | XMS | Encounter Summary ---
Demographics + + + | Address | [address] | | | [place] [address] | + + + | Home Phone | | + + + | Preferred Language | Unknown | + + + | Marital Status | | + + + | Gnosticist Affiliation | CHR | + + + | Race | White | + + + | Ethnic Group | Not or | + + + Author + + + | Author | [facility] | + + + | Organization | [facility] | + + + | Address | Unknown | + + + | Phone | Unavailable | + + + Support + + + + + | Name | Relationship | Address | Phone | + + + + + | Osei Bhandari Sr. | ECON | [address] | | | | | [place] | | | | | [address] | | + + + + + Care Team Providers + +------+ + | Care Customer Field Representative Name | Role | Phone | + +------+ + | Royer Wilde MD | PCP | | + +------+ + Encounter Details +--------+ + + + + | Date | Type | Department | Care Team | Description | +--------+ + + + + | 01/15/ | MyChart | [facility] | Jessica Davis, | RE: Need Help | | 2013 | Encounter | Center at [facility] [address] | [address] | | | | | [address] | , [address] | | | | | Mailcode: Center | [place], [place] | | | | | for Health and | [address] | | | | | [place] [address] | [phone] | | | | | [place], [place] | | | | | | [address] | | | | | | [phone] | | | +--------+ + + + [...]
--- OUTSIDE RECORDS SUMMARY | ~2019-12-01 | XMS | Encounter Summary ---
Demographics + + + | Address | [address] | | | [place] [address] | + + + | Home Phone | | + + + | Preferred Language | Unknown | + + + | Marital Status | | + + + | Anabaptism Affiliation | CHR | + + + [...] Osei Bhandari Sr. | ECON | [address] | | | | | [place] | | | | | [address] | | + + + + + Care Team Providers + +------+ + | Care Grocery Shopper Name | Role | Phone | + [...] | 2011 | on | Center at [facility] [address] | | (2 week s/p gastric | | | | [address] | | sleeve) | | | | for Health and | | | | | | Healing, [address] | | | | | | [place], [place] | | | | | | [address] | | | | | | [phone] | | | +--------+ + + + [...]
--- OUTSIDE RECORDS SUMMARY | ~2019-12-01 | XMS | Encounter Summary ---
Demographics + + + | Address | [address] | | | [place] [address] | + + + | Home Phone | | + + + | Preferred Language | Unknown | + + + | Marital Status | | + + + | Yazidism Affiliation | CHR | + + + | Race | White | + + + | Ethnic Group | Not or | + + + Author + + + | Author | [facility] | + + + | Organization | [facility] | + + + | Address | Unknown | + + + | Phone | Unavailable | + + + Support + + + + + | Name | Relationship | Address | Phone | + + + + + | Osei Bhandari Sr. | ECON | [address] | | | | | [place] | | | | | [address] | | + + + + + Care Team Providers + +------+ + | Care Demand Planning Analyst Name | Role | Phone | + +------+ + | Royer Wilde MD | PCP | | + +------+ + Reason for Visit + + + | Reason | Comments | + + + | Bariatric Nutrition | pre bariatric surgery diet consult | + + + Office Visit - E/M Services (Routine) +--------+--------+ + + + + | Status | Reason | Specialty | Diagnoses / | Referred By | Referred To | | | | | Procedures | Contact | Contact | +--------+--------+ + + + + | Closed | | Surgery | Diagnoses | Nagappan, | Gs | | | | | Morbid | [place] O, | Bariatric | | | | | obesity | [place] [address] | [facility] [address] | | | | | (HCC) | [address] | [address] | | | | | | [address] | Mailcode: | | | | | | [address] | [address] | | | | | | [place] | for Health | | | | | | [address] | and Healing, | | | | | | Phone: | Building 1, | | | | | | [phone] | 6th Floor | | | | | | Fax: | [place], [place] | | | | | | [phone] | [address] | | | | | | | Phone: | | | | | | | [phone] | | | | | | | Fax: | | | | | | | [phone] | +--------+--------+ + + + + Encounter Details +--------+---------+ + + + | Date | Type | Department | Care Team | Description | +--------+---------+ + + + | 10/01/ | Office | [facility] | Alexandra Mccloud RD | Morbid Obesity (HCC) | | 2008 | Visit | Center at [facility] [address] | | (Primary Dx) | | | | [address] [facility] | | | | | | for Health and | | | | | | [facility] | | | | | | [place], [place] | | | | | | [address] | | | | | | [phone] | | | +--------+---------+ + + + [...] + + + + | Weight | 116.6 kg (257 lb) | 10/01/2008 11:08 AM | | | | | PDT | | + + + + + | Height | 167.6 cm (5' 6") | 10/01/2008 11:08 AM | | | | | PDT | | + + + + + | Body Mass Index | 41.48 | 10/01/2008 11:08 AM | | | | | PDT | | + + + + + documented in this encounter Progress Notes Alexandra Mccloud, RD - 10/01/2008 11:16 AM PDTReferring Provider: Dr. Andry MD Clinic: Outpatient [facility], Pre Bariatric Surgery Visit The patient met Marisa Olivier, nurse practitioner, [facility], 10/01/08 Services, for diet consult prior to having Lou En Y gastric bypass surgery OR Lap Band heriberto clayton. Documented Time of Visit: 11:00 until 12:00. 60 minutes ldom-ih-etrr consult with the brielle araiza. SUBJECTIVE: Patient Attended Public Meeting: July 2007 Questions/ Information desired today: none. Changes made since Public meeting : quit drinking diet Dr. Crouch, September 21. Goal, patient wants to have surgery to improve HTN, HLD. Daily food frequency information provided: Breakfast about 9 AM: now has bowl or oatmeal or Cheerio's with milk, 2% Vs. Drive thru, p astries, muffins before. Lunch, noon-1: baked potato, butter, chili and cheese, broccoli with salad OR Ramen noodles OR Can of soup OR leftovers Mid afternoon snack: 2-3 PM Junk food, it's a habit Dinner: 6-9 PM depends on the day: Tuesdays, fast food due to her grief support meetings. Evening snack: Popcorn, "movie" 6 cup bag Chips, corn Lays chips Food Allergies: Tomatoes, fresh causes a rash Food Intolerances: Shellfish causes headaches, but she eats it anyway Pork, sometimes causes diarrhea. Lactose Intolerance: No Dairy Intake: cottage cheese, cheese Emotional Eating: Yes, due to stress, anxiety and boredom Weight manager of change the past year: Yes, gained 25 lbs since 2007, after the loss of he r 23 year old son. Best diet success and why: none Current Physical Exercise: Nothing Future: would like to walk, or Join [employer]. Hike and bowling. OBJECTIVE: BMI: 42 Past Medical History: Hypertension Hyperlipidemia Migrane headaches Shoulder pain due to osteoarthritis, takes ADVIL to keep it under control. Medications: See list in Epic snap shot Dietary Supplements: Vit D, 1000 IU per day because her Vit D levels were low, not known a t which level. Labs: Other relevant labs if available from outside [facility]. Nutrition Diagnosis: Obesity as evidenced by BMI of 42. Factors contributing to obesity: Emotional eating Lifestyle issues Lack of a regular physical activity program Genetics Large portions, habit Pre-Surgery Diet: Patient states the next behavior change she work on is avoiding [employer], Taco Hobbs, Sidra chavira's and Felisa Olsen. If she does visit [employer], she'll order a grill chicken sandwich or a salad. Provided written diet suggestions to help patient lose weight before surgery. Continue to practice behavioral changes to prepare for surgery -Aim for low-fat protein at every meal, increase vegetables and fruit -Cont w/ fluid intake -Mindful eating Slow down her eating. Discussed behavior changes to practice before surgery to prepare for surgery. Suggested 2 books for behavior change to help patient prepare for surgery. Explore exercise program options such as walking. She'll start Walk, 30 minutes 3 times per week just after work on the treadmill. Post surgery diet education: Provided visual, verbal & written information on all aspects of bariatric surgery. Discusse d lifelong behavior changes, proper diet selections and exercise. Encouraged patient to f/u with dietitian pre or post surgery as needed. Education Provided: Provided and reviewed an instructional handout with the patient on diet progression, sample menus, ideas, food items and vitamins and minerals needed for surgery. Emphasized the impo rtance of a regular physical activity program of 30-60 minutes per day to maintain weight lo ss post surgery. Patient's Comprehension: The patient is: Receptive Stage of change: Contemplation Barrier(s) to education: No Learning style: Patient is a Visual learner Information provided in writing, and used visual aids to demonstrate food portions Post surgery and size of stomach after surgery. Expected Outcome: I think the patient will do moderately if following all lifestyle and behavioral changes discussed today. GOAL: The patient's goal is to have weight loss surgery to maintain weight loss and improve other health conditions. 1. Continue to practice behavioral changes to prepare for surgery and lose 13 lbs. 2. Increase physical activity, start walking 30 minutes 3 times per week 3. Review all information provided for post surgery diet progression. 4. Call dietitian with any questions. 5. Follow up with dietitian as needed after surgery. 6. Contact information was provided. documented in this enc ounter Plan of Treatment + + +--------+ + + | Name | Type | Priori | Associated Diagnoses | Order Schedule | | | | ty | | | + + +--------+ + + | SD MNT INITIAL | Procedures | Routin | Morbid Obesity | Ordered: 10/01/2008 | | ASSESSMNT X15MIN | | e | (HCC) | | + + +--------+ + + documented as of this encounter Visit Diagnoses + + | Diagnosis | + + | Morbid obesity (HCC) - Primary Morbid obesity | + + documented in this encounter
--- OUTSIDE RECORDS SUMMARY | ~2019-12-01 | XMS | Clinical Summary ---
Demographics + + + | Address | [address] | | | [place] [address] | + + + | Home Phone | | + + + | Preferred Language | Unknown | + + + | Marital Status | | + + + | Moravian Affiliation | 1013 | + + + | Race | Unknown | + + + | Ethnic Group | Unknown | + + + Author + + + | Author | [facility] (Historical as of | | | 03-09-19) | + + + | Organization | [facility] (Historical as of | | | 03-09-19) | + + + | Address | Unknown | + + + | Phone | Unavailable | + + + Support + + + + + | Name | Relationship | Address | Phone | + + + + + | Msg Jose | ECON | Unknown | | + + + + + | Vance Bhandari | ECON | [address] | | | | | [place] | | | | | [address] | | + + + + + | Jesse Bhandari | ECON | [place] [address] | | + + + + + Care Team Providers + +------+ + | Care Supervisor Heading Name | Role | Phone | + +------+ + | Milvia Chen | PP | | | FURNACE CHARGER | | | + +------+ + Allergies + + + + + + | Active Allergy | Reactions | Severity | Noted | Comments | | | | | Date | | + + + + + + | Codeine | Nausea and Vomiting | Low | 02/10/20 | | | | | | 16 | | + + + + + + | Dexamethasone | Nausea and Vomiting | Low | 08/23/19 | | | | | | 17 | | + + + + + + | Droperidol | Anxiety | Low | 02/10/20 | | | | | | 16 | | + + + + + + | Metoclopramide | Anxiety | Low | 02/10/20 | | | | | | 16 | | + + + + + + Current Medications + + +-------+---------+------+------+-------+ | Prescription | Sig. | Disp. | Refills | Star | End | Statu | | | | | | t | Date | s | | | | | | Date | | | + + +-------+---------+------+------+-------+ | Multiple Vitamin | Take 1 capsule by | | | | | Activ | | (MULTIVITAMIN) | mouth daily. | | | | | e | | capsule | | | | | | | + + +-------+---------+------+------+-------+ | Potassium 75 MG | Take by mouth. | | | | | Activ | | TABS | | | | | | e | + + +-------+---------+------+------+-------+ | Magnesium 100 MG | Take 100 mg by | | | | | Activ | | TABS | mouth. | | | | | e | + + +-------+---------+------+------+-------+ | Cholecalciferol | Take 5,000 Units by | | | | | Activ | | 5000 UNITS capsule | mouth daily. | | | | | e | + + +-------+---------+------+------+-------+ | albuterol | 2 puffs. | | | 05/3 | | Activ | | (PROVENTIL | | | | 0/20 | | e | | HFA;VENTOLIN HFA) | | | | 16 | | | | 108 (90 Base) | | | | | | | | MCG/ACT inhaler | | | | | | | + + +-------+---------+------+------+-------+ | cyanocobalamin | Take by mouth. | | | 11/0 | | Activ | | (V-R VITAMIN B-12) | | | | 2/20 | | e | | 500 MCG tablet | | | | 12 | | | + + +-------+---------+------+------+-------+ | atorvastatin | TK 1 T PO QD | | 3 | 11/2 | | Activ | | (LIPITOR) 10 MG | | | | 8/20 | | e | | tablet | | | | 17 | | | + + +-------+---------+------+------+-------+ | ranitidine | Take 150 mg by mouth | | | | | Activ | | (ZANTAC) 150 MG | 2 (two) times | | | | | e | | tablet | daily. | | | | | | + + +-------+---------+------+------+-------+ Active Problems No known active problems Social History + +-------+ +--------+------+ | Tobacco Use | Types | Packs/Day | Years | Date | | | | | Used | | + +-------+ +--------+------+ | Never Smoker | | | | | + +-------+ +--------+------+ + +---+---+---+ | Smokeless Tobacco: | | | | | Never Used | | | | + +---+---+---+ + + +---------+ + | Alcohol Use | Drinks/We | oz/Week | Comments | | | ek | | | + + +---------+ + | No | | | | + + +---------+ + + + + | Sex Assigned at | Date Recorded | | | | + + + | Not on file | | + + + Last Filed Vital Signs + + + + | Vital Sign | Reading | Time Taken | + + + + | Blood Pressure | 154/72 | 03/26/2018 9:38 AM PDT | + + + + | Pulse | 71 | 03/26/2018 9:38 AM PDT | + + + + | Temperature | 36.3 C (97.3 F) | 03/26/2018 9:38 AM PDT | + + + + | Respiratory Rate | 18 | 03/26/2018 9:38 AM PDT | + + + + | Oxygen Saturation | 97% | 03/26/2018 9:38 AM PDT | + + + + | Inhaled Oxygen | - | - | | Concentration | | | + + + + | Weight | 111.1 kg (244 lb | 03/26/2018 9:38 AM PDT | | | 14.9 oz) | | + + + + | Height | 167.6 cm (5' 6") | 07/25/2017 11:36 PM PST | + + + + | Body Mass Index | 39.53 | 03/26/2018 9:38 AM PDT | + + + + Plan of Treatment + + + + + | Health Maintenance | Due Date | Last Done | Comments | + + + + + | Cervical Cancer | | | | | Screening (Pap) | 3 | | | + + + + + | Breast Cancer | | | | | Screening | 3 | | | | (Mammogram) | | | | + + + + + | Colon Cancer | | | | | Screening | 3 | | | | (Colonoscopy) | | | | + + + + + | Vaccine: Zoster (1 | | | | | of 2) | 3 | | | + + + + + | Vaccine: Influenza | | 03/22/2018, 05/14/2015, | | | (Season Ended) | 0 | 05/05/2014, Additional history | | | | | exists | | + + + + + | Vaccine: | | 12/18/2014, 10/04/2004, | | | Dtap/Tdap/Td (2 - | 5 | 02/08/2004 | | | Td) | | | | + + + + + Results Not on filefrom Last 3 Months Insurance +---------+--------+ +------+-------+ + | Payer | Benefi | Subscriber | Type | Phone | Address | | | t Plan | ID | | | | | | / | | | | | | | Group | | | | | +---------+--------+ +------+-------+ + | PREMERA | PREMER | [id number] | | | [address] [address] | | | A BLUE | 8 | | | [place], [place] | | | CARD | | | | [address] | +---------+--------+ +------+-------+ + + +--------+ +--------+ + + | Guarantor Name | Accoun | Relation to | Date | Phone | Billing Address | | | t Type | Patient | of | | | | | | | | | | + +--------+ +--------+ + + | STEVE BHANDARI | Person | Self | [birth year] | Home: | [address] | | | al/Fam | | 1965 | [phone] [place] | | | jennifer | | | [phone] | [address] | + +--------+ +--------+ + +
--- OUTSIDE RECORDS SUMMARY | ~2019-12-01 | XMS | Encounter Summary ---
Demographics + + + | Address | [address] | | | [place] [address] | + + + | Home Phone | | + + + | Preferred Language | Unknown | + + + | Marital Status | | + + + | Anglican Affiliation | CHR | + + + | Race | White | + + + | Ethnic Group | Not or | + + + Author + + + | Author | [facility] | + + + | Organization | [facility] | + + + | Address | Unknown | + + + | Phone | Unavailable | + + + Support + + + + + | Name | Relationship | Address | Phone | + + + + + | Osei Bhandari Sr. | ECON | [address] | | | | | [place] | | | | | [address] | | + + + + + Care Team Providers + +------+ + | Care Electrical Integrator Name | Role | Phone | + [...] | | Center at [facility] [address] | EMPLOYMENT SPECIALIST/PROGRAM MANAGER [address] | | | | | [address] | , [address] | | | | | Mailcode: Center | [place], [place] | | | | | for Health and | [address] | | | | | Healing, Building 2 | [phone] | | | | | [place], [place] | | | | | | [address] | | | | | | [phone] | | | +--------+ + + + [...]
--- OUTSIDE RECORDS SUMMARY | ~2019-12-01 | XMS | Encounter Summary ---
Demographics + + + | Address | [address] | | | [place] [address] | + + + | Home Phone | | + + + | Preferred Language | Unknown | + + + | Marital Status | | + + + | Judaism Affiliation | 1077 | + + + [...] Osei Woodard | ECON | [address] | | | [place] | | [place] | | | | | [address] | | + + + + + Care Team Providers + +------+ + | Care Varnish Inspector Name | Role | Phone | + [...] | | | ageal reflux | | [address] | | | | | disease | | [place] [address] | | | | | without | | [place], [place] | | | | | esophagitis | | [address] | | | | | GERD | | Phone: | | | | | Procedures | | [phone] | | | | | [place] | | Fax: | | | | | ESOPHAGOGAST | | [phone] | | | | | RODUODENOSCO | | | | | | | PY TRANSORAL | | | | | | | DIAGNOSTIC | | | +--------+--------+ + + + + Encounter Details +--------+ + + + + | Date | Type | Department | Care Team | Description | +--------+ + + + + | 08/27/ | Hospital | [facility] | Suellen Dwyer | | | 2016 | Encounter | [facility] | MD Mahesh [address] | | | | | EN INTRA OP [address] [place] | | | | | [address] | [place] [address] | | | | | [place], [place] | [phone] | | | | | [address] | | | | | | [phone] | | | +--------+ + + + [...] | [place] | [place] | [facility] | | Services | | | Patient Name: Steve Rocksprings Procedure | | | Date: 08/27/2015 9:28 AMMRN: [id number] | | | of : 1965 | [...] | | | | spray PRN, Starting [facility] 08/27/15 | | 16 9:38 | | [...]
--- OUTSIDE RECORDS SUMMARY | ~2019-12-01 | XMS | Encounter Summary ---
Demographics + + + | Address | [address] | | | [place] [address] | + + + | Home Phone | | + + + | Preferred Language | Unknown | + + + | Marital Status | | + + + | Baptism Affiliation | 1077 | + + + [...] Osei Woodard | ECON | [address] | | | [place] | | [place] | | | | | [address] | | + + + + + Care Team Providers + +------+ + | Care Export Coordinator Name | Role | Phone | + +------+ + | Royer Wilde MD | PCP | | + +------+ + Reason for Visit + + + | Reason | Comments | + + + | Abnormal Pap Smear | ASCUS HPV- | + + + Encounter Details +--------+---------+ + + + | Date | Type | Department | Care Team | Description | +--------+---------+ + + + | 11/15/ | Office | [facility] | Ravinder Ninfa, | ASCUS (atypical | | 2011 | Visit | [facility] [place] | [address] | squamous cells of | | | | [facility] [address] [place], [place] | undetermined | | | | [address] | [address] | significance) on Pap | | | | [place], [place] | | smear (Primary Dx) | | | | [address] | | | | | | [phone] | | | +--------+---------+ + + + [...] + + + | Blood Pressure | 118/78 | 11/16/2011 1:48 PM | | | | | PDT [...] + + + + | Weight | 115.2 kg (253 lb | 11/16/2011 1:48 PM | | | | 14.4 oz) | PDT | | + + + + + | Height | - | - | | + + + + + | Body Mass Index | - | - | | + + + + + documented in this encounter Progress Notes Ninfa Castellon MD - 11/21/2011 7:32 AM PDTFormatting of this note might be different fr om the original. Subjective: Steve Bhandair is a 46 y.o. woman who comes in today for as a referal for ASCUS + and HPV - pap smear only. Her most recent annual exam was on last year with her PCP, and pt does not remember that if she ever had an abrnormal pap smear She denies an post copital bleeding a nd abnromal discharge and foul smelling discharge. Previous abnormal Pap smears: no. Contr aception: none Patient's medications, allergies, past medical, surgical, social and family histories were reviewed and updated as appropriate. Review of Systems Pertinent items are noted in HPI. Objective: BP 118/78 | Wt 115.168 kg (253 lb 14.4 oz) | ? No Pelvic Exam: deferred. Pap smear obtained. Assessment: Pt came with HPV neg but ASCUS, discussed the new recommendation of the pap screening. At this moment we will repeat the HPV in 6 week and also the pap smear att hat time. Pt is offe red the 2 options to go straight with colpo or the 2 option she chose which is to repeat the pap/colps in 6 mths Plan: Follow up in 6 months, Consultation took 25 minutes all of which were face to face consultationElectronically sign ed by Ninfa Castellon MD at 11/21/2011 7:32 AM Catina Whatley RN - 11/16/2011 2:03 P M PDTPt was referred here for abnormal PAP, states she has never has an abnormal PAP prior. documented in this en counter Plan of Treatment Not on filedocumented as of this encounter Visit Diagnoses + + | Diagnosis | + + | ASCUS (atypical squamous cells of undetermined significance) on Pap smear - Primary | | Papanicolaou smear of cervix with atypical squamous cells of undetermined significance | | (ASC-US) | + + documented in this encounter"
--- OUTSIDE RECORDS SUMMARY | ~2019-12-01 | XMS | Encounter Summary ---
Demographics + + + | Address | [address] | | | [place] [address] | + + + | Home Phone | | + + + | Preferred Language | Unknown | + + + | Marital Status | | + + + | Orthodox Affiliation | CHR | + + + | Race | White | + + + | Ethnic Group | Not or | + + + Author + + + | Author | [facility] | + + + | Organization | [facility] | + + + | Address | Unknown | + + + | Phone | Unavailable | + + + Support + + + + + | Name | Relationship | Address | Phone | + + + + + | Osei Bhandari Sr. | ECON | [address] | | | | | [place] | | | | | [address] | | + + + + + Care Team Providers + +------+ + | Care Em Physician Name | Role | Phone | + [...] + + | 05/24/ | Hospital | [facility] [address] | Dereje Trevino, | | | 2011 - | Encounter | Rosa Harris MD | | | | | [place], [place] | | | | 05/25/ | | [address] | | | | 2011 | | [phone] | | | +--------+ + + + [...] gastrectomy without complications. She had ini tial ORE MIXER and was transitioned to oral medications with [...] Milvia Ricardo RD [facility] [phone] FOOD AND NU T 06/08/2012 9:30 AM JOCELIN Stone [facility] Bariatric Surgery [phone] [facility] 07/06/2012 10:00 AM Jessica Davis NP [facility] Bariatric Surgery [phone] [facility] Your Follow-Up Plan Follow up with [facility]. (Call if you have any concerns, ) Contact information: [email or web address] Mailcode: [address] And [facility], [address] [facility] [address] Medication Refill Instructions If you need a refill on any narcotic pain medications, please call the clinic ([phone] ) by 2 pm on for any [...] during the day time hours by calling [facility] surgery office at [phone] - After hours, weekends and holidays, you may call the hospital presto log operator at [phone] an d have the it consultant [place] Team for general surgery paged. Constipation Prevention [...] 24 hours. Outstanding labs/studies: EMILY SCHULTZ, NICK [facility] [address] [place] [address] Discharging Physician: NICK NAYAK Attending Physician: Dereje [...] incentive spirometry Cande Garzon MD. MSc. PGY-1 [facility] Plastic and Reconstructive Surgery [place] [phone] documented in this encou nter Plan of [...] GASTRECTOMY | ve | 7:22 AM | ([facility]) | | | | Surgic | PDT [...] Date: 05/24/2012ttending | | Surgeon: Dereje Trevino M.D.Grocery Stock Clerk(s): Anca | | KULDEEP Paigereoperative Diagnosis(es):Morbid obesity.Postoperative [...] the case.Disposition:To the PACU.Dereje Trevino M.D.KOJO / [id number] / [id number] / | | [id number] / T: 05/24/2012 | |identified a point [...] Tri-Stapler to create the sleevearoun d a 32-Turkish | |Tube. We started with black loads, [...] | | | |Dereje Trevino M.D. | |[facility] / | |[id number] / [id number] / [id number] / | | | | | + [...] [facility] | [address] | [place], [place] | | | TANNER POINT OF CARE | [address] | [address] | | | TESTS | | | [...] JUD | [address] | [place], [place] | | | AMPARO HART OF CARE | [facility] | [address] | | | TESTS | | | [...] + + + | [facility]PHEN [facility] | [address] | [place], [place] | | | TANNER POINT OF CARE | [address] | [address] | | | TESTS | | | [...] | + + + + + | [facility] | [address] | [place] [address] | | | SERVICES, CORE | ZACKARY [...] [facility] | [address] | [place] [address] | | | SEFERINO ROWAN | ZACKARY [...] [facility] | [address] | [place] [address] | | | SERVICES, CORE | PARK [...] | + + + + + | [facility] | [address] | [place] [address] | | | SERVICES, CORE | ZACKARY [...] [facility] | [address] | [place], [place] | | | AMPARO HART OF CARE | [address] | [address] | | | TESTS | | | [...] lesions. | | | | | | Sweatband Maker | | | | | | sections of thespecimen | | | | | | are submitted. | | | | | | Cassette Index:A1, | | | | | | underwriting account representative sections | | | | [...] | + + + + + | [facility] | [address] | [place] [address] | | | PATHOLOGY | [address] [...] | | | | | dose, Starting [facility] 05/24/12 at | | | | [...]
--- OUTSIDE RECORDS SUMMARY | ~2019-12-01 | XMS | Encounter Summary ---
Demographics + + + | Address | [address] | | | [place] [address] | + + + | Home Phone | | + + + | Preferred Language | Unknown | + + + | Marital Status | | + + + | Cheondoism Affiliation | CHR | + + + [...] Osei Bhandari Sr. | ECON | [address] | | | | | [place] | | | | | [address] | | + + + + + Care Team Providers + +------+ + | Care Spd Tech Name | Role | Phone | + +------+ + | Royer Wilde MD | PCP | | + +------+ + Reason for Visit + + + | Reason | Comments | + + + | Pre-Admission | | + + + Encounter Details +--------+ + + + + | Date | Type | Department | Care Team | Description | +--------+ + + + + | 05/08/ | PreAdmit | [facility] | Dereje Trevino, | Pre-Admission | | 2011 | Orders | Center at [facility] [address] | MD | | | | | [address]hes[address] Ramos | | | | | | Mailcode: [place] | | | | | | for Health and | | | | | | [facility] | | | | | | [place], [place] | | | | | | [address] | | | | | | [phone] | | | +--------+ + + + [...] | + +--------+ + + + | 12 LEAD ECG | Routin | 05/14/2012 | Morbid obesity | Results for this | | | e | 2:07 PM | (HCC) | procedure are in the | | | | PDT | | results section. | + +--------+ + + + documented in this encounter Results COMPLETE METABOLIC SET (NA,K,CL,CO2,BUN,CREAT,GLUC,CA,AST,ALT,BILI TOTAL,ALK PHOS,ALB,PROT TOTAL) (05/14/2012 2:08 PM PDT) + +---------+ + + + | Component | Value | Ref Range | Performed | Pathologist | | | | | At | Signature | + +---------+ + + + | GLUCOSE, | 75 | 60 - 99 mg/dL | [facility] | | | PLASMA | | | LABORATORY | | | (LAB) | | | SERVICES, | | | | | | CORE | | + +---------+ + + + | BUN, PLASMA | 11 | 6 - 20 mg/dL | [facility] | | | (LAB) | | | LABORATORY | | | | | | SERVICES, | | | | | | CORE | | + +---------+ + + + | CREATININE | 0.72 | 0.60 - 1.10 | [facility] | | | PLASMA | | mg/dL | LABORATORY | | | (LAB) | | | SERVICES, | | | | | | CORE | | + +---------+ + + + | SODIUM, | 140 | 136 - 145 | [facility] | | | PLASMA | | mmol/L | LABORATORY | | | (LAB) | | | SERVICES, | | | | | | CORE | | + +---------+ + + + | POTASSIUM, | 3.7 | 3.4 - 5.0 | [facility] | | | PLASMA | | mmol/L | LABORATORY | | | (LAB) | | | SERVICES, | | | | | | CORE | | + +---------+ + + + | CHLORIDE, | 104 | 97 - 108 mmol/L | [facility] [...] +---------+ + + + | CALCIUM, | 9.9 | 8.6 - 10.2 | [facility] | [...] +---------+ + + + | TOTAL | 8.0 (H) | 6.1 - 7.9 g/dL | [facility] | | | PROTEIN, | | | LABORATORY | | | PLASMA | | | SERVICES, | | | (LAB) | | | CORE | | + +---------+ + + + | ALBUMIN, | 4.0 | 3.5 - 4.7 g/dL | [facility] [...] +---------+ + + + | AST(SGOT) | 27 | 15 - 41 U/L | [facility] | | | | | | LABORATORY | | | | | | SERVICES, | | | | | | CORE | | + +---------+ + + + | ALT (SGPT) | 33 | 12 - 60 U/L | [facility] | | | | | | LABORATORY | | | | | | SERVICES, | | | | | | CORE | | + +---------+ + + + | ANION | 8 | 4 - 11 mmol/L | [facility] [...] + + + | ANION GAP | 8 | 4 - 11 mmol/L | [facility] [...] | + + + + + | [facility] | [address] | [place] [address] | | | SERVICES, CORE | [address] | | | + + + + + 12 LEAD ECG (05/14/2012 2:07 PM PDT) + + + + + + | Component | Value | Ref Range | Performed | Pathologist | | | | | At | Signature | + + + + + + | VENTRICULAR | 67 | BPM | [facility] | | | RATE | | | OF | | | | | | CARDIOLOGY | | + + + + + + | ATRIAL RATE | 67 | BPM | [facility] | | | | | | OF | | | | | | CARDIOLOGY | | + + + + + + | P-R | 152 | ms | [facility] | | | INTERVAL | | | OF | | | | | | CARDIOLOGY | | + + + + + + | QRS | 92 | ms | [facility] | | | DURATION | | | OF | | | | | | CARDIOLOGY | | + + + + + + | QT | 394 | ms | [facility] | | | | | | OF | | | | | | CARDIOLOGY | | + + + + + + | QTC | 416 | ms | [facility] | | | | | | OF | | | | | | CARDIOLOGY | | + + + + + + | P AXIS | 27 | degrees | [facility] | | | | | | OF | | | | | | CARDIOLOGY | | + + + + + + | R AXIS | 68 | degrees | [facility] | | | | | | OF | | | | | | CARDIOLOGY | | + + + + + + | T AXIS | 24 | degrees | [facility] | | | | | | OF | | | | | | CARDIOLOGY | | + + + + + + | EKG | Normal sinus rhythm with | | [facility] | | | DIAGNOSIS | sinus arrhythmiaLow | | OF | | | | voltage QRSBorderline | | CARDIOLOGY | | | | ECGConfirmed by | | | | | | ZENON SUBRAMANIAN | | | | | | ([id number]) on 05/15/2012 | | | | | | 10:18:05 AM | | | | + + + + + + + + | Specimen | + + | | + + + + + | Narrative | Performed At | + + + | Please click | [facility] | | on view image for the detailed interpretation from [employer]. | CARDIOLOGY | + + + + + + + + | Performing | Address | City/State/Zipcode | Phone Number | | Organization | | | | + + + + + | [facility] | [address] | [place], [place] | | | CARDIOLOGY | [address] | [address] | | + + + + + documented in this encounter Visit Diagnoses + + | Diagnosis | + + | Morbid obesity (HCC) - Primary Morbid obesity | + + documented in this encounter"
--- OUTSIDE RECORDS SUMMARY | ~2019-12-01 | XMS | Encounter Summary ---
Demographics + + + | Address | [address] | | | [place] [address] | + + + | Home Phone | | + + + | Preferred Language | Unknown | + + + | Marital Status | | + + + | Pentecostal Affiliation | CHR | + + + [...] Osei Bhandari Sr. | ECON | [address] | | | | | [place] | | | | | [address] | | + + + + + Care Team Providers + +------+ + | Care Paper Sorter And Counter Name | Role | Phone | + +------+ + | Royer Wilde MD | PCP | | + +------+ + Encounter Details +--------+ + + + + | Date | Type | Department | Care Team | Description | +--------+ + + + + | 12/10/ | MyChart | [facility] | Jessica Davis, | RE: Test Results | | 2012 | Encounter | Center at [facility] [address] | EVALUATION ADVISOR [address] | | | | | [address] | , [address] | | | | | Mailcode: Center | [place], [place] | | | | | for Health and | [address] | | | | | [place] [address] | [phone] | | | | | [place], [place] | | | | | | [address] | | | | | | [phone] | | | +--------+ + + + [...]
--- OUTSIDE RECORDS SUMMARY | ~2019-12-01 | XMS | Encounter Summary ---
Demographics + + + | Address | [address] | | | [place] [address] | + + + | Home Phone | | + + + | Preferred Language | Unknown | + + + | Marital Status | | + + + | Moravian Affiliation | 1077 | + + + | Race | Unknown | + + + | Ethnic Group | Unknown | + + + Author + + + | Author | [facility] | | | and [place] | + + + | Organization | [facility] | | | and [place] | + + + | Address | Unknown | + + + | Phone | Unavailable | + + + Support + + + + + | Name | Relationship | Address | Phone | + + + + + | Osei Woodard | ECON | [address] | | | [place] | | [place] | | | | | [address] | | + + + + + Care Team Providers + +------+ + | Care Lead Applications Developer Name | Role | Phone | + +------+ + | iNcole Chen | PCP | | + +------+ + Encounter Details +--------+ + + + + | Date | Type | Department | Care Team | Description | +--------+ + + + + | 02/14/ | Orders Only | [facility] | Provider, | | | 2018 | | SYSTEM GENERIC OP | [address] [place] [address] | | | | | [address] | [address] | | | | | [address] [place], [place] | [place] [address] | | | | | [address] | | | | | | [phone] | | | +--------+ + + + [...]
--- OUTSIDE RECORDS SUMMARY | ~2019-12-01 | XMS | Encounter Summary ---
Demographics + + + | Address | [address] | | | [place] [address] | + + + | Home Phone [...] | Osei Woodard | ECON | [address] | | | [place] | | [place] | | | | | [address] | | + + + + + Care Team Providers + +------+ + | Care Supervisor Lens Generating Name | Role | Phone | + +------+ + PCP | Unavailable | + +------+ + Encounter Details +--------+ + + + + | Date | Type | Department | Care Team | Description | +--------+ + + + + | 10/01/ | Hospital | [facility] | [place], | | | 2009 - | Encounter | [facility] | Royer Hurd MD | | | | | CANCELED VISITS [address] | [address] | | | 10/03/ | | [address] | [address] | | | 2009 | | [place] | [place] | | | | | [address] | [address] | | | | | [phone] | [phone] | | | | | | | [...]
--- OUTSIDE RECORDS SUMMARY | ~2019-12-01 | XMS | Encounter Summary ---
Demographics + + + | Address | [address] | | | [place] [address] | + + + | Home Phone | | + + + | Preferred Language | Unknown | + + + | Marital Status | | + + + | Tenriism Affiliation | 1077 | + + + | Race | Unknown | + + + | Ethnic Group | Unknown | + + + Author + + + | Author | [facility] | | | and [place] | + + + | Organization | [facility] | | | and [place] | + + + | Address | Unknown | + + + | Phone | Unavailable | + + + Support + + + + + | Name | Relationship | Address | Phone | + + + + + | Osei Woodard | ECON | [address] | | | [place] | | [place] | | | | | [address] | | + + + + + Care Team Providers + +------+ + | Care Adjunct Business Instructor Name | Role | Phone | + +------+ + | Royer Wilde MD | PCP | | + +------+ + Encounter Details +--------+ + + + + | Date | Type | Department | Care Team | Description | +--------+ + + + + | 11/27/ | Hospital | Steven Villagran Other screening | | 2012 | Encounter | [facility] | Royer Hurd MD | mammogram | | | | Center Mammography | [address] | | | | | [address] | [address] | | | | | [place], [place] | [place], [place] | | | | | [address] | [address] | | | | | [phone] | [phone] | | | | | | | [...] Results In - 11/28/2012 10:50 AM PDT [facility] DIGITAL SCREENING BILATERALDATE OF | [...] + | MISCELLANEOUS LAB | | | [phone] | + +---------+ + + | MISCELANIOUS LAB | | | [phone] | + +---------+ + + documented in this encounter Visit Diagnoses + + | Diagnosis | + + | Other screening mammogram | + + documented in this encounter"
--- OUTSIDE RECORDS SUMMARY | ~2019-12-01 | XMS | Encounter Summary ---
Demographics + + + | Address | [address] | | | [place] [address] | + + + | Home Phone | | + + + | Preferred Language | Unknown | + + + | Marital Status | | + + + | Mandaen Affiliation | CHR | + + + | Race | White | + + + | Ethnic Group | Not or | + + + Author + + + | Author | [facility] | + + + | Organization | [facility] | + + + | Address | Unknown | + + + | Phone | Unavailable | + + + Support + + + + + | Name | Relationship | Address | Phone | + + + + + | Osei Bhandari Sr. | ECON | [address] | | | | | [place] | | | | | [address] | | + + + + + Care Team Providers + +------+ + | Care Pastoral Worker Name | Role | Phone | + [...] | ageal reflux | [address] | [place] | | | | | disease) | [place], [place] | [place], [address] | | | | | Procedures | [address] | floor | | | | | CONSULT TO | | [place], [place] | | | | | GI PROCEDURE | | [address] | | | | | UNIT: | | Phone: | | | | | ESOPHAGEAL | | [phone] | | | | | MANOMETRY | | Fax: | | | | | | | [phone] | +--------+--------+ + + + + Reason [...] | | | | obesity | [place] [address] | [facility] [address] | | | | | (HCC) | [address] | [place] [address] | | | | | | [address] | Mailcode: | | | | | | [address] | [facility] | | | | | | [facility], [place] | for Health | | | | | | [address] | and Healing, | | | | | | Phone: | [address], | | | | | | [phone] | 6th Floor | | | | | | Fax: | [place], [place] | | | | | | [phone] | [address] | | | | | | | Phone: | | | | | | | [phone] | | | | | | | Fax: | | | | | | | [phone] | +--------+--------+ + + + + Encounter [...] | Reflux Disease) | | | | [facility] | | (Primary Dx) | | | | and Healing, | | | | | | [address], | | | | | | [place], [place] | | | | | | [address] | | | | | | [phone] | | | +--------+---------+ + + + [...] GI. Esophageal manometry: To be arranged at [facility]. Pap test. Report needed. ECHO: Report [...] schedule with the [place] [address] Kdvlafciinsaxl signed by JOCELIN Patel at 10/01/2008 10:23 [...] hi story of lower extremity edema, CHF, VA, ischemic heart disease, DVT/PE, or pulmonary hypert [...] GI. Esophageal manometry: To be arranged at [facility]. Pap test. Report needed. PCP notes: Notes form Aug 2006 to Apr 2008. Sleep study: Report needed and documentation of new nasal device use. Weight loss Goal is: 13# loss for a target weight of 244#. (not insurance required). Please start exercise program. Once above is completed, we will submit for insurance authorization then schedule with the [place] [address] documented in this enc ounter Plan of [...]
--- OUTSIDE RECORDS SUMMARY | ~2019-12-01 | XMS | Encounter Summary ---
Demographics + + + | Address | [address] [facility] | | | [place] [address] | + + + | Home Phone | | + + + | Preferred Language | Unknown | + + + | Marital Status | | + + + | Buddhism Affiliation | CHR | + + + [...] Osei Bhandari Sr. | ECON | [address] | | | | | [place] | | | | | [address] | | + + + + + Care Team Providers + +------+ + | Care Propellant Charge Loader Name | Role | Phone | + +------+ + | Royer Wilde MD | PCP | | + +------+ + Reason for Visit + + + | Reason | Comments | + + + | Pre-op evaluation | | + + + Encounter Details +--------+---------+ + + + | Date | Type | Department | Care Team | Description | +--------+---------+ + + + | 05/14/ | Office | Preoperative | Raheem Wahl NP | Pre-op evaluation | | 2011 | Visit | Medicine Clinic at | [address] | (Primary Dx); Morbid | | | | [facility] [address] | [place], [place] | obesity (HCC); HTN | | | | [address] | [address] | (hypertension); GERD | | | | Mailcode: [facility] | [phone] | (gastroesophageal | | | | [facility] | | reflux disease); | | | | and Healing, | | Screening for | | | | Building 1[address]4th Floor | | diabetes mellitus; | | | | [facility] [place] | | BMI 40.0-44.9, adult | | | | [address] | | (HCC); ABHIJEET | | | | [phone] | | (obstructive sleep | | | | | | apnea); Well | | | | | | controlled | | | | | | intermittent asthma; | | | | | | Dyspepsia; | | | | | | Osteoarthritis | +--------+---------+ + + + Anesthesia Record + + + + + | Procedure Name | Responsible | Anesthesia Start | Anesthesia Stop Time | | | Anesthesiologist | Time | | + + + + + | LAPAROSCOPIC GASTRIC | Jordyn Carroll MD | 05/24/12 0722 | 05/24/12 1022 | | SLEEVE PROCEDURE | | | | | (N/A ) | | | | + + + + + +----+---+ + + | Da | T | Event | Comment | | te | i | | | | | m | | | | | e | | | +----+---+ + + | 11 | 0 | Eq Check | Anesthesia machine checked Equipment verified | | /0 | 6 | | | | 1/ | 4 | | | | 20 | 7 | | | | 12 | | | | +----+---+ + + | | 0 | Pt. Check | Prior to anesthesia start, pt. Identified, examined, chart | | | 6 | | reviewed, PARQ held, anesthetic plan made or approved by | | | 4 | | attending anesthesiologist. NPO status confirmed as appropriate | | | 8 | | for procedure Preoperative evaluation: unchanged | +----+---+ + + | | 0 | An Start | | | | 7 | | | | | 2 | | | | | 2 | | | +----+---+ + + | | 0 | An Start | | | | 7 | Data | | | | 2 | | | | | 4 | | | +----+---+ + + | | 0 | Vitals | Monitors applied Vital signs checked Patient ready for anesthesia | | | 7 | Checked | | | | 2 | | | | | 4 | | | +----+---+ + + | | 0 | Std. Airway | | | | 7 | Mgt. | | | | 3 | | | | | 6 | | | +----+---+ + + | | 0 | Ready | | | | 7 | | | | | 4 | | | | | 0 | | | +----+---+ + + | | 0 | Abx | | | | 7 | Administere | | | | 4 | d | | | | 0 | | | +----+---+ + + | | 0 | Quick Note | Gastric Balloon Suction Catheter placed. Gastric contents | | | 7 | | appreciated. | | | 5 | | | | | 0 | | | +----+---+ + + | | 0 | Quick Note | Reverse trendelenberg test completed. Proper alignment no areas | | | 7 | | of stretch or pressure. Surgical and Anesthesia team in | | | 5 | | agreement. | | | 7 | | | +----+---+ + + | | 0 | Incision | | | | 8 | | | | | 0 | | | | | 5 | | | +----+---+ + + | | 0 | Quick Note | 100 ml methylene blue and saline solution infused via gastric | | | 9 | | tube per surgeon request. | | | 2 | | | | | 8 | | | +----+---+ + + | | 1 | Surgery end | | | | 0 | | | | | 0 | | | | | 5 | | | +----+---+ + + | | 1 | An Extubate | Neuromuscular function Intact. Pharynx suctioned. Patient obeys | | | 0 | | commands. Adequate pulmonary mechanics. | | | 1 | | | | | 0 | | | +----+---+ + + | | 1 | an stop | | | | 0 | data | | | | 1 | | | | | 0 | | | +----+---+ + + | | 1 | Anesthesia | | | | 0 | End | | | | 2 | | | | | 2 | | | +----+---+ + + +------+ | Meds | +------+ + + + No medications | on file. | + + + + + | No agents on file. | + + + + | No blood administrations on file. | + + +--------+ + + + | Type | Details | Placement | Removal | +--------+ + + + | RETIRE | 05/24/12; 0740; 05/25/12; 1400; | 05/24/12 0740 by | 05/25/12 1400 by | | D - | 18; Left; Wrist | Nuria K | Zeynep Amor RN | | Gene | | HE Knutson | | | marisol | | | | | Line | | | | +--------+ + + + | RETIRE | 05/24/12; 739; 05/25/12; 634; | 05/24/12739 by | 05/25/12 0635 by | | D - | No; Dang; 16FR | Pilo Perkins RN | Janett Cruz, | | Emeterio | | | RN | | y Cath | | | | | | | | | | Placem | | | | | ent | | | | | (Bianca | | | | | & Cath | | | | | Care | | | | | Daily | | | | | and Q | | | | | BM) | | | | +--------+ + + + | RETIRE | 05/24/12; 0856; Abdominal Port | 05/24/12 0856 by | 05/25/12 1400 by | | D - | Sites x 5; abdomen; 05/25/12; | Pilo Perkins RN | Zeynep Amor RN | | Incisi | 1400 | | | | on | | | | +--------+ + + + documented in this encounter Social History + + + +--------+ + [...] + + + | Blood Pressure | 114/60 | 05/14/2012 2:01 PM | | | | | PDT | | + + + + + | Pulse | 69 | 05/14/2012 2:01 PM | | | | | PDT | | + + + + + | Temperature | 36.4 C (97.5 F) | 05/14/2012 2:01 PM | | | | | PDT | | + + + + + | Respiratory Rate | 12 | 05/14/2012 2:01 PM | | | | | PDT | | + + + + + | Oxygen Saturation | 100% | 05/14/2012 2:01 PM | | | | | PDT | | + + + + + | Inhaled Oxygen | - | - | | | Concentration | | | | + + + + + | Weight | 113.9 kg (251 lb) | 05/14/2012 2:01 PM | | | | | PDT | | + + + + + | Height | 167.6 cm (5' 6") | 05/14/2012 2:01 PM | neck 40 cm | | | | PDT | | + + + + + | Body Mass Index | 40.51 | 05/14/2012 2:01 PM | | | | | PDT | | + + + + + documented in this encounter Patient Instructions Patient Instructions Raheem Wahl NP - 05/14/2012 2:06 PM PDTPREOPERATIVE INSTRUCTIONS On the day BEFORE your surgery, drink plenty of fluids and stay well hydrated. Please use your respiratory inhaler as instructed and bring it to the surgery center the day of your surgery. Do not eat or drink ANYTHING after midnight the night before surgery, or 8 hours prior t o arrival for surgery. This includes water, coffee, candy, mints, gum. Unless otherwise directed by your surgeon, do not take any Aspirin, vitamin E or non-verónica roidal anti-inflammatory (NSAIDs i.e. Advil, Aleve, Ibuprofen) or herbal supplements 7-14 da ys prior to your surgery. These drugs may interfere with normal blood clotting and may cause excessive bleeding and bruising during or after the surgery. If you need a pain medication for general purposes, use Tylenol as directed. If you are in doubt about any medications that you are taking, please contact our office . Important Guidelines Do not shave the surgical area Do not smoke, drink alcohol or use recreational drugs for 24 hours before your surgery Watch for any change in your health condition. Let your surgeon know right away if you do not feel well. Do not wear makeup, perfume, lotions, deodorant, powder or hairspray. Do not wear any jewelry to the hospital. Wear loose, comfortable clothing. Bring the case and solution for your contact lenses or wear your glasses. Leave all your valuables at home. Allow enough travel time so you re not late for your check in for surgery. Take a bath or shower and remember to shampoo your hair using your usual hair product bef ore your arrival at the hospital. Please remember to brush your teeth the night before and the morning of your procedure. Preventing post op complications Use an incentive spirometer or peep breathe to keep your lungs working properly an d to help prevent respiratory complications. It helps you take long, deep breaths. Use it at least once every hour while you are awake. Leg and feet exercises will maintain good circulation and help prevent blood clots in yo ur legs. Sometimes your doctor will order air compression stockings. Compressed air helps the circulation in your legs. Walking and moving will help stimulate normal circulation and deep breathing. After you r surgery, your nurse may ask you to sit, stand or walk. Surgery Check in Locations Admitting [facility] Surgery Check in Time: The OR (Operating Room) schedule is not finalized until the day before surgery. Someone from the OR (Operating Room) scheduling office at [facility] will call yo u with information regarding check in time for your surgery. If you have questions about th is, please call [phone] Going Home Your surgical team will decide when you are medically ready to go home. If you are released to go home on the same day as your procedure/surgery please note the following: You will not be able to drive. You will be required to have a competent adult drive you or accompany you by taxi or pub lic transportation on the day of discharge. It is also required that you have a competent adult assist you and look after you on the first night after you have undergone regional blocks (72 hours for patients going home with regional block pump), deep sedation, and/or general anesthesia. If you stayed in the hospital after surgery, please arrange for your ride to come for yo u around 9AM on the day your doctor says you can go home. Check out time is 11AM. If you have questions or concerns after you go home, call your doctor s office. If it is after office hours, call the [facility] borematic operator at [phone] and ask them to page your doc tor documented in this encounter Progress Notes Karin Chacko MA - 05/14/2012 2:14 PM PDT Venipuncture performed in clinic, blood sample obtained from Right antecubital site Hemoglo bin A1C POCT performed during clinic visit. Blood sample obtained from venipuncture performe d to obtain other lab tests. OngRaheem NP - 05/14/2012 2:05 PM PDT PREOPERATIVE CONSULT NOTE Consulting Provider: RAHEEM WAHL NP Referring Physician: Laparoscoopic Sleeve Gastrectomy; May 24, 2012. Primary Care Provider: Royer Wilde MD Reason for Consult: Preoperative evaluation and risk assessment Proposed Procedure/Date: Dereje Marroquin MD HISTORY OF PRESENT ILLNESS: Steve Bhandari is a 47 y.o. female here for preoperative evalua tion for above procedure. History of morbid obesity, BMI > 40. History of failed prior attempts at sustained dietary/ medical weight loss and desires surgical weight loss. Duration of Obesity is 24 years. Other PMHx includes well-controlled HTN, well-controlled asthma, mild ABHIJEET (doing well witho ut CPAP), dyspepsia, and OA. Scheduled for above surgery. ROS: 12 system ROS Preoperative Patient Questionnaire was reviewed with the patient. Pert inent positives are noted in HPI and PMHX. Document will be scanned in [employer]. Current Medication List Name Sig ALBUTEROL 90 MCG/ACTUATION AEROSOL INHALER Inhale 1-2 Puffs every four hours as needed MAXZIDE 75 MG-50 MG TABLET Take 0.5 Tabs by mouth once daily. Allergies Allergen Reactions Codeine Nausea/Vomiting Inapsine (Droperidol) Psychosis Severe anxiety and shaking Reglan (Metoclopramide Hcl) Itching Restlessness and shaking Past Medical History Diagnosis Date Morbid obesity Asthma Vitamin d deficiency Migraine Hyperlipidemia HTN (hypertension) GERD (gastroesophageal reflux disease) BMI 40.0-44.9, adult 05/14/2012 ABHIJEET (obstructive sleep apnea) 05/14/2012 Well controlled intermittent asthma 05/14/2012 Dyspepsia 05/14/2012 Osteoarthritis 05/14/2012 Past Surgical History Procedure Date Tubal ligation 1986 Hernia repair 1988 External sinus surgery 2002 Carpal tunnel release 2007 Meniscus surgery 11/2011 Family History Problem Relation Cancer Mother Stroke Mother Stomach and later breast Asthma Brother Cancer Sister Breast Cancer Maternal Grandmother Breast History Substance Use Topics Smoking status: Former Smoker -- 1.0 packs/day for 1 years Types: Cigarettes Quit date: 07/24/1978 Smokeless tobacco: Never Used Alcohol Use: No PHYSICAL EXAM: Last Vitals: BP 114/60 | Pulse 69 | Temp (Src) 36.4 C (97.5 F) (Oral) | RR 12 | Ht 1.67 6 m (5' 6") | Wt 113.853 kg (251 lb) | SpO2 100% | BMI 40.51 kg/(m^2) Body mass index is 40. 51 kg/(m^2). PMC ROS Pulmonary: ABHIJEET (not on CPAP. Doing well without CPAP). Pt. Has asthma (Reports good asthma control. Last use of inhaler > 1 year ago.) Classificat ion:allergic asthma Frequency: very infrequent ER Visits: none Hospital Visits: none Cardiovascular: Within Defined Limits except as noted below Functional Capacity: Low No chest pressure and syncope no CAD no CHF Hypertension (Duration : 5 years. Usual BP : 110/60.) well controlled GI/Hepatic: Dyspepsia. (Occasional OTC Tums use). : Within Defined Limits except as noted below Endo: Within Defined Limits except as noted below Neurological: Within Defined limits except as noted below no seizures HX CORTICOSTEROID Remote > 6 months Current pain level: 0 MS: Osteoarthritis Heme/Onc: Within Defined Limits except as noted below Pt. has: no active bleeding no Bleedi ng diathesis / thrombotic bleeding Malignancy: no cancer, Location: Metastasis: None. Skin: Within Defined Limits except as noted below No open wounds or sores No hx MRSA/VRE/Ac tive skin infection Physical Exam General: Patients general appearance: Healthy, Alert, No distress, Cooperative and Age appr opriate Head & Neck/Airway: Neck ROM: Full Neck Circumference: 40 cm. TM Distance:Normal Dentition: Dentition is normal Oliva: No Mallampati: II Mouth Opening: > = 3 cm C-Spine: Normal Neck Anatomy: Normal Jaw Protrusion: Normal, lower incisors can protrude past upper incisors Lung Exam: No respiratory distress. Normal breathing pattern. breath sounds normal Cardiac: No murmurs, gallops or rubs. Rhythm: regular Rate: normal Abdominal: General Findings: Deferred Musculoskeletal: Findings: tone normal and normal strength Neuro/Psych: No focal neuro deficits; Alert and appropriate; nl affect. alert Findings: Margie rt, oriented to person, place, time and Normal affect Integument: No open rashes or lesions noted. - lesion, rash and open wounds Color: pink Texture: Skin texture - normal Turgor: turgor normal Implants: None. Comments: BMI > 40. Anesthesia : "Post-operative Panic Attack." "Delayed emergence." LAB DATA REVIEWED/ORDERED Lab Results Component Value Date NA 140 05/14/2012 K 3.7 05/14/2012 CL 104 05/14/2012 BICARB 28 05/14/2012 BUN 11 05/14/2012 CR 0.72 05/14/2012 GLU 75 05/14/2012 CA 9.9 05/14/2012 Lab Results Component Value Date WBC 9.7 05/14/2012 HB 14.6 05/14/2012 HCT 43.3 05/14/2012 PLT 258 05/14/2012 MCV 91.1 05/14/2012 RDW 13.4 05/14/2012 ABO, RH : O Positive, Negative Antibody Lab Results Component Value Date A1C 5.3 05/14/2012 EKG: Personally reviewed, Normal Sinus Rhythm with sinus arrhythmia. No previous EKG for co mparison. MEDICAL DECISION MAKIN ACC/ AHA Perioperative Guidelines 1. Need for emergency noncardiac surgery? b. No -> Proceed to next step. 2. Active Cardiac Conditions? These conditions mandate further investigation and manageme nt. A. Acute [place] within 7 days: no B. Unstable angina/Recent [place] (7- 30 days): no C. Decompensated CHF: no D. Significant arrhythmia: None E. Severe valvular disease: NONE 3. Low risk surgery? b. No -> proceed with next step. 4. Good functional capacity? MET ASSESSMENT: 3. METS--walking slowly on a flat surface f or 1-2 blocks; vacuuming, sweeping the floors, carrying groceries. 5. Assess Clinical Risk Factors? A. Ischemic heart disease: No. B. Compensated / prior heart failure: No. C. Diabetes mellitus (treated with insulin): No. D. Renal insufficiency (Cr > 2): No. E. Cerebrovascular disease: No. Rate of cardiac , non fatal [place], non fatal cardiac arrest (RCRI) 0 risk factors - 0.4% 1 risk factors - 1%, 2 risk factors - 7%, 3 or >risk factors - 11% (may benefit from perioperative beta blockers) Risk Factor Recommendations: 0 risk factors- proceed with planned surgery Surgery Risk: Intermediate Patient-related risk: Estimated ASA class -- 2 ASSESSMENT and RECOMMENDATIONS: Surgical/anesthesia risk assessment: Steve Bhandari is a 47 y.o. female with diagnosis o f History of morbid obesity, scheduled for Laparoscoopic Sleeve Gastrectomy. According to A CC/AHA, this patient has ZERO clinical risk factor and the recommendation is to PROCEED with planned surgery without additional cardiac testing. Medication management recommendations: The patient was advised to continue all usual med ications except as noted in Patient Instructions (After Visit Summary given to pt). Perioperative antibiotic prophylaxis: Standard (Consider IV Vanco one hr before procedu re in pts with Cephalosporin/PCN allergy and/or with hx of MRSA). This patient is medically stable for surgery. Further testing/optimization is not needed. Thank you for the opportunity to contribute to this patient's care. RAHEEM WAHL, MSN, ACNP- NURSE PRACTITIONER [facility] [address] [place] [phone] signed by Raheem Wahl NP at 05/16/2012 2:03 PM PDTdocumented in this encounter Plan of Treatment Not on filedocumented as of this encounter Procedures + +--------+ + + + | Procedure Name | Priori | Date/Time | Associated Diagnosis | Comments | | | ty | | | | + +--------+ + + + | PROCEDURE NOTE | Routin | 08/28/2015 | | Results for this | | | e | 12:52 AM | | procedure are in the | | | | PST | | results section. | + +--------+ + + + | TYPE AND SCREEN | Routin | 05/14/2012 | Morbid obesity | Results for this | | | e | 5:18 PM | (HCC) | procedure are in the | | | | PDT | | results section. | + +--------+ + + + | GA COLLECTION VENOUS | Routin | 05/14/2012 | | | | BLOOD,VENIPUNCTURE | e | 2:14 PM | | | | | | PDT | | | + +--------+ + + + | CBC ONLY | Routin | 05/14/2012 | Morbid obesity | Results for this | | | e | 2:08 PM | (HCC) | procedure are in the | | | | PDT | | results section. | + +--------+ + + + | COMPLETE METABOLIC | Routin | 05/14/2012 | Morbid obesity | Results for this | | SET | e | 2:08 PM | (HCC) | procedure are in the | | (NA,K,CL,CO2,BUN,CRE | | PDT | | results section. | | AT,GLUC,CA,AST,ALT,B | | | | | | AMBERLY TOTAL,ALK | | | | | | PHOS,ALB,PROT TOTAL) | | | | | + +--------+ + + + | CBC ONLY | Routin | 05/14/2012 | Morbid obesity | Results for this | | | e | 2:08 PM | (HCC) | procedure are in the | | | | PDT | | results section. | + +--------+ + + + | ANTIBODY SCREEN | Routin | 05/14/2012 | Morbid obesity | Results for this | | | e | 2:07 PM | (HCC) | procedure are in the | | | | PDT | | results section. | + +--------+ + + + | ABO & RH TYPE | Routin | 05/14/2012 | Morbid obesity | Results for this | | | e | 2:07 PM | (HCC) | procedure are in the | | | | PDT | | results section. | + +--------+ + + + | HEMOGLOBIN A1C, POC | Routin | 05/14/2012 | Pre-op evaluation | Results for this | | | e | 1:45 PM | Screening for | procedure are in the | | | | PDT | diabetes mellitus | results section. | + +--------+ + + + documented in this encounter Results PROCEDURE NOTE (08/28/2015 12:52 AM PST) + + | Transcriptions | + + | Other, Faculty - 05/15/2012 2:03 PM PDT | + + CBC (05/14/2012 2:08 PM PDT) + +-------+ + + + | Component | Value | Ref Range | Performed | Pathologist | | | | | At | Signature | + +-------+ + + + | WHITE CELL | 9.7 | 4.4 - 11.0 K/cu | [facility] | | | COUNT | | mm | LABORATORY | | | | | | SERVICES, | | | | | | CORE | | + +-------+ + + + | RED CELL | 4.75 | 4.00 - 5.20 | [facility] | | | COUNT | | M/cu mm | LABORATORY | | | | | | SERVICES, | | | | | | CORE | | + +-------+ + + + | HEMOGLOBIN | 14.6 | 12.0 - 16.0 | [facility] | | | | | g/dL | LABORATORY | | | | | | SERVICES, | | | | | | CORE | | + +-------+ + + + | HEMATOCRIT | 43.3 | 36.0 - 46.0 % | [facility] | | | | | | LABORATORY | | | | | | SERVICES, | | | | | | CORE | | + +-------+ + + + | MCV | 91.1 | 80.0 - 96.0 fL | [facility] | | | | | | LABORATORY | | | | | | SERVICES, | | | | | | CORE | | + +-------+ + + + | MCHC | 33.7 | 33.4 - 35.5 | [facility] | | | | | g/dL | LABORATORY | | | | | | SERVICES, | | | | | | CORE | | + +-------+ + + + | RDW | 13.4 | 11.5 - 15.0 % | [facility] | | | | | | LABORATORY | | | | | | SERVICES, | | | | | | CORE | | + +-------+ + + + | PLATELET | 258 | 150 - 400 K/cu | [facility] [...] | + + + + + | [facility] | [address] | [place] [address] | | | SERVICES, CORE | [address] | | | + [...] [facility] | [address] | [place] [address] | | | SERVICES, CORE | [address] | | | + + + + + ANTIBODY SCREEN (05/14/2012 2:07 PM PDT) + + + + + + | Component | Value | Ref Range | Performed | Pathologist | | | | | At | Signature | + + + + + + | Antibody | Negative | | [facility] | | | Screen | | | LABORATORY | | | | | | SERVICES, | | | | | | TRANSFUSION | | | | | | MEDICINE | | + + + + + + + + | Specimen | + + | Blood - Blood | + + + + + + + | Performing | Address | City/State/Zipcode | Phone Number | | Organization | | | | + + + + + | [facility] | [address] | [place] [address] | | | SERVICES, | [address] | | | | TRANSFUSION MEDICINE | | | | + + + + + ABO & RH TYPE (05/14/2012 2:07 PM PDT) + + + + + + | Component | Value | Ref Range | Performed | Pathologist | | | | | At | Signature | + + + + + + | ABO Group | O | | [facility] | | | | | | LABORATORY | | | | | | SERVICES, | | | | | | TRANSFUSION | | | | | | MEDICINE | | + + + + + + | Rh Type | Positive | | [facility] | | | | | | LABORATORY | | | | | | SERVICES, | | | | | | TRANSFUSION | | | | | | MEDICINE | | + + + + + + + + | Specimen | + + | Blood - Blood | + + + + + + + | Performing | Address | City/State/Zipcode | Phone Number | | Organization | | | | + + + + + | [facility] | [address] | [place] [address] | | | SERVICES, | [address] | | | | TRANSFUSION MEDICINE | | | | + + + + + HEMOGLOBIN A1C, POC (05/14/2012 1:45 PM PDT) + +-------+ + + + | Component | Value | Ref Range | Performed | Pathologist | | | | | At | Signature | + +-------+ + + + | HEMOGLOBIN | 5.3 | 4.0 - 5.7 % | [facility], | | | A1C,POC | | | POINT OF | | | | | | CARE TESTS | | + +-------+ + + + + + | Specimen | + + | Blood | + + + + + + + | Performing | Address | City/State/Zipcode | Phone Number | | Organization | | | | + + + + + | [facility] | [address] | [place] [address] | | | OF CARE TESTS | | | | + + + + + documented in this encounter Visit Diagnoses + + | Diagnosis | + + | Pre-op evaluation - Primary Preoperative examination, unspecified | + + | Morbid obesity (HCC) Morbid obesity | + + | HTN (hypertension) Unspecified essential hypertension | + + | GERD (gastroesophageal reflux disease) Esophageal reflux | + + | Screening for diabetes mellitus | + + | BMI 40.0-44.9, adult (HCC) Body Mass Index 40.0-44.9, adult | + + | ABHIJEET (obstructive sleep apnea) Obstructive sleep apnea (adult) (pediatric) | + + | Well controlled intermittent asthma Unspecified asthma | + + | Dyspepsia Dyspepsia and other specified disorders of function of stomach | + + | Osteoarthritis Osteoarthrosis, unspecified whether generalized or localized, | | unspecified site | + + documented in this encounter
--- OUTSIDE RECORDS SUMMARY | ~2019-12-01 | XMS | Encounter Summary ---
Demographics + + + | Address | [address] | | | [place] [address] | + + + | Home Phone [...] Osei Bhandari Sr. | ECON | [address] | | | | | [place] | | | | | [phone] | | + + + + + Care Team Providers + +------+ + | Care Radiocommunications Technician Name | Role | Phone | + +------+ + | Royer Wilde MD | PCP | | + +------+ + Encounter Details +--------+ + + + + | Date | Type | Department | Care Team | Description | +--------+ + + + + | 02/17/ | Telephone | [facility] | Marisa Wilkinson ANP | | | 2008 | | [place] [address] | | | | | | [address] | | | | | | Mailcode: [id number] | | | | | | [facility] | | | | | | [place], [place] | | | | | | [address] | | | | | | [phone] | | | +--------+ + + + [...]
--- OUTSIDE RECORDS SUMMARY | ~2019-12-01 | XMS | Encounter Summary ---
Demographics + + + | Address | [address] | | | [place] [address] | + + + | Home Phone [...] + + + | Author | [facility] | + + + | Organization | [facility] | + + + | Address | Unknown | + + + | Phone | Unavailable | + + + Support + + + + + | Name | Relationship | Address | Phone | + + + + + | Osei Bhandari Sr. | ECON | [address] | | | | | [place] | | | | | [address] | | + + + + + Care Team Providers + +------+ + | Care Nursing Director Name | Role | Phone | [...] | sleeve gastrectomy | | | | [place], [place] | | | | | | [address] | | | | | | [phone] | | | +--------+------+ + + + [...] | | | | | | by [facility] [employer],[address] | | | | | | [address], [facility] [place] | | | | | | [address] | | | | | | [phone] [employer]. | | | | | | Rajan [...] [facility] | [address] | [place], [place] | | | [facility] | | [address] | | + + + + + [...] [facility] | [address] | [place] [address] | | | SERVICES, CENTER FOR | [...] [facility] | [address] | [place] [address] | | | SERVICES, SEFERINO | PARK [...] | + + + + + | [facility] | [address] | [place] [address] | | | SERVICES, CORE | ZACKARY [...] [facility] | [address] | [place] [address] | | | SERVICES, SPECIAL | PARK [...] [facility] | [address] | [place] [address] | | | ANUM, CORE | ZACKARY [...] | | | LABORATORY | | | ETHIOPIAN | | | SERVICES, | | | [...] | + + + + + | [facility] | [address] | [place] [address] | | | SEFERINO [place] | [address] | | | + + + + + documented in this encounter Visit Diagnoses + + | Diagnosis | + + | S/P laparoscopic sleeve gastrectomy | + + documented in this encounter"
--- OUTSIDE RECORDS SUMMARY | ~2019-12-01 | XMS | Encounter Summary ---
Demographics + + + | Address | [address] | | | [place] [address] | + + + | Home Phone [...] Osei Bhandari Sr. | ECON | [address] | | | | | [place] | | | | | [address] | | + + + + + Care Team Providers + +------+ + | Care Bit Tapper Name | Role | Phone | + [...] | | [facility] [address] | RETAIL SALES DIRECTOR [address] | Diarrhea; | | | | [address] | [address] | Scheduling; Weight | | | | Mailcode: Center | [place], [place] | [facility] | | | | for Health and | [address] | | | | | [facility] | [phone] | | | | | [place], [place] | | | | | | [address] | | | | | | [phone] | | | +--------+ + + + [...] | | + +---------+ + + | [facility] | | | | | RADIOLOGY [...]
--- OUTSIDE RECORDS SUMMARY | ~2019-12-01 | XMS | Clinical Summary ---
Demographics + + + | Address | [address] | | | [place] [address] | + + + | Home Phone | | + + + | Preferred Language | Unknown | + + + | Marital Status | | + + + | Pentecostalism Affiliation | 1013 | + + + | Race | Unknown | + + + | Ethnic Group | Unknown | + + + Author + + + | Author | [facility] (Historical as of | | | 03-09-19) | + + + | Organization | [facility] (Historical as of | | | 03-09-19) [...] [place] | | | | | [address] | | + + + + + | Jesse Bhandari | ECON | [place] [address] | | + + + + + Care Team Providers + +------+ + | Care Textile Examiner Name | Role | Phone | + +------+ + | Milvia Chen | PP | | | CHEMICAL PLANT WORKER | | | + +------+ + Allergies [...] +------+-------+ + | PREMERA | PREMER | [id number] | | | [address] [address] | | | A BLUE | 8 | | | [place], [place] | | | CARD | | | | [address] | +---------+--------+ +------+-------+ + + +--------+ +--------+ [...] | jennifer | | | [address] | [address] | + +--------+ +--------+ + +
--- OUTSIDE RECORDS SUMMARY | ~2019-12-01 | XMS | Encounter Summary ---
Demographics + + + | Address | [address] | | | [place] [address] | + + + | Home Phone | | + + + | Preferred Language | Unknown | + + + | Marital Status | | + + + | Scientologist Affiliation | 1077 | + + + | Race | Unknown | + + + | Ethnic Group | Unknown | + + + Author + + + | Author | [facility] | | | and [place] | + + + | Organization | [facility] | | | and [place] | + + + | Address | Unknown | + + + | Phone | Unavailable | + + + Support + + + + + | Name | Relationship | Address | Phone | + + + + + | Osei Woodard | ECON | [address] | | | [place] | | [place] | | | | | [address] | | + + + + + Care Team Providers + +------+ + | Care Insemination Worker Name | Role | Phone | + +------+ + | Royer Wilde MD | PCP | | + +------+ + Reason for Visit + + + | Reason | Comments | + + + | Abdominal Pain | | + + + | Epigastric Pain | | + + + | Diarrhea (Adult) | | + + + Encounter Details +--------+ + + + + | Date | Type | Department | Care Team | Description | +--------+ + + + + | 04/24/ | Emergency | [facility] | Alfredito Lozano, | Epigastric pain | | 2014 | | [facility] | DO [address] | (Primary Dx) | | | | CENTER [address] | [place] [address] | | | | | [place] | [phone] | | | | | [place], [place] | | | | | | [address] | | | | | | [phone] | | | +--------+ + + + [...] + + + | Blood Pressure | 139/91 | 04/24/2015 12:39 PM | | | | | PDT | | + + + + + | Pulse | 76 | 04/24/2015 12:39 PM | | | | | PDT | | + + + + + | Temperature | 36.4 C (97.5 F) | 04/24/2015 8:46 AM | | | | | PDT | | + + + + + | Respiratory Rate | 22 | 04/24/2015 12:39 PM | | | | | PDT | | + + + + + | Oxygen Saturation | 94% | 04/24/2015 12:39 PM | | | | | PDT | | + + + + + | Inhaled Oxygen | - | - | | | Concentration | | | | + + + + + | Weight | 96.2 kg (212 lb) | 04/24/2015 8:46 AM | | | | | PDT | | + + + + + | Height | 167.6 cm (5' 6") | 04/24/2015 8:46 AM | | | | | PDT | | + + + + + | Body Mass Index | 34.22 | 04/24/2015 8:46 AM | | | | | PDT [...] as of this encounter Discharge Instructions Instructions Alfredito Lozano, - 04/24/2015RETURN IF YOU HAVE FEVERS, CHILLS, NAUSEA, V OMITING, CHANGE OF SYMPTOMS. LIMIT YOUR IBUPROFEN USE FOR THE TIME BEING. Please take the time to read your instructions for follow-up and aftercare. If you have any questions please ask for clarification. Your evaluation today in the Emergency Department included triage, assessment by a nurse, a medical screening exam, further evaluation and testing if appropriate, necessary treatment, discharge planning, and discharge instructions. Emergency Department care is not a substitu te for care by a primary physician. It is expected that you will follow-up with your primary residential caregiver (or one to which you have been referred) in the near future. Today I have received and will read (or have read to me) the above instructions related to my discharge care plan and follow-up plan for further care. The risks and benefits of being discharged home have been explained to me and by signing I acknowledge the plans outlined ab justa. If I have been given prescriptions I will read the instructions given to me by the jennifer white. If I have been referred to a specialist for further care and evaluation, I will notify [facility] so they can work with the specialist and complete any referral process that my insurance company may require. Note: As part of your evaluation in the Emergency Department, you may have received X-rays. If you have, your Emergency Department Provider made a preliminary interpretation. The X-ra ys will be formally read by a Radiologist within the next 24 hours. If there is a significan t difference between the two readings, we will contact you. Please make sure the phone numbe r we have for you in our medical records is accurate. AttachmentsThe following attachments cannot be sent through Care Everywhere.EPIGASTRIC PAIN (UNCERTAIN CAUSE) (SWAZI)ACID REFLUX, WHAT IS (SWAZI)ACID REFLUX, TIPS TO CONTROL (ENGL ARMAAN)PEPTIC ULCER (H. PYLORI INFECTION ONLY) (SWAZI)GASTRITIS (ADULT) (SWAZI)GASTRITIS VS . ULCER (SWAZI)GASTRITIS, UNDERSTANDING (SWAZI)GASTRITIS, TREATING (SWAZI)documented i n this encounter Medications at Time of Discharge [...] + + + +---------+ + + | sucralfate | Take 1 tablet by | 40 | 0 | 04/24/20 | | | (CARAFATE) 1 g | mouth 4 times daily | tablet | | 15 | 5 | | tablet | for 10 days. | | | | | + + + +---------+ + + documented as of this encounter Plan of Treatment Not on filedocumented as of this encounter Procedures + +--------+ + + + | Procedure Name | Priori | Date/Time | Associated Diagnosis | Comments | | | ty | | | | + +--------+ + + + | CT ANGIOGRAM CHEST | STAT | 04/24/2015 | | Results for this | | ABDOMEN W CONTRAST | | 10:47 AM | | procedure are in the | | | | PDT | | results section. | + +--------+ + + + | URINALYSIS WITH | STAT | 04/24/2015 | | Results for this | | MICROSCOPIC WITH | | 9:23 AM | | procedure are in the | | CULTURE IF INDICATED | | PDT | | results section. | + +--------+ + + + | XR CHEST PA AND | STAT | 04/24/2015 | | Results for this | | LATERAL | | 9:14 AM | | procedure are in the | | | | PDT | | results section. | + +--------+ + + + | TROPONIN I | STAT | 04/24/2015 | | Results for this | | | | 9:08 AM | | procedure are in the | | | | PDT | | results section. | + +--------+ + + + | CBC WITH | STAT | 04/24/2015 | | Results for this | | DIFFERENTIAL | | 9:08 AM | | procedure are in the | | | | PDT | | results section. | + +--------+ + + + | LIPASE | STAT | 04/24/2015 | | Results for this | | | | 9:08 AM | | procedure are in the | | | | PDT | | results section. | + +--------+ + + + | COMPREHENSIVE | STAT | 04/24/2015 | | Results for this | | METABOLIC PANEL | | 9:08 AM | | procedure are in the | | | | PDT | | results section. | + +--------+ + + + | ECG 12 LEAD | STAT | 04/24/2015 | | Results for this | | | | 8:42 AM | | procedure are in the | | | | PDT | | results section. | + +--------+ + + + documented in this encounter Results CT Angiogram Chest Abdomen (04/24/2015 10:47 AM PDT) + + | Specimen | + + | | + + + + + | Impressions | Performed At | + + + | 1. Mild atherosclerotic plaques, but no thoracic or abdominal | [facility] | | aortic aneurysm or dissection. 2. Patent celiac axis, SMA, APOLINAR, | | | renal arteries and common iliac arteries. 3. Diverticulosis, | | | but no current signs for diverticulitis. 4. Right posterior | | | renal scarring, but no renal stones, hydronephrosis or ureteral | | | obstruction. 5. 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 No renal anomaly was observed. 6. 4 mm nodule in | | | the right upper lobe. Please refer to Fleischner Society for | | | follow-up recommendations. 7. Other nonacute findings as described. | | | FLEISCHNER SOCIETY RECOMMENDATIONS FOR FOLLOW-UP OF PULMONARY | | | NODULES SMALLER THAN 8 MM Nodule size: 4 mm or less | | | Low-risk patient: No follow-up needed High-risk patient: | | | Follow-up CT at 12 months; if unchanged, no | | | further follow-up Nodule size: >4 | | | mm to 6 mm Low-risk patient: Follow-up CT at 12 months; if | | | unchanged, no | | | further follow-up High-risk patient: Initial follow-up CT at | | | 6-12 months, then at | | | 18-24 months if no change Nodule size: >6 mm to 8 mm | | | Low-risk patient: Initial follow-up CT at 6-12 months, then at | | | 18-24 months if no | | | change High-risk patient: Initial follow-up CT at 3-6 | | | months, then at | | | 9-12 months and 24 months if no change Nodule size: >8 mm | | | Low-risk patient: Follow-up CT at around 3, 9, and 24 months; | | | dynamic | | | contrast-enhanced CT, PET, and/or | | | biopsy High-risk patient: Same as for | | | low-risk patient Radiology, 2004 Nov;237 (2):395-400. | | | Dictated by: Praful Mojica M.D. on 04/24/2015 11:59 AM PDT | | | | | | PDT [facility] | | + + + + + + | Narrative | Performed At | + + + | CT ANGIOGRAM CHEST ABDOMEN W CONTRAST DATE OF EXAM: 04/24/2015 | [facility] | | 10:47 AM INDICATION: ABDOMINAL PAIN; EPIGASTRIC PAIN; eval | | | aorta. TECHNIQUE: Following the intravenous | | | administration of contrast without adverse effect, CT angiogram was | | | performed through the chest and abdomen in the arterial phase. | | | Sagittal and coronal reformations were generated. Additional post | | | processing, including maximum-intensity projections (MIPs), was | | | performed on a workstation. LIMITATION: None. CONTRAST: | | | 100 ml of Omnipaque-350. COMPARISON: No comparison is | | | available. FINDINGS - ANGIOGRAPHIC: Pulmonary arteries: The | | | pulmonary artery and branch vessels appear within normal limits with | | | no evidence of pulmonary embolism. Aorta: Mild atherosclerotic | | | plaques are noted, but the ascending aorta, thoracic arch, descending | | | aorta, and abdominal aorta are unremarkable, with no evidence of | | | aneurysm or dissection. Celiac axis: Widely patent. | | | Superior mesenteric artery: Widely patent. Inferior mesenteric | | | artery: Widely patent. Renal arteries: Widely patent. | | | Common iliac arteries: Flow is seen within the common iliac | | | arteries. They are widely patent. FINDINGS - CT: | | | CHEST CT: Heart and mediastinum: The heart is not enlarged. | | | Atherosclerotic plaques are present in the coronary arteries. | | | There is no pericardial effusion. Small mediastinal lymph nodes | | | are noted, but none pathologically enlarged. Lungs and pleura: | | | The lung cuadra are clear except for mild compressive atelectasis | | | along the dependent portions of the lungs. A 4 mm nodule is present | | | in the right upper lobe (axial image #55). No pleural effusion is | | | observed. There is no pneumothorax. Chest wall and osseous | | | structures: Mild degenerative features are noted in the thoracic | | | spine. Small axillary lymph nodes are present, but none | | | pathologically enlarged. ABDOMINAL CT: Liver: | | | No significant focal lesion seen. Gallbladder and bile ducts: | | | No biliary dilatation or significant focal lesion seen. | | | Spleen: No significant focal lesion seen. Pancreas: No | | | significant focal lesion seen. Adrenal glands: No significant | | | focal lesion seen. Kidneys: No calculi, hydronephrosis or | | | ureteral distension is seen. There is parenchymal scarring on the | | | right posteriorly. No crossed ectopia or circumaortic renal | | | collar is observed. Retroperitoneum: No significant focal | | | lesion is seen. 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 Bowel and mesentery: The appendix appears normal. There | | | are diverticula in the colon, but no infiltration of the surrounding | | | fat is noted in the visualized portions of the colon. No bowel | | | obstruction is observed. There is no mesenteric lymphadenopathy. | | | Abdominal wall and osseous structures: No hernia or other | | | significant focal lesion seen. There are degenerative features in | | | the lumbar spine. | | + + + + + | Procedure Note | + + | Jose, Rad Results In - 04/24/2015 12:[address] ANGIOGRAM CHEST ABDOMEN W CONTRAST | | | | DATE OF EXAM: 04/24/2015 10:47 AM | | | | INDICATION: ABDOMINAL PAIN; | | EPIGASTRIC PAIN; | | eval aorta. | | | | TECHNIQUE: Following the intravenous administration of contrast without adverse | | effect, CT angiogram was performed through the chest and abdomen in the arterial | | phase. Sagittal and coronal reformations were generated. Additional post | | processing, including maximum-intensity projections (MIPs), was performed on a | | workstation. | | | | LIMITATION: None. | | | | CONTRAST: 100 ml of Omnipaque-350. | | | | COMPARISON: No comparison is available. | | | | FINDINGS - ANGIOGRAPHIC: | | | | Pulmonary arteries: The pulmonary artery and branch vessels appear within | | normal limits with no evidence of pulmonary embolism. | | | | Aorta: Mild atherosclerotic plaques are noted, but the ascending aorta, | | thoracic arch, descending aorta, and abdominal aorta are unremarkable, with no | | evidence of aneurysm or dissection. | | | | Celiac axis: Widely patent. | | | | Superior mesenteric artery: Widely patent. | | | | Inferior mesenteric artery: Widely patent. | | | | Renal arteries: Widely patent. | | | | Common iliac arteries: Flow is seen within the common iliac arteries. They are | | widely patent. | | | | | | | | FINDINGS - CT: | | | | CHEST CT: | | | | Heart and mediastinum: The heart is not enlarged. Atherosclerotic plaques are | | present in the coronary arteries. There is no pericardial effusion. Small | | mediastinal lymph nodes are noted, but none pathologically enlarged. | | | | Lungs and pleura: The lung cuadra are clear except for mild compressive | | atelectasis along the dependent portions of the lungs. A 4 mm nodule is present | | in the right upper lobe (axial image #55). No pleural effusion is observed. | | There is no pneumothorax. | | | | Chest wall and osseous structures: Mild degenerative features are noted in the | | thoracic spine. Small axillary lymph nodes are present, but none pathologically | | enlarged. | | | | | | | | ABDOMINAL CT: | | | | Liver: No significant focal lesion seen. | | | | Gallbladder and bile ducts: No biliary dilatation or significant focal lesion | | seen. | | | | Spleen: No significant focal lesion seen. | | | | Pancreas: No significant focal lesion seen. | | | | Adrenal glands: No significant focal lesion seen. | | | | Kidneys: No calculi, hydronephrosis or ureteral distension is seen. There is | | parenchymal scarring on the right posteriorly. No crossed ectopia or | | circumaortic renal collar is observed. | | | | Retroperitoneum: No significant focal lesion is seen. Incidentally noted is | | a duplicated left IVC, a continuation of the left common iliac vein joining the | | left renal vein, crossing anterior to the abdominal aorta into the right sided | | IVC. | | | | Bowel and mesentery: The appendix appears normal. There are diverticula in the | | colon, but no infiltration of the surrounding fat is noted in the visualized | | portions of the colon. No bowel obstruction is observed. There is no | | mesenteric lymphadenopathy. | | | | Abdominal wall and osseous structures: No hernia or other significant focal | | lesion seen. There are degenerative features in the lumbar spine. | | | | | | | | IMPRESSION: | | | | 1. Mild atherosclerotic plaques, but no thoracic or abdominal aortic aneurysm | | or dissection. | | 2. Patent celiac axis, SMA, APOLINAR, renal arteries and common iliac arteries. | | 3. Diverticulosis, but no current signs for diverticulitis. | | 4. Right posterior renal scarring, but no renal stones, hydronephrosis or | | ureteral obstruction. | | 5. 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 No renal anomaly | | was observed. | | 6. 4 mm nodule in the right upper lobe. Please refer to Fleischner Society for | | follow-up recommendations. | | 7. Other nonacute findings as described. | | | | FLEISCHNER SOCIETY RECOMMENDATIONS FOR FOLLOW-UP OF PULMONARY NODULES SMALLER | | THAN 8 MM | | | | Nodule size: 4 mm or less | | Low-risk patient: No follow-up needed | | High-risk patient: Follow-up CT at 12 months; if unchanged, no | | further follow-up | | | | Nodule size: >4 mm to 6 mm | | Low-risk patient: Follow-up CT at 12 months; if unchanged, no | | further follow-up | | High-risk patient: Initial follow-up CT at 6-12 months, then at | | 18-24 months if no change | | | | Nodule size: >6 mm to 8 mm | | Low-risk patient: Initial follow-up CT at 6-12 months, then at | | 18-24 months if no change | | High-risk patient: Initial follow-up CT at 3-6 months, then at | | 9-12 months and 24 months if no change | | | | Nodule size: >8 mm | | Low-risk patient: Follow-up CT at around 3, 9, and 24 months; | | dynamic contrast-enhanced CT, PET, and/or | | biopsy | | High-risk patient: Same as for low-risk patient | | | | Radiology, 2004 Nov;237 (2):395-400. | | | | Dictated by: Praful Mojica M.D. on 04/24/2015 11:59 AM PDT | | | | | | [facility] | + + + +---------+ + + | Performing | Address | City/State/Zipcode | Phone Number | | Organization | | | | + +---------+ + + | [facility] | | | | + +---------+ + + Urinalysis with Microscopic with Culture if Indicated (04/24/2015 9:23 AM PDT) + + + + + + | Component | Value | Ref Range | Performed | Pathologist | | | | | At | Signature | + + + + + + | Color, | Light Yellow (A) | Yellow | [facility] | | | Urine | | | [facility] | | | | | | [facility] | | + + + + + + | Clarity | Clear | Clear | [facility] | | | | | | [facility] | | | | | | [facility] | | + + + + + + | pH, Urine | 5.0 | 5.0 - 8.0 | [facility] | | | | | | [facility] | | | | | | [facility] | | + + + + + + | Specific | 1.013 | 1.001 - 1.030 | [facility] | | | [place], | | | [facility] | | | Urine | | | [facility] | | | | | | [facility] | | + + + + + + | Protein, | Negative | Negative | [facility] | | | Urine | | | [facility] | | | | [facility] | | | | | | [facility] | | + + + + + + | Blood, | Negative | Negative | [facility] | | | Urine | | | [facility] | | | | | | [facility] | | + + + + + + | Glucose, | Negative | Negative | [facility] | | | Urine | | | [facility] | | | | | | [facility] | | + + + + + + | Ketones, | Negative | Negative | [facility] | | | Urine | | | [facility] | | | | | | [facility] | | + + + + + + | Bilirubin, | Negative | Negative | [facility] | | | Urine | | | [facility] | | | | | | [facility] | | + + + + + + | Nitrite, | Negative | Negative | [facility] | | | Urine | | | [facility] | | | | | | [facility] | | + + + + + + | Leukocyte | Negative | Negative | [facility] | | | Esterase, | | | [facility] | | | Urine | | | [facility] | | | | | | LAB[facility]AT[facility] | | + + + + + + | Urobilinoge | <2.0 mg/dL | <2.0 mg/dL | [facility] | | | n, Urine | | | [facility] | | | | | [facility] | | | | | | [facility] | | + + + + + + | White Blood | 0-2 | 0 - 2 /HPF | [facility] | | | Cells, | | | [facility] | | | Urine | | | [facility] | | | | | | LAB[facility]ATORY | | + + + + + + | Squamous | 5-10 (A) | 0 - 2 /LPF | [facility] | | | Epithelial | | | [facility] | | | Cells, | | | [facility] | | | Urine | | | LABORATORY | | + + + + + + | Mucus, | 1+ (A) | Negative /LPF | [facility] | | | Urine | | | [facility] | | | | | | [facility] | | + + + + + + | Urine | Urine Culture Not | | [facility] | | | Comment | Indicated | | [facility] | | | | | | [facility] | | + + + + + + + + | Specimen | + + | Urine - Urine | | specimen obtained by | | clean catch | | procedure (specimen) | + + + + + + + | Performing | Address | City/State/Zipcode | Phone Number | | Organization | | | | + + + + + | [facility] | [address] | [place], [place] | [phone] | | [facility] | | [address] | | | LABORATORY | | | | + + + + + XR Chest PA and Lateral (04/24/2015 9:14 AM PDT) + + | Specimen | + + | | + + + + + | Impressions | Performed At | + + + | No acute cardiopulmonary process is demonstrated. There are | [facility] | | no findings felt actionable on this study. (EC-NS) Dictated | | | by: Praful Mojica M.D. on 04/24/2015 9:16 AM PDT Electronically | | | signed by: Praflu Mojica M.D. on 04/24/2015 9:17 AM PDT | | | [facility] | | + + + + + + | Narrative | Performed At | + + + | XR CHEST PA AND LATERAL DATE OF EXAM: 04/24/2015 9:14 AM | [facility] | | INDICATION: epigastric pains. TECHNIQUE: Frontal and | | | lateral views of the chest were obtained. LIMITATION: None. | | | COMPARISON: None available. FINDINGS: Lines and tubes: | | | Bilateral cardiac monitoring electrodes are in place. | | | Cardiomediastinum and jamir: The cardiac silhouette and pulmonary | | | vasculature are normal. The thoracic aorta is slightly tortuous. | | | The jamir and mediastinum are normal. Lungs and pleura: The | | | lungs are clear. The costophrenic angles are normal, no effusions. | | | Chest wall and osseous structures: Mild osteophytic spurring | | | is noted in the thoracic spine. | | + + + + + | Procedure Note | + + | Jose, Rad Results In - 04/24/2015 9:20 AM PDT XR CHEST PA AND LATERAL | | | | DATE OF EXAM: 04/24/2015 9:14 AM | | | | INDICATION: epigastric pains. | | | | TECHNIQUE: Frontal and lateral views of the chest were obtained. | | | | LIMITATION: None. | | | | COMPARISON: None available. | | | | FINDINGS: | | | | Lines and tubes: Bilateral cardiac monitoring electrodes are in place. | | | | Cardiomediastinum and jamir: The cardiac silhouette and pulmonary vasculature | | are normal. The thoracic aorta is slightly tortuous. The jamir and mediastinum | | are normal. | | | | Lungs and pleura: The lungs are clear. The costophrenic angles are normal, no | | effusions. | | | | Chest wall and osseous structures: Mild osteophytic spurring is noted in the | | thoracic spine. | | | | | | | | IMPRESSION: | | No acute cardiopulmonary process is demonstrated. | | | | There are no findings felt actionable on this study. | | (EC-NS) | | | | | | | | Dictated by: Praful Mojica M.D. on 04/24/2015 9:16 AM PDT | | | | | | [facility] | + + + +---------+ + + | Performing | Address | City/State/Zipcode | Phone Number | | Organization | | | | + +---------+ + + | [facility] | | | | + +---------+ + + Troponin I (04/24/2015 9:08 AM PDT) + + + + + + | Component | Value | Ref Range | Performed | Pathologist | | | | | At | Signature | + + + + + + | Troponin I | <0.03 | 0.00 - 0.05 | [facility] | | | | | ng/mL | [facility] | | | | | | [facility] | | + + + + + + | Comment | Comment: Normal | | [facility] | | | | | | [facility] | | | | 0.00-0.05 | | [facility] | | | | ng/mLBorderline | | LABORATORY | | | | | | | | | | 0.06-0.50 | | | | | | ng/mLConsistent with | | | | | | MyocardialInjury and/or | | | | | | Infarction >0.50 | | | | | | ng/mL | | | | + + + + + + + + | Specimen | + + | Blood | + + + + + + + | Performing | Address | City/State/Zipcode | Phone Number | | Organization | | | | + + + + + | [facility] | [address] | [place], [place] | [phone] | | [facility] | | [address] | | | LABORATORY | | | | + + + + + CBC with Differential (04/24/2015 9:08 AM PDT) + +-------+ + + + | Component | Value | Ref Range | Performed | Pathologist | | | | | At | Signature | + +-------+ + + + | WBC | 8.8 | 3.8 - 11.0 K/uL | [facility] | | | | | | [facility] | | | | | | [facility] | | + +-------+ + + + | RBC | 4.91 | 3.70 - 5.10 | [facility] | | | | | M/uL | [facility] | | | | | | [facility] | | + +-------+ + + + | Hemoglobin | 14.9 | 11.3 - 15.5 | [facility] | | | | | g/dL | [facility] | | | | | | [facility] | | + +-------+ + + + | Hematocrit | 43.9 | 34.0 - 46.0 % | [facility] | | | | | | [facility] | | | | | | [facility] | | + +-------+ + + + | MCV | 89.5 | 80.0 - 98.0 fL | [facility] | | | | | | [facility] | | | | | | [facility] | | + +-------+ + + + | MCH | 30.4 | 26.0 - 33.0 pg | [facility] | | | | | | [facility] | | | | | | [facility] | | + +-------+ + + + | MCHC | 34.0 | 30.0 - 36.0 | [facility] | | | | | g/dL | [facility] | | | | | | [facility] | | + +-------+ + + + | RDW-CV | 13.9 | 11.0 - 15.0 % | [facility] | | | | | | [facility] | | | | | | [facility] | | + +-------+ + + + | Platelet | 259 | 150 - 400 K/uL | [facility] [...] +-------+ + + + | % | 51.2 | 40.0 - 75.0 % | [facility] | | | Neutrophils | | | [facility] | | | | | | [facility] | | + +-------+ + + + | % | 36.3 | 15.0 - 48.0 % | [facility] | | | Lymphocytes | | | [facility] | | | | | | HOSPITAL | | | | | | LABORATORY | | + +-------+ + + + | % Monocytes | 8.5 | 0.0 - 12.0 % | [facility] | | | | | | [facility] | | | | | | LABORATORY | | + +-------+ + + + | % | 2.6 | 0.0 - 7.0 % | [facility] | | | Eosinophils | | | [facility] | | | | | | LABORATORY | | + +-------+ + + + | % Basophils | 1.4 | 0.0 - 2.0 % | [facility] | | | | | | [facility] | | | | | | LABORATORY | | + +-------+ + + + | Absolute | 4.50 | 1.90 - 7.40 | [facility] | | | Neutrophils | | K/uL | [facility] | | | | | | LABORATORY | | + +-------+ + + + | Absolute | 3.20 | 1.00 - 3.90 | [facility] | [...] +-------+ + + + | Absolute | 0.20 | 0.00 - 0.50 | [facility] | [...] + + | [facility] | [address] | [place], [place] | [phone] | | [facility] | | [address] | | | LABORATORY | | | | + + + + + Lipase (04/24/2015 9:08 AM PDT) + +-------+ + + + | Component | Value | Ref Range | Performed | Pathologist | | | | | At | Signature | + +-------+ + + + | Lipase | 50 | 10 - 60 U/L | [facility] | | | | [...] | + + + + + | [facility] | [address] | [place], [place] | [phone] | | [facility] | | [address] | | | LABORATORY | | | | + + + + + Comprehensive Metabolic Panel (04/24/2015 9:08 AM PDT) + + + + + + | Component | Value | Ref Range | Performed | Pathologist | | | | | At | Signature | + + + + + + | Na | 139 | 135 - 145 | [facility] | | | | | mmol/L | [facility] | | | | | | LABORATORY | | + + + + + + | K | 3.7 | 3.5 - 5.3 | [facility] | | | | | mmol/L | [facility] | [facility] | | | | | | LABORATORY | | + + + + + + | Cl | 101 | 99 - 109 mmol/L | [facility] | | | | | | [facility] | | | | | | LABORATORY | | + + + + + + | CO2 | 30 | 21 - 31 mmol/L | [facility] [...] + + + + | Glucose | 86 | 65 - 99 mg/dL | [facility] | | | | | | [facility] | | | | | | LABORATORY | | + + + + + + | BUN | 17 | 8 - 25 mg/dL | [facility] | | | | | | [facility] | | | | | | LABORATORY | | + + + + + + | Creatinine | 0.70 | 0.50 - 1.00 | [facility] | | | | | mg/dL | [facility] | | [facility] | | | | | | LABORATORY | | + + + + + + | eGFR if not | >60Comment: GLOMERULAR | >=60 | [facility] | | | | FILTRATION | mL/min/1.73m2 | [facility] | | | [facility] | RATE,ESTIMATED | | [facility] | | | | mL/min/1.13x2Bddy than | | LABORATORY | | | [...] + + + + | Albumin | 4.0 | 3.5 - 5.0 g/dL | [facility] | | | | | | [facility] | | | | | | LABORATORY | | + + + + + + | Bilirubin | 0.8 | 0.1 - 1.5 mg/dL | [facility] | | | Total | | | [facility] | | | | | | LABORATORY | | + + + + + + | Total | 7.3 | 6.1 - 8.4 g/dL | [facility] | | | Protein | | | [facility] | | [facility] | | | | | | LABORATORY | | + + + + + + | AST | 20 | 10 - 45 U/L | [facility] | | | | | | [facility] | | | | | | LABORATORY | | + + + + + + | ALT | 17 | 10 - 65 U/L | [facility] | | | | | | [facility] | | | | | | LABORATORY | | + + + + + + | Alkaline | 89 | 35 - 115 U/L | [facility] | | | Phosphatase | | | [facility] | [facility] | | | | | | LABORATORY | | + + + + + + | Globulin | 3.3 | g/dL | [facility] | | | | | | [facility] | | [facility] | | | | | | LABORATORY | | + + + + + + | Albumin/Caro | 1.2 | | [facility] | | | bulin Ratio | | | [facility] | | [facility] | | | | | | LABORATORY | | + + + + + + | BUN/Creatin | 24.3 | | [facility] | | | ine [...] + + | [facility] | [address] | [place], [place] | [phone] | | [facility] | | [address] | | | LABORATORY | | | | + + + + + ECG 12 lead (04/24/2015 8:42 AM PDT) + + + + + + | Component | Value | Ref Range | Performed | Pathologist | | | | | At | Signature | + + + + + + | VENTRICULAR | 71 | BPM | [facility] | | | RATE EKG | | | | | + + + + + + | ATRIAL RATE | 71 | BPM | [facility] | | + + + + + + | P-R | 160 | ms | [facility] | | | INTERVAL | | | | | + + + + + + | QRS | 92 | ms | [facility] | | | DURATION | | | | | + + + + + + | Q-T | 392 | ms | [facility] | | | INTERVAL | | | | | + + + + + + | Q-T | 425 | ms | [facility] | | | INTERVAL | | | | | | (CORRECTED) | | | | | + + + + + + | P WAVE AXIS | 57 | degrees | [facility] | | + + + + + + | QRS AXIS | 83 | degrees | [facility] | | + + + + + + | T AXIS | 63 | degrees | [facility] | | + + + + + + | INTERPRETAT | Normal sinus rhythm with | | [facility] | | | ION TEXT | sinus arrhythmiaLow | | | | | | voltage QRSConfirmed by | | | | | | MD Dee Saurav | | | | | | ([id number]) on 04/24/2015 | | | | | | 3:37:36 PM | | | | + + + + + + + + | Specimen | + + | | + + + + + | Narrative | Performed At | + + + | | | + + + + +---------+ + + | Performing | Address | City/State/Zipcode | Phone Number | | Organization | | | | + +---------+ + + | [facility] | | | | + +---------+ + + documented in this encounter Visit Diagnoses + + | Diagnosis | + + | Epigastric pain - Primary Abdominal pain, epigastric | + + documented in this encounter Administered Medications + +--------+ +--------+------+------+ | Medication Order | MAR | Action | Dose | Rate | Site | | | Action | Date | | | | + +--------+ +--------+------+------+ | aluminum & magnesium | Given | 04/24/20 | 30 mLs | | | | hydroxide-simethicone (MAALOX | | 15 11:06 | | | | | REGULAR STRENGTH) 200-200-20 mg/5 | | AM PDT | | | | | mL suspension 30 mL 30 mL, | | | | | | | Oral, ONCE PRN, Indigestion, | | | | | | | Pain, Starting 04/24/15 at | | | | | | | 1040, For 1 dose, Mix lidocaine | | | | | | | and Maalox. Samir lanza., | | | | | | + +--------+ +--------+------+------+ +---+---+ | | | +---+---+ + +-------+ +---------+---+---+ | iohexol (OMNIPAQUE 350) 350 | Given | 04/24/20 | 100 mLs | | | | mg/mL injection 100 mL 100 mL, | | 15 10:46 | | | | | Intravenous, ONCE PRN, Other, | | AM PDT | | | | | Starting 04/24/15 at 1046, For | | | | | | | 1 dose, Cat Scanner | | | | | | + +-------+ +---------+---+---+ +---+---+ | | | +---+---+ + +-------+ +--------+---+---+ | lidocaine (XYLOCAINE) 2% | Given | 04/24/20 | 10 mLs | | | | viscous solution 10 mL 10 mL, | | 15 11:07 | | | | | Oral, ONCE PRN, Pain, Starting | | AM PDT | | | | | 04/24/15 at 1040, For 1 dose, | | | | | | | Mix lidocaine and MAALOX. Shake | | | | | | | well., | | | | | | + +-------+ +--------+---+---+ +---+---+ | | | +---+---+ + +-------+ +-------+---+---+ | pantoprazole (PROTONIX) | Given | 04/24/20 | 40 mg | | | | injection 40 mg 40 mg, | | 15 9:40 | | | | | Intravenous, ONCE, 04/24/15 at | | AM PDT | | | | | 0930, For 1 dose, Mix each 40mg | | | | | | | vial with 10 mL NS to make 4 | | | | | | | mg/mL., | | | | | | + +-------+ +-------+---+---+ +---+---+ | | | +---+---+ documented in this encounter
--- OUTSIDE RECORDS SUMMARY | ~2019-12-01 | XMS | Encounter Summary ---
Demographics + + + | Address | [address] | | | [place] [address] | + + + | Home Phone | | + + + | Preferred Language | Unknown | + + + | Marital Status | | + + + | Adventism Affiliation | CHR | + + + | Race | White | + + + | Ethnic Group | Not or | + + + Author + + + | Author | [facility] | + + + | Organization | [facility] | + + + | Address | Unknown | + + + | Phone | Unavailable | + + + Support + + + + + | Name | Relationship | Address | Phone | + + + + + | Osei Bhandari Sr. | ECON | [address] | | | | | [place] | | | | | [address] | | + + + + + Care Team Providers + +------+ + | Care Consumer Credit Counselor Name | Role | Phone | + [...] | | [facility] [address] | [place], [place] | obesity (HCC); HTN | | | | [address] | [address] | (hypertension); GERD | | | | Mailcode: [facility] | [phone] | (gastroesophageal | | | | [facility] | | reflux disease); | | | | and Healing, | | Screening for | | | | Building 1,4th Floor | | diabetes mellitus; | | | | [facility] [place] | | BMI 40.0-44.9, adult | | | | [address] | | (HCC); ABHIJEET | | | | [phone] | | (obstructive sleep | | | [...] or walk. Surgery Check in Locations Admitting [facility], [facility] Surgery Check in Time: The OR (Operating Room) schedule is not finalized until the day before surgery. Someone from the OR (Operating Room) scheduling office at [facility] will call yo u with information regarding check in time for your surgery. If you have questions about th is, please call [phone] Going Home Your surgical team will decide [...] it is after office hours, call the [facility] photocopy operator at [phone] and ask them to page your doc [...] and PMHX. Document will be scanned in [employer]. Current Medication List Name Sig ALBUTEROL 90 [...] is 40. 51 kg/(m^2). PMC ROS Pulmonary: ABHJIEET (not on CPAP. Doing well without CPAP). [...] further investigation and manageme nt. A. Acute SC within 7 days: no B. Unstable angina/Recent SC (7- 30 days): no C. Decompensated CHF: [...] No. Rate of cardiac , non fatal SC, non fatal cardiac arrest (RCRI) 0 risk [...] care. RAHEEM WAHL, MSN, ACNP- NURSE PRACTITIONER [facility] [address] [place] [address] [phone] signed by Raheem Wahl NP at 05/16/2012 [...] | + +--------+ + + + | [place] [facility]LECTION VENOUS | Routin | 05/14/2012 | [...] | + + + + + | [facility] | [address] | [place] [address] | | | SERVICES, CORE | ZACKARY [...] [facility] | [address] | [place] [address] | | | SERVICES, CORE | PARK [...] | + + + + + | [facility] | [address] | [place] [address] | | | SERVICES, | [address] [...] [facility] | [address] | [place] [address] | | | SERVICES, | [address] [...] + + | [facility] | [address] [facility] [address] [facility] [address] | [place] [address] | | | OF CARE TESTS | [...]
--- OUTSIDE RECORDS SUMMARY | ~2019-12-01 | XMS | Encounter Summary ---
Demographics + + + | Address | [address] | | | [place] [address] | + + + | Home Phone | | + + + | Preferred Language | Unknown | + + + | Marital Status | | + + + | Druze Affiliation | 1077 | + + + | Race | Unknown | + + + | Ethnic Group | Unknown | + + + Author + + + | Author | [facility] | | | and [place] | + + + | Organization | [facility] | | | and [place] | + + + | Address | Unknown | + + + | Phone | Unavailable | + + + Support + + + + + | Name | Relationship | Address | Phone | + + + + + | Osei Woodard | ECON | [address] | | | [place] | | [place] | | | | | [address] | | + + + + + Care Team Providers + +------+ + | Care Service Tester Name | Role | Phone | + +------+ + | Elke Mcdonald | PCP | | + +------+ + Reason for Visit +--------+ + | Reason | Comments | +--------+ + | Other | PATIENT NEEDS TO CHANGE PROCEDURE DATE | +--------+ + Encounter Details +--------+ + + + + | Date | Type | Department | Care Team | Description | +--------+ + + + + | 01/01/ | Telephone | [facility] | Hitesh Matos MD | Other (PATIENT NEEDS | | 2013 | | [facility] | [address] | TO CHANGE PROCEDURE | | | | General Surgery | [place] [address] | DATE) | | | | [address] | [phone] | | | | | [place], [place] | | | | | | [address] | | | | | | [phone] | | | +--------+ + + + [...]
--- OUTSIDE RECORDS SUMMARY | ~2019-12-01 | XMS | Encounter Summary ---
Demographics + + + | Address | [address] | | | [place] [address] | + + + | Home Phone | | + + + | Preferred Language | Unknown | + + + | Marital Status | | + + + | Faith Affiliation | CHR | + + + [...] Osei Bhandari Sr. | ECON | [address] | | | | | [place] | | | | | [address] | | + + + + + Care Team Providers + +------+ + | Care Plant Tech Name | Role | Phone | + +------+ + | Royer Wilde MD | PCP | | + +------+ + Encounter Details +--------+ + + + + | Date | Type | Department | Care Team | Description | +--------+ + + + + | 10/30/ | Telephone | [facility] | Marisa Olivier, | | | 2008 | | [address] | [place] | | | | | aRchel Mailcode: CH4S | | | | | | [facility] | | | | | | and Healing, | | | | | | Building 1, | | | | | | Floor [place], [place] | | | | | | [address] | | | | | | [phone] | | | +--------+ + + + [...]
--- OUTSIDE RECORDS SUMMARY | ~2019-12-01 | XMS | Encounter Summary ---
Demographics + + + | Address | [address] | | | [place] [address] | + + + | Home Phone | | + + + | Preferred Language | Unknown | + + + | Marital Status | | + + + | Scientology Affiliation | 1077 | + + + | Race | Unknown | + + + | Ethnic Group | Unknown | + + + Author + + + | Author | [facility] | | | and [place] | + + + | Organization | [facility] | | | and [place] | + + + | Address | Unknown | + + + | Phone | Unavailable | + + + Support + + + + + | Name | Relationship | Address | Phone | + + + + + | Osei Woodard | ECON | [address] | | | [place] | | [place] | | | | | [address] | | + + + + + Care Team Providers + +------+ + | Care Meteorological Engineer Name | Role | Phone | + +------+ + | Jamaica Rhoades MD | PCP | | + +------+ + Encounter Details +--------+ + + + + | Date | Type | Department | Care Team | Description | +--------+ + + + + | 12/08/ | Hospital | [place] | Jamaica Rhoades, | | | 2009 | Encounter | [facility] | MD Maria Ale[address]andra Anderson | | | | | Center Xray [address] [place], [place] | | | | | [address] | [address] | | | | | [place], [place] | | | | | | [address] | | | | | | [phone] | | | +--------+ + + + [...] | + +--------+ + + + | US BREAST RIGHT | | 12/08/2009 | | Results for this | | | | 12:16 PM | | procedure are in the | | | | PDT | | results section. | + +--------+ + + + | [facility] | | 12/08/2009 | | Results for this | | SCREENING BILATERAL | | 11:06 AM | | procedure are in the | | | | PDT | | results section. | + +--------+ + + + documented in this encounter Results US Breast Right (12/08/2009 12:16 PM PDT) + + | Specimen | + + | | + + + + + | Impressions | Performed At | + + + | IMPRESSION: No solid or cystic lesions | [facility] | | identified in the area of interest. | | | Dictated By: Dereje Fitzgerald M.D. 12/09/2009 | | | 5:58:24 PM | | + + + + + + | Narrative | Performed At | + + + | [facility] US UNILAT BREAST RT DATE OF EXAM: 12/08/2009 | [facility] | | INDICATION: RT BREAST LUMP 12 O'CLOCK FINDINGS: No solid or | | | cystic lesions are seen in the area designated by the patient. No | | | shadowing is evident. [place] EXAM NUMBER: [id number] [facility] US UNILAT | | | BREAST [id number] | | + + + + + | Procedure Note | + + | Jose, Rad Conversion - 08/23/2011 7:14 PM [facility] US UNILAT BREAST RT | | | | DATE OF EXAM: 12/08/2009 | | | | INDICATION: RT BREAST LUMP 12 O'CLOCK | | | | FINDINGS: | | | | No solid or cystic lesions are seen in the area designated by | | the patient. No shadowing is evident. | | [facility] EXAM NUMBER: [id number] [facility] US UNILAT BREAST [id number] | | IMPRESSION: | | IMPRESSION: | | | | No solid or cystic lesions identified in the area of | | interest. | | | | | | | | Dictated By: Dereje Fitzgerald M.D. 12/09/2009 | | 5:58:24 PM | + + + +---------+ + + | Performing | Address | City/State/Zipcode | Phone Number | | Organization | | | | + +---------+ + + | [facility] | | | | + +---------+ + + [facility] Digital Screening Bilateral (12/08/2009 11:06 AM PDT) + + | Specimen | + + | | + + + + | Addenda | + + | Addendum by Dereje Fitzgerald on 12/11/2009 8:22 AM ADDENDUM: (-08:22) | | [facility] MAMMO DIAG BILAT DIG. | | DATE OF EXAM: 12/08/2009 INDICATION: RT | | BREAST LUMP 12 O'CLOCK The next to last sentence | | before the IMPRESSION should read: | | Ultrasound was performed in the area of interest. | | Dictated By: Dereje Fitzgerald M.D. 12/10/2009 | | 4:01:48 PM | + + + + + | Narrative | Performed At | + + + | [facility] MAMMO DIAG BILAT DIG. DATE OF EXAM: 12/08/2009 | [facility] | | INDICATION: RT BREAST LUMP 12 O'CLOCK HISTORY: The the | | | patient has a complaint of a right breast lump at the 12 o'clock | | | position which has been present for 2 weeks at there is no pain. The | | | patient has had no breast surgery. There is a family history of | | | breast cancer in a sister and mother. FINDINGS; Previous views | | | are not available for comparison. CC and MLO views of both | | | breasts were obtained and demonstrate minimal fibroglandular density. | | | A skin marker was placed in the area of interest in the right breast | | | appears to be of and medial to the nipple. No mass is identified | | | near the marker or elsewhere in either breast. There is no evidence | | | of clustered calcifications or spiculation. Ultrasound was | | | performed in their of interest. No solid or cystic lesions were | | | identified. IMPRESSION; No evidence of malignancy. | | | BIRADS I Negative findings Recommend follow up mammography in | | | 1 year. CAD was used for assistance in interpretation. | | | Dictated By: Dereje Fitzgerald M.D. 12/09/2009 6:00:58 PM | | | [place] EXAM NUMBER: [id number] [facility] MAMMO DIAG BILAT DIG. [id number] | | + + + + + | Procedure Note | + + | Jose, Rad Conversion - 08/23/2011 7:13 PM [facility] MAMMO DIAG BILAT DIG. | | | | DATE OF EXAM: 12/08/2009 | | | | INDICATION: RT BREAST LUMP 12 O'CLOCK | | | | HISTORY: | | | | The the patient has a complaint of a right breast lump at the 12 | | o'clock position which has been present for 2 weeks at there is | | no pain. The patient has had no breast surgery. There is a | | family history of breast cancer in a sister and mother. | | | | FINDINGS; | | | | Previous views are not available for comparison. | | | | CC and MLO views of both breasts were obtained and demonstrate | | minimal fibroglandular density. A skin marker was placed in the | | area of interest in the right breast appears to be of and medial | | to the nipple. No mass is identified near the marker or | | elsewhere in either breast. There is no evidence of clustered | | calcifications or spiculation. Ultrasound was performed in | | their of interest. No solid or cystic lesions were identified. | | | | IMPRESSION; | | | | No evidence of malignancy. | | | | | | | | BIRADS I | | | | Negative findings | | | | Recommend follow up mammography in 1 year. | | | | | | | | CAD was used for assistance in interpretation. | | | | | | | | | | | | Dictated By: Dereje Fitzgerald M.D. 12/09/2009 6:00:58 PM | | [facility] EXAM NUMBER: [id number] [facility] MAMMO DIAG BILAT DIG. FOT=[id number] | + + + +---------+ + + | Performing | Address | City[facility] | Phone Number | | Organization | | | | + +---------+ + + | [facility] | | | | + +---------+ + + documented in this encounter Visit Diagnoses Not on filedocumented in this encounter"
--- OUTSIDE RECORDS SUMMARY | ~2019-12-01 | XMS | Encounter Summary ---
Demographics + + + | Address | [address] | | | [place] [address] | + + + | Home Phone | | + + + | Preferred Language | Unknown | + + + | Marital Status | | + + + | Sabianist Affiliation | 1077 | + + + | Race | Unknown | + + + | Ethnic Group | Unknown | + + + Author + + + | Author | [facility] | | | and [place] | + + + | Organization | [facility] | | | and [place] | + + + | Address | Unknown | + + + | Phone | Unavailable | + + + Support + + + + + | Name | Relationship | Address | Phone | + + + + + | Osei Woodard | ECON | [address] | | | [place] | | [place] | | | | | [address] | | + + + + + Care Team Providers + +------+ + | Care Perfumer Name | Role | Phone | + +------+ + | Pcp, Prov Inactive | PCP | | + +------+ + Encounter Details +--------+ + + + + | Date | Type | Department | Care Team | Description | +--------+ + + + + | 09/15/ | Hospital | [facility] | Conversion | Asymptomatic | | 2017 | Encounter | CENTER OPI DEXA | Transaction, | menopausal state | | | | [address] | Provider Unknown | | | | | [address] [place], [place] | [phone] | | | | | [address] | | | | | | [phone] | Nicole Chen, | | | | | | ANP [address] | | | | | | [address] | | | | | | [address] [place], [place] | | | | | | [address] | | | | | | | [...] the anterior projection | | | and wmslwj-jh-ftimkuwo values were drawn about the vertebral segments | | | of L1 through L4 at the levels where accurate assessment was possible. | | | A bone mineral analysis was also performed on the left hip with | | | wsnzvl-zg-ubgzmuzd areas including the femoral neck measured. From [...] in the anterior projection and | | mjaxgd-dp-fqgukhcv values were drawn about the vertebral segments of L1 through L4 at | | the levels where accurate assessment was possible. A bone mineral analysis was also | | performed on the left hip with nlcfrh-ej-lhjgrmyq areas including the femoral neck | | [...]
--- OUTSIDE RECORDS SUMMARY | ~2019-12-01 | XMS | Encounter Summary ---
Demographics + + + | Address | [address] | | | [place] [address] | + + + | Home Phone | | + + + | Preferred Language | Unknown | + + + | Marital Status | | + + + | Islam Affiliation | 1077 | + + + | Race | Unknown | + + + | Ethnic Group | Unknown | + + + Author + + + | Author | [facility] | | | and [place] | + + + | Organization | [facility] | | | and [place] | + + + | Address | Unknown | + + + | Phone | Unavailable | + + + Support + + + + + | Name | Relationship | Address | Phone | + + + + + | Osei Woodard | ECON | [address] | | | [place] | | [place] | | | | | [address] | | + + + + + Care Team Providers + +------+ + | Care Anglesmith Helper Name | Role | Phone | + +------+ + | Jamaica Rhoades MD | PCP | | + +------+ + Encounter Details +--------+ + + + + | Date | Type | Department | Care Team | Description | +--------+ + + + + | 12/08/ | Hospital | [place] | Jamaica Rhoades, | | | 2009 | Encounter | [facility] | MD Maria Alejandra Anderson | | | | | Center Xray [address] [place], [place] | | | | | [address] | [address] | | | | | [place], [place] | | | | | | [address] | | | | | | [phone] | | | +--------+ + + + [...] No | | | shadowing is evident. [place] EXAM NUMBER: [id number] [facility] US UNILAT | | | BREAST [id number] | | + + + + + | Procedure Note | + + | Jose, Rad Conversion - 08/23/2011 7:14 PM [facility] US UNILAT BREAST RT | | | | DATE OF EXAM: 12/08/2009 | | | | INDICATION: RT BREAST LUMP 12 O'CLOCK | | | | FINDINGS: | | | | No solid or cystic lesions are seen in the area designated by | | the patient. No shadowing is evident. | | [facility] EXAM NUMBER: [id number] [facility] US UNILAT BREAST [id number] | | IMPRESSION: | | IMPRESSION: | [...] M.D. 12/09/2009 6:00:58 PM | | | [place] EXAM NUMBER: [id number] [facility] MAMMO DIAG BILAT DIG. PGR=[id number] | | + + + + + | Procedure Note | + + | Jose, Rad Conversion - 08/23/2011 7:13 PM [facility] MAMMO DIAG BILAT DIG. | | [...] 6:00:58 PM | | [facility] EXAM NUMBER: [id number] [facility] MAMMO DIAG BILAT DIG. [id number]=[id number] | + + + +---------+ + + | Performing | Address | City/State[facility] | Phone Number | | Organization | | | | + +---------+ + + | [facility] | | | | + +---------+ + + documented in this encounter Visit Diagnoses Not on filedocumented in this encounter"
--- OUTSIDE RECORDS SUMMARY | ~2019-12-01 | XMS | Clinical Summary ---
Demographics + + + | Address | [address] | | | [place] [address] | + + + | Home Phone | | + + + | Preferred Language | Unknown | + + + | Marital Status | | + + + | Confucianism Affiliation | CHR | + + + [...] Osei Bhandari Sr. | ECON | [address] | | | | | [place] | | | | | [address] | | + + + + + Care Team Providers + +------+ + | Care Packaging Manager Name | Role | Phone | + +------+ + | Royer Wilde MD | PCP | | + +------+ + Source Comments STEPHEN is fully live on both EpicCare Ambulatory and EpicCare InPatient.[facility] All[facility] + + + + + + [...] al/Fam | | 1965 | [phone] | [place] [address] | | | jennifer | | | 3 (Home) | | + +--------+ +--------+ + + Advance Directives + + + + + | Type | Date Recorded | Patient | Explanation | | | | Map Mounter | | + + + + + | Advance | | | | | Directives and | | | | | Living Will | | | | + + + + + | Power of | | | | | Used Equipment Sales Representative | | | | + + + [...]
--- OUTSIDE RECORDS SUMMARY | ~2019-12-01 | XMS | Encounter Summary ---
Demographics + + + | Address | [address] | | | [place] [address] | + + + | Home Phone | | + + + | Preferred Language | Unknown | + + + | Marital Status | | + + + | Anglican Affiliation | 1077 | + + + | Race | Unknown | + + + | Ethnic Group | Unknown | + + + Author + + + | Author | [facility] | | | and [place] | + + + | Organization | [facility] | | | and [place] | + + + | Address | Unknown | + + + | Phone | Unavailable | + + + Support + + + + + | Name | Relationship | Address | Phone | + + + + + | Osei Woodard | ECON | [address] | | | [place] | | [place] | | | | | [address] | | + + + + + Care Team Providers + +------+ + | Care Tab Machine Operator Name | Role | Phone | + +------+ + | Royer Wilde MD | PCP | | + +------+ + Encounter Details +--------+ + + + + | Date | Type | Department | Care Team | Description | +--------+ + + + + | 03/20/ | Hospital | [facility] | Jerson Parsons | | | 2009 | Encounter | [facility] | [address] | | | | | CENTER [address] [place], [place] | | | | | [address] | [id number] | | | | | [place], [place] | | | | | | [address] | | | | | | [phone] | | | +--------+ + + + [...] + +--------+ + + + | CT HEAD WO CONTRAST | | 03/20/2010 | | Results for this | | | | 12:59 PM | | procedure are in the | | | | PDT | | results section. | + +--------+ + + + documented in this encounter Results CT Head wo Contrast (03/20/2010 12:59 PM PDT) + + | Specimen | + + | | + + + + + | Impressions | Performed At | + + + | IMPRESSION: No evidence of acute intracranial injury. | [facility] | | Dictated By: Mo Dumont M.D. 03/20/2010 | | | 12:59:53 PM | | + + + + + + | Narrative | Performed At | + + + | CT HEAD W/0 CONTRAST DATE OF EXAM: 03/20/2010 INDICATION: | [facility] | | -headache, fall TECHNIQUE: Using helical technique, 9 meters | | | slices were obtained of the head from the skull base to the vertex | | | without intravenous contrast. Soft tissue and bone windows were | | | imaged. Images were reviewed on the workstation in cine/MPR format | | | at multiple window level settings. COMPARISON: None the | | | FINDINGS: No acute intracranial hemorrhage, mass/mass effect, or | | | midline shift is identified. The ventricles, sulci, fissures, and | | | basal cisterns are normal. No hydrocephalus or subdural or epidural | | | hematoma is seen. No intra- or extra-axial fluid collection is | | | seen. The bowens-white differentiation is preserved throughout. No | | | calcifications are noted. There is minimal left frontal scalp | | | swelling. No osseous abnormalities are appreciated. There is a | | | prominent mucosal polyp within the right maxillary sinus. The | | | remaining paranasal sinuses, mastoid air cells, and orbits appear | | | unremarkable. COLERIDGE EXAM NUMBER: [id number] CT HEAD W/0 CONTRAST | | | [id number] | | + + + + + | Procedure Note | + + | Jose, Rad Conversion - 08/23/2011 6:[address] HEAD W/0 CONTRAST | | | | DATE OF EXAM: 03/20/2010 | | | | INDICATION: -headache, fall | | | | TECHNIQUE: Using helical technique, 9 meters slices were | | obtained of the head from the skull base to the vertex without | | intravenous contrast. Soft tissue and bone windows were imaged. | | Images were reviewed on the workstation in cine/MPR format at | | multiple window level settings. | | | | COMPARISON: None the | | | | FINDINGS: No acute intracranial hemorrhage, mass/mass effect, | | or midline shift is identified. The ventricles, sulci, | | fissures, and basal cisterns are normal. No hydrocephalus or | | subdural or epidural hematoma is seen. No intra- or extra-axial | | fluid collection is seen. The bowens-white differentiation is | | preserved throughout. No calcifications are noted. | | | | There is minimal left frontal scalp swelling. No osseous | | abnormalities are appreciated. | | | | There is a prominent mucosal polyp within the right maxillary | | sinus. The remaining paranasal sinuses, mastoid air cells, and | | orbits appear unremarkable. | | MARS EXAM NUMBER: [id number] CT HEAD W/0 CONTRAST [id number] | | IMPRESSION: | | IMPRESSION: No evidence of acute intracranial injury. | | | | | | | | | | | | Dictated By: Mo Dumont M.D. 03/20/2010 12:59:53 | | PM | + + + +---------+ + + | Performing | Address | City/State/Zipcode | Phone Number | | Organization | | | | + +---------+ + + | [facility] | | | | + +---------+ + + documented in this encounter Visit Diagnoses Not on filedocumented in this encounter"
--- OUTSIDE RECORDS SUMMARY | ~2019-12-01 | XMS | Encounter Summary ---
Demographics + + + | Address | [address] | | | [place] [address] | + + + | Home Phone | | + + + | Preferred Language | Unknown | + + + | Marital Status | | + + + | Jew Affiliation | CHR | + + + [...] Osei Bhandari Sr. | ECON | [address] | | | | | [place] | | | | | [address] | | + + + + + Care Team Providers + +------+ + | Care Goldbeater Name | Role | Phone | + +------+ + | Royer Wilde MD | PCP | | + +------+ + Reason for Visit + + + | Reason | Comments | + + + | Bariatric Nutrition | pre surgery weight loss visit 2 | + + + Office Visit - [...] | | | | [place] | [place] [address] | [address] | | | | | (HCC) | [address] | [address] | | | | | Procedures | [facility] | Center for | | | | | [place] [address] | [address] | Health and | | | | | GSTR ADJST | [facility] [place] | Healing, | | | | | BND | [address] | [address] | | | | | | Phone: | [place], [place] | | | | | | [phone] | [address] | | | | | | Fax: | Phone: | | | | | | [phone] | [phone] | | | | | | | Fax: | | | | | | | [phone] | +--------+--------+ + + + + Encounter Details +--------+---------+ + + + | Date | Type | Department | Care Team | Description | +--------+---------+ + + + | 12/11/ | Office | Digestive Health | Alexandra Mccloud RD | Obesity, Class III, | | 2011 | Visit | Center at [facility] [address] | | BMI 40-49.9 (morbid | | | | [facility] | | obesity) ([facility]) | | | | for Health and | | (Primary Dx) | | | | [facility] | | | | | | [place], [place] | | | | | | [address] | | | | | | [phone] | | | +--------+---------+ + + + [...] documented as of this encounter Progress Notes Alexandra Mccloud, RD - 12/12/2011 3:24 PM PDT Referred by: Royer Wilde MD Referred for diagnosis: Pre surgery weight loss, 6 month pre surgery nutrition for timeplazza requirement. Visit type: Individual and Follow Up, Month 2, second visit for pre bariatric surgery Documented time of visit: 9;30 until 9:46. 16 minutes face to face consult with patient. SUBJECTIVE: Steve provides information about how she is now purchasing "lite" or reduced fats foods for herself and her Abelardo, their portion sizes remain the same, states they both contin ue to eat really fast, eat in front of the TV or the computer. Physical activity : none currently, Steve just had knee surgery last week and is on crutchs. Daily food intake provided: No OBJECTIVE: 46 year old, female Ht Readings from Last 1 Encounters: 11/14/11 1.676 m (5' 6") Wt Readings from Last 1 Encounters: 11/14/11 116.529 kg (256 lb 14.4 oz) Weight in clinic: 256 lbs Pt states her weight on her home scale is the same as one month ago (247 lbs) BMI: based on Clinic weight. 41.4. Past Medical History Past Medical History Diagnosis Date Morbid obesity Asthma Vitamin D deficiency Migraine Hyperlipidemia HTN (hypertension) GERD (gastroesophageal reflux disease) Nutrition Diagnosis : Class 3 Obesity as evidenced by BMI of 41.4 related to lifestyle and eating habits. DIET ASSESSMENT: Meal times/spacing : good, 3 meals per day, one or two snacks Portions : same as before Water intake : fair, still drinks diet Dr. Crouch Deficiencies in current diet: Veggies and lower sodium foods, they have been eating fast f ood since last week due to her knee sugery. EDUCATION PROVIDED: Behavior Modification strategies includin. Slow down eating, try eating in course, start with a plate of salad, or raw veggies with Afghan yogurt dip (2 T. Of dip) 2. Set up the salad bar idea discuss today in clinic. 3. Lunch: Choose lower sodium frozen meals, keep the sodium level under 600 mg per meal Have a salad or a large container of veggies while the frozen meal is heating up in the microwave. 4. Dinner: eat at the kitchen table, take 10 minutes to eat the first course of veggies, wa it 5 minutes then have second course and take 10 minutes to eat the second course, suggested appropriate serving sizes for protein and starch. Monday dinner: Welsh food: provided specific example of foods not to order, fried sh rimp, fried rice and noodles. Look at the menu and find food choices that are not fried, and contain a lot of veggies , choose either noodles or rice (have small portion only) Physical activity: recommended the "Sit and Be Fit" program on OPB, record and watch/and d o every day, this is a realistic program of 20 minutes for both of them to do every day toge ther. Patient's Comprehension: Receptive Stage of change: Contemplation Barrier(s) to education: No Learning style: Patient is Visual learner Information provided in writing, and used visual aids to demonstrate food portions and food products. PLAN : PATIENT GOALS: 5% body weight loss in 6 months of pre surgery weight loss program, insurance requires 6 month plan. 1. Continue to go to PCP for proper documentation of weigh loss visits each month to satis insurance company and prevent A denial from their insurance company. 2. Slow down eating as recommended 3. Start Sit and Be Fit program, goal is 5 days per week 4. Next visit is January 18, 11:15 AM with Alexandra Mccloud RD. Alexandra Mccloud RD, LD, CDE [facility] Pager: [phone] documented in this enc ounter Plan of Treatment Not on filedocumented as of this encounter Procedures + +--------+ + + + | Procedure Name | Priori | Date/Time | Associated Diagnosis | Comments | | | ty | | | | + +--------+ + + + | DC MNT RE-ASSESSMNT | Routin | 12/12/2011 | Obesity, Class | | | X15MIN | e | 3:54 PM | III, BMI 40-49.9 | | | | | PDT | (morbid obesity) | | | | | | (HCC) | | + +--------+ + + + documented in this encounter Visit Diagnoses + + | Diagnosis | + + | Obesity, Class III, BMI 40-49.9 (morbid obesity) (HCC) - Primary Morbid obesity | + + documented in this encounter
--- OUTSIDE RECORDS SUMMARY | ~2019-12-01 | XMS | Encounter Summary ---
Demographics + + + | Address | [address] | | | [place] [address] | + + + | Home Phone | | + + + | Preferred Language | Unknown | + + + | Marital Status | | + + + | Anabaptist Affiliation | CHR | + + + | Race | White | + + + | Ethnic Group | Not or | + + + Author + + + | Author | [facility] | + + + | Organization | [facility] | + + + | Address | Unknown | + + + | Phone | Unavailable | + + + Support + + + + + | Name | Relationship | Address | Phone | + + + + + | Osei Bhandari Sr. | ECON | [address] | | | | | [place] | | | | | [address] | | + + + + + Care Team Providers + +------+ + | Care Box Nailer Name | Role | Phone | + [...] | | | | [place] | [place] [address] | [address] | | | | | (HCC) | [address] | [address] | | | | | Procedures | [address] | Mailcode: | | | | | [place] [address] | [address] | [facility] | | | | | GSTR ADJST | [place], [place] | Health and | | | | | BND | [address] | Healing, | | | | | | Phone: | Building [address] | | | | | | [phone] | [place], [place] | | | | | | Fax: | [address] | | | | | | [phone] | Phone: | | | | | | | [phone] | | | | | | | Fax: | | | | | | | [phone] | +--------+--------+ + + + + Encounter [...] | | [address] | Ave [place], [place] | (Primary Dx); Food | | | | Mailcode: Center | [address] | intolerance; | | | | for Health and | [phone] | Abdominal pain, | | | | Healing, [address] | | unspecified | | | | [place], [place] | | abdominal location; | | | | [address] | | Weight gain; | | | | [phone] | | Gastroesophageal | | | | [...] nexium Spinach salad Butter salad Calcium citrate 8607-3614 mg per day (take calcium 2 hours [...] sleeve "about 2.5 bananas " Per report. ([phone]) She had a UGI ordered to be completed prior to this appointment today.. She was last seen in our clinic 11/2012 by Jessica SILVEIRA. Last labs from [facility] are from 1 year ago per care everwhere No other records were forwarded to me prior to this visit She has been evaluated by her pcp for celiac, H pylori which were negative. She had been started on omeprazole The history is that 6 months after her sleeve gastrectomy (32 Liberian Size) she found she co uld Eat [...] for vitamins since ??? 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. 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 To evaluate. She is currently not taking a calcium supp. Because of the taste Plan: labs today. 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 Start time 1130, end time 1200. I spent a total of 30 minutes face to face with this avani ent. Over 50% of visit was in counseling. Dianna Rossi DNP, ACNP, SOX ANALYST Nurse Practitioner for Bariatric Surgery [facility] | [address] | [place], [place] | [address] | documented in this en counter Plan [...] + + + + + | [facility] | [address] | [place] [address] | | | SERVICES, CORE | PARK [...] [facility] | [address] | [place] [address] | | | SERVICES, CORE | PARK [...] + + + + + | [facility] | [address] | [place] [address] | | | SERVICES, SPECIAL | PARK [...] + + + + + | [facility] | [address] [facility] | [place] [address] | | | SERVICES, CORE | ZACKARY [...] | | | LABORATORY | | | NIGERIEN | | | SERVICES, | | | [...] + + + + + | [facility] | [address] | [place] [address] | | | SERVICES, CORE | ZACKARY [...]
--- OUTSIDE RECORDS SUMMARY | ~2019-12-01 | XMS | Encounter Summary ---
Demographics + + + | Address | [address] | | | [place] [address] | + + + | Home Phone | | + + + | Preferred Language | Unknown | + + + | Marital Status | | + + + | Church Affiliation | CHR | + + + | Race | White | + + + | Ethnic Group | Not or | + + + Author + + + | Author | [facility] | + + + | Organization | [facility] | + + + | Address | Unknown | + + + | Phone | Unavailable | + + + Support + + + + + | Name | Relationship | Address | Phone | + + + + + | Osei Bhandari Sr. | ECON | [address] | | | | | [place] | | | | | [address] | | + + + + + Care Team Providers + +------+ + | Care Rooter Operator Name | Role | Phone | [...] | | | | obesity | [place] [address] | [address] | | | | | (HCC) | [address] | [address] | | | | | Procedures | [address] | [place] for | | | | | [place] [address] | [address] | Health and | | | | | GSTR ADJST | [facility] [place] | Healing, | | | | | BND | [address] | [address] | | | | | | Phone: | [place], [place] | | | | | | [phone] | [address] | | | | | | Fax: | Phone: | | | | | | [phone] | [phone] | | | | | | | Fax: | | | | | | | [phone] | +--------+--------+ + + + + Encounter Details +--------+---------+ + + + | Date | Type | Department | Care Team | Description | +--------+---------+ + + + | 03/13/ | Office | Digestive Health | Shannon, | Morbid obesity (HCC) | | 2011 | Visit | Center at [facility] [address] | [address]E [address]olson [address] | (Primary Dx) | | | | [facility] | [address] [place] | | | | | for [facility] and | [place], [place] | | | | | [facility] [address] | [address] | | | | | [place], [place] | | | | | | [address] | | | | | | [phone] | | | +--------+---------+ + + + [...] + + + + | Weight | 114 kg (251 lb 6.4 | 03/13/2012 1:36 PM | | | | oz) | PDT | | + + + + + | Height | 167.6 cm (5' 6") | 03/13/2012 1:36 PM | | | | | PDT | | + + + + + | Body Mass Index | 40.58 | 03/13/2012 1:36 PM | | | | | PDT | | + + + + + documented in this encounter Progress Notes Lyn Ortega, RD - 03/13/2012 1:36 PM PDT Referring Provider: Royer Wilde MD Clinic: Outpatient Nutrition Clinic, Pre Bariatric Surgery Visit Services, for diet consult prior to having Lou En Y gastric bypass surgery. Documented Time of Visit: 1:35pm until 1:54pm. 19 minutes [id number] consult with the pravin reyes. (5 of 6 visits) SUBJECTIVE: Met w/ pt & . Purchased a treadmill last week. Still c/o difficulty w/ portion control. Has eliminated soda. Feeling frustrated over struggles to lose weight pre- op w/ minimal results. Has been having salad before meals to help decrease portions of entr ee. Progress towards previous goals: Has not added snacks between meals d/t being too busy at work. C/o having large portions d/t still feeling hungry after meals. Fluid intake: No water intake ("hates water"), drinks a lot of tea (regular) Food Allergies: No Current Physical Exercise: Walking on treadmill OBJECTIVE: Height: Ht Readings from Last 1 Encounters: 02/09/12 1.676 m (5' 6") Weight: Wt Readings from Last 1 Encounters: 03/13/12 114.034 kg (251 lb 6.4 oz) Past Medical History: Past Medical History Diagnosis Date Morbid obesity Asthma Vitamin D deficiency Migraine Hyperlipidemia HTN (hypertension) GERD (gastroesophageal reflux disease) Medications: See list in Epic snap shot Medications for Diabetes: Not applicable Dietary Supplements: Did not address Labs: none available Nutrition Diagnosis: Obesity as evidenced by BMI of 40.6. Pre-Surgery Diet: Provided written diet suggestions to help patient lose weight before surgery. -Add 2 small snacks between meals (pre-portion snacks, add a reminder on calendar for [facility] during work) -Continue to exercise, increasing as tolerated Discussed behavior changes to practice before surgery to prepare for surgery. -Add Crystal Light tea packets to increase water consumption (& decrease intake of caffein ated tea) Patient's Comprehension: The patient is: Moderately Receptive Stage of change: Preparation/action Barrier(s) to education: No Learning style: Patient [...] 4 weeks 6. Contact information was provided. Lyn Ortega MS, RD, LD pgr [phone] documented in thi s encounter Plan of Treatment Not on filedocumented as of this encounter Procedures + +--------+ + + + | Procedure Name | Priori | Date/Time | Associated Diagnosis | Comments | | | ty | | | | + +--------+ + + + | MI MNT RE-ASSESSMNT | Routin | 03/13/2012 | Morbid obesity | | | X15MIN | e | 2:10 PM | (HCC) | | | | | PDT | | | + +--------+ + + + documented in this encounter Visit Diagnoses + + | Diagnosis | + + | Morbid obesity (HCC) - Primary Morbid obesity | + + documented in this encounter
--- OUTSIDE RECORDS SUMMARY | ~2019-12-01 | XMS | Encounter Summary ---
Demographics + + + | Address | [address] | | | [place] [address] | + + + | Home Phone [...] + + + | Author | [facility] | + + + | Organization | [facility] | + + + | Address | Unknown | + + + | Phone | Unavailable | + + + Support + + + + + | Name | Relationship | Address | Phone | + + + + + | Osei Bhandari Sr. | ECON | [address] | | | | | [place] | | | | | [address] | | + + + + + Care Team Providers + +------+ + | Care Medicare Compliance Auditor Name | Role | Phone | + +------+ + | Royer Wilde MD | PCP | | + +------+ + Encounter Details +--------+ + + + + | Date | Type | Department | Care Team | Description | +--------+ + + + + | 11/27/ | Abstract | Digestive Health | Jessica Davis, | | | 2011 | | Center at [facility] [address] | GENETICS TEACHER [address] | | | | | [address] | , [address] | | | | | Mailcode: Center | [place], [place] | | | | | for Health and | [address] | | | | | Healing, [address] | [phone] | | | | | [place], [place] | | | | | | [address] | | | | | | [phone] | | | +--------+ + + + [...]
--- OUTSIDE RECORDS SUMMARY | ~2019-12-01 | XMS | Encounter Summary ---
Demographics + + + | Address | [address] | | | [place] [address] | + + + | Home Phone | | + + + | Preferred Language | Unknown | + + + | Marital Status | | + + + | Buddhist Affiliation | 1077 | + + + | Race | Unknown | + + + | Ethnic Group | Unknown | + + + Author + + + | Author | [facility] | | | and [place] | + + + | Organization | [facility] | | | and [place] | + + + | Address | Unknown | + + + | Phone | Unavailable | + + + Support + + + + + | Name | Relationship | Address | Phone | + + + + + | Osei Woodard | ECON | [address] | | | [place] | | [place] | | | | | [address] | | + + + + + Care Team Providers + +------+ + | Care Project Intern Name | Role | Phone | + [...] + + | 11/15/ | Office | [facility] | Ravinder Ninfa, | ASCUS (atypical | | 2011 | Visit | [facility] | [address] | squamous cells of | | | | [facility] [address] | [address] [place], [place] | undetermined | | | | [address] | [address] | significance) on Pap | | | | [place], [place] | | smear (Primary Dx) | | | | [address] | | | | | | [phone] | | | +--------+---------+ + + + [...] different fr om the original. Subjective: Steve Bhandari is a 46 y.o. woman who comes [...]
--- OUTSIDE RECORDS SUMMARY | ~2019-12-01 | XMS | Encounter Summary ---
Demographics + + + | Address | [address] | | | [place] [address] | + + + | Home Phone | | + + + | Preferred Language | Unknown | + + + | Marital Status | | + + + | Presybeterian Affiliation | CHR | + + + [...] Osei Bhandari Sr. | ECON | [address] | | | | | [place] | | | | | [address] | | + + + + + Care Team Providers + +------+ + | Care Local Government Legislator Name | Role | Phone | + +------+ + | Royer Wilde MD | PCP | | + +------+ + Reason for Visit + + + | Reason | Comments | + + + | Follow-up visit | | + + + Office Visit - E/M Services (Routine) +--------+--------+ + + + + | Status | Reason | Specialty | Diagnoses / | Referred By | Referred To | | | | | Procedures | Contact | Contact | +--------+--------+ + + + + | Closed | | Surgery | Diagnoses | Nag[place]eter, | Bar | | | | | Morbid | [place], | [facility] | | | | | obesity | [place] [address] | [address] | | | | | (HCC) | [address] | [address] | | | | | Procedures | [address] | Mailcode: | | | | | [place] LAP,PLC | [address] | [facility] | | | | | GSTR ADJST | [place], [place] | Health and | | | | | BND | [address] | Healing, | | | | | | Phone: | Building 2 | | | | | | [phone] | [place], [place] | | | | | | Fax: | [address] | | | | | | [phone] | Phone: | | | | | | | [phone] | | | | | | | Fax: | | | | | | | [phone] | +--------+--------+ + + + + Encounter Details +--------+---------+ + + + | Date | Type | Department | Care Team | Description | +--------+---------+ + + + | 12/07/ | Office | Digestive Health | Jessica Davis, | S/P partial | | 2012 | Visit | Center at [facility] [address] | EDI MANAGER [address] | gastrectomy (Primary | | | | [address] | [address], [address] | Dx); Elevated | | | | Mailcode: Center | [place], [place] | ferritin; B12 | | | | for Health and | [address] | nutritional | | | | Healing, Building 2 | [phone] | deficiency; Abnormal | | | | [place], [place] | | iron saturation; | | | | [address] | | Weight loss | | | | [phone] | | | +--------+---------+ + + + [...] + + + | Blood Pressure | 107/62 | 12/07/2012 11:11 AM | | | | | PDT | | + + + + + | Pulse | 78 | 12/07/2012 11:11 AM | | | | | PDT | | + + + + + | Temperature | 36.9 C (98.4 F) | 12/07/2012 11:11 AM | | | | | PDT | | + + + + + | Respiratory Rate | 17 | 12/07/2012 11:11 AM | | | | | PDT | | + + + + + | Oxygen Saturation | - | - | | + + + + + | Inhaled Oxygen | - | - | | | Concentration | | | | + + + + + | Weight | 84.6 kg (186 lb 8 | 12/07/2012 11:11 AM | | | | oz) | PDT | | + + + + + | Height | 167.6 cm (5' 6") | 12/07/2012 11:11 AM | | | | | PDT | | + + + + + | Body Mass Index | 30.1 | 12/07/2012 11:11 AM | | | | | PDT | | + + + + + documented in this encounter Patient Instructions Patient Instructions Jessica Davis NP - 12/07/2012 11:34 AM PDT Results for STEVE BHANDARI ( ) as of 12/07/2012 11:28 Ref. Range 11/29/2012 10:37 SODIUM, PLASMA (LAB) Latest Range: 136-145 mmol/L 146 (H) POTASSIUM, PLASMA (LAB) Latest Range: 3.4-5.0 mmol/L 3.6 POTASSIUM CMNT No range found No Hemo CHLORIDE, PLASMA (LAB) Latest Range: 97-108 mmol/L 109 (H) TOTAL CO2, PLASMA (LAB) Latest Range: 21-32 mmol/L 30 ANION GAP No range found 7 ANION GAP(ALB CORRECTED) Latest Range: 4-11 mmol/L 7 BUN, PLASMA (LAB) Latest Range: 6-20 mg/dL 8 CREATININE PLASMA (LAB) Latest Range: 0.60-1.10 mg/dL 0.58 (L) EGFR - [facility] Latest Range: >60 mL/min >60 EGFR NON -[facility] Latest Range: >60 mL/min >60 GLUCOSE, PLASMA (LAB) Latest Range: 60-99 mg/dL 76 CALCIUM, PLASMA (LAB) Latest Range: 8.6-10.2 mg/dL 9.1 AST(SGOT) Latest Range: 15-41 U/L 18 AST CMNT No range found No Hemo ALT (SGPT) Latest Range: 12-60 U/L 21 ALK PHOS Latest Range: 42-98 U/L 89 BILIRUBIN TOTAL Latest Range: 0.3-1.2 mg/dL 0.4 BILI T CMNT No range found No Hemo TOTAL PROTEIN, PLASMA (LAB) Latest Range: 6.4-8.2 g/dL 6.9 ALBUMIN, PLASMA (LAB) Latest Range: 3.5-4.7 g/dL 3.7 IRON Latest Range: 30-160 ug/dL 59 IRON BIND CAP SERUM Latest Range: 240-450 ug/dL 308 % SATURATION TRANSFERRIN, Latest Range: 20-50 % 19 (L) FERRITIN Latest Range: 50-200 ug/L 348 (H) VITAMIN D 25 HYDROXY Latest Range: 30-80 ng/mL 50.1 VITAMIN B1, WHOLE BLOOD Latest Range: 70 - 180 nmol/L 131 PTH, SERUM Latest Range: 15.0-85.0 pg/ml 63.8 WHITE CELL COUNT Latest Range: 4.4-11.0 K/cu mm 7.1 RED CELL COUNT Latest Range: 4.00-5.20 M/cu mm 4.07 HEMOGLOBIN Latest Range: 12.0-16.0 g/dL 12.4 HEMATOCRIT Latest Range: 36.0-46.0 % 37.4 MCV Latest Range: 80.0-96.0 fL 91.9 MCHC Latest Range: 33.4-35.5 g/dL 33.2 (L) RDW Latest Range: 11.5-15.0 % 13.4 PLATELET COUNT Latest Range: 150-400 K/cu mm 242 VITAMIN B12, SERUM Latest Range: 190-910 pg/ml 1078 (H) FOLATE,SERUM Latest Range: 6.0-32.0 ng/mL 18.2 Keep doing what you are doing, you are doing great! Stay hydrated, stay active, get enough protein. Calcium citrate 1500 mg per day (take calcium 2 hours away from any iron containing supplem ents) Vitamin D 1000 IU per day, minimum (this will be in your calcium and multivitamins) b12 500 mcg SL (dissolves in your mouth) per day or 1000mcg once monthly as a shot chewable multivitamin with iron, take twice the adult dose (flintstones: two daily) Additional supplements may be recommended based on lab results Reminder: avoid NSAIDS (motrin, alleve, ibuprofen, advil, naproxen), nicotine and alcohol ( these can cause ulcers) If you must take an NSAID, please take a daily omeprazole or prilosec. Tylenol is safe. Exercise, walking, elliptical, swimming If you have vomiting or food sticking, please chew more, and eat slowly. Avoid drinking within 30 min of a meal. If you have vomiting more than 1-2 times per month, please make an appt with me Calories approx. 5910-6297 per day when 3 mos or more out from surgery to maintain weight l oss. Calories may need to be adjusted up for individual needs. I recommend eating 5-6 times per day. [employer] Protein 60-100+ gms per day Water: 64 oz per day, your urine should be light yellow. Please let up know if you would like a referral to see the Bulk Delivery Driver. I would be happy to put in referrals to [facility], medical membership is $198 for 3 mos. If you are 12 mos or more out from surgery and would like referral for excess skin removal please let us know. Call us if you have any questions or concerns, or send [employer] message for non-urgent issue sJessie Davis RN, [facility]- Nurse Practitioner for Bariatric Surgery [facility] | [address] | [place], [place] | [address] | documented in this encounter Progress Notes Jessica Davis NP - 12/07/2012 1:09 PM PDTFormatting of this note might be different fr om the original. BARIATRIC FOLLOW-UP Steve Bhandari is a 47 y.o. patient who underwent a sleeve gastrectomy May 2012. Making goo d food choices, being more active. Pt has been taking all supps, 60 gms protein daily, 64 oz water daily. Happy with weight loss. Able to eat solid foods, denies vomiting other than on rare occasion. States regular BM. Denies abd pain. Last office visit reviewed. Op-report reviewed. Labs reviewed. Weight 251--> 186 (total 65 lb weight loss) BP 107/62 | Pulse 78 | Temp (Src) 36.9 C (98.4 F) (Oral) | RR 17 | Ht 1.676 m (5' 6") | Wt 84.596 kg (186 lb 8 oz) | BMI 30.12 kg/(m^2) ALLERGIES: Allergies Allergen Reactions Codeine Nausea/Vomiting Inapsine (Droperidol) Psychosis Severe anxiety and shaking Reglan (Metoclopramide Hcl) Itching Restlessness and shaking Current outpatient prescriptions:Calcium Citrate-Vitamin D3 (CITRACAL + D PETITES) 200 mg c alcium -250 unit Oral tablet, Take 2 Tabs by mouth two times daily. Start 2 weeks after surg juan pablo. Indications: HYPOCALCEMIA, Disp: 100 Tab, Rfl: 12 [...] Carpal tunnel release 2007 Meniscus surgery 11/2011 History Social History Marital Status: Spouse Name: N/A Number of Children: N/A Years of Education: N/A Occupational History Not on file. Social History Main Topics Smoking status: Former Smoker -- 1.00 packs/day for 1 years Types: Cigarettes Quit date: 07/24/1978 Smokeless tobacco: Never Used Alcohol Use: No Drug Use: No Only as teen Sexually Active: Yes -- Male partner(s) Other Topics Concern Not on file Social History Narrative No narrative on file Family History Problem Relation Cancer Mother Stroke Mother Stomach and later breast Asthma Brother Cancer Sister Breast Cancer Maternal Grandmother Breast Bariatric Medications: MVI with iron twice daily: yes Calcium citrate 1500mg daily: yes B12 500mcg SL daily or monthly shot: yes H2RB/PPI daily: no Actigall 300 BID: no Narcotics: no Symptoms: Nausea: None Dysphagia: None Vomiting: None Heartburn: None Abd Pain: None Constipation: None Diarrhea: None Exam General- Alert and oriented x4, WD, WN, NAD, Obese, well appearing Well hydrated: moist mucous membranes Lungs: regular and even excursion, no audible wheezes Card/Circ: no LE edema Abd - Soft, NT, NR, NG Wounds - well healed Assessment/Plan: 1. S/P sleeve gastrectomy, Doing well at 6 months CBC, CMP, B12, Folate, B1, PTH, vit D, TIBC, ferritin will notify of results- labs done las t week, discussed with pt today. Continue with supps as directed, watch protein levels, be sure to get 60 gms daily, be sure to take in 64 oz of water daily. Discussed specific supplements and gave list on AVS. Discussed calorie counting and protein counting. Discussed diet choices, healthy foods, ways to increase protein and iron, offered RD visit. Discussed exercise, types of exercise, offered referral to [facility]. 2. Low iron saturation, elevated ferritin. Continue on routine recommended vitamins. Discus s Ferritin with PCP, labs faxed for FYI. Will repeat in 6 mos. Continue to eat variety of fo ods, proteins first. See PCM for adjusting any other medications. Call if any abd pain, n/v/d or other issues. ER for severe pain. Encouraged pt to F/u at 12 months post op. Pt agrees to POC and will call or send [employer] message if any issues. Start time 1118, end time 1145. I spent a total of 27 minutes face to face with this patie nt. Over 50% of visit was in counseling. ~ 2 Minutes of additional time spent reviewing chart prior to visit and documenting after t his visit. Jessica Davis RN, [facility] Nurse Practitioner for Bariatric Surgery [facility] | [address] | [place], [place] | [address] | documented in this e ncounter Plan of Treatment Not on filedocumented as of this encounter Visit Diagnoses + + | Diagnosis | + + | S/P partial gastrectomy - Primary Other postprocedural status | + + | Elevated ferritin Other abnormal blood chemistry | + + | B12 nutritional deficiency Other B-complex deficiencies | + + | Abnormal iron saturation Other abnormal blood chemistry | + + | Weight loss Loss of weight | + + documented in this encounter
--- OUTSIDE RECORDS SUMMARY | ~2019-12-01 | XMS | Encounter Summary ---
Demographics + + + | Address | [address] | | | [place] [address] | + + + | Home Phone | | + + + | Preferred Language | Unknown | + + + | Marital Status | | + + + | Hindu Affiliation | CHR | + + + [...] Osei Bhandari Sr. | ECON | [address] | | | | | [place] | | | | | [address] | | + + + + + Care Team Providers + +------+ + | Care Inhalation Therapy Aides Teacher Name | Role | Phone | [...] | 2013 | on | Center at [facility] [address] | ACNP [address] | (Bariatric) | | | | [address] | Ave [place], [place] | | | | | Mailcode: Center | [address] | | | | | for Health and | | | | | | [facility] 2 | | | | | | [place], [place] | | | | | | [address] | | | | | | | [...]
--- OUTSIDE RECORDS SUMMARY | ~2019-12-01 | XMS | Encounter Summary ---
Demographics + + + | Address | [address] | | | [place] [address] | + + + | Home Phone | | + + + | Preferred Language | Unknown | + + + | Marital Status | | + + + | Baptism Affiliation | CHR | + + + | Race | White | + + + | Ethnic Group | Not or | + + + Author + + + | Author | [facility] | + + + | Organization | [facility] | + + + | Address | Unknown | + + + | Phone | Unavailable | + + + Support + + + + + | Name | Relationship | Address | Phone | + + + + + | Osei Bhandari Sr. | ECON | [address] | | | | | [place] | | | | | [address] | | + + + + + Care Team Providers + +------+ + | Care Bolt Sawyer Name | Role | Phone | + [...] SLEEVE PROCEDURE | | | | Rd [facility] | | | | | | Hospital Admitting | | | | | | Desk Located on the | | | | | | 9th floor | | | | | | [place], [place] | | | | | | [address] | | | +--------+---------+ + + + [...] gastrectomy without complications. She had ini tial COUPON MANIFEST CLERK and was transitioned to oral medications with [...] Milvia Ricardo RD Food and Nutrition Services [phone] FOOD AND NU T 06/08/2012 9:30 AM JOCELIN Stone [facility] Bariatric Surgery [phone] [facility] 07/06/2012 10:00 AM Jessica Davis NP [facility] Bariatric Surgery [phone] [facility] Your Follow-Up Plan Follow up with [facility]. (Call if you have any concerns, ) Contact information: [address] Mailcode: Ch6d [facility], [address]th [facility] [address] Medication Refill Instructions If you need a refill on any narcotic pain medications, please call the clinic ([phone] ) by 2 pm on for any [...] during the day time hours by calling [facility] surgery office at [phone] - After hours, weekends and holidays, you may call the hospital building equipment operator at [phone] an d have the donor center technician [facility] Team for general surgery paged. Constipation Prevention [...] in 24 hours. Outstanding labs/studies: NICK NAYAK [facility] [address] [place] [address] Discharging Physician: NICK NAYAK Attending Physician: Dereje [...] incentive spirometry Cande Garzon MD. MSc. PGY-1 [facility] Plastic and Reconstructive Surgery P[place] [phone] documented in this encou nter Plan of [...] GASTRECTOMY | ve | 7:22 AM | ([facility]) | | | | Surgic | PDT [...] Date: 05/24/2012ttending | | Surgeon: Dereje Trevino M.D.Solid Die Cutter(s): Anca | | KULDEEP Paigereoperative Diagnosis(es):Morbid obesity.Postoperative [...] the case.Disposition:To the PACU.Dereje Trevino M.D.KOJO / [id number] / [id number] / | | [id number] / T: 05/24/2012 | |identified a point [...] Tri-Stapler to create the sleevearoun d a 32-Vietnamese | |Tube. We started with black loads, [...] Trevino M.D. | |KOJO / HS | |[id number] / [id number] / [id number] / | | | | | + [...] [facility] | [address] | [place], [place] | | | [facility] | [facility] | [address] | | | TESTS | | | [...] - [facility] | [address] | [place], [place] | | | [facility] | [address] | [address] | | | TESTS | | | [...] + + + | STEPHEN RENNER | [address] | [place], [place] | | | [facility] | [address] | [address] | | | TESTS | | | [...] | + + + + + | [facility] | [address] | [place] [address] | | | SERVICES, CORE | ZACKARY [...] [facility] | [address] | [place] [address] | | | SERVICES, CORE | PARK [...] LABORATORY | [address] | [place] [address] | | | SERVICES, CORE | PARK [...] | + + + + + | [facility] | [address] | [place] [address] | | | ANUM, SEFERINO | ZACKARY [...] [facility] | [address] | [place], [place] | | | [facility]O [facility] OF CARE | [facility] | [address] | | | TESTS | | | [...] lesions. | | | | | | Cafeteria Or Lunchroom Checker | | | | | | sections of thespecimen | | | | | | are submitted. | | | | | | Cassette Index:A1, | | | | | | security systems sales representative sections | | | | [...] | + + + + + | [facility] | [address] | [place] [address] | | | PATHOLOGY | [address] [...]
--- OUTSIDE RECORDS SUMMARY | ~2019-12-01 | XMS | Encounter Summary ---
Demographics + + + | Address | [address] | | | [place] [address] | + + + | Home Phone | | + + + | Preferred Language | Unknown | + + + | Marital Status | | + + + | Latter Day Affiliation | CHR | + + + [...] Osei Bhandari Sr. | ECON | [address] | | | | | [place] | | | | | [address] | | + + + + + Care Team Providers + +------+ + | Care Sample Driller Name | Role | Phone | + [...] | | Center at [facility] [address] | AVIATION ELECTRONICS TECHNICIAN [address] | | | | | [address] | , [address] | | | | | Mailcode: Center | [place], [place] | | | | | for Health and | [address] | | | | | Healing, Building 2 | [phone] | | | | | [place], [place] | | | | | | [address] | | | | | | [phone] | | | +--------+ + + + [...]
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
--- OUTSIDE RECORDS SUMMARY | ~2019-12-01 | XMS | Encounter Summary ---
Demographics + + + | Address | [address] | | | [place] [address] | + + + | Home Phone [...] Osei Bhandari Sr. | ECON | [address] | | | | | [place] | | | | | [address] | | + + + + + Care Team Providers + +------+ + | Care Beach Expert Name | Role | Phone | + [...] | | | | obesity | [place] [address] | [address] | | | | | (HCC) | [address] | [address] | | | | | Procedures | [address] | [place] for | | | | | [place] [address] | [address] | Health and | | | | | GSTR ADJST | [facility] [place] | Healing, | | | | | BND | [address] | Building 2 | | | | | | Phone: | [place], [place] | | | | | | [phone] | [address] | | | | | | Fax: | Phone: | | | | | | [phone] | [phone] | | | | | | | Fax: | | | | | | | [phone] | +--------+--------+ + + + + Encounter Details +--------+---------+ + + + | Date | Type | Department | Care Team | Description | +--------+---------+ + + + | 03/13/ | Office | Digestive Health | [place], | Morbid obesity (HCC) | | 2011 | Visit | Center at [facility] [address] | JIMMIE Nicholson [address] | (Primary Dx) | | | | [facility] | [address] [place] | | | | | for [facility] and | [place], [place] | | | | | [facility] 2 | [address] | | | | | [place], [place] | | | | | | [address] | | | | | | [phone] | | | +--------+---------+ + + + [...] of Visit: 1:35pm until 1:54pm. 19 minutes [id number] consult with the pravin reyes. (5 of [...] snacks, add a reminder on calendar for [facility] during work) -Continue to exercise, increasing [...] provided. Lyn Ortega MS, RD, LD pgr [phone] documented in thi s encounter Plan of Treatment Not on filedocumented as of this encounter Procedures + +--------+ + + + | Procedure Name | Priori | Date/Time | Associated Diagnosis | Comments | | | ty | | | | + +--------+ + + + | ND MNT RE-ASSESSMNT | Routin | 03/13/2012 | [...]
--- OUTSIDE RECORDS SUMMARY | ~2019-12-01 | XMS | Encounter Summary ---
Demographics + + + | Address | [address] | | | [place] [address] | + + + | Home Phone | | + + + | Preferred Language | Unknown | + + + | Marital Status | | + + + | Yarsanism Affiliation | CHR | + + + | Race | White | + + + | Ethnic Group | Not or | + + + Author + + + | Author | [facility] | + + + | Organization | [facility] | + + + | Address | Unknown | + + + | Phone | Unavailable | + + + Support + + + + + | Name | Relationship | Address | Phone | + + + + + | Osei Bhandari Sr. | ECON | [address] | | | | | [place] | | | | | [address] | | + + + + + Care Team Providers + +------+ + | Care Pre Planning Advisor Name | Role | Phone | + +------+ + | Royer Wilde MD | PCP | | + +------+ + Reason for Visit Consultation (Routine) +--------+--------+ + + + + [...] | ageal reflux | [address] | [place] | | | | | disease) | [place], [place] | [place], 4th | | | | | Procedures | [address] | floor | | | | | CONSULT TO | | [place], [place] | | | | | GI PROCEDURE | | [address] | | | | | UNIT: | | Phone: | | | | | ESOPHAGEAL | | [phone] | | | | | MANOMETRY | | Fax: | | | | | | | [phone] | +--------+--------+ + + + + Encounter Details +--------+ + + + + | Date | Type | Department | Care Team | Description | +--------+ + + + + | 10/23/ | Hospital | [facility] at [facility] | Nurse, Gip [address] | | | 2008 | Encounter | [facility] [address] | | | | | [address] Mailcode: | Road [facility] [place] | | | | | [address] for | [address] | | | | | Health and Healing, | | | | | | Building 2 | | | | | | [place], [place] | | | | | | [address] | | | | | | [phone] | | | +--------+ + + + [...] this encounter Last Filed Vital Signs + +---------+ + + | Vital Sign | Reading | Time Taken | Comments | + +---------+ + + | Blood Pressure | 126/71 | 10/23/2008 9:05 AM | | | | | PDT | | + +---------+ + + | Pulse | 93 | 10/23/2008 9:05 AM | | | | | PDT | | + +---------+ + + | Temperature | - | - | | + +---------+ + + | Respiratory Rate | 14 | 10/23/2008 9:05 AM | | | | | PDT | | + +---------+ + + | Oxygen Saturation | - | - | | + +---------+ + + | Inhaled Oxygen | - | - | | | Concentration | | | | + +---------+ + + | Weight | - | - | | + +---------+ + + | Height | - | - | | + +---------+ + + | Body Mass Index | - | - | | + +---------+ + + documented in this encounter Plan of Treatment Not on filedocumented as of this encounter Visit Diagnoses Not on filedocumented in this encounter"
--- OUTSIDE RECORDS SUMMARY | ~2019-12-01 | XMS | Encounter Summary ---
Demographics + + + | Address | [address] | | | [place] [address] | + + + | Home Phone | | + + + | Preferred Language | Unknown | + + + | Marital Status | | + + + | Samaritan Affiliation | 1077 | + + + | Race | Unknown | + + + | Ethnic Group | Unknown | + + + Author + + + | Author | [facility] | | | and [place] | + + + | Organization | [facility] | | | and [place] | + + + | Address | Unknown | + + + | Phone | Unavailable | + + + Support + + + + + | Name | Relationship | Address | Phone | + + + + + | Osei Woodard | ECON | [address] | | | [place] | | [place] | | | | | [address] | | + + + + + Care Team Providers + +------+ + | Care Criminal Attorney Name | Role | Phone | + +------+ + | Elke Mcdonald | PCP | | + +------+ + Reason for Visit + + + | Reason | Comments | + + + | Colonoscopy | | + + + Encounter Details +--------+ + + + + | Date | Type | Department | Care Team | Description | +--------+ + + + + | 01/29/ | Telephone | [facility] | Sendy Montesinos RN | Colonoscopy | | 2014 | | [facility] | [address] | | | | | General Surgery | [place] [facility] [place] | | | | | [address] | [address] | | | | | [place], [place] | (Fax) | | | | | [address] | | | | | | [phone] | | | +--------+ + + + [...]
--- OUTSIDE RECORDS SUMMARY | ~2019-12-01 | XMS | Encounter Summary ---
Demographics + + + | Address | [address] | | | [place] [address] | + + + | Home Phone | | + + + | Preferred Language | Unknown | + + + | Marital Status | | + + + | Yazidism Affiliation | 1077 | + + + | Race | Unknown | + + + | Ethnic Group | Unknown | + + + Author + + + | Author | [facility] | | | and [place] | + + + | Organization | [facility] | | | and [place] | + + + | Address | Unknown | + + + | Phone | Unavailable | + + + Support + + + + + | Name | Relationship | Address | Phone | + + + + + | Osei Woodard | ECON | [address] | | | [place] | | [place] | | | | | [address] | | + + + + + Care Team Providers + +------+ + | Care Media Executive Name | Role | Phone | + +------+ + | Pcp, Prov Inactive | PCP | | + +------+ + Encounter Details +--------+ + + + + | Date | Type | Department | Care Team | Description | +--------+ + + + + | 07/25/ | Emergency | [facility] | German Orellana DO | Elevated | | 2018 - | | MEDICAL CENTER | [address] [place] | blood-pressure | | | | EMERGENCY CENTER | [address] [place], [place] | reading without | | 07/26/ | | [address] | [address] | diagnosis of | | 2018 | | [place], [place] | [phone] | hypertension; | | | | [address] | | Bronchitis, acute, | | | | [phone] | | with bronchospasm | +--------+ + [...]
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
--- OUTSIDE RECORDS SUMMARY | ~2019-12-01 | XMS | Encounter Summary ---
Demographics + + + | Address | [address] | | | [place] [address] | + + + | Home Phone | | + + + | Preferred Language | Unknown | + + + | Marital Status | | + + + | Mu-Ism Affiliation | CHR | + + + [...] Osei Bhandari Sr. | ECON | [address] | | | | | [place] | | | | | [address] | | + + + + + Care Team Providers + +------+ + | Care Mandrel Puller Name | Role | Phone | + [...] | | | | obesity | [place] [address] | [address] | | | | | (HCC) | [address] | [address] | | | | | Procedures | [address] | [place] for | | | | | [place] [employer]PLC | [address] | Health and | | | | | GSTR [address]ST | [facility] [place] | Healing, | | | | | BND | [address] | Building 2 | | | | | | Phone: | [place], [place] | | | | | | [phone] | [address] | | | | | | Fax: | Phone: | | | | | | [phone] | [phone] | | | | | | | Fax: | | | | | | | [phone] | +--------+--------+ + + + + Encounter Details +--------+---------+ + + + | Date | Type | Department | Care Team | Description | +--------+---------+ + + + | 11/08/ | Office | Digestive Health | [address] Mc[address] RD | S/P laparoscopic | | 2016 | Visit | Center at [facility] [address] | [address] | sleeve gastrectomy | | | | [facility] | [address] [place], | (Primary Dx); Weight | | | | for Health and | [place] [address] | gain | | | | Healing, Building 2 | | | | | | [place], [place] | | | | | | [address] | | | | | | [phone] | | | +--------+---------+ + + + [...] Follow-Up Patient referred by: Royer Wilde MD [facility] [address] [address] [place] [address] Documented time of visit: 12:57 to 1:36 (39 minutes [id number] with patient) Surgery: Sleeve Gastrectomy Date of [...] because it is boring. 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 Provided mcc guidelines handout and dumping syndrome handout . [...] months or as needed. Kalli Mcguire RD, [facility], LD [facility] Bariatrics [phone] documented in this enco unter Plan of Treatment Not on filedocumented as of this encounter Procedures + +--------+ + + + | Procedure Name | Priori | Date/Time | Associated Diagnosis | Comments | | | ty | | | | + +--------+ + + + | NV MNT RE-ASSESSMNT | Routin | 11/09/2015 | [...]
--- OUTSIDE RECORDS SUMMARY | ~2019-12-01 | XMS | Encounter Summary ---
Demographics + + + | Address | [address] | | | [place] [address] | + + + | Home Phone [...] | Osei Woodard | ECON | [address] | | | [place] | | [place] | | | | | [address] | | + + + + + Care Team Providers + +------+ + | Care Sales Office Manager Name | Role | Phone | + +------+ + PCP | Unavailable | + +------+ + Encounter Details +--------+ + + + + | Date | Type | Department | Care Team | Description | +--------+ + + + + | 06/02/ | Abstract | [facility] | Jai Loving, | Right Breast lump; | | 2010 | | Group Up | [address] | HTN (hypertension); | | | | [facility] [address] [place], [place] | Asthma; | | | | [address] | [address] | History of headache | | | | [place], [place] | | | | | | [address] | | | | | | [phone] | | | +--------+ + + + [...]
--- OUTSIDE RECORDS SUMMARY | ~2019-12-01 | XMS | Encounter Summary ---
Demographics + + + | Address | [address] | | | [place] [address] | + + + | Home Phone [...] + | Author | [facility] | | | and [place] | + + + | Organization | [facility] | | | and [place] | + + + | Address | Unknown | + + + | Phone | Unavailable | + + + Support + + + + + | Name | Relationship | Address | Phone | + + + + + | Osei Woodard | ECON | [address] | | | [place] | | [place] | | | | | [address] | | + + + + + Care Team Providers + +------+ + | Care Wall Covering Contractor Name | Role | Phone | + [...] | | | | | | Suellen Argaon MD | | | | | Gastro-esoph | | [address] | | | | | ageal reflux | | [address] | | | | | disease | | [place] | | | | | without | | [place], [place] | | | | | esophagitis | | [address] | | | | | GERD | | Phone: | | | | | Procedures | | [phone] | | | | | [place] | | Fax: | | | | | ESOPHAGOGAST | | [phone] | | | | | RODUODENOSCO | [...] | EGD | | 2016 | | [facility] | MD Mahesh [address] | | | | | EN INTRA OP [address] | [address] [place] [address] | | | | | [address] | [place] [address] | | | | | [place], [place] | [phone] | | | | | [address] | | | | | | [phone] | | | +--------+---------+ + + + [...] | [place] | [place] N[place] | | [facility] | | Services | | | Patient Name: Steve [place] Procedure | | | Date: 08/27/2015 9:28 AMMRN: [id number] | | | of : 1965 | [...]
--- OUTSIDE RECORDS SUMMARY | ~2019-12-01 | XMS | Encounter Summary ---
Demographics + + + | Address | [address] | | | [place] [address] | + + + | Home Phone | | + + + | Preferred Language | Unknown | + + + | Marital Status | | + + + | Congregational Affiliation | CHR | + + + [...] Osei Bhandari Sr. | ECON | [address] | | | | | [place] | | | | | [address] | | + + + + + Care Team Providers + +------+ + | Care Investigative Writer Name | Role | Phone | + +------+ + | Royer Wilde MD | PCP | | + +------+ + Encounter Details +--------+ + + + + | Date | Type | Department | Care Team | Description | +--------+ + + + + | 05/29/ | Telephone | Dig[facility]ive Health | Dereje Trevino, | | | 2011 | | [address] Ma[address] MD | | | | | Rachel Mailcode: CH4S | | | | | | [facility] | | | | | | and Healing, | | | | | | Building 1, | | | | | | Floor [place], [place] | | | | | | [address] | | | | | | [phone] | | | +--------+ + + + [...]
--- OUTSIDE RECORDS SUMMARY | ~2019-12-01 | XMS | Encounter Summary ---
Demographics + + + | Address | [address] | | | [place] [address] | + + + | Home Phone | | + + + | Preferred Language | Unknown | + + + | Marital Status | | + + + | Protestant Affiliation | 1077 | + + + | Race | Unknown | + + + | Ethnic Group | Unknown | + + + Author + + + | Author | [facility] | | | and [place] | + + + | Organization | [facility] | | | and [place] | + + + | Address | Unknown | + + + | Phone | Unavailable | + + + Support + + + + + | Name | Relationship | Address | Phone | + + + + + | Osei Woodard | ECON | [address] | | | [place] | | [place] | | | | | [address] | | + + + + + Care Team Providers + +------+ + | Care Product Marketing Engineer Name | Role | Phone | [...] | | | | | | | FL COLON CA | | | | | | | SCRN NOT HI | | | | | | | RSK IND | | | | | | | COLONOSCOPY | | | +--------+--------+ + + + + Encounter Details +--------+---------+ + + + | Date | Type | Department | Care Team | Description | +--------+---------+ + + + | 01/31/ | Surgery | [facility] | Hitesh Matos MD | COLONOSCOPY | | 2013 | | [facility] | [address] | | | | | EN INTRA [address] | [place] [address] | | | | | [address] | [phone] | | | | | [place], [place] | | | | | | [address] | | | | | | [phone] | | | +--------+---------+ + + + [...] Discharge Instructions Instructions Genia Stone RN - 07/11/2014Colonoscopy: NEGATIVE COLON EXAM, NO BIOPSIES TAKEN. REPEAT [...] You may also be told to take mbwq-ukx-bifxepo fiber and stool softener medicines. Take these [...] Hitesh Matos MD - 01/31/2014 9:39 AM [facility] Brief Operative Report Outcome: Patient tolerated procedure well, with no complications Findings: See full dictated Operative report Status: -- Stable [id number] Electronically signed by: Hitesh Matos MD, [facility] Date of service: 01/31/2014 9:40 documented in [...] + | Diagnosis | + + | Special screening for malignant neoplasms, colon | + + documented in this encounter Administered Medications + +--------+ +---------+------+------+ | Medication Order | MAR | Action | Dose | Rate | Site | | | Action | Date | | | | + +--------+ +---------+------+------+ | fentaNYL injection PRN, Pain, | Given | 02/01/20 | 100 mcg | | | | Starting Mon01/31/14 at 0939, | | 14 9:39 | [...] | | | | | Anxiety, Starting 01/31/14 at | | AM PDT | | [...]
--- OUTSIDE RECORDS SUMMARY | ~2019-12-01 | XMS | Encounter Summary ---
Demographics + + + | Address | [address] [facility] [address] | | | [place] [address] | + + + | Home Phone [...] Osei Bhandari Sr. | ECON | [address] | | | | | [place] | | | | | [address] | | + + + + + Care Team Providers + +------+ + | Care Boat Rental Clerk Name | Role | Phone | [...] | ageal reflux | [address] | [place] | | | | | disease) | [place], [place] | [place], 4th | | | | | Procedures | [address] | floor | | | | | CONSULT TO | | [place], [place] | | | | | GI PROCEDURE | | [address] | | | | | UNIT: | | Phone: | | | | | ESOPHAGEAL | | [phone] | | | | | MANOMETRY | | Fax: | | | | | | | [phone] | +--------+--------+ + + + + Encounter Details +--------+ + + + + | Date | Type | Department | Care Team | Description | +--------+ + + + + | 10/23/ | Hospital | [facility] | Nurse, Gip [address] | | | 2008 | Encounter | [facility] [address] | | | | | [address] Mailcode: | Road [facility] [place] | | | | | [address] for | [address] | | | | | Health and Healing, | | | | | | Building 2 | | | | | | [place], [place] | | | | | | [address] | | | | | | [phone] | | | +--------+ + + + [...]
--- OUTSIDE RECORDS SUMMARY | ~2019-12-01 | XMS | Encounter Summary ---
Demographics + + + | Address | [address] | | | [place] [address] | + + + | Home Phone | | + + + | Preferred Language | Unknown | + + + | Marital Status | | + + + | Samaritan Affiliation | CHR | + + + | Race | White | + + + | Ethnic Group | Not or | + + + Author + + + | Author | [facility] | + + + | Organization | [facility] | + + + | Address | Unknown | + + + | Phone | Unavailable | + + + Support + + + + + | Name | Relationship | Address | Phone | + + + + + | Osei Bhandari Sr. | ECON | [address] | | | | | [place] | | | | | [address] | | + + + + + Care Team Providers + +------+ + | Care Terrazzo Tile Setter Name | Role | Phone | + [...] | | | | obesity | [place] [address] | [address] | | | | | (HCC) | [address] | [address] | | | | | Procedures | [address] | Mailcode: | | | | | [place] [employer] | [address] | [facility] | | | | | GSTR ADJST | [facility] [place] | Health and | | | | | BND | [address] | Healing, | | | | | | Phone: | Building 2 | | | | | | [phone] | [place], [place] | | | | | | Fax: | [address] | | | | | | [phone] | Phone: | | | | | | | [phone] | | | | | | | Fax: | | | | | | | [phone] | +--------+--------+ + + + + Encounter Details +--------+---------+ + + + | Date | Type | Department | Care Team | Description | +--------+---------+ + + + | 05/07/ | Office | Digestive Health | Dereje Trevino, | Obese (Primary Dx) | | 2011 | Visit | Center at [facility] [address] | MD | | | | | Mahes[address] Ramos | | | | | | Mailcode: [place] | | | | | | [facility] and | | | | | | [place] [address] | | | | | | [place], [place] | | | | | | [address] | | | | | | [phone] | | | +--------+---------+ + + + [...] this pt, >50% counseling, dx : [facility] History of Present [...] Transthoracic ECHO: yes- in records scanned into [facility], 2007, borderline LV hypertrophy, no valvular [...] a 4-5% rate of reoperation over the detention (i.e. ye ars), as well as other [...] I will undergo some degree of a madi rning curve for sleeve gastrectomy that may [...] so fa r. We next reviewed the [facility] consent form. We discussed that we did [...]
--- OUTSIDE RECORDS SUMMARY | ~2019-12-01 | XMS | Encounter Summary ---
Demographics + + + | Address | [address] | | | [place] [address] | + + + | Home Phone [...] Author | [facility] | + + + | Organization | [facility] | + + + | Address | Unknown | + + + | Phone | Unavailable | + + + Support + + + + + | Name | Relationship | Address | Phone | + + + + + | Osei Bhandari Sr. | ECON | [address] | | | | | [place] | | | | | [address] | | + + + + + Care Team Providers + +------+ + | Care Sales Order Processor Name | Role | Phone | + +------+ + | Royer Wilde MD | PCP | | + +------+ + Encounter Details +--------+ + + + + | Date | Type | Department | Care Team | Description | +--------+ + + + + | 05/14/ | Hospital | Cardiac | Sj, Car Ecg Tech | | | 2011 | Encounter | Non-Invasive Testing | [address] | | | | | at [address] | [facility] | | | | | [address] | [place] [address] | | | | | [address] | | | | | | [place], 2nd floor | | | | | | [place], [place] | | | | | | [address] | | | | | | [phone] | | | +--------+ + + + [...] + + documented in this encounter Results 12 LEAD ECG (05/14/2012 2:07 PM PDT) + + + + + + | Component | Value | Ref Range | Performed | Pathologist | | | | | At | Signature | + + + + + + | VENTRICULAR | 67 | BPM | [facility] | | | RATE | | [...] SUBRAMANIAN | | | | | | 2434) on 05/15/2012 | | | | | | 10:18:05 AM | | | | + + + + + + + + | Specimen | + + | | + + + + + | Narrative | Performed At | + + + | Please click | [facility] | | on view image for the detailed interpretation from [employer] results. | CARDIOLOGY | + + + + + + + + | Performing | Address | City/State/Zipcode | Phone Number | | Organization | | | | + + + + + | [facility] | [address] | [place], [place] | | | CARDIOLOGY | [facility] | [address] | | + + + + + documented in this encounter Visit Diagnoses Not on filedocumented in this encounter"
--- OUTSIDE RECORDS SUMMARY | ~2019-12-01 | XMS | Encounter Summary ---
Demographics + + + | Address | [address] | | | [place] [address] | + + + | Home Phone [...] Osei Bhandari Sr. | ECON | [address] | | | | | [place] | | | | | [address] | | + + + + + Care Team Providers + +------+ + | Care Photo Retoucher Name | Role | Phone | + +------+ + | Royer Wilde MD | PCP | | + +------+ + Reason for Visit + + + | Reason | Comments | + + + | Upper GI endoscopy | | + + + Encounter Details +--------+ + + + + | Date | Type | Department | Care Team | Description | +--------+ + + + + | 10/07/ | Telephone | Digestive Health | Jessica Davis, | Upper GI endoscopy | | 2016 | | Center at [facility] [address] | [employer] [address] | | | | | [address] | , [address] | | | | | Mailcode: Center | [place], [place] | | | | | [facility] [employer] and | [address] | | | | | [facility] | [phone] | | | | | [place], [place] | | | | | | [address] | | | | | | [phone] | | | +--------+ + + + [...]
--- OUTSIDE RECORDS SUMMARY | ~2019-12-01 | XMS | Encounter Summary ---
Demographics + + + | Address | [address] [facility] [place] | | | [place] [address] | + + + | Home Phone [...] Osei Bhandari Sr. | ECON | [address] | | | | | [place] | | | | | [address] | | + + + + + Care Team Providers + +------+ + | Care Health Safety And Environment Manager Name | Role | Phone | [...] | 2011 | Orders | Center at [facility] [address] | MD | | | | | Mahesh Ramos | | | | | | Mailcode: [place] | | | | | | for Health and | | | | | | [facility] | | | | | | [place], [place] | | | | | | [address] | | | | | | [phone] | | | +--------+ + + + [...] | + + + + + | [facility] | [address] | [place] [address] | | | SERVICES, CORE | [address] | | | + + + + + 12 LEAD ECG (05/14/2012 2:07 PM PDT) + + + + + + | Component | Value | Ref Range | Performed | Pathologist | | | | | At | Signature | + + + + + + | VENTRICULAR | 67 | BPM | [facility] | | | RATE | | [...] SUBRAMANIAN | | | | | | (7824) on 05/15/2012 | | | | | | 10:18:05 AM | | | | + + + + + + + + | Specimen | + + | | + + + + + | Narrative | Performed At | + + + | Please click | [facility] | | on view image for the detailed interpretation from [employer]. | CARDIOLOGY | + + + + + + + + | Performing | Address | City/State/Zipcode | Phone Number | | Organization | | | | + + + + + | [facility] | [address] | [place], [place] | | | CARDIOLOGY | [address] | [address] | | + + + + + documented in this encounter Visit Diagnoses + + | Diagnosis | + + | Morbid obesity (HCC) - Primary Morbid obesity | + + documented in this encounter"
--- OUTSIDE RECORDS SUMMARY | ~2019-12-01 | XMS | Encounter Summary ---
Demographics + + + | Address | [address] [facility] [facility] | | | [place] [address] | + + + | Home Phone [...] Osei Bhandari Sr. | ECON | [address] | | | | | [place] | | | | | [address] | | + + + + + Care Team Providers + +------+ + | Care Spanish Literature Professor Name | Role | Phone | + +------+ + | Royer Wilde MD | PCP | | + +------+ + Encounter Details +--------+ + + + + | Date | Type | Department | Care Team | Description | +--------+ + + + + | 11/29/ | Chemistry Laboratory Technician | Digestive Health | Jessica Davis, | S/P partial | | 2012 | | Center at [facility] [address] | DRAMATIC CRITIC [address] | gastrectomy (Primary | | | | [address] | [address], [address] | Dx); B12 | | | | Mailcode: Center | [place], [place] | nutritional | | | | for Health and | [address] | deficiency; Vitamin | | | | [place] [address] | [phone] | deficiency | | | | [place], [place] | | | | | | [address] | | | | | | [phone] | | | +--------+ + + + [...] on filedocumented as of this encounter Results FOLATE, SERUM (11/29/2012 10:37 AM PDT) + [...] [facility] | [address] | [place] [address] | | | SERVICES, SPECIAL | [address] [...] + + | [facility] | [address] [facility] [facility] | [place] [address] | | | SERVICES, SPECIAL | [address] [...] by | | | | | | [address] | | | | | | [address], [facility] | | | | | | [address] | | | | | | [phone].[employer]. | | | | | | Luz landeros, | | | | | | Jonathan HIDALGO. Director | | | | + + + + + + + + | Specimen | + + | Blood - Blood | + + + + + + + | Performing | Address | City/State/Zipcode | Phone Number | | Organization | | | | + + + + + | [facility] | [address] | [place], [place] | | | [facility] | | [address] | | + + + + + [...] [facility] | [address] | [place] [address] | | | SERVICES, CORE | [address]ARK [...] | + + + + + | [facility] | [address] | [place] [address] | | | ANUM, SEFERINO | [address] | | | [...] | + + + + + | [facility] | [address] | [place] [address] | | | SERVICES, SPECIAL | [address] [...] | + + + + + | [facility] | [address] [facility] | [place] [address] | | | SERVICES, SPECIAL | [address] [...] | | | LABORATORY | | | [place] | | | SERVICES, | | | [...] | + + + + + | [facility] | [address] | [place] [address] | | | SERVICES, CORE | [address] [...]
--- OUTSIDE RECORDS SUMMARY | ~2019-12-01 | XMS | Encounter Summary ---
Demographics + + + | Address | [address] | | | [place] [address] | + + + | Home Phone [...] Osei Bhandari Sr. | ECON | [address] | | | | | [place] | | | | | [address] | | + + + + + Care Team Providers + +------+ + | Care Plant Operations Vice President Name | Role | Phone | + +------+ + | Royer Wilde MD | PCP | | + +------+ + Encounter Details +--------+ + + + + | Date | Type | Department | Care Team | Description | +--------+ + + + + | 08/31/ | Ancillary | Registration [address] | | | | 2007 | Registrkatelynno | [address] | | | | | n | Jimmie Mailcode: [id number] | | | | | | [place], [place] | | | | | | [address] | | | | | | [phone] | | | +--------+ + + + [...]
--- OUTSIDE RECORDS SUMMARY | ~2019-12-01 | XMS | Encounter Summary ---
Demographics + + + | Address | [address] | | | [place] [address] | + + + | Home Phone | | + + + | Preferred Language | Unknown | + + + | Marital Status | | + + + | Amish Affiliation | CHR | + + + | Race | White | + + + | Ethnic Group | Not or | + + + Author + + + | Author | [facility] | + + + | Organization | [facility] | + + + | Address | Unknown | + + + | Phone | Unavailable | + + + Support + + + + + | Name | Relationship | Address | Phone | + + + + + | Osei Bhandari Sr. | ECON | [address] | | | | | [place] | | | | | [address] | | + + + + + Care Team Providers + +------+ + | Care Certified Legal Secretary Specialist Name | Role | Phone | [...] + | Closed | | Nutrition | | Non-[facility] | Fn | | | | | | Epic Dept | [facility] | | | | | | | [facility] [address] | | | | | | | [address] | | | | | | | Prospect for | | | | | | | Health and | | | | | | | Healing, | | | | | | | Building 2 | | | | | | | [place], [place] | | | | | | | [address] | | | | | | | Phone: | | | | | | | [phone] | | | | | | | Fax: | | | | | | | [phone] | +--------+--------+ + + + + Encounter Details +--------+---------+ + + + | Date | Type | Department | Care Team | Description | +--------+---------+ + + + | 08/06/ | Office | Digestive Health | Milvia Ricardo, | Morbid obesity (HCC) | | 2012 | Visit | Center at H2 [address] | [address] | (Primary Dx) | | | | [facility] | [address] | | | | | for Health and | [place], [place] | | | | | [facility] 2 | [address] | | | | | [place], [place] | | | | | | [address] | | | | | | [phone] | | | +--------+---------+ + + + [...] documented as of this encounter Progress Notes Milvia Ricardo RD - 08/06/2012 10:37 AM PSTFormatting of this note might be different fro m the original. Post-op Bariatric Surgery Follow-Up Patient referred by: Dereje Trevino MD [address] [place] [address] Documented time of visit: 10:37-10:55 (18 minutes face to face) Surgery: gastric sleeve Date of Surgery: 05/24/12 Subjective: Any reported changes: no n/v/d/c Tolerating Bariatric Diet: Yes. Bought a "Ninja" cooker to help w/ food prep. Current Physical Activity: nothing; has treadmill but not using it yet ("has no excuse") Changes in Diabetes Medications since surgery: n/a Testing blood glucose: no Objective: Ht Readings from Last 1 Encounters: 08/06/12 1.676 m (5' 6") Wt Readings from Last 2 Encounters: 08/06/12 94.847 kg (209 lb 1.6 oz) 06/08/12 105.371 kg (232 lb 4.8 oz) 05/25/12 113.9kg (250 lb 8 oz) ~42 lb weight loss since surgery BMI: 33.7 PMHx: Past Medical History Diagnosis Date Morbid obesity Asthma Vitamin d deficiency Migraine Hyperlipidemia HTN (hypertension) GERD (gastroesophageal reflux disease) BMI 40.0-44.9, adult 05/14/2012 ABHIJEET (obstructive sleep apnea) 05/14/2012 Well controlled intermittent asthma 05/14/2012 Dyspepsia 05/14/2012 Osteoarthritis 05/14/2012 Food logs: No--ran out of space in notebook on 07/23 & hasn't resumed yet. Has been getting 60g protein a day; Dr. Trevino wants her & to track kcals as well as protein (~120 0kcal/d) Food choices: Has been having more stage 2 liquids since had gastric sleeve surgery & is still on stage 2; he is advancing to stage 3 today Brk: protein shake or eggs or cottage cheese Lunch: tuna salad or ckn salad Dinner: ckn breast; has been adding fruits & vegetables (no starches yet) Fluid choices: Sobe Zero LifeWater (40oz), decaf coffee (12oz) Supplementation: multivitamin, calcium, vitamin B12 and vitamin D Assessment: Following Bariatric Diet Protocol: Yes although has been having some raw veggies (salad) al ready. Reviewed foods to avoid x first 3 months Meeting protein goals: Yes Meeting fluid goals: No Plan: Reviewed nutrition goals after bariatric surgery. Aim for 64 oz fluid and 60-80g protein/day. Continue stage 4 according to post-op Bariatric Diet protocol Continued to reinforce importance of mindful eating. Reviewed importance of eating slowly & chewing foods thoroughly Continue to increase physical activity. RTC at 6 months post-op. Milvia Ricardo RD, LD Pager [phone] documented in this en counter Plan of Treatment Not on filedocumented as of this encounter Procedures + +--------+ + + + | Procedure Name | Priori | Date/Time | Associated Diagnosis | Comments | | | ty | | | | + +--------+ + + + | NC MNT RE-ASSESSMNT | Routin | 08/06/2012 | Morbid obesity | | | X15MIN | e | 11:04 AM | (HCC) | | | | | PST | | | + +--------+ + + + documented in this encounter Visit Diagnoses + + | Diagnosis | + + | Morbid obesity (HCC) - Primary Morbid obesity | + + documented in this encounter
--- OUTSIDE RECORDS SUMMARY | ~2019-12-01 | XMS | Encounter Summary ---
Demographics + + + | Address | [address] | | | [place] [address] | + + + | Home Phone | | + + + | Preferred Language | Unknown | + + + | Marital Status | | + + + | Mormon Affiliation | 1077 | + + + [...] | Osei Woodard | ECON | [address] | | | [place] | | [place] | | | | | [address] | | + + + + + Care Team Providers + +------+ + | Care Regional Loss Prevention Manager Name | Role | Phone | + +------+ + PCP | Unavailable | + +------+ + Encounter Details +--------+ + + + + | Date | Type | Department | Care Team | Description | +--------+ + + + + | 01/18/ | [facility] | [place] | Brandon Richards | | | 2010 | Encounter | [facility] | MD [address] | | | | | [facility] [address] | [facility] | | | | | [address] | [place] [address] | | | | | [place] | [phone] | | | | | [address] | | | | | | [phone] | | | +--------+ + + + [...]
--- OUTSIDE RECORDS SUMMARY | ~2019-12-01 | XMS | Encounter Summary ---
Demographics + + + | Address | [address] [facility] [address] [facility] | | | [place] [address] | + + + | Home Phone [...] Osei Bhandari Sr. | ECON | [address] | | | | | [place] | | | | | [address] | | + + + + + Care Team Providers + +------+ + | Care Children'S Librarian Name | Role | Phone | + +------+ + | Royer Wilde MD | PCP | | + +------+ + Encounter Details +--------+ + + + + | Date | Type | Department | Care Team | Description | +--------+ + + + + | 05/28/ | Telephone | Digestive Health | Marisa Olivier, | | | 2011 | | Center at [facility] [address] | ANP | | | | | [address] | | | | | | Mailcode: Center | | | | | | for Health and | | | | | | [facility], Building 2 | | | | | | [place], [place] | | | | | | [address] | | | | | | [phone] | | | +--------+ + + + [...]
--- OUTSIDE RECORDS SUMMARY | ~2019-12-01 | XMS | Encounter Summary ---
Demographics + + + | Address | [address] | | | [place] [address] | + + + | Home Phone | | + + + | Preferred Language | Unknown | + + + | Marital Status | | + + + | Pentecostal Affiliation | 1077 | + + + | Race | Unknown | + + + | Ethnic Group | Unknown | + + + Author + + + | Author | [facility] | | | and [place] | + + + | Organization | [facility] | | [...] [facility] | | | [place] | | [place] | | | | | [address] | | + + + + + Care Team Providers + +------+ + | Care Pediatric Hospitalist Name | Role | Phone | + [...] | | CENTER [address] [place], [place] | | | | | [address] | [address] | | | | | [place], [place] | | | | | | [address] | | | | | | [phone] | | | +--------+ + + + [...]
--- OUTSIDE RECORDS SUMMARY | ~2019-12-01 | XMS | Encounter Summary ---
Demographics + + + | Address | [address] [facility] | | | [place] [address] | + + + | Home Phone [...] Osei Bhandari Sr. | ECON | [address] | | | | | [place] | | | | | [address] | | + + + + + Care Team Providers + +------+ + | Care Manager Collection Name | Role | Phone | + +------+ + | Royer Wilde MD | PCP | | + +------+ + Encounter Details +--------+ + + + + | Date | Type | Department | Care Team | Description | +--------+ + + + + | 10/20/ | Documentati | [facility] | Jessica Davis, | | | 2011 | on | [place] [address] | AD OPERATIONS SPECIALIST [address] | | | | | [address] | [address], [address] | | | | | [place], [place] | [place], [place] | | | | | [address] | [address] | | | | | [phone] | [phone] | | | | | | | [...]
--- OUTSIDE RECORDS SUMMARY | ~2019-12-01 | XMS | Encounter Summary ---
Demographics + + + | Address | [address] [facility] | | | [place] [address] | + + + | Home Phone [...] Osei Bhandari Sr. | ECON | [address] | | | | | [place] | | | | | [address] | | + + + + + [...] | | | | obesity | [place] [address] | [facility] [address] | | | | | (HCC) | [address] | [address] | | | | | Procedures | [address] | Mailcode: | | | | | MT LAP,PLC | [address] | [facility] | | | | | GSTR ADJST | [place], [place] | Health and | | | | | BND | [address] | Healing, | | | | | | Phone: | Building 2 | | | | | | [phone] | [place], [place] | | | | | | Fax: | [address] | | | | | | [phone] | Phone: | | | | | | | [phone] | | | | | | | Fax: | | | | | | | [phone] | +--------+--------+ + + + + Encounter Details +--------+---------+ + + + | Date | Type | Department | Care Team | Description | +--------+---------+ + + + | 12/07/ | Office | Digestive Health | Jessica Davis, | S/P partial | | 2012 | Visit | Center at [facility] [address] | MONOGRAM AND LETTER PASTER [address] | gastrectomy (Primary | | | | [address] | [address] | Dx); Elevated | | | | Mailcode: Center | [place], [place] | ferritin; B12 | | | | for Health and | [address] | nutritional | | | | Healing, Building 2 | [phone] | deficiency; Abnormal | | | | [place], [place] | | iron saturation; | | | | [address] | | Weight loss | | | | [phone] | | | +--------+---------+ + + + [...] Range: 0.60-1.10 mg/dL 0.58 (L) EGFR - MONGOLIAN Latest Range: >60 mL/min >60 EGFR NON -MONGOLIAN Latest Range: >60 mL/min >60 GLUCOSE, PLASMA [...] make an appt with me Calories approx. 0570-2256 per day when 3 mos or more out from surgery to maintain weight l oss. Calories may need to be adjusted up for individual needs. I recommend eating 5-6 times per day. [employer] Protein 60-100+ gms per day Water: 64 oz per day, your urine should be light yellow. Please let up know if you would like a referral to see the Green Building Design Specialist. I would be happy to put in referrals to [facility], medical membership is $198 for 3 mos. If you are 12 mos or more out from surgery and would like referral for excess skin removal please let us know. Call us if you have any questions or concerns, or send [employer] message for non-urgent issue sJessie Davis RN, [facility]- Nurse Practitioner for Bariatric Surgery [facility] | [address] | [place], [place] | [address] | documented in this encounter Progress Notes [...] of exercise, offered referral to [facility]. 2. Low iron saturation, elevated ferritin. Continue [...] to POC and will call or send [employer] message if any issues. Start time 1118, end time 1145. I spent a total of 27 minutes face to face with this patie nt. Over 50% of visit was in counseling. ~ 2 Minutes of additional time spent reviewing chart prior to visit and documenting after t his visit. Jessica Davis RN, [facility] Nurse Practitioner for Bariatric Surgery [facility] | [address] | [place], [place] | [address] | documented in this e ncounter Plan [...]
--- OUTSIDE RECORDS SUMMARY | ~2019-12-01 | XMS | Encounter Summary ---
Demographics + + + | Address | [address] | | | [place] [address] | + + + | Home Phone [...] | Osei Woodard | ECON | [address] | | | [place] | | [place] | | | | | [address] | | + + + + + Care Team Providers + +------+ + | Care Patient Accounts Clerk Name | Role | Phone | [...] | | | | without | | [place], [place] | | | | | esophagitis | | [address] | | | | | GERD | | Phone: | | | | | Procedures | | [phone] | | | | | MS | | Fax: | | | | | ESOPHAGOGAST | | [phone] | | | | | RODUODENOSCO | [...] | | | 2016 | Encounter | [facility] | MD Mahes[address] | | | | | EN INTRA OP [address] | | | | | [address] | [place] [address] | | | | | [place], [place] | [phone] | | | | | [address] | | | | | | [phone] | | | +--------+ + + + [...] | [place] | [place] | | [facility] | | Services | | | Patient Name: Steve [place] Procedure | | | Date: 08/27/2015 9:28 AMMRN: [id number] | | | of : 1965 | [...] | | | | spray PRN, Starting [facility] 08/27/15 | | 16 9:38 | | [...]
--- OUTSIDE RECORDS SUMMARY | ~2019-12-01 | XMS | Encounter Summary ---
Demographics + + + | Address | [address] [facility] | | | [place] [address] | + + + | Home Phone [...] Osei Bhandari Sr. | ECON | [address] | | | | | [place] | | | | | [address] | | + + + + + Care Team Providers + +------+ + | Care Center Consultant Name | Role | Phone | + +------+ + | Royer Wilde MD | PCP | | + +------+ + Encounter Details +--------+ + + + + | Date | Type | Department | Care Team | Description | +--------+ + + + + | 10/07/ | Hospital | Radiology/Imaging | | | | 2008 | Encounter | Lab at H1 [address] | | | | | | [address] Mailcode: | | | | | | CH3G [facility] | | | | | | Health and Healing, | | | | | | [facility], | | | | | | Floor [place], [place] | | | | | | [address] | | | | | | [phone] | | | +--------+ + + + [...]
--- OUTSIDE RECORDS SUMMARY | ~2019-12-01 | XMS | Encounter Summary ---
Demographics + + + | Address | [address] [facility] | | | [place] [address] | + + + | Home Phone [...] Osei Bhandari Sr. | ECON | [address] | | | | | [place] | | | | | [address] | | + + + + + Care Team Providers + +------+ + | Care Rehabilitation Specialist Name | Role | Phone | [...] | | Center at [facility] [address] | COILED TUBING SUPERVISOR [address] | | | | | [address] | [facility] [address] | | | | | Mailcode: Center | [place], [place] | | | | | [facility] and | [address] | | | | | [facility] | [phone] | | | | | [place], [place] | | | | | | [address] | | | | | | [phone] | | | +--------+ + + + [...]
--- OUTSIDE RECORDS SUMMARY | ~2019-12-01 | XMS | Encounter Summary ---
Demographics + + + | Address | [address] | | | [place] [address] | + + + | Home Phone [...] | Osei Woodard | ECON | [address] [facility] | | | [place] | | [place] | | | | | [address] | | + + + + + Care Team Providers + +------+ + | Care Adolescent Specialist Name | Role | Phone | [...] + + + + | // | Telephone | [facility] | Jil Jennifer | Colonoscopy | | 2013 | | Group [place] | [place] [address] [facility] | | | | | General Surgery | [address] | | | | | [address] | [place], [place] | | | | | [place], [place] | [address] | | | | | [address] | [phone] | | | | | [phone] | | | +--------+ + + + [...] + | Diagnosis | + + | Encounter for screening colonoscopy - Primary Special screening for malignant | | neoplasms, colon | + + documented in this encounter"
--- OUTSIDE RECORDS SUMMARY | ~2019-12-01 | XMS | Encounter Summary ---
Demographics + + + | Address | [address] [facility] | | | [place] [address] | + + + | Home Phone | | + + + | Preferred Language | Unknown | + + + | Marital Status | | + + + | Evangelical Affiliation | CHR | + + + | Race | White | + + + | Ethnic Group | Not or | + + + Author + + + | Author | [facility] | + + + | Organization | [facility] | + + + | Address | Unknown | + + + | Phone | Unavailable | + + + Support + + + + + | Name | Relationship | Address | Phone | + + + + + | Osei Bhandari Sr. | ECON | [address] | | | | | [place] | | | | | [address] | | + + + + + Care Team Providers + +------+ + | Care Director Multiple Sclerosis Center Name | Role | Phone | + +------+ + | Royer Wilde MD | PCP | | + +------+ + Encounter Details +--------+ + + + + | Date | Type | Department | Care Team | Description | +--------+ + + + + | 10/01/ | MyChart | Digestive Health | Jessica Davis, | RE: calorie Limit | | 2012 | Encounter | Center at [facility] [address] | DRILL PRESS TENDER [address] | | | | | [address] | [address] | | | | | Mailcode: Center | [place], [place] | | | | | for [facility] and | [address] | | | | | [place] [address] | [phone] | | | | | [place], [place] | | | | | | [address] | | | | | | [phone] | | | +--------+ + + + [...]
--- OUTSIDE RECORDS SUMMARY | ~2019-12-01 | XMS | Encounter Summary ---
Demographics + + + | Address | [address] [facility] | | | [place] [address] | + + + | Home Phone [...] Osei Bhandari Sr. | ECON | [address] | | | | | [place] | | | | | [address] | | + + + + + Care Team Providers + +------+ + | Care Marble Polisher Hand Name | Role | Phone | + [...] Encounter | Center at [facility] [address] | [phone] | | | | | [address] | | | | | | Mailcode: Center | | | | | | for Health and | | | | | | Healing, Building 2 | | | | | | [place], [place] | | | | | | [address] | | | | | | [phone] | | | +--------+ + + + [...]
--- OUTSIDE RECORDS SUMMARY | ~2019-12-01 | XMS | Encounter Summary ---
Demographics + + + | Address | [address] [facility] | | | [place] [address] | + + + | Home Phone [...] Osei Bhandari Sr. | ECON | [address] | | | | | [place] | | | | | [address] | | + + + + + Care Team Providers + +------+ + | Care Manager Drug Safety Name | Role | Phone | + [...] | | | | | | | [facility] | | | | | | | Health and | | | | | | | Healing, | | | | | | | Building 2 | | | | | | | [place], [place] | | | | | | | [address] | | | | | | | Phone: | | | | | | | [phone] | | | | | | | Fax: | | | | | | | [phone] | +--------+--------+ + + + + Encounter [...] | | | | | | Mailcode: [place] | | | | | | for Health and | | | | | | [facility] 2 | | | | | | [place], [place] | | | | | | [address] | | | | | | [phone] | | | +--------+---------+ + + + [...] her physical exercise. Plan: 1. To see fuse coiler today 2. No lifting over 10# until 4 weeks after surgery 3. Follow up in 4 weeks. documented in this e ncounter Plan of Treatment Not on filedocumented as of this encounter Visit Diagnoses + + | Diagnosis | + + | Morbid obesity (HCC) - Primary Morbid obesity | + + documented in this encounter
--- OUTSIDE RECORDS SUMMARY | ~2019-12-01 | XMS | Encounter Summary ---
Demographics + + + | Address | [address] [facility] | | | [place] [address] | + + + | Home Phone [...] Osei Bhandari Sr. | ECON | [address] | | | | | [place] | | | | | [address] | | + + + + + Care Team Providers + +------+ + | Care Data Analyst Etl Developer Name | Role | Phone | [...] | 2016 | Encounter | Center at [facility] [address] | MD | Appointment | | | | [address] | | | | | | Mailcode: Center | | | | | | for Health and | | | | | | Healing, Building 2 | | | | | | [place], [place] | | | | | | [address] | | | | | | [phone] | | | +--------+ + + + [...]
--- OUTSIDE RECORDS SUMMARY | ~2019-12-01 | XMS | Encounter Summary ---
Demographics + + + | Address | [address] [facility] | | | [place] [address] | + + + | Home Phone | | + + + | Preferred Language | Unknown | + + + | Marital Status | | + + + | Spiritism Affiliation | CHR | + + + | Race | White | + + + | Ethnic Group | Not or | + + + Author + + + | Author | [facility] | + + + | Organization | [facility] | + + + | Address | Unknown | + + + | Phone | Unavailable | + + + Support + + + + + | Name | Relationship | Address | Phone | + + + + + | Osei Bhandari Sr. | ECON | [address] | | | | | [place] | | | | | [address] | | + + + + + Care Team Providers + +------+ + | Care Stock Driver Name | Role | Phone | + +------+ + | Royer Wilde MD | PCP | | + +------+ + Encounter Details +--------+ + + + + | Date | Type | Department | Care Team | Description | +--------+ + + + + | 11/08/ | Hospital | Radiology/Imaging | | | | 2015 | Encounter | Lab at H1 [address] | | | | | | [address] Mailcode: | | | | | | CH[facility] | | | | | | Health and Healing, | | | | | | [place] [address], [facility] | | | | | | Floor [place], [place] | | | | | | [address] | | | | | | [phone] | | | +--------+ + + + [...] | | + +---------+ + + | [facility] DEPARTMENT OF | | | | | [...]
--- OUTSIDE RECORDS SUMMARY | ~2019-12-01 | XMS | Encounter Summary ---
Demographics + + + | Address | [address] [facility] | | | [place] [address] | + + + | Home [...] Osei Bhandari Sr. | ECON | [address] | | | | | [place] | | | | | [address] | | + + + + + Care Team Providers + +------+ + | Care Film Numberer Name | Role | Phone | + [...] | | | at [address] | [facility] | | | | | [address] | [place] [address] | | | | | [address] | | | | | | [address], 2nd floor | | | | | | [place], [place] | | | | | | [address] | | | | | | [phone] | | | +--------+ + + + [...] view image for the detailed interpretation from [employer] results. | CARDIOLOGY | + + + + + + + + | Performing | Address | City/State/Zipcode | Phone Number | | Organization | | | | + + + + + | [facility] | [address] | [place], [place] | | | CARDIOLOGY | [facility] | [address] | | + + + + + documented in this encounter Visit Diagnoses Not on filedocumented in this encounter"
--- OUTSIDE RECORDS SUMMARY | ~2019-12-01 | XMS | Encounter Summary ---
Demographics + + + | Address | [address] [facility] | | | [place] [address] | + + + | Home Phone [...] Osei Bhandari Sr. | ECON | [address] | | | | | [place] | | | | | [address] | | + + + + + Care Team Providers + +------+ + | Care Gun Striper Name | Role | Phone | + +------+ + | Royer Wilde MD | PCP | | + +------+ + Encounter Details +--------+ + + + + | Date | Type | Department | Care Team | Description | +--------+ + + + + | 10/20/ | Documentati | [facility] | Jessica Davis, | | | 2011 | on | [place] [address] | REGIONAL DRIVER [address] | | | | | [address] | [address] | | | | | [place], [place] | [place], [place] | | | | | [address] | [address] | | | | | [phone] | [phone] | | | | | | | [...]
--- OUTSIDE RECORDS SUMMARY | ~2019-12-01 | XMS | Encounter Summary ---
Demographics + + + | Address | [address] | | | [place] [address] | + + + | Home Phone | | + + + | Preferred Language | Unknown | + + + | Marital Status | | + + + | Holiness Affiliation | 1077 | + + + | Race | Unknown | + + + | Ethnic Group | Unknown | + + + Author + + + | Author | [facility] | | | and [place] | + + + | Organization | [facility] | | | and [place] | + + + | Address | Unknown | + + + | Phone | Unavailable | + + + Support + + + + + | Name | Relationship | Address | Phone | + + + + + | Osei Woodard | ECON | [address] | | | [place] | | [place] | | | | | [address] | | + + + + + Care Team Providers + +------+ + | Care Cans Vacuum Tester Name | Role | Phone | + +------+ + | Royer Wilde MD | PCP | | + +------+ + Encounter Details +--------+---------+ + + + | Date | Type | Department | Care Team | Description | +--------+---------+ + + + | 05/20/ | Office | [facility] | Provider Not, In | | | 2014 | Visit | [facility] | System [place] | | | | | CLINICAL LAB SERV[facility] | Health and Service | | | | | [address] | | | | | | [place] | | | | | | [address] | | | | | | [phone] | | | +--------+---------+ + + + [...] | + +--------+ + + + | OVA AND PARASITE | Routin | 05/20/2015 | | Results for this | | EXAMINATION | e | 7:30 AM | | procedure are in the | | | | PDT | | results section. | + +--------+ + + + | CULTURE, STOOL | Routin | 05/20/2015 | | Results for this | | | e | 7:30 AM | | procedure are in the | | | | PDT | | results section. | + +--------+ + + + documented in this encounter Results Ova and Parasite Examination (05/20/2015 7:30 AM PDT) + + + + + + | Component | Value | Ref Range | Performed | Pathologist | | | | | At | Signature | + + + + + + | FINAL | Ova and Parasite | | [facility] | | | REPORT | Concentrate Result: No | | [facility] | | | | Ova or Parasites Seen | | CORE | | | | Trichrome Stain Result: | | LABORATORY | | | | No Ova or Parasites Seen | | | | | | Comment: Performed by | | | | | | [address] | | | | | | [place] [address] | | | | + + + + + + + + | Specimen | + + | Stool specimen | | (specimen) | + + + + + + + | Performing | Address | City/State/Zipcode | Phone Number | | Organization | | | | + + + + + | [facility] | [address] | [place] [address] | [phone] | | [facility] | | | | | LABORATORY | | | | + + + + + Culture, Stool (05/20/2015 7:30 AM PDT) + + + + + + | Component | Value | Ref Range | Performed | Pathologist | | | | | At | Signature | + + + + + + | FINAL | Usual Gladys Present - | | [facility] | | | REPORT | Routine Stool Cultures | | [facility] | | | | are Screened for: | | CORE | | | | Salmonella, Shigella, | | LABORATORY | | | | Campylobacter, E coli | | | | | | O157 and other Shiga | | | | | | Toxin Producing E coli. | | | | | | A Specific Order is | | | | | | Required to Rule out | | | | | | Yersinia, Vibrio, | | | | | | Aeromonas or Yeast. - | | | | | | Comment: Performed by | | | | | | [address] | | | | | | [place] [address] | | | | + + + + + + + + | Specimen | + + | Stool specimen | | (specimen) | + + + + + + + | Performing | Address | City/State/Zipcode | Phone Number | | Organization | | | | + + + + + | [facility] | [address] | [place] [address] | [phone] | | [facility] | | | | | LABORATORY | | | | + + + + + documented in this encounter Visit Diagnoses Not on filedocumented in this encounter"
--- OUTSIDE RECORDS SUMMARY | ~2019-12-01 | XMS | Encounter Summary ---
Demographics + + + | Address | [address] | | | [place] [address] | + + + | Home Phone | | + + + | Preferred Language | Unknown | + + + | Marital Status | | + + + | Jewish Affiliation | 1077 | + + + | Race | Unknown | + + + | Ethnic Group | Unknown | + + + Author + + + | Author | [facility] | | | and [place] | + + + | Organization | [facility] | | | and [place] | + + + | Address | Unknown | + + + | Phone | Unavailable | + + + Support + + + + + | Name | Relationship | Address | Phone | + + + + + | Osei Woodard | ECON | [address] | | | [place] | | [place] | | | | | [address] | | + + + + + Care Team Providers + +------+ + | Care Typo Machine Operator Name | Role | Phone | + +------+ + | Royer Wilde MD | PCP | | + +------+ + Encounter Details +--------+ + + + + | Date | Type | Department | Care Team | Description | +--------+ + + + + | 10/08/ | Hospital | [facility] | Rob Bello MD | | | 2010 | Encounter | [facility] | | | | | | CENTER [address] | | | | [address] | | | | | | [place], [place] | | | | | | [address] | | | | | | [phone] | | | +--------+ + + + [...]
--- OUTSIDE RECORDS SUMMARY | ~2019-12-01 | XMS | Encounter Summary ---
Demographics + + + | Address | [address] | | | [place] [address] | + + + | Home Phone | | + + + | Preferred Language | Unknown | + + + | Marital Status | | + + + | Buddhism Affiliation | 1077 | + + + [...] | [address] | | | [place] | | [place] | | | | | [address] | | + + + + + Care Team Providers + +------+ + | Care Patient Registration Rep Name | Role | Phone | + +------+ + | Royer Wilde MD | PCP | | + +------+ + Encounter Details +--------+ + + + + | Date | Type | Department | Care Team | Description | +--------+ + + + + | 11/09/ | Hospital | Steven Villagran Other screening | | 2011 | Encounter | [facility] | Royer Hurd MD | mammogram | | | | Center Mammography | [address] | | | | | [address] | [address] | | | | | [place], [place] | [place], [place] | | | | | [address] | [address] | | | | | [phone] | [phone] | | | | | | | [...] + | MISCELLANEOUS LAB | | | [phone] | + +---------+ + + | MISCELANIOUS LAB | | | [phone] | + +---------+ + + documented in this encounter Visit Diagnoses + + | Diagnosis | + + | Other screening mammogram | + + documented in this encounter"
--- OUTSIDE RECORDS SUMMARY | ~2019-12-01 | XMS | Encounter Summary ---
Demographics + + + | Address | [address] | | | [place] [address] | + + + | Home Phone [...] Osei Bhandari Sr. | ECON | [address] | | | | | [place] | | | | | [address] | | + + + + + Care Team Providers + +------+ + | Care Speedometer Mechanic Name | Role | Phone | [...] | | | | obesity | [place] [address] | [address] | | | | | (HCC) | [address] | [address] | | | | | Procedures | [address] | [place] [facility] | | | | | HI LAP,PLC | [address] | Health and | | | | | GSTR ADJST | [facility] [place] | Healing, | | | | | BND | [address] | [address] | | | | | | Phone: | [place], [place] | | | | | | [phone] | [address] | | | | | | Fax: | Phone: | | | | | | [phone] | [phone] | | | | | | | Fax: | | | | | | | [phone] | +--------+--------+ + + + + Encounter Details +--------+---------+ + + + | Date | Type | Department | Care Team | Description | +--------+---------+ + + + | 02/08/ | Office | Dig[facility]ive Health | Shannon, | Morbid obesity (HCC) | | 2011 | Visit | Center at [facility] [address] | [place] [address]olson [address] | (Primary Dx) | | | | [facility] | [address] | | | | | for [facility] and | [place], [place] | | | | | [facility] | [address] | | | | | [place], [place] | | | | | | [address] | | | | | | [phone] | | | +--------+---------+ + + + [...] + + + + | Weight | 116.1 kg (255 lb | 02/09/2012 9:29 AM | | | | 14.4 oz) | PDT | | + + + + + | Height | 167.6 cm (5' 6") | 02/09/2012 9:29 AM | | | | | PDT | | + + + + + | Body Mass Index | 41.3 | 02/09/2012 9:29 AM | | | | | PDT | | + + + + + documented in this encounter Progress Notes Lyn Ortega, RD - 02/09/2012 9:31 AM PDT Referring Provider: Royer Wilde MD Clinic: Outpatient [facility], Pre Bariatric Surgery Visit Services, for diet consult prior to having Lou En Y gastric bypass surgery. Documented Time of Visit: 10:25 until 10:45. 20 minutes [id number] consult with the avani ent (4 of 6 visits) SUBJECTIVE: Trying to move more, working on a project (cleaning out closets/fridge, organiz ing spare room, painting selves) around the house every night vs sitting in front of the tv. Eating salad everynight before dinner, trying to eat slower (putting fork or spoon down in between each bite). Feels portion sizes are probably still to big. Has thought about joining local gym and doing water aerobics. Drinking 1 glass of soda/day, goal to be completely off by February apt. Will be travelling in February to a conference (gone for 9 days). Intake: B: this morning breakfast rosie from [employer], usually eggs and breakfast meat and toast S: not usually but yesterday had a peach L: salad or tv dinner S: not usually D: meat, vegetable or salad and starch (pasta, potato, rice) Food Allergies: Yes, tomatoes and pork Current Physical Exercise: ADL. OBJECTIVE: Height: Ht Readings from Last 1 Encounters: 02/09/12 1.676 m (5' 6") Weight: Wt Readings from Last 1 Encounters: 02/09/12 116.075 kg (255 lb 14.4 oz) Past Medical History: Past Medical History Diagnosis Date Morbid obesity Asthma Vitamin D deficiency Migraine Hyperlipidemia HTN (hypertension) GERD (gastroesophageal reflux disease) Medications: See list in Epic snap shot Dietary Supplements: women's MV Labs: See results review. Nutrition Diagnosis: Obesity as evidenced by BMI of 41.32. Pre-Surgery Diet: Provided written diet suggestions to help patient lose weight before surgery. - add 2 small snacks in between meals, examples provided - decrease portion size - use the plate method at dinner, adding salad if needed - cut out high fat breakfast meat Discussed behavior changes to practice before surgery to prepare for surgery. - continue to cut down on soda [...] loss and improve other health conditions. 1. Decrease portion size at dinner 2. Add 2 small snacks 3. Decrease soda intake. 4. Exercise! 3 days/week - sit and be fit. 5. Eliminate high fat breakfast meats 6. Follow up with dietitian in 4 weeks Lyn Ortega MS, RD, LD documented in thi s encounter Plan of Treatment Not on filedocumented as of this encounter Procedures + +--------+ + + + | Procedure Name | Priori | Date/Time | Associated Diagnosis | Comments | | | ty | | | | + +--------+ + + + | HI MNT RE-ASSESSMNT | Routin | 02/09/2012 | Morbid obesity | | | X15MIN | e | 10:20 AM | (HCC) | | | | | PDT | | | + +--------+ + + + documented in this encounter Visit Diagnoses + + | Diagnosis | + + | Morbid obesity (HCC) - Primary Morbid obesity | + + documented in this encounter
--- OUTSIDE RECORDS SUMMARY | ~2019-12-01 | XMS | Encounter Summary ---
Demographics + + + | Address | [address] | | | [place] [address] | + + + | Home Phone | | + + + | Preferred Language | Unknown | + + + | Marital Status | | + + + | Hindu Affiliation | 1077 | + + + [...] | Osei Woodard | ECON | [address] | | | [place] | | [place] | | | | | [address] | | + + + + + Care Team Providers + +------+ + | Care Showroom Salesperson Name | Role | Phone | + [...] + + | 01/29/ | Telephone | [facility] | Sendy Montesinos RN | Colonoscopy | | 2014 | | Group [place] | [address] | | | | | General Surgery | [address] [facility] [place] | | | | | [address] | [address] | | | | | [place], [place] | (Fax) | | | | | [address] | | | | | | [phone] | | | +--------+ + + + [...]
--- OUTSIDE RECORDS SUMMARY | ~2019-12-01 | XMS | Encounter Summary ---
Demographics + + + | Address | [address] | | | [place] [address] | + + + | Home Phone | | + + + | Preferred Language | Unknown | + + + | Marital Status | | + + + | Jew Affiliation | 1077 | + + + | Race | Unknown | + + + | Ethnic Group | Unknown | + + + Author + + + | Author | [facility] | | | and [place] | + + + | Organization | [facility] | | | and [place] | + + + | Address | Unknown | + + + | Phone | Unavailable | + + + Support + + + + + | Name | Relationship | Address | Phone | + + + + + | Osei Woodard | ECON | [address] | | | [place] | | [place] | | | | | [address] | | + + + + + Care Team Providers + +------+ + | Care Toddler Caregiver Name | Role | Phone | + +------+ + | Pcp, Prov Inactive | PCP | | + +------+ + Encounter Details +--------+ + + + + | Date | Type | Department | Care Team | Description | +--------+ + + + + | 11/13/ | Hospital | [facility] | Conversion | Chronic maxillary | | 2018 | Encounter | [facility] [address] | Transaction, | sinusitis | | | | [address] | Provider Unknown | | | | | [place], [place] | [phone] | | | | | [address] | | | | | | [phone] | Arley Moore, | | | | | | [address] | | | | | | [address] [place], | | | | | | [place] [address] | | | | | | [phone] | | | | | | | [...] | + + + | STEVE Alston [facility] SINUS 11/13/2017 8:33 AM HISTORY: 52 [...]
--- OUTSIDE RECORDS SUMMARY | ~2019-12-01 | XMS | Encounter Summary ---
Demographics + + + | Address | [address] | | | [place] [address] | + + + | Home Phone | | + + + | Preferred Language | Unknown | + + + | Marital Status | | + + + | Rastafari Affiliation | 1077 | + + + [...] Osei Woodard | ECON | [address] | | | [place] | | [place] | | | | | [address] | | + + + + + Care Team Providers + +------+ + | Care Attendant [facility] Name | Role | Phone | + [...] | | | CENTER [address] | [place] [address] | | | | | [address] | [phone] | | | | | [place], [place] | | | | | | [address] | | | | | | [phone] | | | +--------+ + + + [...] that you will follow-up with your primary menagerie caretaker (or one to which you have been [...] care and evaluation, I will notify my [facility] Provider so they can work with the [...] sent through Care Everywhere.EPIGASTRIC PAIN (UNCERTAIN CAUSE) ([place]IZ[place])ACID REFLUX, WHAT IS ([place]IZ[place])ACID REFLUX, TIPS TO CONTROL (ENGL ARMAAN)PEPTIC ULCER (H. PYLORI INFECTION ONLY) ([place]IZ[place])GASTRITIS (ADULT) ([place]IZ[place])GASTRITIS VS . ULCER ([place]IZ[place])GASTRITIS, UNDERSTANDING ([place]IZ[place])GASTRITIS, TREATING (CITIZEN [place])documented i n this encounter Medications at Time [...] - 1.030 | [facility] | | | [place], | | | [facility] | | | [...] + + + | [facility] | [address] | [place], [place] | [phone] | | [facility] | | [address] | | | LABORATORY | | | [...] PDT Electronically | | | signed by: Praful Mojica M.D. on 04/24/2015 9:17 AM PDT [...] + + + | [facility] | [address] | [place], [place] | [phone] | | [facility] | | [address] | | | LABORATORY | | | [...] + + | [facility] | [address] | [place], [place] | [phone] | | [facility] | | [address] | | | LABORATORY | | | [...] | + + + + + | [facility] | [address] | [place], [place] | [phone] | | [facility] | | [address] | | | LABORATORY | | | [...] | mL/min/1.73m2 | [facility] | | | [facility] | RATE,ESTIMATED | | HOSPITAL | | | | mL/min/1.52x4Iwki than | | LABORATORY | | | [...] [facility] | [address] | [place], [place] | [phone] | | [facility] | | [address] | | | LABORATORY | | | [...] Saurav | | | | | | ([phone]) on 04/24/2015 | | | | | [...]
--- OUTSIDE RECORDS SUMMARY | ~2019-12-01 | XMS | Encounter Summary ---
Demographics + + + | Address | [address] | | | [place] [address] | + + + | Home Phone | | + + + | Preferred Language | Unknown | + + + | Marital Status | | + + + | Latter Day Affiliation | 1077 | + + + | Race | Unknown | + + + | Ethnic Group | Unknown | + + + Author + + + | Author | [facility] | | | and [place] | + + + | Organization | [facility] | | | and [place] | + + + | Address | Unknown | + + + | Phone | Unavailable | + + + Support + + + + + | Name | Relationship | Address | Phone | + + + + + | Osei Woodard | ECON | [address] | | | [place] | | [place] | | | | | [address] | | + + + + + Care Team Providers + +------+ + | Care Upholstery Cleaner Name | Role | Phone | + [...] / | Diagnoses | Atabeygi, | [facility] | | | Services | General | Colon | Elke Betancourt, | [place] [facility] | | | Required | Surgery | cancer | [address] | S[address] | | | | | screening | [address] | [address] | | | | | | [place], [place] | [place], | | | | | | [address] | [place] [address] | | | | | | Phone: | Phone: | | | | | | [phone] | [phone] | | | | | | Fax: | Fax: | | | | | | [phone] | [phone] | +--------+ + + + + + [...] + + | 11/25/ | Office | [facility] | Elke Mcdonald, | Weight gain (Primary | | 2013 | Visit | Group [place] | [facility] [address] | Dx); Other | | | | Internal Medicine | [place], [place] | screening mammogram; | | | | [address] | [id number] | Colon cancer | | | | [address] | | screening; Obesity | | | | [place], [place] | | (BMI 30-39.9) | | | | [address] | | | | | | [phone] | | | +--------+---------+ + + + [...] and gary lr your Mammogram at the [facility] @ [phone]. You will be contacted by General Surgery [...] issues post bariatric surgery. SH: Moved to [place] in 2008. She was formerly from [place]. 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 She has been 31 years. She has been in the [facility] since 1990. She has one yareli [...] Bariatric sugery May 2012 Gastric Sleeve at [facility] Family History Problem Relation Age of Onset [...] up. 3. Colon cancer screening * [facility] Surgery - AMB Referral- referral p laced [...] Colon cancer | Ordered: 11/25/2013 | | [facility] | Referral | e | screening [...] | + + + + + | [facility] | [address] | [place], [place] | [phone] | | [facility] | | [address] | | | LABORATORY | | | [...] | mL/min/1.73m2 | [facility] | | | [facility] | RATE,ESTIMATED | | HOSPITAL | | | | mL/min/1.38p6Ysgm than | | LABORATORY | | | [...] + + | [facility] | [address] | [place] | [phone] | | [facility] | | [address] | | | LABORATORY | | | [...] + + | [facility] | [address] | [place], [place] | [phone] | | [facility] | | [address] | | | LABORATORY | | | [...] mg/dL | [facility] | | | | [id number] | | [facility] | | | | - [address] | | HOSPITAL | | | | [id number] or more HIGH | | LABORATORY | | | |240 or more HIGH | | | | | | | | | | + + + + + + | Triglycerid | 91Comment: <150 | <150 mg/dL | [facility] | | | es | [id number] - 199 | | [facility] | | | | Borderline [id number] - 499 | | HOSPITAL | | [...] + + | [facility] | [address] | [place], [place] | [phone] | | [facility] | | [address] | | | LABORATORY | | | [...]
--- OUTSIDE RECORDS SUMMARY | ~2019-12-01 | XMS | Encounter Summary ---
Demographics + + + | Address | [address] | | | [place] [address] | + + + | Home Phone | | + + + | Preferred Language | Unknown | + + + | Marital Status | | + + + | Worship Affiliation | CHR | + + + | Race | White | + + + | Ethnic Group | Not or | + + + Author + + + | Author | [facility] | + + + | Organization | [facility] | + + + | Address | Unknown | + + + | Phone | Unavailable | + + + Support + + + + + | Name | Relationship | Address | Phone | + + + + + | Osei Bhandari Sr. | ECON | [address] | | | | | [place] | | | | | [address] | | + + + + + Care Team Providers + +------+ + | Care Carpentry Instructor Name | Role | Phone | [...] | | 2016 | | Center at [facility] [address] | MILK TANKER DRIVER [address] | | | | | [address] | , [address] | | | | | Mailcode: Center | [place], [place] | | | | | [facility] and | [address] | | | | | [facility] | [phone] | | | | | [place], [place] | | | | | | [address] | | | | | | [phone] | | | +--------+ + + + [...]
--- OUTSIDE RECORDS SUMMARY | ~2019-12-01 | XMS | Encounter Summary ---
Demographics + + + | Address | [address] | | | [place] [address] | + + + | Home Phone | | + + + | Preferred Language | Unknown | + + + | Marital Status | | + + + | Zoroastrianism Affiliation | 1077 | + + + | Race | Unknown | + + + | Ethnic Group | Unknown | + + + Author + + + | Author | [facility] | | | and [place] | + + + | Organization | [facility] | | | [...] [place] | | | | | [address] | | + + + + + Care Team Providers + +------+ + | Care Medical Physics Professor Name | Role | Phone | [...] + + | 01/01/ | Telephone | [facility] | Hitesh Matos MD | Other (PATIENT NEEDS | | 2013 | | Group [place] | [address] | TO CHANGE PROCEDURE | | | | General Surgery | [place] [address] | DATE) | | | | [address] | [phone] | | | | | [place], [place] | | | | | | [address] | | | | | | [phone] | | | +--------+ + + + [...]
--- OUTSIDE RECORDS SUMMARY | ~2019-12-01 | XMS | Encounter Summary ---
Demographics + + + | Address | [address] | | | [place] [address] | + + + | Home Phone | | + + + | Preferred Language | Unknown | + + + | Marital Status | | + + + | Adventist Affiliation | 1077 | + + + [...] | Osei Woodard | ECON | [address] | | | [place] | | [place] | | | | | [address] | | + + + + + Care Team Providers + +------+ + | Care Vacuum Drum Drier Operator Name | Role | Phone | [...] + + | // | Telephone | [facility] | Jil Jennifer | Colonoscopy | | 2013 | | Group [place] | [place] [address] [facility] | | | | | General Surgery | [address] | | | | | [address] | [place], [place] | | | | | [place], [place] | [address] | | | | | [address] | [phone] | | | | | [phone] | | | +--------+ + + + [...]
--- OUTSIDE RECORDS SUMMARY | ~2019-12-01 | XMS | Encounter Summary ---
Demographics + + + | Address | [address] | | | [place] [address] | + + + | Home Phone | | + + + | Preferred Language | Unknown | + + + | Marital Status | | + + + | Gnosticism Affiliation | CHR | + + + | Race | White | + + + | Ethnic Group | Not or | + + + Author + + + | Author | [facility] | + + + | Organization | [facility] | + + + | Address | Unknown | + + + | Phone | Unavailable | + + + Support + + + + + | Name | Relationship | Address | Phone | + + + + + | Osei Bhandari Sr. | ECON | [address] | | | | | [place] | | | | | [address] | | + + + + + Care Team Providers + +------+ + | Care Sat Instructor Name | Role | Phone | [...] | 2016 | Encounter | Center at [facility] [address] | | | | | | [address] | | | | | | Mailcode: Center | | | | | | for Health and | | | | | | Healing, [address] | | | | | | [place], [place] | | | | | | [address] | | | | | | [phone] | | | +--------+ + + + [...]
--- OUTSIDE RECORDS SUMMARY | ~2019-12-01 | XMS | Encounter Summary ---
Demographics + + + | Address | [address] | | | [place] [address] | + + + | Home Phone | | + + + | Preferred Language | Unknown | + + + | Marital Status | | + + + | Scientology Affiliation | CHR | + + + | Race | White | + + + | Ethnic Group | Not or | + + + Author + + + | Author | [facility] | + + + | Organization | [facility] | + + + | Address | Unknown | + + + | Phone | Unavailable | + + + Support + + + + + | Name | Relationship | Address | Phone | + + + + + | Osei Bhandari Sr. | ECON | [address] | | | | | [place] | | | | | [address] | | + + + + + Care Team Providers + +------+ + | Care Potato Bucker Name | Role | Phone | + [...] | 2013 | Encounter | Center at 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
--- OUTSIDE RECORDS SUMMARY | ~2019-12-01 | XMS | Encounter Summary ---
Demographics + + + | Address | [address] | | | [place] [address] | + + + | Home Phone [...] | Osei Woodard | ECON | [address] | | | [place] | | [place] | | | | | [address] | | + + + + + Care Team Providers + +------+ + | Care Erp Manager Name | Role | Phone | [...] | | CENTER [address] [place], [place] | | | | | [address] | [id number] | | | | | [place], [place] | | | | | | [address] | | | | | | [phone] | | | +--------+ + + + [...] CONTRAST DATE OF EXAM: 03/20/2010 INDICATION: | [facility] | | -headache, fall TECHNIQUE: Using helical [...] and orbits appear | | | unremarkable. HATFIELD EXAM NUMBER: [id number] CT HEAD W/0 CONTRAST | | | [id number] | | + + + + + [...] appear unremarkable. | | MARS EXAM NUMBER: [id number] CT HEAD W/0 CONTRAST [id number] | | IMPRESSION: | | IMPRESSION: No [...]
--- OUTSIDE RECORDS SUMMARY | ~2019-12-01 | XMS | Encounter Summary ---
Demographics + + + | Address | [address] | | | [place] [address] | + + + | Home Phone [...] + + + | Author | [facility] | + + + | Organization | [facility] | + + + | Address | Unknown | + + + | Phone | Unavailable | + + + Support + + + + + | Name | Relationship | Address | Phone | + + + + + | Osei Bhandari Sr. | ECON | [address] | | | | | [place] | | | | | [address] | | + + + + + Care Team Providers + +------+ + | Care Pedorthist Name | Role | Phone | + [...] | | | | obesity | [place] [address] | [address] | | | | | (HCC) | [address] | [address] | | | | | Procedures | [address] | [place] for | | | | | [place] [employer] | [address] | Health and | | | | | GSTR ADJST | [facility] [place] | Healing, | | | | | BND | [address] | [address] | | | | | | Phone: | [place], [place] | | | | | | [phone] | [address] | | | | | | Fax: | Phone: | | | | | | [phone] | [phone] | | | | | | | Fax: | | | | | | | [phone] | +--------+--------+ + + + + Encounter Details +--------+---------+ + + + | Date | Type | Department | Care Team | Description | +--------+---------+ + + + | 11/13/ | Office | Digestive Health | Ashley Mitchell | Morbid obesity (HCC) | | 2011 | Visit | Center at [facility] [address] | [address] | (Primary Dx) | | | | [facility] | [address] [place], | | | | | for Health and | [place] [address] | | | | | [facility] | | | | | | Center, [place] | | | | | | [address] | | | | | | [phone] | | | +--------+---------+ + + + [...] documented as of this encounter Progress Notes Ashley Mitchell - 11/14/2011 10:34 AM PDT Referring Provider: Royer Wilde MD Clinic: Outpatient Nutrition Clinic, Pre Bariatric Surgery Visit Services, for diet consult prior to having Lou En Y gastric bypass surgery. Documented Time of Visit: 10:37 until 11:27. 50 minutes nlal-wh-tnwo consult with the avani ent and . SUBJECTIVE: Has always struggled with weight issues for entire life. Has not been below 250# in adult l tiana. Done own research, also sister in law had it done and other friends and family. Pre-op wt goal 244# Patient Attended Public Meeting: September 2011 Questions/ Information desired today: Pre and post-op diet ed. Changes made since Public meeting: Trying to follow 1800kcal diet, on 6 month program for i nsurance with doctor (september was month 1). Goal, patient wants to have surgery to try to alleviate pain, fatigue, health. 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 Best diet success and why: wt watchers, lost ~24# but now regaining Current Physical Exercise: Nothing d/t pain OBJECTIVE: Height: Ht Readings from Last 1 Encounters: 11/14/11 1.676 m (5' 6") Weight: Wt Readings from Last 1 Encounters: 11/14/11 116.529 kg (256 lb 14.4 oz) Past Medical History: Past Medical History Diagnosis Date Morbid obesity Asthma Vitamin D deficiency Migraine Hyperlipidemia HTN (hypertension) GERD (gastroesophageal reflux disease) Medications: See list in Epic snap shot Dietary Supplements: Vit D 3000IU Labs: Other relevant labs if available from outside [facility]. Nutrition Diagnosis: Obesity as evidenced by BMI of 41.4 . Factors contributing to obesity: Emotional eating Lack of a regular physical activity program Joint pain as a barrier to physical activity Pre-Surgery Diet: Provided written diet suggestions to help patient lose weight before surgery. -aim for 64oz fluid/day, keep caffeine to 16oz/day, choose 1% milk, replace soda w/ samantha l light -continue with regular eating times, eat q 3-4hrs, choose low-fat protein at all meals and snacks, healthy eating plate, use low-fat condiments, try protein supplements, tv dinners < 600mg Na, portion control, increase fruits and vegetables Discussed behavior changes to practice before surgery to prepare for surgery. -begin mindful eating Explore exercise program options: use sit and be fit 3x/week Post surgery diet education: Provided visual, verbal & written information on all aspects of bariatric surgery. Discusse d lifelong behavior changes, proper diet selections and exercise. Encouraged patient to f/u with dietitian pre or post surgery. Written Education Provided: Provided and reviewed an [...] Learning style: Patient is a Visual learner Verbal learner Information provided in writing, and used [...] Contact information was provided. documented in this [facility] er Plan of Treatment Not on filedocumented as of this encounter Procedures + +--------+ + + + | Procedure Name | Priori | Date/Time | Associated Diagnosis | Comments | | | ty | | | | + +--------+ + + + | [place] MNT INITIAL | Routin | 11/14/2011 | Morbid obesity | | | ASSESSMNT X15MIN | e | 11:30 AM | (HCC) | | | | | PDT | | | + +--------+ + + + documented in this encounter Visit Diagnoses + + | Diagnosis | + + | Morbid obesity (HCC) - Primary Morbid obesity | + + documented in this encounter
--- OUTSIDE RECORDS SUMMARY | ~2019-12-01 | XMS | Encounter Summary ---
Demographics + + + | Address | [address] | | | [place] [address] | + + + | Home Phone | | + + + | Preferred Language | Unknown | + + + | Marital Status | | + + + | Restorationism Affiliation | [id number] | + + + | Race | Unknown | + + + | Ethnic Group | Unknown | + + + Author + + + | Author | [facility] | | | and [place] | + + + | Organization | [facility] | | | and [place] | + + + | Address | Unknown | + + + | Phone | Unavailable | + + + Support + + + + + | Name | Relationship | Address | Phone | + + + + + | Osei Woodard | ECON | [address] | | | [place] | | [place] | | | | | [address] | | + + + + + Care Team Providers + +------+ + | Care Spray Mixer Name | Role | Phone | + +------+ + | Royer Wilde MD | PCP | | + +------+ + Encounter Details +--------+ + + + + | Date | Type | Department | Care Team | Description | +--------+ + + + + | 04/02/ | Hospital | [place] | [place], | Other screening | | 2015 | Encounter | [facility] | Royer Hurd MD | mammogram | | | | Center Mammography | [address] | | | | | [address] | [address] | | | | | [place], [place] | [place], [place] | | | | | [address] | [address] | | | | | [phone] | [phone] | | | | | | | [...] Results In - 04/02/2015 5:51 PM PDT [facility] DIGITAL SCREENING BILATERAL | | | | [...] + + | Performing | Address | City/State/[place] [facility] | Phone Number | | Organization | | | | + +---------+ + + | [facility] | | | | + +---------+ + + documented in this encounter Visit Diagnoses + + | Diagnosis | + + | Other screening mammogram | + + documented in this encounter"
--- OUTSIDE RECORDS SUMMARY | ~2019-12-01 | XMS | Encounter Summary ---
Demographics + + + | Address | [address] | | | [place] [address] | + + + | Home Phone [...] Osei Bhandari Sr. | ECON | [address] | | | | | [place] | | | | | [address] | | + + + + + Care Team Providers + +------+ + | Care Head Charger Name | Role | Phone | + [...] | | | | obesity | [place] [address] | [address] | | | | | (HCC) | [address] | [address] | | | | | Procedures | [address] | [place] for | | | | | [place] [employer] | [address] | Health and | | | | | GSTR ADJST | [place], [place] | Healing, | | | | | BND | [address] | [address] | | | | | | Phone: | [place], [place] | | | | | | [phone] | [address] | | | | | | Fax: | Phone: | | | | | | [phone] | [phone] | | | | | | | Fax: | | | | | | | [phone] | +--------+--------+ + + + + Encounter Details +--------+---------+ + + + | Date | Type | Department | Care Team | Description | +--------+---------+ + + + | 04/16/ | Office | Digestive Health | Milvia Ricardo, | Morbid obesity | | 2011 | Visit | Center at [facility] [address] | [address] [facility] | (HCC); HTN | | | | [facility] | [address] | (hypertension) | | | | for Health and | [place], [place] | | | | | [place] [address] | [address] | | | | | [place], [place] | | | | | | [address] | | | | | | [phone] | | | +--------+---------+ + + + [...] of Visit: 9:10 until 9:34. 24 minutes byog-jh-kvjc consult with the mallika jack 6th of [...] food for breakfast on their way to [facility]. Brk: fast food: breakfast Guero sandwich (egg, ham, cheese), diet soda A: sausage, egg, & cheese, diet soda Lunch: turkey sandwich from [employer] & potato cakes, iced tea Dinner: goulash, [...] was provided. Milvia Ricardo RD, LD Pager [phone] documented in this en counter Plan of Treatment Not on filedocumented as of this encounter Procedures + +--------+ + + + | Procedure Name | Priori | Date/Time | Associated Diagnosis | Comments | | | ty | | | | + +--------+ + + + | NM MNT RE-ASSESSMNT | Routin | 04/16/2012 | [...]
--- OUTSIDE RECORDS SUMMARY | ~2019-12-01 | XMS | Encounter Summary ---
Demographics + + + | Address | [address] | | | [place] [address] | + + + | Home Phone | | + + + | Preferred Language | Unknown | + + + | Marital Status | | + + + | Baptism Affiliation | CHR | + + + | Race | White | + + + | Ethnic Group | Not or | + + + Author + + + | Author | [facility] | + + + | Organization | [facility] | + + + | Address | Unknown | + + + | Phone | Unavailable | + + + Support + + + + + | Name | Relationship | Address | Phone | + + + + + | Osei Bhandari Sr. | ECON | [address] | | | | | [place] | | | | | [address] | | + + + + + Care Team Providers + +------+ + | Care Manager Deli Name | Role | Phone | + +------+ + | Royer Wilde MD | PCP | | + +------+ + Reason for Visit Global Period - Transplant (Routine) +--------+--------+ + [...] | | | | | | | Center for | | | | | | | Health and | | | | | | | Healing, | | | | | | | Building [address] | | | | | | | [facility] [place] | | | | | | | [address] | | | | | | | Phone: | | | | | | | [phone] | | | | | | | Fax: | | | | | | | [phone] | +--------+--------+ + + + + Encounter Details +--------+---------+ + + + | Date | Type | Department | Care Team | Description | +--------+---------+ + + + | 08/06/ | Office | Digestive Health | Dereje Trevino, | S/P partial | | 2012 | Visit | Center at [facility] [address] | MD | gastrectomy (Primary | | | | [address] | | Dx) | | | | Mailcode: [place] | | | | | | for Health and | | | | | | Healing, [address] | | | | | | [place], [place] | | | | | | [address] | | | | | | [phone] | | | +--------+---------+ + + + [...] + + + | Blood Pressure | 115/72 | 08/06/2012 10:07 AM | | | | | PST | | + + + + + | Pulse | 63 | 08/06/2012 10:07 AM | | | | | PST | | + + + + + | Temperature | 36.7 C (98.1 F) | 08/06/2012 10:07 AM | | | | | PST | | + + + + + | Respiratory Rate | 16 | 08/06/2012 10:07 AM | | | | | PST | | + + + + + | Oxygen Saturation | - | - | | + + + + + | Inhaled Oxygen | - | - | | | Concentration | | | | + + + + + | Weight | 94.8 kg (209 lb 1.6 | 08/06/2012 10:07 AM | | | | oz) | PST | | + + + + + | Height | 167.6 cm (5' 6") | 08/06/2012 10:07 AM | | | | | PST | | + + + + + | Body Mass Index | 33.75 | 08/06/2012 10:07 AM | | | | | PST | | + + + + + documented in this encounter Progress Notes Dereje Trevino MD - 08/06/2012 10:31 AM PSTSp sleeve gastrectomy 05/25/2012- no complaint s, taking supps, GI ROS neg, wounds healing, doing well sp SG RTC 3 mos documented in this encounter Plan of Treatment Not on filedocumented as of this encounter Visit Diagnoses + + | Diagnosis | + + | S/P partial gastrectomy - Primary Other postprocedural status | + + documented in this encounter
--- OUTSIDE RECORDS SUMMARY | ~2019-12-01 | XMS | Encounter Summary ---
Demographics + + + | Address | [address] | | | [place] [address] | + + + | Home Phone [...] Osei Bhandari Sr. | ECON | [address] | | | | | [place] | | | | | [address] | | + + + + + Care Team Providers + +------+ + | Care Dedenter Name | Role | Phone | + [...] + + + + | 05/24/ | Anesthesia | 6A Intra Op [address] | Jordyn Carroll MD | | | 2011 | Event | [address] | [address] | | | | | [facility] | [facility] | | | | | [facility] Admitting | [place] [address] | | | | | Desk Located on the | [phone] | | | | | 9th floor | | | | | | [place], [place] | Nuria Knutson | | | | | [address] | HE Anne | | +--------+ + + + + Anesthesia Record + + + + + | Procedure Name | Responsible | Anesthesia Start | Anesthesia Stop Time | | | Anesthesiologist | Time | | + + + + + | LAPAROSCOPIC GASTRIC | Jordyn Carroll MD | 05/24/12721 | 05/24/12 1022 | | SLEEVE PROCEDURE [...] | Meds | +------+ + + + | Name | Total | + + + | midazolam | 2 mg | + + + | succinylcholine | 120 mg | + + + | rocuronium | 70 mg | + + + | lidocaine 2% | 80 mg | + + + | propofol | 200 mg | + + + | fentaNYL | 250 mcg | + + + | glycopyrrolate | 0.6 mg | + + + | neostigmine | 3 mg | + + + | dexamethasone | 4 mg | + + + | ondansetron | 4 mg | + + + | ceFOXitin | 2,000 mg | + + + | PHENYLephrine | 100 mcg | + + + | HYDROmorphone | 0.6 mg | + + + | LR | 1,800 mL | + + + + + | Name | + + | Insp Herbert | + + | Et Herbert | + + | O2 Flow Rate (Total Liters) | + + | Air Flow rate (L/min) | + + + + | No blood administrations on file. | + + +--------+ + + + | Type | Details | Placement | Removal | +--------+ + + + | RETIRE | 05/24/12; 0740; 05/25/12; 1400; | 05/24/12 07 by | 05/25/12 1400 by | | D - | 18; Left; Wrist | Nuria K | Zeynep Amor RN | | Periph | | HE [place]nut[place] | | | marisol | | | | | Line | | | | +--------+ + + + | RETIRE | 05/24/12; 0740; 05/25/12; 0635; | 05/24/12739 by | 05/25/12634 by | | D - | No; Laurence; 16FR | Pilo Perkins RN | Janett Cruz, | | Jessicar | | | SAMANTHA | | y Cath | | | [...] in this encounter Administered Medications + +--------+ + +------+------+ | Medication Order | MAR | Action | Dose | Rate | Site | | | Action | Date | | | | + +--------+ + +------+------+ | ceFOXitin (aka MEFOXIN) | Given | 05/24/20 | 2,000 mg | | | | injection intravenous, | | 12 7:40 | | | | | INTRAPROCEDURE PRN, Starting Taryn | | AM PDT | | | | | 05/24/12 at 0740, Until Taryn | | | | | | | 05/24/12 at 1010 | | | | | | + +--------+ + +------+------+ +---+---+ | | | +---+---+ + +-------+ +------+---+---+ | dexamethasone (aka DECADRON) | Given | 05/24/20 | 4 mg | | | | injection intravenous, | | 12 8:19 | | | | | INTRAPROCEDURE PRN, Starting Taryn | | AM PDT | | | | | 05/24/12 at 0819, Until Taryn | | | | | | | 05/24/12 at 1010 | | | | | | + +-------+ +------+---+---+ +---+---+ | | | +---+---+ + +-------+ +--------+---+---+ | fentaNYL citrate (PF) (aka | Given | 05/24/20 | 50 mcg | | | | SUBLIMAZE) injection | | 12 8:27 | | | | | INTRAPROCEDURE PRN, Starting Taryn | | AM PDT | | | | | 05/24/12 at 0726, Until Taryn | | | | | | | 05/24/12 at 1010, sedation | | | | | | + +-------+ +--------+---+---+ +-------+ +--------+---+---+ | Given | 05/24/20 | 50 mcg | | | | | 12 8:21 | | | | | | AM PDT | | | | +-------+ +--------+---+---+ | Given | 05/24/20 | 50 mcg | | | | | 12 8:03 | | | | | | AM PDT | | | | +-------+ +--------+---+---+ +---+---+ | | | +---+---+ + +-------+ +--------+---+---+ | glycopyrrolate (jenna ESCOBAR) | Given | 05/24/20 | 0.6 mg | | | | injection INTRAPROCEDURE PRN, | | 12 9:57 | | | | | Starting Taryn 05/24/12 at 0957, | | AM PDT | | | | | Until Taryn 05/24/12 at 1010 | | | | | | + +-------+ +--------+---+---+ +---+---+ | | | +---+---+ + +-------+ +--------+---+---+ | HYDROmorphone (aka DILAUDID) | Given | 05/24/20 | 0.2 mg | | | | injection INTRAPROCEDURE PRN, | | 12 10:14 | | | | | Starting Taryn 05/24/12 at 0855, | | AM PDT | | | | | Until Taryn 05/24/12 at 1010, | | | | | | | sedation | | | | | | + +-------+ +--------+---+---+ +-------+ +--------+---+---+ | Given | 05/24/20 | 0.4 mg | | | | | 12 8:55 | | | | | | AM PDT | | | | +-------+ +--------+---+---+ +---+---+ | | | +---+---+ + + + +----+---+---+ | lactated ringers IV | given by | 05/24/20 | mL | | | | INTRAPROCEDURE CONTINUOUS PRN, | | 12 9:45 | | | | | Starting Taryn 05/24/12 at 0722, | anesthes | AM PDT | | | | | Until Taryn 05/24/12 at 1010 | iology | | | | | + + + +----+---+---+ +---------+ +----+---+---+ | New Bag | 05/24/20 | mL | | | | | 12 9:00 | | | | | | AM PDT | | | | +---------+ +----+---+---+ | New Bag | 05/24/20 | mL | | | | | 12 7:22 | | | | | | AM PDT | | | | +---------+ +----+---+---+ +---+---+ | | | +---+---+ + +-------+ +-------+---+---+ | lidocaine (aka XYLOCAINE MPF) | Given | 05/24/20 | 80 mg | | | | 20 mg/mL (2 %) injection | | 12 7:28 | | | | | INTRAPROCEDURE PRN, Starting Taryn | | AM PDT | | | | | 05/24/12 at 0728, Until Taryn | | | | | | | 05/24/12 at 1010 | | | | | | + +-------+ +-------+---+---+ +---+---+ | | | +---+---+ + +-------+ +------+---+---+ | midazolam (aka VERSED) | Given | 05/24/20 | 2 mg | | | | injection INTRAPROCEDURE PRN, | | 12 7:22 | | | | | Starting Taryn 05/24/12 at 0722, | | AM PDT | | | | | Until Taryn 05/24/12 at 1010, | | | | | | | sedation | | | | | | + +-------+ +------+---+---+ +---+---+ | | | +---+---+ + +-------+ +------+---+---+ | neostigmine (aka PROSTIGMIN) | Given | 05/24/20 | 3 mg | | | | injection intravenous, | | 12 9:57 | | | | | INTRAPROCEDURE PRN, Starting Taryn | | AM PDT | | | | | 05/24/12 at 0957, Until Taryn | | | | | | | 05/24/12 at 1010 | | | | | | + +-------+ +------+---+---+ +---+---+ | | | +---+---+ + +-------+ +------+---+---+ | ondansetron (aka ZOFRAN) | Given | 05/24/20 | 4 mg | | | | injection INTRAPROCEDURE PRN, | | 12 9:45 | | | | | Starting Taryn 05/24/12 at 0945, | | AM PDT | | | | | Until Taryn 05/24/12 at 1010 | | | | | | + +-------+ +------+---+---+ +---+---+ | | | +---+---+ + +-------+ +---------+---+---+ | phenylePHrine 100 mcg/mL | Given | 05/24/20 | 100 mcg | | | | injection (OR syringe) | | 12 7:52 | | | | | intravenous, INTRAPROCEDURE PRN, | | AM PDT | | | | | Starting Taryn 05/24/12 at 0752, | | | | | | | Until Taryn 05/24/12 at 1010 | | | | | | + +-------+ +---------+---+---+ +---+---+ | | | +---+---+ + +-------+ +--------+---+---+ | propofol INTRAPROCEDURE PRN, | Given | 05/24/20 | 200 mg | | | | Starting Taryn 05/24/12 at 0735, | | 12 7:35 | | | | | Until Taryn 05/24/12 at 1010 | | AM PDT | | | | + +-------+ +--------+---+---+ +---+---+ | | | +---+---+ + +-------+ +-------+---+---+ | rocuronium (aka ZEMURON) | Given | 05/24/20 | 20 mg | | | | injection INTRAPROCEDURE PRN, | | 12 8:55 | | | | | Starting Taryn 05/24/12 at 0745, | | AM PDT | | | | | Until Taryn 05/24/12 at 1010, | | | | | | | Neuromuscular block | | | | | | + +-------+ +-------+---+---+ +-------+ +-------+---+---+ | Given | 05/24/20 | 20 mg | | | | | 12 8:08 | | | | | | AM PDT | | | | +-------+ +-------+---+---+ | Given | 05/24/20 | 30 mg | | | | | 12 7:45 | | | | | | AM PDT | | | | +-------+ +-------+---+---+ +---+---+ | | | +---+---+ + +-------+ +--------+---+---+ | SUCCINYLCHOLINE CHLORIDE 20 | Given | 05/24/20 | 120 mg | | | | MG/ML INJ (PROSED/RSI) | | 12 7:35 | | | | | INTRAPROCEDURE PRN, Starting Taryn | | AM PDT | | | | | 05/24/12 at 0735, Until Taryn | | | | | | | 05/24/12 at 1010, Neuromuscular | | | | | | | block | | | | | | + +-------+ +--------+---+---+ +---+---+ | | | +---+---+ documented in this encounter"
--- OUTSIDE RECORDS SUMMARY | ~2019-12-01 | XMS | Encounter Summary ---
Demographics + + + | Address | [address] | | | [place] [address] | + + + | Home Phone [...] Osei Bhandari Sr. | ECON | [address] | | | | | [place] | | | | | [address] | | + + + + + Care Team Providers + +------+ + | Care Certified Art Therapist Name | Role | Phone | + [...] | | | | obesity | [place] [address] | [address] | | | | | (HCC) | [address] | | | | | Procedures | [address] | [place] for | | | | | [place] [employer] | [address] | Health and | | | | | GSTR ADJST | [facility] [place] | Healing, | | | | | BND | [address] | [address] | | | | | | Phone: | [place], [place] | | | | | | [phone] | [address] | | | | | | Fax: | Phone: | | | | | | [phone] | [phone] | | | | | | | Fax: | | | | | | | [phone] | +--------+--------+ + + + + Encounter Details +--------+---------+ + + + | Date | Type | Department | Care Team | Description | +--------+---------+ + + + | 02/08/ | Office | Digestive Health | Shannon, | Morbid obesity (HCC) | | 2011 | Visit | Center at [facility] [address] | [place] [address] | (Primary Dx) | | | | [facility] | [address] [place] | | | | | for [facility] and | [place], [place] | | | | | [facility] [address] | [address] | | | | | [place], [place] | | | | | | [address] | | | | | | [phone] | | | +--------+---------+ + + + [...] of Visit: 10:25 until 10:45. 20 minutes etlr-nx-yyno consult with the avani ent (4 of [...] | + +--------+ + + + | CO MNT RE-ASSESSMNT | Routin | 02/09/2012 | [...]
--- OUTSIDE RECORDS SUMMARY | ~2019-12-01 | XMS | Encounter Summary ---
Demographics + + + | Address | [address] | | | [place] [address] | + + + | Home Phone [...] | Osei Woodard | ECON | [address] | | | [place] | | [place] | | | | | [address] | | + + + + + Care Team Providers + +------+ + | Care Cannon Pinion Adjuster Name | Role | Phone | + [...] | | | | | | | [facility]ON [place] | | | | | [...] | COLONOSCOPY | | 2013 | | [facility] | [address] | | | | | EN INTRA [address] | [place] [address] | | | | | [address] | [phone] | | | | | [place], [place] | | | | | | [address] | | | | | | [phone] | | | +--------+---------+ + + + [...] You may also be told to take sumz-zms-matmtgj fiber and stool softener medicines. Take these [...] Hitesh Matos MD - 01/31/2014 9:[address] [facility] Brief Operative Report Outcome: Patient tolerated procedure well, with no complications Findings: See full dictated Operative report Status: -- Stable [id number] Electronically signed by: Hitesh Matos MD, [facility] Date of service: 01/31/2014 9:40 [...]
--- OUTSIDE RECORDS SUMMARY | ~2019-12-01 | XMS | Encounter Summary ---
Demographics + + + | Address | [address] [facility] [address] | | | [place] [address] | + + + | Home Phone [...] Osei Bhandari Sr. | ECON | [address] | | | | | [place] | | | | | [address] | | + + + + + Care Team Providers + +------+ + | Care Process Laboratory Specialist Name | Role | Phone | [...] [id number] | | | | | | [place], [place] | | | | | | [address] | | | | | | [phone] | | | +--------+ + + + [...]
--- OUTSIDE RECORDS SUMMARY | ~2019-12-01 | XMS | Encounter Summary ---
Demographics + + + | Address | [address] [facility] [address] | | | [place] [address] | + + + | Home Phone | | + + + | Preferred Language | Unknown | + + + | Marital Status | | + + + | Synagogue Affiliation | CHR | + + + [...] Osei Bhandari Sr. | ECON | [address] | | | | | [place] | | | | | [address] | | + + + + + Care Team Providers + +------+ + | Care Chipper Feeder Name | Role | Phone | + [...] | | | | | | | [facility] [place] | | | | | | | [address] | | | | | | | Phone: | | | | | | | [phone] | | | | | | | Fax: | | | | | | | [phone] | +--------+--------+ + + + + Encounter Details +--------+---------+ + + + | Date | Type | Department | Care Team | Description | +--------+---------+ + + + | 08/06/ | Office | Digestive Health | Dereje Trevino, | S/P partial | | 2012 | Visit | Center at [facility] [address] | MD | gastrectomy (Primary | | | | [address] | | Dx) | | | | Mailcode: [place] | | | | | | for Health and | | | | | | Healing, Building 2 | | | | | | [place], [place] | | | | | | [address] | | | | | | [phone] | | | +--------+---------+ + + + [...]
--- OUTSIDE RECORDS SUMMARY | ~2019-12-01 | XMS | Encounter Summary ---
Demographics + + + | Address | [address] [facility] | | | [place] [address] | + + + | Home Phone [...] Osei Bhandari Sr. | ECON | [address] | | | | | [place] | | | | | [address] | | + + + + + Care Team Providers + +------+ + | Care Inspector Repairer Name | Role | Phone | + +------+ + | Royer Wilde MD | PCP | | + +------+ + Encounter Details +--------+ + + + + | Date | Type | Department | Care Team | Description | +--------+ + + + + | 11/03/ | Telephone | Digestive Health | Marisa Olivier, | | | 2008 | | [place] [address] | [place] | | | | | [place] Mailcode: [facility] | | | | | | [facility] | | | | | | and Healing, | | | | | | Building 1, | | | | | | Floor [place], [place] | | | | | | [address] | | | | | | [phone] | | | +--------+ + + + [...]
--- OUTSIDE RECORDS SUMMARY | ~2019-12-01 | XMS | Encounter Summary ---
Demographics + + + | Address | [address] [facility] | | | [place] [address] | + + + | Home Phone [...] + + + | Author | [facility] | + + + | Organization | [facility] | + + + | Address | Unknown | + + + | Phone | Unavailable | + + + Support + + + + + | Name | Relationship | Address | Phone | + + + + + | Osei Bhandari Sr. | ECON | [address] | | | | | [place] | | | | | [address] | | + + + + + Care Team Providers + +------+ + | Care Laborer Cheesemaking Name | Role | Phone | + +------+ + | Royer Wilde MD | PCP | | + +------+ + Encounter Details +--------+ + + + + | Date | Type | Department | Care Team | Description | +--------+ + + + + | 11/03/ | Telephone | Digestive Health | Marisa Olivier, | | | 2008 | | [place] [address] | [place] | | | | | [place] Mailcode: [facility] | | | | | | [facility] | | | | | | and Healing, | | | | | | Building 1, | | | | | | Floor [place], [place] | | | | | | [address] | | | | | | [phone] | | | +--------+ + + + [...]
--- OUTSIDE RECORDS SUMMARY | ~2019-12-01 | XMS | Encounter Summary ---
Demographics + + + | Address | [address] [facility] | | | [place] [address] | + + + | Home Phone | | + + + | Preferred Language | Unknown | + + + | Marital Status | | + + + | Caodaism Affiliation | CHR | + + + [...] Osei Bhandari Sr. | ECON | [address] | | | | | [place] | | | | | [address] | | + + + + + Care Team Providers + +------+ + | Care Network Diagnostic Support Specialist Name | Role | Phone | [...] Encounter | Center at [facility] [address] | STOCK BLENDER [address] | | | | | [address] | [address] | | | | | Mailcode: Center | [place], [place] | | | | | for [facility] and | [address] | | | | | [place] [address] | [phone] | | | | | [place], [place] | | | | | | [address] | | | | | | [phone] | | | +--------+ + + + [...]
--- OUTSIDE RECORDS SUMMARY | ~2019-12-01 | XMS | Encounter Summary ---
Demographics + + + | Address | [address] [facility] [address] | | | [place] [address] | + + + | Home Phone [...] Osei Bhandari Sr. | ECON | [address] | | | | | [place] | | | | | [address] | | + + + + + Care Team Providers + +------+ + | Care Golf Coach Name | Role | Phone | [...] | | | | | | | [place] for | | | | | | | Health and | | | | | | | Healing, | | | | | | | Building 2 | | | | | | | [place], [place] | | | | | | | [address] | | | | | | | Phone: | | | | | | | [phone] | | | | | | | Fax: | | | | | | | [phone] | +--------+--------+ + + + + Encounter [...] (Primary Dx) | | | | [facility] | [address] | | | | | for Health and | [place], [place] | | | | | [facility] [address] | [address] | | | | | [place], [place] | | | | | | [address] | | | | | | [phone] | | | +--------+---------+ + + + [...] Follow-Up Patient referred by: Dereje Trevino MD [address] [place] [address] Documented time of visit: 10:37-10:55 (18 minutes [...] months post-op. Milvia Ricardo RD, LD Pager [phone] documented in this en counter Plan of Treatment Not on filedocumented as of this encounter Procedures + +--------+ + + + | Procedure Name | Priori | Date/Time | Associated Diagnosis | Comments | | | ty | | | | + +--------+ + + + | RI MNT RE-ASSESSMNT | Routin | 08/06/2012 | [...]
--- OUTSIDE RECORDS SUMMARY | ~2019-12-01 | XMS | Encounter Summary ---
Demographics + + + | Address | [address] [facility] | | | [place] [address] | + + + | Home Phone [...] Osei Bhandari Sr. | ECON | [address] | | | | | [place] | | | | | [address] | | + + + + + Care Team Providers + +------+ + | Care Zinc Etcher Name | Role | Phone | + [...] | | | | obesity | [place] [address] | [facility] [address] | | | | | (HCC) | [address] | | | | | Procedures | [address] | [place] for | | | | | [place] LAP,PLC | [address] | Health and | | | | | GSTR ADJST | [facility] [place] | Healing, | | | | | BND | [address] | Building 2 | | | | | | Phone: | [place], [place] | | | | | | [phone] | [address] | | | | | | Fax: | Phone: | | | | | | [phone] | [phone] | | | | | | | Fax: | | | | | | | [phone] | +--------+--------+ + + + + Encounter Details +--------+---------+ + + + | Date | Type | Department | Care Team | Description | +--------+---------+ + + + | 11/13/ | Office | Digestive Health | Ashley Mitchell | Morbid obesity (HCC) | | 2011 | Visit | Center at [facility] [address] | [address] | (Primary Dx) | | | | [facility] | [address] [place], | | | | | for Health and | [place] [address] | | | | | [facility] 2 | | | | | | [place], [place] | | | | | | [address] | | | | | | [phone] | | | +--------+---------+ + + + [...] of Visit: 10:37 until 11:27. 50 minutes niwm-ut-szox consult with the aavni ent and . SUBJECTIVE: Has always struggled [...] due to boredom--will start craft projects Weight globe changer the past year: stable Best diet success [...] Other relevant labs if available from outside [facility]. Nutrition Diagnosis: Obesity as evidenced [...] Contact information was provided. documented in this [facility] er Plan of Treatment Not on filedocumented as of this encounter Procedures + +--------+ + + + | Procedure Name | Priori | Date/Time | Associated Diagnosis | Comments | | | ty | | | | + +--------+ + + + | ND MNT INITIAL | Routin | 11/14/2011 | [...]
--- OUTSIDE RECORDS SUMMARY | ~2019-12-01 | XMS | Encounter Summary ---
Demographics + + + | Address | [address] [facility] | | | [place] [address] | + + + | Home Phone | | + + + | Preferred Language | Unknown | + + + | Marital Status | | + + + | Sabianist Affiliation | CHR | + + + [...] Osei Bhandari Sr. | ECON | [address] | | | | | [place] | | | | | [address] | | + + + + + Care Team Providers + +------+ + | Care Managed Care Specialist Name | Role | Phone | [...] | | | | | obesity | [address] | [facility] [address] | | | | | ([facility]) | [facility] | [address] | | | | | | [address] | Mailcode: | | | | | | [address] | [facility] | | | | | | [facility], [place] | | | | | | | [address] | and Healing, | | | | | | Phone: | Building 1, | | | | | | [phone] | 6th Floor | | | | | | Fax: | [place], [place] | | | | | | [phone] | [address] | | | | | | | Phone: | | | | | | | [phone] | | | | | | | Fax: | | | | | | | [phone] | +--------+--------+ + + + + Encounter [...] [facility] | | | | | | [facility] | | | | | | and Healing, | | | | | | Building 1, 6th | | | | | | Floor [place], [place] | | | | | | [address] | | | | | | [phone] | | | +--------+---------+ + + + [...]
--- OUTSIDE RECORDS SUMMARY | ~2019-12-01 | XMS | Encounter Summary ---
Demographics + + + | Address | [address] [facility] | | | [place] [address] | + + + | Home Phone | | + + + | Preferred Language | Unknown | + + + | Marital Status | | + + + | Temple Affiliation | CHR | + + + | Race | White | + + + | Ethnic Group | Not or | + + + Author + + + | Author | [facility] | + + + | Organization | [facility] | + + + | Address | Unknown | + + + | Phone | Unavailable | + + + Support + + + + + | Name | Relationship | Address | Phone | + + + + + | Osei Bhandari Sr. | ECON | [address] | | | | | [place] | | | | | [address] | | + + + + + Care Team Providers + +------+ + | Care Compensation Manager Name | Role | Phone | [...] | | Center at [facility] [address] | COMMUNITY DEVELOPMENT TECHNICIAN [address] | | | | | [address] | , [address] | | | | | Mailcode: Center | [place], [place] | | | | | for Health and | [address] | | | | | Healing, Building 2 | [phone] | | | | | [place], [place] | | | | | | [address] | | | | | | [phone] | | | +--------+ + + + [...]
--- OUTSIDE RECORDS SUMMARY | ~2019-12-01 | XMS | Encounter Summary ---
Demographics + + + | Address | [address] [facility] | | | [place] [address] | + + + | Home Phone | | + + + | Preferred Language | Unknown | + + + | Marital Status | | + + + | Mandaeism Affiliation | CHR | + + + | Race | White | + + + | Ethnic Group | Not or | + + + Author + + + | Author | [facility] | + + + | Organization | [facility] | + + + | Address | Unknown | + + + | Phone | Unavailable | + + + Support + + + + + | Name | Relationship | Address | Phone | + + + + + | Osei Bhandari Sr. | ECON | [address] | | | | | [place] | | | | | [address] | | + + + + + Care Team Providers + +------+ + | Care Retail Security Professional Name | Role | Phone | + [...] | | 2011 | | Center at [facility] [address] | SFDC CONSULTANT [address] | (dinesh shell ) | | | | [address] | [facility] [address] | | | | | Mailcode: Center | [place], [place] | | | | | for Health and | [address] | | | | | [facility] 2 | [phone] | | | | | [place], [place] | | | | | | [address] | | | | | | [phone] | | | +--------+ + + + [...]
--- OUTSIDE RECORDS SUMMARY | ~2019-12-01 | XMS | Encounter Summary ---
Demographics + + + | Address | [address] | | | [place] [address] | + + + | Home Phone | | + + + | Preferred Language | Unknown | + + + | Marital Status | | + + + | Restorationism Affiliation | 1077 | + + + | Race | Unknown | + + + | Ethnic Group | Unknown | + + + Author + + + | Author | [facility] | | | and [place] | + + + | Organization | [facility] | | | and [place] | + + + | Address | Unknown | + + + | Phone | Unavailable | + + + Support + + + + + | Name | Relationship | Address | Phone | + + + + + | Osei Woodard | ECON | [address] | | | [place] | | [place] | | | | | [address] | | + + + + + Care Team Providers + +------+ + | Care Screen Repairer Crusher Name | Role | Phone | + [...] Sinusitis (Primary | | 2014 | | [facility] | [address] | Dx) | | | | [place] [address] | [address] | | | | | [facility] [address] | [place] [address] | | | | | [place], [place] | [phone] | | | | | [address] | | | | | | [phone] | | | +--------+ + + + [...] a towel soaked in hot water. Or, recycling crew supervisor the shower and direct the hot spray [...] mucus and promote drainage from the sinuses. Mviz-ktf-ghgvtsg decongestants may be used unless a similar [...] as directed by your healthcare provider [employer] [id number] [employer]. [address] [place], [place] [id number]. All righ ts reserved. This information is [...]
--- OUTSIDE RECORDS SUMMARY | ~2019-12-01 | XMS | Encounter Summary ---
Demographics + + + | Address | [address] | | | [place] [address] | + + + | Home Phone [...] Osei Bhandari Sr. | ECON | [address] | | | | | [place] | | | | | [address] | | + + + + + Care Team Providers + +------+ + | Care Mechanical Drafter Name | Role | Phone | + [...] | | | | obesity | [place] [address] | [facility] [address] | | | | | (HCC) | [address] | [address] | | | | | | [address] | Mailcode: | | | | | | [address] | [address] | | | | | | [place] | for Health | | | | | | [address] | and Healing, | | | | | | Phone: | Building 1, | | | | | | [phone] | 6th Floor | | | | | | Fax: | [place], [place] | | | | | | [phone] | [address] | | | | | | | Phone: | | | | | | | [phone] | | | | | | | Fax: | | | | | | | [phone] | +--------+--------+ + + + + Encounter Details +--------+---------+ + + + | Date | Type | Department | Care Team | Description | +--------+---------+ + + + | 10/01/ | Office | Digestive Health | Alexandra Mccloud RD | Morbid Obesity (HCC) | | 2008 | Visit | Center at [facility] 3485 | | (Primary Dx) | | | | [facility] | | | | | | for Health and | | | | | | [facility] 2 | | | | | | [place], [place] | | | | | | [address] | | | | | | [phone] | | | +--------+---------+ + + + [...] of Visit: 11:00 until 12:00. 60 minutes eobx-it-fuxr consult with the brielle araiza. SUBJECTIVE: Patient [...] due to stress, anxiety and boredom Weight change control coordinator the past year: Yes, gained 25 lbs [...] relevant labs if available from outside [facility]. Nutrition Diagnosis: Obesity as evidenced by BMI [...] | + + +--------+ + + | AK MNT INITIAL | Procedures | Routin | [...]
--- OUTSIDE RECORDS SUMMARY | ~2019-12-01 | XMS | Encounter Summary ---
Demographics + + + | Address | [address] [facility] | | | [place] [address] | + + + | Home Phone [...] Osei Bhandari Sr. | ECON | [address] | | | | | [place] | | | | | [address] | | + + + + + Care Team Providers + +------+ + | Care Bridge Painter Helper Name | Role | Phone | + +------+ + | Royer Wilde MD | PCP | | + +------+ + Encounter Details +--------+ + + + + | Date | Type | Department | Care Team | Description | +--------+ + + + + | 05/28/ | Telephone | Digestive Health | Marisa Olivier, | | | 2011 | | Center at [facility] 3485 | ANP | | | | | [address] | | | | | | Mailcode: Center | | | | | | for Health and | | | | | | [facility], Building 2 | | | | | | [place], [place] | | | | | | [address] | | | | | | [phone] | | | +--------+ + + + [...]
--- OUTSIDE RECORDS SUMMARY | ~2019-12-01 | XMS | Encounter Summary ---
Demographics + + + | Address | [address] | | | [place] [address] | + + + | Home Phone | | + + + | Preferred Language | Unknown | + + + | Marital Status | | + + + | Gnosticism Affiliation | 1077 | + + + [...] | Osei Woodard | ECON | [address] | | | [address] | | [place] | | | | | [address] | | + + + + + Care Team Providers + +------+ + | Care Lever Tender Name | Role | Phone | + [...] + + | 11/26/ | Telephone | [facility] | Doris Sharmaine Ganesh, | Referral | | 2013 | | Group [place] | YIELD LOSS INSPECTOR [address] | | | | | General Surgery | [address] | | | | | [address] | [place] [address] | | | | | [place], [place] | [phone] | | | | | [address] | | | | | | [phone] | | | +--------+ + + + [...]
--- OUTSIDE RECORDS SUMMARY | ~2019-12-01 | XMS | Encounter Summary ---
Demographics + + + | Address | [address] | | | [place] [address] | + + + | Home Phone | | + + + | Preferred Language | Unknown | + + + | Marital Status | | + + + | Evangelical Affiliation | 1077 | + + + [...] | [address] | | | [place] | | [place] | | | | | [address] | | + + + + + Care Team Providers + +------+ + | Care Geologic Technician Name | Role | Phone | + +------+ + | Royer Wilde MD | PCP | | + +------+ + Encounter Details +--------+---------+ + + + | Date | Type | Department | Care Team | Description | +--------+---------+ + + + | 05/20/ | Office | [facility] | Provider Not, In | | | 2014 | Visit | [facility] | [facility] | | | | | CLINICAL LAB SERVS | Health and Service | | | | | [address] | | | | | | [place] | | | | | | [address] | | | | | | [phone] | | | +--------+---------+ + + + [...] | | | | | [place] [address] | | | | + + + + + + + + | Specimen | + + | Stool specimen | | (specimen) | + + + + + + + | Performing | Address | City/State/Zipcode | Phone Number | | Organization | | | | + + + + + | [facility] | [address] | [place] [address] | [phone] | | SUE GENTILE | | | [...] | | | | | | [place] [address] | | | | + + + + + + + + | Specimen | + + | Stool specimen | | (specimen) | + + + + + + + | Performing | Address | City/State/Zipcode | Phone Number | | Organization | | | | + + + + + | [facility] | [address] | [place] [address] | [phone] | | [facility] | | | | | LABORATORY | | | | + + + + + documented in this encounter Visit Diagnoses Not on filedocumented in this encounter"
--- OUTSIDE RECORDS SUMMARY | ~2019-12-01 | XMS | Encounter Summary ---
Demographics + + + | Address | [address] | | | [place] [address] | + + + | Home Phone [...] Osei Bhandari Sr. | ECON | [address] | | | | | [place] | | | | | [address] | | + + + + + Care Team Providers + +------+ + | Care Senior Mechanical Estimator Name | Role | Phone | + [...] | 2012 | Encounter | Center at [facility] [address] | [address] | | | | | [address] | , [facility] 350 | | | | | Mailcode: Center | [place], [place] | | | | | for Health and | [address] | | | | | [facility] 2 | [phone] | | | | | [place], [place] | | | | | | [address] | | | | | | [phone] | | | +--------+ + + + [...]
--- OUTSIDE RECORDS SUMMARY | ~2019-12-01 | XMS | Encounter Summary ---
Demographics + + + | Address | [address] | | | [place] [address] | + + + | Home Phone [...] Osei Bhandari Sr. | ECON | [address] | | | | | [place] | | | | | [address] | | + + + + + Care Team Providers + +------+ + | Care Yardage Control Operator Name | Role | Phone | [...] Kvng | | | | | Jimmie [facility] | [facility] | | | | | [facility] Admitting | [place] [address] | | | | | Desk Located on the | [phone] | | | | | 9th floor | | | | | | [place], [place] | Nuria Knutson | | | | | [address] | HE Anne | | +--------+ + [...]
--- OUTSIDE RECORDS SUMMARY | ~2019-12-01 | XMS | Encounter Summary ---
Demographics + + + | Address | [address] | | | [place] [address] | + + + | Home Phone | | + + + | Preferred Language | Unknown | + + + | Marital Status | | + + + | Congregation Affiliation | CHR | + + + [...] Osei Bhandari Sr. 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 | | Center at [facility] [address] | DEHYDROGENATION CONVERTER HELPER [address] | gastrectomy (Primary | | | | [address] | [address], [address] | Dx); B12 | | | | Mailcode: Center | [place], [place] | nutritional | | | | for Health and | [address] | deficiency; Vitamin | | | | [place] [address] | [phone] | deficiency | | | | [place], [place] | | | | | | [address] | | | | | | [phone] | | | +--------+ + + + [...] [facility] | [address] | [place] [address] | | | SERVICES, SPECIAL | PARK [...] + + | [facility] | [address] | [place] [address] | | | SERVICES, SPECIAL | ZACKARY [...] by | | | | | | [employer],[address] | | | | | | [address]ma[address], [facility] | | | | | | [address] | | | | | | [phone].[email or web address]. | | | | | | Luz [...] [facility] | [address] | [place], [place] | | | [facility] | | [address] | | + + + + + [...] [facility] | [address] | [place] [address] | | | SERVICES, CORE | PARK [...] | + + + + + | [facility] | [address] | [place] [address] | | | ANUM, SEFERINO | PARK [...] | + + + + + | [facility] | [address] | [place] [address] | | | SERVICES, SPECIAL | ZACKARY [...] | + + + + + | [facility] | [address] | [place] [address] | | | SERVICES, SPECIAL | ZACKARY [...] | | | LABORATORY | | | [facility] | | | SERVICES, | | | [...] | + + + + + | [facility] | [address] | [place] [address] | | | SERVICES, CORE | ZACKARY [...]
--- OUTSIDE RECORDS SUMMARY | ~2019-12-01 | XMS | Encounter Summary ---
Demographics + + + | Address | [address] [facility] | | | [place] [address] | + + + | Home Phone [...] Osei Bhandari Sr. | ECON | [address] | | | | | [place] | | | | | [address] | | + + + + + Care Team Providers + +------+ + | Care Photoflash Powder Mixer Name | Role | Phone | + +------+ + | Royer Wilde MD | PCP | | + +------+ + Encounter Details +--------+ + + + + | Date | Type | Department | Care Team | Description | +--------+ + + + + | 12/10/ | MyChart | Digestive Health | Jessica Davsi, | RE: Test Results | | 2012 | Encounter | Center at [facility] [address] | BRIDGE GAME DIRECTOR [address] | | | | | [address] | , [address] | | | | | Mailcode: Center | [place], [place] | | | | | for Health and | [address] | | | | | [place] [address] | [phone] | | | | | [place], [place] | | | | | | [address] | | | | | | [phone] | | | +--------+ + + + [...]
--- OUTSIDE RECORDS SUMMARY | ~2019-12-01 | XMS | Encounter Summary ---
Demographics + + + | Address | [address] [facility] | | | [place] [address] | + + + | Home Phone [...] Osei Bhandari Sr. | ECON | [address] | | | | | [place] | | | | | [address] | | + + + + + Care Team Providers + +------+ + | Care Cellophaner Name | Role | Phone | + [...] | | | | obesity | [place] [address] | [address] | | | | | (HCC) | [address] | [address] | | | | | Procedures | [address] | Mailcode: | | | | | [place] [employer] | [address] | [facility] | | | | | GSTR ADJST | [facility] [place] | Health and | | | | | BND | [address] | Healing, | | | | | | Phone: | Building [address] | | | | | | [phone] | [place], [place] | | | | | | Fax: | [address] | | | | | | [phone] | Phone: | | | | | | | [phone] | | | | | | | Fax: | | | | | | | [phone] | +--------+--------+ + + + + Encounter Details +--------+---------+ + + + | Date | Type | Department | Care Team | Description | +--------+---------+ + + + | 11/13/ | Office | Digestive Health | Jessica Davis, | Morbid obesity | | 2011 | Visit | Center at [facility] [address] | AUTOMATION OPERATOR [address] | (HCC); HTN | | | | [address] | (hypertension); Knee | | | | Mailcode: Center | [place], [place] | pain; Back pain; | | | | for Health and | [address] | ABHIJEET (obstructive | | | | [facility] | [phone] | sleep apnea) | | | | [place], [place] | | | | | | [address] | | | | | | [phone] | | | +--------+---------+ + + + [...] month supervised diet, please see primary care, cold rolling coordinator or AUTOMATION OPERATOR once monthly to docu ment supervised diet in order to get health insurance authorization for surgery. 7. Recommended weight loss: 5% wt loss goal of 244, (lose 12lbs) Once the above list is completed and copies have been received by our office, we will submi t for insurance authorization then schedule with the [place] [address] Potential Contraindications to Bariatric Surgery Age over [...] other providers does not guarantee that the [facility] Bariatric Surger y program [...] 1992, Atkins diet, lost 15, regained all. 1966-8744, tried many diets, diet p ills and fad diet, lost little weight and regained all. Programmatic diets: 2010, weight watchers, lost 16 lbs, still losing. Physician Monitored diet: - Use of Redux or Phen/fen: yes, used phen-fen in late s for 3 mos. Transthoracic ECHO: yes- in records scanned into [facility], 2008, borderline LV hypertrophy, no valvular abnormalities. Confucianist or cultural reason you would refuse blood [...] of lower extremity edema, hyperlipidemia. Denies CHF, CT, ischemic heart disease, DVT/PE, or pulmonary hypertension. [...] notes, if we need to get a animal cop y of this, we will let you [...] month supervised diet, please see primary care, cold rolling coordinator or AUTOMATION OPERATOR once monthly to docu ment supervised diet in order to get health insurance authorization for surgery. 7. Recommended weight loss: 5% wt loss goal of 244, (lose 12lbs) Once the above list is completed and copies have been received by our office, we will submi t for insurance authorization then schedule with the [place]. [place] [address] Potential Contraindications to Bariatric Surgery Age over [...] other providers does not guarantee that the [facility] Bariatric Surger y program [...]
--- OUTSIDE RECORDS SUMMARY | ~2019-12-01 | XMS | Encounter Summary ---
Demographics + + + | Address | [address] | | | [place] [address] | + + + | Home Phone | | + + + | Preferred Language | Unknown | + + + | Marital Status | | + + + | Congregation Affiliation | 1077 | + + + | Race | Unknown | + + + | Ethnic Group | Unknown | + + + Author + + + | Author | [facility] | | | and [place] | + + + | Organization | [facility] | | | and [place] | + + + | Address | Unknown | + + + | Phone | Unavailable | + + + Support + + + + + | Name | Relationship | Address | Phone | + + + + + | Osei Woodard | ECON | [address] | | | [place] | | [place] | | | | | [address] | | + + + + + Care Team Providers + +------+ + | Care Coagulator Name | Role | Phone | + [...] | | | | [address] | [place] [address] | (Primary Dx) | | | | [place], [place] | [phone] | | | | | [address] | | | | | | [phone] | | | +--------+ + + + [...] in this encounter Discharge Instructions Instructions Nancy oRse PA - 10/29/2013Wear splint for comfort and advance weight-b earing as tolerated. Followup with [place] [facility] in one week if pain continues pedro l for an appointment. AttachmentsThe following attachments cannot be sent through Care Everywhere.SPRAIN, ANKLE, WITH X-RAY (KINYARWANDA)documented in this encounter Medications at Time of [...] + | MISCELLANEOUS LAB | | | [phone] | + +---------+ + + | MISCELANIOUS LAB | | | [phone] | + +---------+ + + documented in this encounter Visit Diagnoses + + | Diagnosis | + + | Ankle sprain and strain, right, initial encounter - Primary | + + documented in this encounter
--- OUTSIDE RECORDS SUMMARY | ~2019-12-01 | XMS | Clinical Summary ---
Demographics + + + | Address | [address] | | | [place] [address] | + + + | Home Phone [...] | Osei Woodard | ECON | [address] | | | [place] | | [place] | | | | | [address] | | + + + + + Care Team Providers + +------+ + | Care Harbor Police Launch Commander Name | Role | Phone | + [...] + + + + | Overview: THEA [id number] | + + + + + [...] +-------+--------+ +--------+-------+---------+------+ | UMR | UMR | [id number] | 07/24/19 | | | PPO | [...] | Self | [birth year] | [address] | | | al/Qasim | | 1965 | [phone] | [place] [address] | | | jennifer | | | 3 (Home) | | | | | | | [phone] | | | | | | | 9 (Work) | | + +--------+ +--------+ + + Advance Directives + + + + + | Type | Date Recorded | Patient | Explanation | | | | Hand Tier | | + + + + + | Power of | | | | | Cripple Cutter | | | | + + + + + | Advance | 08/27/2015 8:34 | | | | Directive | AM | | | + + + + +
--- OUTSIDE RECORDS SUMMARY | ~2019-12-01 | XMS | Encounter Summary ---
Demographics + + + | Address | [address] | | | [place] [address] | + + + | Home Phone [...] + + + | Author | [facility] | | | and [place] | + + + | Organization | [facility] | | | and [place] | + + + | Address | Unknown | + + + | Phone | Unavailable | + + + Support + + + + + | Name | Relationship | Address | Phone | + + + + + | Osei Woodard | ECON | [address] | | | [place] | | [place] | | | | | [address] | | + + + + + Care Team Providers + +------+ + | Care Professor Of Theatre Name | Role | Phone | + +------+ + PCP | Unavailable | + +------+ + Encounter Details +--------+ + + + + | Date | Type | Department | Care Team | Description | +--------+ + + + + | 01/18/ | [facility] | [place] | Brandon Richards | | | 2010 | Encounter | [facility] | MD [address] | | | | | [place] [address] | [facility] | | | | | [address] | [place] [address] | | | | | [place] | [phone] | | | | | [address] | | | | | | [phone] | | | +--------+ + + + [...]
--- OUTSIDE RECORDS SUMMARY | ~2019-12-01 | XMS | Encounter Summary ---
Demographics + + + | Address | [address] | | | [place] [address] | + + + | Home Phone [...] | Osei Woodard | ECON | [address] | | | [place] | | [place] | | | | | [address] | | + + + + + Care Team Providers + +------+ + | Care Fixed Route Bus Operator Name | Role | Phone | + +------+ + | Nicole Chen | PCP | | + +------+ + Encounter Details +--------+ + + + + | Date | Type | Department | Care Team | Description | +--------+ + + + + | // | Orders Only | [facility] | Casarez, Tori A, | Weight gain; Obesity | | 2013 | | [place] | Transfer Engineer | (BMI 30-39.9) | | | | Internal Medicine | | | | | | [address] | | | | | | [place] [address] | | | | | | [place] | | | | | | [address] | | | | | | [phone] | | | +--------+ + + + [...] + + | [facility] | [address] | [place], [place] | [phone] | | [facility] | | [address] | | | LABORATORY | | | [...] | | | | | mmol/L | [facility] | | | | | | [facility] [...] | mL/min/1.73m2 | [facility] | | | [place] | RATE,ESTIMATED | | [facility]OSP[facility] | | | | mL/min/1.86x6Fkqi than | | LABORATORY | | | [...] + + | [facility] | [address] | [place], [place] | [phone] | | [facility] | | [address] | | | LABORATORY | | | [...] | | | | | uIU/mL | [facility] | | | | | | [facility] | | | | | | LABORATORY | | + +-------+ + + + + + | Specimen | + + | Blood | + + + + + + + | Performing | Address | City/State/Zipcode | Phone Number | | Organization | | | | + + + + + | [facility] | [address] | [place], [place] | [phone] | | [facility] | | [address] | | | LABORATORY | | | [...] mg/dL | [facility] | | | | [id number] | | [facility] | | | | - [address] | | HOSPITAL | | | | [id number] or more HIGH | | LABORATORY | | | |240 or more HIGH | | | | | | | | | | + + + + + + | Triglycerid | 91Comment: <150 | <150 mg/dL | [facility] | | | es | [id number] - 199 | | [facility] | | | | Borderline [id number] - 499 | | HOSPITAL | | [...] + + + | [facility] | [address] | [place], [place] | [phone] | | [facility] | | [address] | | | LABORATORY | | | | + + + + + documented in this encounter Visit Diagnoses + + | Diagnosis | + + | Weight gain Abnormal weight gain | + + | Obesity (BMI 30-39.9) Obesity, unspecified | + + documented in this encounter"
--- OUTSIDE RECORDS SUMMARY | ~2019-12-01 | XMS | Encounter Summary ---
Demographics + + + | Address | [address] | | | [place] [address] | + + + | Home Phone [...] Bhandari Sr. | ECON | [address] | | | | | [place] | | | | | [address] | | + + + + + Care Team Providers + +------+ + | Care Insurance Claim Auditor Name | Role | Phone | [...] | 2015 | on | Center at [facility] [address] | CONSULTING SERVICES ASSOCIATE [address] | (Bariatric) | | | | [address] | , [email or web address] [address] | | | | | Mailcode: Center | [place], [place] | | | | | for [facility] and | [address] | | | | | [facility] 2 | [phone] | | | | | [place], [place] | | | | | | [address] | | | | | | [phone] | | | +--------+ + + + [...]
--- OUTSIDE RECORDS SUMMARY | ~2019-12-01 | XMS | Encounter Summary ---
Demographics + + + | Address | [address] [facility] | | | [place] [address] | + + + | Home Phone [...] Osei Bhandari Sr. | ECON | [address] | | | | | [place] | | | | | [address] | | + + + + + Care Team Providers + +------+ + | Care Campus Receptionist Name | Role | Phone | + [...] | | | | [place] | [place] [address] | [address] [address] | | | | | (HCC) | [address] | [address] | | | | | Procedures | [facility] | Center for | | | | | [employer] | [address] | Health and | | | | | GSTR ADJST | [facility] [place] | Healing, | | | | | BND | [address] | Building [address] | | | | | | Phone: | [place], [place] | | | | | | [phone] | [address] | | | | | | Fax: | Phone: | | | | | | [phone] | [phone] | | | | | | | Fax: | | | | | | | [phone] | +--------+--------+ + + + + Encounter Details +--------+---------+ + + + | Date | Type | Department | Care Team | Description | +--------+---------+ + + + | 12/11/ | Office | Digestive Health | [address] | Obesity, Class III, | | 2011 | Visit | Center at [facility] | | BMI 40-49.9 (morbid | | | | [facility] | | obesity) ([facility]) | | | | for Health and | | (Primary Dx) | | | | [facility] | | | | | | [place], [place] | | | | | | [address] | | | | | | [phone] | | | +--------+---------+ + + + [...] loss, 6 month pre surgery nutrition for [employer] requirement. Visit type: Individual and Follow Up, [...] plate of salad, or raw veggies with Surinamese yogurt dip (2 T. Of dip) 2. [...] sizes for protein and starch. Monday dinner: Bengali food: provided specific example of foods not [...] LD, CDE [facility] Outpatient Adult Dietitian Pager: [phone] documented in this enc ounter Plan of Treatment Not on filedocumented as of this encounter Procedures + +--------+ + + + | Procedure Name | Priori | Date/Time | Associated Diagnosis | Comments | | | ty | | | | + +--------+ + + + | [facility] RE-ASSESSMNT | Routin | 12/12/2011 | [...]
[2019-12-01] MEDS ORDERED: TELMISARTAN-HC1 EACH PO (18:02)
== END 2019-12-01 18:53 | disposition home or self-care (01) ==
LOC: ED 17:29
DX: S61.215A Laceration without foreign body of left ring finger without damage to nail, initial encounter (principal); S61.211A Laceration without foreign body of left index finger without damage to nail, initial encounter; G43.909 Migraine, unspecified, not intractable, without status migrainosus; Z88.5 Allergy status to narcotic agent; Z88.8 Allergy status to other drugs, medicaments and biological substances; Z79.899 Other long term (current) drug therapy; W26.0XXA Contact with knife, initial encounter
CPT/HCPCS: 99282

== ENCOUNTER 2020-10-24 00:28 | Emergency (ER) | payer BC ==
[~2020-10-24] VITALS: Ht 167.6 cm; Wt 97.5 kg
[~2020-10-24 00:28] MED LIST changes: +TELMISARTAN-HC1 EACH PO
--- NOTE | 2020-10-24 16:17 | EKG ---
[facility] [address] [facility] [place], [place] [address] Signed Normal sinus rhythm Low voltage QRS Borderline ECG No previous ECGs available Confirmed by TRACI LEON DO ([id number]) on 10/24/2020 4:16:50 PM Electronically Signed By: TRACI LEON DO 10/24/20 1617 PATIENT NAME: JANETTE CARTER HARVINDER Electrocardiogram DATE OF : 61 PHYSICIAN: TRACI LEON DO REPORT #: [id number] REPORT IS CONFIDENTIAL AND NOT TO BE RELEASED WITHOUT AUTHORIZATION
== END 2020-10-24 04:17 | disposition home or self-care (01) ==
LOC: ED 00:28
DX: R07.81 Pleurodynia (principal); G43.909 Migraine, unspecified, not intractable, without status migrainosus; Z88.8 Allergy status to other drugs, medicaments and biological substances; Z88.5 Allergy status to narcotic agent; Z79.899 Other long term (current) drug therapy
CPT/HCPCS: 71045; 80053; 84484; 85025; 85379; 93005; 93010; 99285-25

== ENCOUNTER 2020-11-01 06:09 | Emergency (ER) | payer BC ==
[~2020-11-01] VITALS: Ht 167.6 cm; Wt 105.2 kg
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
[2020-11-01] MEDS ORDERED: CEFDINIR300 MG PO (06:21)
--- NOTE | 2020-11-01 07:02 | EKG ---
[facility] [address] [facility] [place], [place] [address] Signed Normal sinus rhythm Low voltage QRS Borderline ECG When compared with ECG of 24-OCT-2020 00:34, No significant change was found Confirmed by GENET CLARK MD ([id number]) on 11/01/2020 7:02:34 AM Electronically Signed By: GENET CLARK MD 11/01/20 0702 PATIENT NAME: JOSELYN CARTERLeonel BLANTON Electrocardiogram DATE OF : 61 PHYSICIAN: GENET CLARK MD REPORT #: [id number] REPORT IS CONFIDENTIAL AND NOT TO BE RELEASED WITHOUT AUTHORIZATION
[2020-11-01] MEDS ORDERED: ZOFRAN4 MG PO (07:04)
== END 2020-11-01 08:20 | disposition home or self-care (01) ==
LOC: ED 06:09
DX: U07.1 COVID-19 (principal); G43.909 Migraine, unspecified, not intractable, without status migrainosus; I10 Essential (primary) hypertension; Z88.8 Allergy status to other drugs, medicaments and biological substances; Z88.5 Allergy status to narcotic agent; Z79.899 Other long term (current) drug therapy
CPT/HCPCS: 71045; 80053; 83735; 83880; 84484; 85025; 99285-25

== ENCOUNTER 2020-11-30 08:56 | Emergency (ER) | payer BC ==
[~2020-11-30] VITALS: Ht 167.6 cm; Wt 103.4 kg
[~2020-11-30 08:56] MED LIST changes: +CEFDINIR300 MG PO; +ZOFRAN4 MG PO
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
== END 2020-11-30 10:25 | disposition home or self-care (01) ==
LOC: ED 08:56
DX: S93.401A Sprain of unspecified ligament of right ankle, initial encounter (principal); W10.9XXA Fall (on) (from) unspecified stairs and steps, initial encounter; G43.909 Migraine, unspecified, not intractable, without status migrainosus; I10 Essential (primary) hypertension; Z88.8 Allergy status to other drugs, medicaments and biological substances; Z88.5 Allergy status to narcotic agent; Z79.899 Other long term (current) drug therapy
CPT/HCPCS: 73610; 99283-25; A9270

== ENCOUNTER 2021-09-12 22:42 | Emergency (ER) | payer BC ==
[~2021-09-12] VITALS: Ht 167.6 cm; Wt 106.6 kg
[2021-09-12] MEDS ORDERED: LOSARTAN-HCTZ1 EACH PO (22:57)
[2021-09-12] MEDS ORDERED: ATORVASTATIN CA10 MG PO (22:57)
[2021-09-12] MEDS ORDERED: OFLOXACIN5 M1 OP (22:57)
[2021-09-14] MEDS ORDERED: COZAAR100 MG PO (10:21)
== END 2021-09-13 00:10 | disposition home or self-care (01) ==
LOC: ED 22:42
DX: S05.01XA Injury of conjunctiva and corneal abrasion without foreign body, right eye, initial encounter (principal); I10 Essential (primary) hypertension; G43.909 Migraine, unspecified, not intractable, without status migrainosus; Z88.8 Allergy status to other drugs, medicaments and biological substances; Z79.899 Other long term (current) drug therapy; W50.0XXA Accidental hit or strike by another person, initial encounter
CPT/HCPCS: 99283

== ENCOUNTER 2021-11-01 07:30 | Day surgery (SDC) | payer BC ==
--- NOTE | 2021-09-14 11:14 | NUR ---
DOS: 09/27/21 STEPS: 4 STEP TO GET UP TO THE POURCH, THEN 7 STEP TO GET INTO THE MAIN LIVING AREA OF THE HOME WALKER: HAS ONE AND WAS INSTRUCTED TO BRING WITH HER ON THE DAY OF SURGERY TOILETS: WILL NEED A RISER SHOWER: STEP OVER AND WILL NEED A SHOWER CAHIR APPOINTMENTS AND PHYSICAL THERAPY: WILL HELP HER AND GET HER TO HER APPOINTMENTS AND PHYSICAL THERAPY PROVIDE A HANDOUT TO [facility] TO GET THE ITEMS THAT SHE NEEDS.
[~2021-11-01] VITALS: Ht 167.6 cm; Wt 108.0 kg
[~2021-11-01 07:30] MED LIST changes: +ATORVASTATIN CA10 MG PO; +COZAAR100 MG PO; +LOSARTAN-HCTZ1 EACH PO; +OFLOXACIN5 M1 OP
--- NOTE | 2021-11-01 08:50 | NUR ---
ASSISTED TRE WITH NERVE BLOCK. PATIENT TOLERATED WELL. NOW APPEARS TO BE RESTING WITH EYES CLOSED, PULSE OX 94% ROOM AIR. SIDE RAILS UP X2. CALL LIGHT WITHIN REACH.
[2021-11-01] MEDS ORDERED: XARELTO10 MG PO (11:00)
[2021-11-01] MEDS ORDERED: DICLOFENAC SODI75 MG PO (11:01)
[2021-11-01] MEDS ORDERED: SENNA LAX8.6 MG PO (11:01)
[2021-11-01] MEDS ORDERED: OXYCODONE HCL5 MG PO (11:01)
--- NOTE | 2021-11-01 11:14 | NUR ---
11/01/21 1114 Erika Seo 1108 PATIENT ARRIVES TO PACU SLEEPING. OPENS EYES TO VERBAL STIMULI. BACK TO SLEEP WHEN NOT STIMULATED. RESP EVEN AND UNLABORED, MASK AT 6 LITERS. ONQ PUMP INFUSING AT 4ML/HR. 1113 PATIENT AWAKE OFF/ON. SHAKES HEAD NO TO PAIN/NAUSEA. RESP EVEN AND UNLABORED, MASK OFF.
--- NOTE | 2021-11-01 11:57 | NUR ---
1135: PT RETURNS TO UNIT VIA STRETCHER FROM PACU. AWAKE AND ALERT ON ARRIVAL. PT DENIES PAIN AND NAUSEA. VSS, RESP EVEN AND UNLABORED. REPORTING FEELING URGE TO VOID. PUREWICK FEMALE CATH IN PLACE AND SUCTION SET AT 60MMHG. PT EDUCATED ON CATH AND ENCD TO VOID. DRESSING CLEAN, DRY AND INTACT. CMS WNL. ICE WATER AND CRACKERS PROVIDED. POC DISCUSSED AND PT AGREEABLE. SPINAL LEVEL AT THE UMBILICUS. NO NEEDS VOICED, CALL LIGHT WITHIN REACH
--- NOTE | 2021-11-01 12:06 | NUR ---
REPORT FROM RAYNA RN, THIS NURSE TO RESUME CARE. INTO ROOM, PATIENT STATED " I HAVE SHARP PRESSURE IN MY BLADDER" RATES PAIN 5/10 ON PAIN SCALE. BLADDER SCAN >999. PROVIDED PATIENT WITH STRAIGHT CATH, DRAINED 1300 ML OF URINE. PATIENT REPORTED SHARP PRESSURE RESOLVED. DRESSING TO LEFT KNEE C/D/I. ICE IN PLACE. STRONG PEDAL PULSE. PATIENT APPEARS DROWSY. CALL LIGHT WITHIN REACH, NO OTHER NEEDS AT THIS TIME.
--- NOTE | 2021-11-01 13:31 | NUR ---
PATIENT REPORTS SPINAL RESOLVED. PATIENT NOW ABLE TO MOVE FEET AND LIFT SURGICAL LEG, HOWEVER WHEN LIFTING UP PATIENT STATES "THE OUTSIDE OF KNEE HURTS" PATIENT GRIMACED. ADMINISTERED PAIN MEDICAITON PER SEP. PATIENT TOLERATING WATER AND SNACKS WELL. ORDERED PATIENT LUNCH. DRESSING TO LEFT KNEE, C/D/I. ICE MACHINE IN PLACE. PATIENT AWAKE AND CONVERSING WITH . NO OTHER NEEDS AT THIS TIME.
--- NOTE | 2021-11-01 15:09 | NUR ---
PATIENT BACK FROM PHYSICAL THERAPY, OKAYED TO GO HOME. PATIENT NEEDS TO VOID STILL. PATIENT DRINKING WATER. CALL LIGHT WITHIN REACH. NO OTHER NEEDS AT THIS TIME. DRESSING TO LEFT KNEE SURGICAL SITE C/D/I. ICE IN PLACE. PROVIDED EDUCATION WITH ON-Q PUMP AND ICE MACHINE. AT BEDSIDE, DEMONSTRATED UNDERSTANDING.
--- NOTE | 2021-11-01 15:41 | NUR ---
PATIENT AMBULATED TO BATHROOM AND VOIDED 500 ML OF URINE. PATIENT REPORTED FEELING LIFE SHE EMPTIED HER BLADDER WELL. CALL TO DR. BALBUENA, VERBALIZED OKAY FOR PATIENT TO GO HOME.
--- NOTE | 2021-11-01 16:23 | NUR ---
PROVIDED PATIENT AND WITH DISCHARGE INSTRUCTION. ANSWERED QUESTIONS AND CONCERNS. PROVIDED PATIENT WITH WHEELCHAIR RIDE OUT TO CAR, PATIENT TRANSFERED INTO VEHICLE WELL.
--- NOTE | 2021-11-03 08:25 | OR ---
[facility] [address], [place] [address] Signed DATE OF OPERATION: 11/01/2021 SURGEON: Marj Blanc MD PREOPERATIVE DIAGNOSIS: Severe degenerative joint disease, left knee. POSTOPERATIVE DIAGNOSIS: Severe degenerative joint disease, left knee. PROCEDURE PERFORMED: Left total knee arthroplasty with Errol. CLOTH TESTER QUALITY: KATHY Howard. Malina was present and critical for all portions of the procedure. ANESTHESIA: Spinal. BLOOD LOSS: 200 mL. IMPLANTS: Elizabeth Triathlon size 3, 11 mm poly and 29 patella. BRIEF HISTORY: Steve is a 56-year-old female with progressive worsening of osteoarthritis. She had an arthroscopy last year, which failed to control her symptoms. Risks and benefits of operative treatment discussed with her and she elected to proceed. Once consent was obtained, she was taken to the operating room. After adequate anesthesia, she was placed on the operating table, all downside pressure points well padded. The left leg was placed on a hip bump and prepped and draped in the standard sterile fashion. The knee was approached through standard anterior midline incision and a mid vastus approach. The capsule was split up into the vastus and distally down into the MCL. The MCL was elevated as a sleeve in a subperiosteal manner around the level of the posterior medial corner. The synovium was split. The fat pad was excised. Anterior horns of the menisci were transected and the ACL was transected. PCL was found to be intact. The checkpoint and computer ray were then placed in the medial femoral condyle. Similarly, it was placed the proximal tibia and through percutaneous stab incisions in the tibia Electronically Signed By: MARJ BLANC MD 11/03/21 0825 PATIENT NAME: STEVE CARTER OPERATIVE REPORT DATE OF : 61 REPORT #: [id number] PHYSICIAN: MARJ BLANC MD PCP: ALEYDA PARNELL MD REPORT IS CONFIDENTIAL AND NOT TO BE RELEASED WITHOUT AUTHORIZATION [facility] [address], [place] [address] Signed for the computer ray. The leg was then registered with the computer as were the fine anatomic points. The varus-valgus testing was then undertaken. We did put the tibia into a little bit more varus, this gave us a balanced openings. Once this was completed, we brought in the robot. Four straight cuts were made with care taken to protect the surrounding soft tissues. The 2 angle cuts were then made and the bone was removed. The remaining osteophytes were removed. The posterior osteophytes were taken off the femur. No posterior release was performed. The trials were then positioned, knee was taken from 0-130. It was a little loose with a 10 mm poly selected with an 11. The patella was cut sized and drilled for 29 mm patella. The distal femoral drill holes were made and the tibia was finished using the keel punch. The bone surfaces were pulse lavaged. Because a good bone quality indurated, we elected to go with a non-cemented prosthesis. The tibia was impacted into position first, followed by the polyethylene. The femur was then impacted, the knee was extended and nicely loaded. The patella was clamped into position and the range of motion showed good tracking of the patella. The knee was then pulse lavaged using 3 L normal saline. We did use an IrriSept soak in the middle. The On-Q pain pump was placed percutaneously into the adductor canal from the suprapatellar pouch. Periarticular soft tissues were injected with 100 mL ropivacaine and Toradol mixture. The arthrotomy was then closed using #2 Stratafix, subcutaneous tissue with 0-Quill and the skin with 3-0 StrataFix. Steri-Strips were applied. Wound was dressed with an Aquacel dressing, ABD, and Devon wrap. She tolerated the procedure well. All sponge, needle, and instrument counts were correct. Marj Blanc MD BA/MODL /[id number] Copies: ~ Electronically Signed By: MARJ BLANC MD 11/03/21 0825 PATIENT NAME: STEVE CARTER OPERATIVE REPORT DATE OF : 61 REPORT #: [id number] PHYSICIAN: MARJ BLANC MD PCP: ALEYDA PARNELL MD REPORT IS CONFIDENTIAL AND NOT TO BE RELEASED WITHOUT AUTHORIZATION
== END 2021-11-01 15:55 | disposition home or self-care (01) ==
LOC: DS 07:30
PROVIDERS: ATTEND Specialist
PROC: 0SRD0JA Replacement of Left Knee Joint with Synthetic Substitute, Uncemented, Open Approach (ICD-10-PCS; principal; 2021-11-01 09:15)
DX: M23.92 Unspecified internal derangement of left knee (principal); M17.12 Unilateral primary osteoarthritis, left knee; G89.18 Other acute postprocedural pain; Z88.5 Allergy status to narcotic agent; Z88.8 Allergy status to other drugs, medicaments and biological substances
CPT/HCPCS: 01402; 64447; 64450; 76942; 97161; A9270; C1776; J0690; J1100; J1885; J2001; J2250; J2704; J2795; J7121

== ENCOUNTER 2022-01-01 16:50 | Emergency (ER) | payer BC ==
[~2022-01-01] VITALS: Ht 167.6 cm; Wt 104.8 kg
[~2022-01-01 16:50] MED LIST changes: +DICLOFENAC SODI75 MG PO; +OXYCODONE HCL5 MG PO; +SENNA LAX8.6 MG PO; +XARELTO10 MG PO
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
[2022-01-01] MEDS ORDERED: NEURONTIN300 MG PO (17:30)
[2022-01-01] MEDS ORDERED: TOPIRAMATE25 MG PO (17:31)
[2022-01-01] MEDS ORDERED: PHENDIMETRAZIN105 MG PO (17:31)
--- NOTE | 2022-01-02 15:21 | EKG ---
[facility] [address] [facility] [place], [place] [address] Signed Normal sinus rhythm with sinus arrhythmia Low voltage QRS Cannot rule out Anterior infarct , age undetermined Abnormal ECG When compared with ECG of 01-NOV-2020 06:30, No significant change was found Confirmed by GENET CLARK MD ([id number]) on 01/02/2022 3:21:48 PM Electronically Signed By: GENET CLARK MD 01/02/22 1521 PATIENT NAME: JANETTE CARTER HARVINDER Electrocardiogram DATE OF : 61 PHYSICIAN: GENET CLARK MD REPORT #: [id number] REPORT IS CONFIDENTIAL AND NOT TO BE RELEASED WITHOUT AUTHORIZATION
== END 2022-01-01 19:57 | disposition home or self-care (01) ==
LOC: ED 16:50
DX: R10.32 Left lower quadrant pain (principal); G43.909 Migraine, unspecified, not intractable, without status migrainosus; I10 Essential (primary) hypertension; Z88.8 Allergy status to other drugs, medicaments and biological substances; Z88.5 Allergy status to narcotic agent; Z79.899 Other long term (current) drug therapy
CPT/HCPCS: 36415; 74177; 80053; 81001; 83690; 85025; 93005; 93010; 96375; 99284-25; A9270; J1885; J2405; J7030; Q9967

== ENCOUNTER 2022-07-08 21:12 | Emergency (ER) | payer BC ==
[~2022-07-08] VITALS: Ht 167.6 cm; Wt 94.8 kg
[~2022-07-08 21:12] MED LIST changes: +NEURONTIN300 MG PO; +PHENDIMETRAZIN105 MG PO; +TOPIRAMATE25 MG PO
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
[2022-07-08] MEDS ORDERED: LOSARTAN POTASS25 MG PO (22:05)
[2022-07-08] MEDS ORDERED: SAXENDA3 MG/0.5 M SUB-Q (22:07)
[2022-07-08] MEDS ORDERED: BACTRIM DS TAB1 EACH PO (22:31)
== END 2022-07-08 22:50 | disposition home or self-care (01) ==
LOC: ED 21:12
DX: N39.0 Urinary tract infection, site not specified (principal); I10 Essential (primary) hypertension; G43.909 Migraine, unspecified, not intractable, without status migrainosus; Z88.8 Allergy status to other drugs, medicaments and biological substances; Z88.5 Allergy status to narcotic agent; Z79.899 Other long term (current) drug therapy
CPT/HCPCS: 81001; 99283; A9270

== ENCOUNTER 2023-01-04 13:25 | Emergency (ER) | payer BC ==
[~2023-01-04] VITALS: Ht 167.6 cm; Wt 91.5 kg
[~2023-01-04 13:25] MED LIST changes: +BACTRIM DS TAB1 EACH PO; +LOSARTAN POTASS25 MG PO; +SAXENDA3 MG/0.5 M SUB-Q
[2023-01-04] MEDS ORDERED: OCUFLOX5 ML OPTH (16:07)
[2023-01-04 16:14] VITALS: BP 129/75
== END 2023-01-04 16:17 | disposition home or self-care (01) ==
LOC: ED 13:25
DX: B30.1 Conjunctivitis due to adenovirus (principal); I10 Essential (primary) hypertension; Z79.899 Other long term (current) drug therapy; Z88.8 Allergy status to other drugs, medicaments and biological substances; Z88.5 Allergy status to narcotic agent
CPT/HCPCS: 99283

== ENCOUNTER 2024-08-26 08:53 | Day surgery (SDC) | payer BC ==
[2024-08-13 10:12] VITALS: BP 115/70
[~2024-08-26] VITALS: Ht 167.6 cm; Wt 69.5 kg
[2024-08-26] VITALS (8 sets, daily range): BP systolic 100–124; BP diastolic 54–76
[~2024-08-26 08:53] MED LIST changes: +CLARITHROMYCIN500 MG PO; +GABAPENTIN 600 MG TAB PO SCH; +IBLOOD GLUCOSE TEST STRIP 1 EA TEST VI PRN; +INTRA-ARTICULAR ANALGESIC INJECTION XX SCH; +LACTATED RINGER'S 1,000 ML IV SCH; +LIDOCAINE HCL 1% 5 ML SDV INJ ONE; +MAG-OXIDE200 MG PO; +OCUFLOX5 ML OPTH; +OXYCODONE HCL 5 MG TAB PO SCH; +PANTOPRAZOLE SODIUM 40 MG TABEC PO SCH; +PHENDIMETRAZINE35 MG PO; +PREDNISONE10 MG PO; +PRILOSEC OTC20 MG PO; +ROPIVACAINE IN 0.9% SOD CHL/PF 545 ML ELS.PMP.HR IRRIGATION SCH; +Ropivacaine HCl 20 MG/10 ML AMP ONE; +TRANEXAMIC ACID IN NACL,ISO-OS 1,000 MG/100 ML PIGGYBACK IV SCH; +VANCOMYCIN HCL 1,000 MG in DEXTROSE 5% 250 ML IV SCH; +VENTOLIN HFA18 GM INH; +VITAMIN B121000 MCG PO; +WEGOVY2.4 MG/0.7 SQ; +ZEPBOUND15 MG/0.5 SQ; +ZYRTEC10 MG PO; +ondansetron HCL 4 MG TAB PO SCH
[2024-08-26] MEDS ORDERED: Ropivacaine HCl 0.5% 30 ML VIAL ONE (09:30)
[2024-08-26] MEDS ORDERED: SODIUM CHLORIDE 0.9% 20 ML IV ONE (09:30)
[2024-08-26] MEDS ORDERED: dexmedeTOMIDine HCl 200 MCG/2 ML VIAL ONE (09:31)
[2024-08-26] MEDS ORDERED: MIDAZOLAM HCL 2 MG/2 ML VIAL ONE (09:31)
[2024-08-26] MEDS ORDERED: DEXAMETHASONE SOD PHOS 4 MG/ML VIAL ONE (09:31)
[2024-08-26] MEDS ORDERED: LIDOCAINE HCL 2% 5 ML SDV ONE ×2 (09:31→11:18)
[2024-08-26] MEDS ORDERED: propofoL 200 MG/20 ML VIAL ONE ×2 (09:31→11:17)
[2024-08-26] MEDS ORDERED: ondansetron HCL 4 MG/2 ML VIAL ONE ×2 (11:18→14:56)
[2024-08-26] MEDS ORDERED: ePHEDrine sulfate 50 MG/ML AMP ONE (11:50)
[2024-08-26] MEDS ORDERED: NALOXONE HCL 0.4 MG SYR IV PRN (12:15)
[2024-08-26] MEDS ORDERED: fentaNYL citrate 50 MCG/ML SDV IV PRN (12:15)
[2024-08-26] MEDS ORDERED: PROCHLORPERAZINE EDISYLATE 10 MG/2 ML VIAL IV PRN (12:15)
[2024-08-26] MEDS ORDERED: LACTATED RINGER'S 1,000 ML IV ONE (12:15)
[2024-08-26] MEDS ORDERED: ondansetron HCL 4 MG/2 ML VIAL IV PRN (12:15)
[2024-08-26] MEDS ORDERED: IBLOOD GLUCOSE TEST STRIP 1 EA TEST VI PRN (12:15)
[2024-08-26] MEDS ORDERED: HYDROmorphone HCL 1 MG/ML SYR IV PRN (12:15)
[2024-08-26] MEDS ORDERED: ACETAMINOPHEN 1,000 MG/100 ML VIAL ONE (12:49)
[2024-08-26] MEDS ORDERED: ASPIRIN325 MG PO (12:57)
[2024-08-26] MEDS ORDERED: DICLOFENAC SODI75 MG PO (12:58)
[2024-08-26] MEDS ORDERED: ACETAMINOPHEN500 MG PO (12:58)
[2024-08-26] MEDS ORDERED: SENNA LAX8.6 MG PO (12:58)
[2024-08-26] MEDS ORDERED: GABAPENTIN300 MG PO (12:58)
[2024-08-26] MEDS ORDERED: OXYCODONE HCL5 MG PO (12:58)
[2024-08-26] MEDS ORDERED: KETOROLAC TROMETHAMINE 30 MG/ML VIAL IV PRN (13:00)
[2024-08-26] MEDS ORDERED: OXYCODONE HCL 5 MG TAB PO PRN (13:00)
--- NOTE | 2024-08-26 13:29 | NUR ---
08/26/24 1329 [place] 1319: OXYGEN SATURATION REMAINS 100% ON 6L VIA MASK. OXYGEN IS DISCONTINUED @ THIS TIME.
--- NOTE | 2024-08-26 13:46 | NUR ---
1338-PT BACK TO ROOM FROM PACU ON . RECEIVED REPORT FROM MARI SINGH. PT IS DROWSY. LAYING IN BED WITH EYES CLOSED. ANSWERES QUESTIONS. PT DENIES PAIN AND NAUSEA. CRYO CUFF IN PLACE AND RUNNING, ON-Q PUMP SET AT 4. PROVIDED PT WITH WATER. DECLINES SNACK AT THIS TIME. NO OTHER NEEDS AT THIS TIME. CALL LIGHT WITHIN REACH.
[2024-08-26] MEDS ORDERED: TRANEXAMIC ACID IN NACL,ISO-OS 1,000 MG/100 ML PIGGYBACK IV SCH (14:00)
[2024-08-26] MEDS ORDERED: ACETAMINOPHEN 500 MG TAB PO SCH (15:00)
[2024-08-26] MEDS ORDERED: GABAPENTIN 300 MG CAP PO SCH (15:00)
[2024-08-26] MEDS ORDERED: PROCHLORPERAZINE EDISYLATE 10 MG/2 ML VIAL IV ONE (15:30)
--- NOTE | 2024-08-26 15:38 | NUR ---
LE 1443-PT LAYING IN BED WITH EYES CLOSED. OPENS EYES WITH VERBAL STIMULI. RESP EVEN AND UNLABORED. SPINAL HAS RESOLVED. DENIES PAIN. C/O NAUSEA. CRYO CUFF IN PLACE AND RUNNING. ON-Q PUMP SET AT 4. LE 1455-PC TO ADELE CUTLER WITH AN UPDATE. NEW ORDERS RECEIVED. LE 1500-ZOFRAN GIVEN PER EMAR. RESTARTED LR. IV WNL. LE 1515-PT HAVING NAUSEA AND VOMITING. LE 1529-COMPAZINE GIVEN PER EMAR. LE 1535- PT STATES SHE IS FEELING BETTER.
--- NOTE | 2024-08-26 16:11 | NUR ---
LE 1550-PT IS DROWSY. RESP EVEN AND UNLABORED. RATES PAIN 5/10 AND POINTS TO LATERAL PART OF R KNEE. DENIES NAUSEA. PT EATING CRACKERS AND DRINKING WATER. CRYO CUFF IN PLACE AND RUNNING. ON-Q PUMP SET AT 4. AT BEDSIDE. CALL LIGHT WITHIN REACH. LE 1556-PAIN MEDICATION GIVEN PER EMAR. LE 1600-PHYSICAL THERAPY IN PT'S ROOM.
--- NOTE | 2024-08-26 16:56 | NUR ---
1630-PT BACK TO ROOM FROM PHYSICAL THERAPY. PT DID NOT PASS PHYSICAL THERPAY. 1648-PC TO DR. BALBUENA WITH [facility].
--- NOTE | 2024-08-26 17:04 | NUR ---
PT LAYING IN BED WITH EYES CLOSED. PT OPENS EYES WITH VERBAL STIMULI. RESP EVEN AND UNLABORED. PT RATES PAIN 1/10. DENIES NASUEA. CRYO CUFF IN PLACE AND RUNNING. ON-Q PUMP SET AT 4. IN ROOM WITH PT. NO OTHER NEEDS AT THIS TIME. CALL LIGHT WITHIN REACH.
--- NOTE | 2024-08-26 17:38 | NUR ---
PATIENT TO MED SURG ROOM 112 AT 1730. PATIENT WAS ABLE TO SCOOT OVER FROM GURNEY TO BED. PATIENT IS ON ROOM AIR 96%, VITALS ARE STABLE. RIGHT KNEE DRESSING IS CDI, COVERED WITH EMILY AND CRYO CUFF TO SITE. ONQ PUMP IS PRESENT, PATIENT RATES RIGHT KNEE PAIN 1/10. BED ALARM IS ON, PATIENT IS VERY SLEEPY, IS AROUSABLE TO ANSWER QUESTIONS, THEN FALLS QUICKLY BACK TO SLEEP. ASSESMENT COMPLETE.
--- NOTE | 2024-08-26 17:42 | NUR ---
1730-PT TO [facility]. PT MOVESELF TO BED. BED RAILS UP. REPORT GIVEN TO RN. NO OTHER NEEDS AT THIS TIME.
--- NOTE | 2024-08-26 18:53 | NUR ---
PATIENT IS SLEEPING, REGULAR RESPIRATIONS, O2 SATS ARE 93% ON ROOM AIR.
--- NOTE | 2024-08-26 19:32 | NUR ---
REPORT RECEIVED FROM DAY SHIFT RN. PT LYING IN BED RESTING WITH EYES CLOSED. RESPIRATIONS EVEN. SpO2 93% ON RA. HR 60'S. BED ALARM FOR SAFETY. CALL LIGHT IN REACH. WHITE BOARD UPDATED.
--- NOTE | 2024-08-26 20:05 | NUR ---
2 pa GETTING UP TO THE COMMODE. PATIENT VOIDED 200ML YELLOW URINE. 1 PA BACK TO BED. PATIENT WENT BACK TO SLEEP RIGHT AWAY. SCD'S CPOX AND CRYO ARE BACK ON. BED ALARM ON FOR SAFETY.
--- NOTE | 2024-08-26 20:52 | NUR ---
PT RESTING WITH EYES CLOSED. AWAKENS TO VOICE. EVENING ASSESSMENT COMPLETE. SCHEDULED MEDS ADMIN PER EMAR. PT DENIES PAIN OR NAUSEA. CMS RLE INTACT. DRESSING CDI. ON-Q PUMP INFUSING AT 4ML/HR. SCD'S/TEDS/HP IN PLACE. FRESH ICE IN CRYO. PT REPORTS BLADDER FEELING FULL. BLADDER SCANNED FOR 690 ML. NOTIFIED. NEW TELEPHONE ORDERS RECEIVED VERIFIED WITH READBACK METHOD. CPOX IN PLACE. PT DENIES QUESTIONS OR CONCERNS. CALL LIGHT IN REACH.
[2024-08-26] MEDS ORDERED: ASPIRIN 325 MG TAB PO SCH (21:00)
[2024-08-26] MEDS ORDERED: SENNOSIDES 1 TAB PO SCH (21:00)
[2024-08-26] MEDS ORDERED: TAMSULOSIN HCL 0.4 MG CAP PO ONE (21:00)
--- NOTE | 2024-08-26 23:14 | NUR ---
PT RESTING WITH EYES CLOSED. AWAKENS EASILY. UP TO BSC WITH 1PA AND FWW TO VOID 200 ML CLEAR YELLOW URINE. BACK TO BED, AGUSTIN WELL. GAIT STEADY. PT DENIES URINARY DISCOMFORT AT THIS TIME. SCD'S/TEDS/CPOX IN PLACE. FRESH ICE TO CRY. ICE TEA PROVIDED FOR HEADACHE. NO FURTHER NEEDS. BED ALARM FOR SAFETY. CALL LIGHT IN REACH.
[2024-08-27 01:37] VITALS: BP 115/67
[2024-08-27 01:45] VITALS: BP 115/67
--- NOTE | 2024-08-27 01:53 | NUR ---
PT AWAKE IN BED ON PHONE. UP TO BSC WITH FWW AND SBA TO VOID 400 ML CLEAR YELLOW URINE. BACK TO BED, AGUSTIN WELL. GAIT STEADY. PT DENIES URINARY DISCOMFORT OR FEELINGS OF RETENTION. PT DENIES PAIN OR NAUSEA. SNACK PROVIDED. ASSESSMENT UNCHANGED. PT DENIES FURTHER NEEDS. BED ALARM FOR SAFETY. CALL LIGHT IN REACH.
--- NOTE | 2024-08-27 03:43 | NUR ---
PT IN BED RESTING WITH EYES CLOSED. RESPIRATIONS EVEN. CALL LIGHT IN REACH.
[2024-08-27 05:40] VITALS: BP 103/60
[2024-08-27 05:42] VITALS: BP 103/60
--- NOTE | 2024-08-27 05:45 | NUR ---
CALL LIGHT ANSWERED. PT UP TO BSC WITH FWW AND SBA TO VOID 400 ML YELLOW URINE. PT ABLE TO DO OWN GRACE CARE. GAIT STEADY. BACK TO BED, AGUSTIN WELL. PT DENIES PAIN OR NAUSEA. SCD'S/TEDS/HP IN PLACE. FRESH ICE TO CRYO. PT DENIES FURTHER NEEDS. BED ALARM FOR SAFETY. CALL LIGHT IN REACH.
--- NOTE | 2024-08-27 06:57 | NUR ---
PT UP TO BSC WITH 1PA AND FWW TO VOID 550 ML. PT ABLE TO DO OWN GRACE CARE. GAIT STEADY. BACK TO BED, AGUSTIN WELL. NO FURTHER NEEDS. CALL LIGHT IN REACH.
--- NOTE | 2024-08-27 07:05 | NUR ---
REPORT REC'D FROM TRISTON. PT RESTING IN BED, BOBBI IN USE
--- NOTE | 2024-08-27 07:45 | NUR ---
PT IN THERAPY ROOM WORKING WITH PT
[2024-08-27] MEDS ORDERED: DICLOFENAC SOD 75 MG TABEC PO SCH (08:00)
--- NOTE | 2024-08-27 08:00 | NUR ---
UR CLINICAL REVIEW: [facility]- MEET SHORT STAY CRITERIA FOR KNEE ARTHROPLASTY [facility] EXTENDED STAY 08/26/24 @ 1651 ORDER MATCHES REG NO AUTH REQUIRED PER GUIDELINES DISCHARGE TO STABLE FOR DISCHARGE 08/28/24
--- NOTE | 2024-08-27 09:01 | NUR ---
PATIENT IN BED WAITING FOR BREAKFAST. CALL LIGHT WITH IN REACH. NOTHING ELSE NEEDED AT THIS TIME.
[2024-08-27 09:13] VITALS: BP 121/61
--- NOTE | 2024-08-27 09:15 | NUR ---
PATIENT IN BED AT THIS TIME. RELAY RECORD CLERK ASSISTED PATIENT TO BEDSIDE COMMODE THEN BACK TO BED. RELAY RECORD CLERK CHARTED VITALS AND I&O'S. CALL LIGHT WITHIN REACH. NOTHING ELSE NEEDED AT THIS TIME.
[2024-08-27] MEDS ORDERED: MUPIROCIN22 GM TOP (09:29)
[2024-08-27] MEDS ORDERED: POTASSIUM GLUCO99 MG PO (09:29)
--- NOTE | 2024-08-27 09:30 | NUR ---
MED REC COMPLETE
--- NOTE | 2024-08-27 09:40 | NUR ---
In and spoke with pt. She is getting ready to leave. She denies any needs. They live in town and have all the DME they need. is with her and has her belongings. Home with spouse.
--- NOTE | 2024-08-27 10:28 | NUR ---
IV TAKEN OUT UPON RN REQUEST. CATH INTACT AND LOOKED GOOD, RN NOTIFIED. PATIENT DRESSED WITH HUSBANDS ASSIST. CALL LIGHT IN REACH. NO FURTHER NEEDS AT THIS TIME.
[2024-08-27 10:30] VITALS: BP 121/61
--- NOTE | 2024-08-28 07:07 | OR ---
[facility] [address], [place] [address] Signed DATE OF OPERATION: 08/26/2024 SURGEON: Marj Blanc MD PREOPERATIVE DIAGNOSIS: Severe degenerative joint disease right knee. POSTOPERATIVE DIAGNOSIS: Severe degenerative joint disease right knee. PROCEDURE PERFORMED: Right total knee arthroplasty with Errol. CLOTH SHRINKING MACHINE OPERATOR: Malina Lugo PA-C. Malina was present and critical for all portions of the procedure. ANESTHESIA: Spinal. BLOOD LOSS: 176 mL. IMPLANTS: Miguelina Triathlon size 3 10 mm polyethylene, 32 mm patella. BRIEF HISTORY: Steve is a 59-year-old female with progressive worsening of bilateral osteoarthritis. She had undergone left total knee with good success and wished to proceed with the right. The risks, benefits, and alternatives were discussed and she understands and wished to proceed. PROCEDURE IN DETAIL: Once consent was obtained, she was taken to the operating room after adequate anesthesia. She was placed on the operating room table. Hip bump was placed. The leg was prepped and draped in a standard sterile fashion. The knee was approached through standard anterior midline incision. A low mid vastus arthrotomy was performed. The infrapatellar fat pad was excised. The MCL was elevated as a sleeve around the posteromedial corner. The anterior horns of menisci were transected as was the ACL. The PCL was found to be intact. The navigation computer arrays were then placed in the Electronically Signed By: MARJ BLANC MD 08/28/24 0707 PATIENT NAME: STEVE CATRER OPERATIVE REPORT DATE OF : 61 REPORT #: [id number] PHYSICIAN: MARJ BLANC MD PCP: MALVIN TORRE MD REPORT IS CONFIDENTIAL AND NOT TO BE RELEASED WITHOUT AUTHORIZATION [facility] [address], [place] [address] Signed distal femur and proximal tibia. The leg was then registered with computer, followed by the fine anatomic points of the knee. The four ligamentous poses were undertaken and slight adjustments were made to the prosthesis planned. The robot was then brought in. The four straight cuts and two angle cuts were made with care taken to protect the patellar tendon and MCL. The bony remnants were removed as were the remaining osteophytes. There were no significant posterior osteophytes. The meniscus was removed on both sides. The trials were then positioned, knee was taken through range of motion and found to be stable from 0-130 degrees. The patella tracked well. The patella was cut sized and drilled for a 32 patella. The distal femoral drill holes were completed. The proximal tibia was completed using the keel punch, followed by the drill. The prosthesis was obtained. The tibia was impacted into position until it was flushed. Polyethylene was snapped into position and the femur was impacted. The knee was extended and loaded. The patella was clamped into position and well-seated. The periarticular soft tissue was injected with 100 mL ropivacaine and Toradol mixture. The knee was irrigated with Surgiphor, followed by normal saline. The On-Q pain pump was percutaneously placed into the adductor canal from the suprapatellar pouch. The arthrotomy was then closed using #2 FiberWire and #2 StrataFix, subcutaneous tissue with 0-Stratafix and the skin with 3-0 Stratafix. The wound was sealed with LiquiBand and Steri-Strips and dressed with Acticoat-7 dressing, ABDs, and Devon wrap. She tolerated the procedure well. All sponge, needle, and instrument counts were correct. Marj Blanc MD BA/MODL /[id number] Copies: ~ Electronically Signed By: MARJ BLANC MD 08/28/24 0707 PATIENT NAME: STEVE CARTER OPERATIVE REPORT DATE OF : 61 REPORT #: [id number] PHYSICIAN: MARJ BLANC MD PCP: MALVIN TORRE MD REPORT IS CONFIDENTIAL AND NOT TO BE RELEASED WITHOUT AUTHORIZATION
== END 2024-08-27 10:40 | disposition home or self-care (01) ==
LOC: DS 08:53 → MS 17:00 → DS 08-27 10:40
PROVIDERS: ATTEND Specialist
PROC: 0SRC0JZ Replacement of Right Knee Joint with Synthetic Substitute, Open Approach (ICD-10-PCS; principal; 2024-08-26 11:30)
DX: M17.0 Bilateral primary osteoarthritis of knee (principal)
CPT/HCPCS: 01400; 51798; 64447; 64450; 64454; 73560; 76942; 97110; 97161; 97530; A9270; C1713; C1776; J0131; J0780; J1100; J2003; J2250; J2405; J2704; J2795; J3370; J7060; J7121; J7999

== ENCOUNTER 2024-12-12 17:16 | Emergency (ER) | payer BC ==
[~2024-12-12] VITALS: Ht 167.6 cm; Wt 69.5 kg
[~2024-12-12 17:16] MED LIST changes: +ACETAMINOPHEN500 MG PO; +ASPIRIN325 MG PO; -GABAPENTIN 600 MG TAB PO SCH; +GABAPENTIN300 MG PO; -IBLOOD GLUCOSE TEST STRIP 1 EA TEST VI PRN; -INTRA-ARTICULAR ANALGESIC INJECTION XX SCH; -LACTATED RINGER'S 1,000 ML IV SCH; -LIDOCAINE HCL 1% 5 ML SDV INJ ONE; +MUPIROCIN22 GM TOP; -OXYCODONE HCL 5 MG TAB PO SCH; -PANTOPRAZOLE SODIUM 40 MG TABEC PO SCH; +POTASSIUM GLUCO99 MG PO; -ROPIVACAINE IN 0.9% SOD CHL/PF 545 ML ELS.PMP.HR IRRIGATION SCH; -Ropivacaine HCl 20 MG/10 ML AMP ONE; -TRANEXAMIC ACID IN NACL,ISO-OS 1,000 MG/100 ML PIGGYBACK IV SCH; -VANCOMYCIN HCL 1,000 MG in DEXTROSE 5% 250 ML IV SCH; -ondansetron HCL 4 MG TAB PO SCH
--- OUTSIDE RECORDS SUMMARY | 2024-12-12 17:24 | XMS ---
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 ENoel VISIT COUNT (12 MO.) 2 ROBERTO CARLOS [facility] TOTAL 2 NOTE: Visits indicate total known visits. ED/UCC VISIT TRACKING (12 MO.) 12/12/2024 17:17 [facility] [place] TYPE: Emergency COMPLAINT: - HEADACHE, DIZZY, NAUSEA 09/30/2024 17:39 [facility] [place] TYPE: Emergency COMPLAINT: - TROUBLE BREATHING INPATIENT VISIT TRACKING (12 MO.) No inpatient visits to display in this time frame [email or web address]
[2024-12-12] MEDS ORDERED: KETOROLAC TROMETHAMINE 30 MG/ML VIAL IV ONE (19:45)
[2024-12-12] MEDS ORDERED: diphenhydrAMINE HCL 50 MG/ML VIAL IV ONE (19:45)
[2024-12-12] MEDS ORDERED: SUMAtriptan succinate 6 MG/0.5 ML VIAL SUB-Q ONE (19:45)
[2024-12-12 19:55] LABS: BASOPHILS 0.9 % (0.1-1.2); EOSINOPHILS 0.7 % (0.7-5.8); HEMATOCRIT 41.7 % (34.1-44.9); HEMOGLOBIN 13.6 g/dL (11.2-15.7); LYMPHOCYTES 13.2 % (19.3-51.7); MCH 29.8 PG (25.6-32.2); MCHC 32.6 g/dL (32.2-35.5); MCV 91.4 fL (79.4-94.8); MONOCYTES 4.5 % (4.7-12.5); NEUTROPHILS 80.5 % (34.0-71.1); PLATELET COUNT 230 K/uL (182-369); RBC 4.56 M/uL (3.93-5.22)
[2024-12-12 19:56] LABS: BILIRUBIN, URINE POSITIVE (negative); BLOOD/HGB, URINE NEGATIVE (Negative); KETONE, URINE SMALL (Negative); LEUK ESTERASE, URINE NEGATIVE (negative); NITRITE, URINE NEGATIVE (negative); PH, URINE 5.5 (5-7)
[2024-12-12] MEDS ORDERED: PROCHLORPERAZINE EDISYLATE 10 MG/2 ML VIAL IV ONE (20:00)
[2024-12-12] MEDS ORDERED: SODIUM CHLORIDE 0.9% 1,000 ML IV ONE (20:00)
[2024-12-12 20:05] LABS: ALBUMIN 3.8 g/dL (3.4-5.0); ALBUMIN/GLOBULIN RATIO 1.15 (1.1-2.4); ANION GAP 10.7 (7-21); BILIRUBIN, TOTAL 0.7 mg/dL (0.2-1.0); BUN/CREATININE RATIO 20.96 (6.0-28.6); CALCIUM 9.3 mg/dL (8.5-10.1); CREATININE, SERUM 0.62 mg/dL (0.55-1.02); POTASSIUM 3.7 mmol/L (3.5-5.1); PROTEIN, TOTAL 7.1 g/dL (6.4-8.2)
[2024-12-12] MEDS ORDERED: ONDANSETRON ODT8 MG PO (21:04)
[2024-12-12] MEDS ORDERED: ONDANSETRON 4 MG HOME.PACK SL ONE (21:15)
[2024-12-12 21:22] VITALS: BP 117/72
== END 2024-12-12 21:22 | disposition home or self-care (01) ==
LOC: ED 17:16
PROVIDERS: Family Medicine
DX: G43.909 Migraine, unspecified, not intractable, without status migrainosus (principal); Z88.5 Allergy status to narcotic agent; Z88.8 Allergy status to other drugs, medicaments and biological substances; Z96.652 Presence of left artificial knee joint; Z79.82 Long term (current) use of aspirin; Z79.899 Other long term (current) drug therapy; Z79.84 Long term (current) use of oral hypoglycemic drugs
CPT/HCPCS: 36415; 80053; 81003; 83735; 85025; 96361; 96374; 96375; 99284-25; A9270; J0780; J1200; J1885; J3030; J7030

== ENCOUNTER 2025-07-12 18:25 | Emergency (ER) | payer BC ==
[~2025-07-12] VITALS: Ht 167.6 cm; Wt 69.5 kg
[~2025-07-12 18:25] MED LIST changes: +ONDANSETRON ODT8 MG PO
--- OUTSIDE RECORDS SUMMARY | 2025-07-12 18:32 | XMS ---
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 ENoel VISIT COUNT (12 MO.) 3 ROBERTO CARLOS Howell TOTAL 3 NOTE: Visits indicate total known visits. ED/UCC VISIT TRACKING (12 MO.) 07/12/2025 18:26 [facility] [place] TYPE: Emergency COMPLAINT: - EYE ISSUES 12/12/2024 17:17 [facility] [place] TYPE: Emergency COMPLAINT: - HEADACHE, DIZZY, NAUSEA DIAGNOSES: - Allergy status to narcotic agent - Allergy status to other drugs, medicaments and biological substances - Headache, unspecified - [facility] (current) use of aspirin - [facility] (current) use of oral hypoglycemic drugs - Migraine, unspecified, not intractable, without status migrainosus - Other residential (current) drug therapy - Presence of left artificial knee joint 09/30/2024 17:39 [facility] [place] TYPE: Emergency COMPLAINT: - TROUBLE BREATHING INPATIENT VISIT TRACKING (12 MO.) No inpatient visits to display in this time frame [email or web address]
[2025-07-12 20:14] VITALS: BP 128/86
== END 2025-07-12 20:15 | disposition home or self-care (01) ==
LOC: ED 18:25
DX: H11.31 Conjunctival hemorrhage, right eye (principal); Z88.8 Allergy status to other drugs, medicaments and biological substances; Z88.5 Allergy status to narcotic agent; Z79.899 Other long term (current) drug therapy; Z79.82 Long term (current) use of aspirin
CPT/HCPCS: 99283